=== PATIENT | male | born 1930 | race Caucasian/White ===

== ENCOUNTER 2016-04-15 13:35 | Outpatient (CLI) | payer MEDICARE, MEDICAID | END 2016-04-15 13:36 | disposition home or self-care (01) | DX: I25.10 Atherosclerotic heart disease of native coronary artery without angina pectoris (principal); I51.9 Heart disease, unspecified ==

== ENCOUNTER 2016-10-23 14:56 | Outpatient (CLI) | payer MEDICARE, MEDICAID ==
--- NOTE | 2016-10-23 15:48 | XRAY Report ---
TWO VIEW CHEST: 10/23/2016 CLINICAL INDICATION: Chronic cough. AP and lateral views of the chest demonstrate changes of previous cardiac surgery. The lungs are [place] ar. No effusion or pneumothorax is present. Interstitial opacities previously seen on chest CT and plain film of 02/28/2014 have resolved. IMPRESSION: CHANGES OF PREVIOUS CARDIAC SURGERY. NO EVIDENCE OF ACUTE CARDIOPULMONARY DISEASE. JOB #: [id number] EXT JOB #:[id number]
== END 2016-10-23 14:57 | disposition home or self-care (01) ==
LOC: DI.N 14:56
PROVIDERS: ATTEND Physician Assistant
DX: R05 Cough (principal)
CPT/HCPCS: 71020

== ENCOUNTER 2017-09-24 14:40 | Observation (INO) | payer MEDICARE, MEDICAID ==
--- NOTE | 2017-09-24 17:07 | CT Report ---
Procedure Date: 09/24/2017 Accession Number: [id number] / [id number] Procedure: CT - Head W/O CPT Code: FULL RESULT: EXAM: CT HEAD EXAM DATE: 09/24/2017 04:51 PM. CLINICAL HISTORY: Right leg weakness. COMPARISON: None. TECHNIQUE: Multiaxial CT images were obtained from the foramen magnum to the vertex. Reformats: Sagittal and coronal. IV contrast: None. In accordance with CT protocol optimization, one or more of the following dose reduction techniques were utilized for this exam: automated exposure control, adjustment of mA and/or KV based on patient size, or use of iterative reconstructive technique. FINDINGS: Parenchyma: No intraparenchymal hemorrhage. No evidence of mass, midline shift, or CT findings of acute infarction. Maria-white differentiation is distinct. Diffuse chronic microangiopathic white matter changes are evident. Extraaxial Spaces: Normal for age. No subdural or epidural collections identified. Ventricles: The ventricles and cortical sulci are enlarged, consistent with age-related tissue loss. Sinuses and orbits: No acute findings. Chronic appearing depression of the left anterior maxillary wall. Bones: No evidence of fracture or calvarial defect. IMPRESSION: Generalized age-related cortical atrophic changes without evidence of acute intracranial abnormality. See above. RADIA
--- NOTE | 2017-09-24 17:59 | ED Physician Documentation ---
History of Present Illness - Stated complaint Stated Complaint: R LEG NUMBNESS - Chief complaint Chief Complaint: Ext Problem - History obtained from History obtained from: Patient, Family - History of Present Illness Timing: Today, How many hours ago (6) Pain level max: 0 Pain level now: 0 Improved by: nothing Worsened by: nothing - Additonal information Additional information: States R leg feels heavy and trouble walking. No other symptoms. No dysarthria, no aphasia. No facial numbness or tingling. No difficulty with the arms. States he is concerned that he may have a DVT. No headache. No recent travel. No chest pain or shortness of breath. Review of Systems Ten Systems: 10 systems reviewed and negative Constitutional: denies: Fever, Chills Ears: denies: Ear pain Nose: denies: Rhinorrhea / runny nose, Congestion Throat: denies: Sore throat Cardiac: denies: Chest pain / pressure Respiratory: denies: Cough GI: denies: Abdominal Pain, Nausea, Vomiting : denies: Dysuria Skin: denies: Rash Musculoskeletal: denies: Neck pain, Back pain Neurologic: denies: Confused, Altered mental status, Headache, Head injury, LOC PD PAST MEDICAL HISTORY - Past Medical History Past Medical History: Yes Cardiovascular: [place] Endocrine/Autoimmune: Type 2 diabetes - Past Surgical History Past Surgical History: Yes Cardiovascular: Coronary stent - Present Medications Home Medications: Ambulatory Orders Medication Instructions Recorded Confirmed Aspirin 81 mg PO DAILY 09/24/17 09/24/17 Atorvastatin [Lipitor] 20 mg PO DAILY PM 09/24/17 09/24/17 Chlorthalidone 25 mg PO DAILY 09/24/17 09/24/17 Furosemide [Lasix] 40 mg PO DAILY 09/24/17 09/24/17 Insulin NPH Human [NovoLIN N] 50 unit SUBQ BID 09/24/17 09/24/17 Losartan Potassium 25 mg PO DAILY 09/24/17 09/24/17 Metoprolol Tartrate [Lopressor] 50 mg PO BID 09/24/17 09/24/17 Potassium Chloride [Micro-K] 10 meq PO DAILY 09/24/17 09/24/17 - Allergies Allergies/Adverse Reactions: Allergies Allergy/AdvReac Type Severity Reaction Status Date / Time No Known Drug Allergies Allergy Verified 09/24/17 14:47 - Social History Does the pt smoke?: No Smoking Status: Never smoker Does the pt drink ETOH?: Yes Does the pt have substance abuse?: No - Immunizations Immunizations are current?: Yes - POLST Patient has POLST: No PD ED PE NORMAL - Vitals Vital signs reviewed: Yes - General General: Alert and oriented X 3, No acute distress - HEENT HEENT: Moist mucous membranes - Neck Neck: Supple, no meningeal sign - Cardiac Cardiac: RRR, Strong equal pulses - Respiratory Respiratory: No respiratory distress, Clear bilaterally - Abdomen Abdomen: Soft, Non tender, Non distended - Back Back: No spinal TTP - Derm Derm: Warm and dry - Extremities Extremities: No edema, No calf tenderness / cord - Neuro Neuro: Alert and oriented X 3, animal rehabilitator 2-12 intact Eye Opening: Spontaneous Motor: Obeys Commands Verbal: Oriented GCS Score: 15 - Psych Psych: Normal mood, Normal affect Results - Vitals Vitals: Vital Signs - 24 hr 09/24/17 14:43 Temperature 36.3 C L Heart Rate 70 Respiratory 16 Rate Blood Pressure 130/57 L O2 Saturation 96 Oxygen O2 Source Room air - EKG (time done) 1658 Rate: Rate (enter#) (69) Rhythm: NSR [place]: Normal Intervals: Normal MO QRS: Normal Ischemia: Normal ST segments, Q waves (II, III, aVF) Computer interpretation: Agree with computer - Labs Labs: Laboratory Tests 09/24/17 09/24/17 09/24/17 15:51 18:02 18:02 WBC 11.2 H RBC 4.34 L Hgb 13.5 L Hct 40.9 L MCV 94.3 H MCH 31.1 H MCHC 33.0 RDW 12.9 Plt Count 183 MPV 10.3 Neut # (Auto) 7.6 H Lymph # (Auto) 2.3 [place] # (Auto) 1.1 H Eos # (Auto) 0.1 Baso # (Auto) 0.0 Absolute Nucleated RBC 0.00 Nucleated RBC % 0.0 Sodium 136 Potassium 3.7 Chloride 99 L Carbon Dioxide 27 Anion Gap 10.0 BUN 49 H Creatinine 1.8 H Estimated GFR (MDRD) 36 L Glucose 219 H Calcium 8.9 Total Bilirubin 0.8 AST 24 ALT 22 Alkaline Phosphatase 117 Total Protein 7.8 Albumin 4.0 Globulin 3.8 Albumin/Globulin Ratio 1.1 Lipase 39 Urine Color YELLOW Urine Clarity CLEAR Urine pH 6.0 Ur Specific [place] 1.010 Urine Protein NEGATIVE Urine Glucose (UA) 250 H Urine Ketones NEGATIVE Urine Occult Blood TRACE-INTA Urine Nitrite NEGATIVE Urine Bilirubin NEGATIVE Urine Urobilinogen 0.2 (NORMAL) Ur Leukocyte Esterase NEGATIVE Ur Microscopic Review NOT INDICATED Urine Culture Comments NOT INDICATED - Rads (name of study) head CT Radiology: Prelim report reviewed, EMP read contemporaneously, See rad report ( Generalized age-related cortical atrophic changes without evidence of acute intracranial abnormality.) R leg duplex US Radiology: Prelim report reviewed, EMP read contemporaneously, See rad report ( No DVT) PD MEDICAL DECISION MAKING - ED course Complexity details: reviewed results, re-evaluated patient, considered differential, d/w patient, d/w family, d/w lactation consultant ED course: Patient is an 87-year-old male with unilateral leg weakness. He does have weakness on extension and flexion at the knee as well as raising the leg from a seated position indicating quadriceps weakness. Has good plantar flexion of the right foot. Mildly decreased dorsiflexion. No acute findings on head CT. No evidence of DVT. Unclear etiology, possible stroke? Possible spinal cord lesion? Will place the patient in the hospital for MRI in the morning of at least the head if not the spine as well. Discussed the case with Dr. Esquivel, hospitalist who accepts. This document was made in part using voice recognition software. While efforts are made to proofread this document, sound alike and grammatical errors may occur. - Sepsis Event Vital Signs: Vital Signs - 24 hr 09/24/17 14:43 Temperature 36.3 C L Heart Rate 70 Respiratory 16 Rate Blood Pressure 130/57 L O2 Saturation 96 Oxygen O2 Source Room air Departure - Departure Disposition: ED Place in Observation Clinical Impression: Right leg weakness Condition: Stable Discharge Date/Time: 09/24/17 21:25 NIHSS - Time Time: 16:20 - Level of Consciousness Level of consciousness: (0) Alert, Keenly responsive LOC Questions: (0) Answers both Q's correct LOC Commands: (0) Performs both correctly - Gaze Best Gaze: (0) Normal - Visual Visual: (0) No loss - Facial Palsy Facial Palsy: (0) Normal, symmetrical movement - Motor Arms (both separate) Motor Arm (right): (0) No drift Motor Arm (left): (0) No drift - Motor Legs (both separate) Motor Leg (right): (1) Drift Motor Leg (left): (0) No drift - Limb Ataxia Limb Ataxia: (0) Absent - Sensory Sensory: (0) Normal - Best Language Best Language: (0) No aphasia - Dysarthria Dysarthria: (0) Normal - Extinction and Inattention (formally neg Extinction and inattention: (0) No abnormality - Total Score/Results Total Score/Result: 1
[2017-09-24 18:16] LABS: BASOPHILS % (AUTO) 0.4 %; EOSINOPHILS # (AUTO) 0.1 10^3/uL (0.0-0.7); EOSINOPHILS % (AUTO) 1.1 %; HGB - HEMOGLOBIN 13.5 g/dL (14.0-18.0); LYMPHOCYTES # (AUTO) 2.3 10^3/uL (1.5-3.5); LYMPHOCYTES % (AUTO) 20.9 %; MEAN CORPUSCULAR HEMOGLOBIN 31.1 pg (27.0-31.0); MEAN CORPUSCULAR VOLUME 94.3 fL (80.0-94.0); MEAN PLATELET VOLUME 10.3 fL (7.4-11.4); MONOCYTES # (AUTO) 1.1 10^3/uL (0.0-1.0); MONOCYTES % (AUTO) 9.7 %; NEUTROPHILS # (AUTO) 7.6 10^3/uL (1.5-6.6); NEUTROPHILS % (AUTO) 67.9 %; PLT - PLATELET COUNT 183 10^3/uL (130-450); RED BLOOD COUNT 4.34 10^6/uL (4.70-6.10); RED CELL DISTRIBUTION WIDTH 12.9 % (12.0-15.0); WHITE BLOOD COUNT 11.2 x10^3/uL (4.8-10.8)
--- NOTE | 2017-09-24 18:20 | Ultrasound Report ---
Procedure Date: 09/24/2017 Accession Number: [id number] / [id number] Procedure: US - Duplex Ext Veins Right CPT Code: FULL RESULT: EXAM: RIGHT LOWER EXTREMITY VENOUS ULTRASOUND EXAM DATE: 09/24/2017 05:16 PM. CLINICAL HISTORY: R LE weakness. COMPARISON: None. TECHNIQUE: Real-time sonographic vascular imaging was performed by the water pollution scientist through the lower extremity utilizing both color-flow and Doppler spectral analysis. Multiple apprenticeship training representative static images were saved for review. FINDINGS: Common Femoral Vein (CFV): Normal. CFV-GSV Junction: Normal. Profunda Femoral Vein (PFV): Normal. Femoral Vein (FV) Prox: Normal. Femoral Vein (FV) Mid: Normal. Femoral Vein (FV) Dist: Normal. Popliteal Vein: Normal. Posterior Tibial Veins: Normal. Peroneal Veins: Normal. Other: None. IMPRESSION: No evidence for deep venous thrombosis. RADIA
[2017-09-24 18:31] LABS: ALBUMIN/GLOBULIN RATIO 1.1 (1.0-2.2); BILIRUBIN,TOTAL 0.8 mg/dL (0.2-1.0); CALCIUM 8.9 mg/dL (8.5-10.3); CREATININE 1.8 mg/dL (0.6-1.2); TOTAL PROTEIN 7.8 g/dL (6.7-8.2)
[2017-09-24 18:36] LABS: BILIRUBIN,URINE NEGATIVE (NEGATIVE); GLUCOSE, URINE (UA) 250 mg/dL (NEGATIVE); KETONES,URINE (UA) NEGATIVE (NEGATIVE); LEUKOCYTE ESTERASE, URINE NEGATIVE (NEGATIVE); NITRITE,URINE NEGATIVE (NEGATIVE); OCCULT BLOOD,URINE TRACE-INTA (NEGATIVE); PROTEIN,URINE NEGATIVE (NEGATIVE); UROBILINOGEN,URINE 0.2 (NORMAL) E.U./dL (NORMAL)
[2017-09-24 18:37] LABS: CLARITY,URINE CLEAR (CLEAR)
[2017-09-24] MEDS ORDERED: ASPIRIN CHEW 81 MG TABLET PO STA (19:33)
[2017-09-24] MEDS ORDERED: SODIUM CHLORIDE FLUSH 0.9% 10 ML SYRINGE IVP PRN (19:50)
[2017-09-24] MEDS ORDERED: ACETAMINOPHEN 325 MG TABLET PO PRN (19:50)
[2017-09-24] MEDS ORDERED: oxyCODONE 5 MG TABLET PO PRN (19:50)
[2017-09-24] MEDS ORDERED: PROCHLORPERAZINE 10 MG/2 ML VIAL IVP PRN (19:50)
[2017-09-24] MEDS ORDERED: ZOLPIDEM 5 MG TABLET PO PRN (19:50)
[2017-09-24] MEDS ORDERED: ONDANSETRON 4 MG/2 ML VIAL IVP PRN (19:50)
--- NOTE | 2017-09-24 20:00 | HISTORY & PHYSICAL EXAMINATION ---
Chief Complaint - Chief Complaint Chief Complaint: Right leg weakness History of Present Illness - Admitted From Admitted From:: Emergency Department - History Obtained From Records Reviewed: Yes History obtained from: Patient and patients daughter Exam Limitations: Patient was mostly Azerbaijani speaking therefore daughter provided history - History of Present Illness HPI Comment/Other: Patient is an 87-year-old Citizen Of [place] gentleman who is Azerbaijani-speaking with a past medical history significant for type 2 diabetes, coronary artery disease status post open heart surgery at [facility] in [place], hypertension, hyperlipidemia and CKD stage III who presents to the emergency department with a chief complaint of right leg weakness. The history is provided by the patient and his daughter. The patient states that around 9 or 10 this morning he tried to get up from his recliner but was having difficulty. He states that at that time he felt as though his right leg was extremely heavy and difficult to lift. The patient's daughter came over to the house a few hours later and the patient continued to have this weakness in his right leg. The daughter states that she noticed that when he tried to walk he was dragging his right leg. She states that she had the patient lift up his arms smile and he did not appear to have any focal deficits at that time. Given that he continues to have this feeling of heaviness in the right leg and appeared to be weak she brought him into the emergency department. The patient also states that he is having some numbness and tingling in that leg but denies any other symptoms. Patient denies any headaches, stiff neck, fevers, chills, back pain or pain in the right leg. Patient denies any runny nose, sore throat, nasal congestion, difficulty swallowing, chest pain, shortness of air, cough, orthopnea, PND, increased lower extremity swelling, abdominal pain, nausea, vomiting, diarrhea, constipation, urinary urgency, urinary frequency, dysuria, joint swelling, joint pain, muscle aches, recent unintentional weight loss, changes in his appetite, hair loss, skin changes, polyuria, polydipsia or any night sweats. On presentation to the emergency department the patient was afebrile and vital signs were within normal limits. The patient underwent routine lab work which revealed a mild leukocytosis of 11.2 and an elevated creatinine of 1.8 which appears to be near his baseline of between 1.5 and 1.6. The patient was also hyperglycemic with a glucose of 219. The remainder of the patient's electrolytes are within normal limits. The patient's UA was negative. The patient underwent a Doppler ultrasound of the right lower extremity which showed no evidence for DVT. The patient also underwent a CT of his head which showed generalized age-related cortical atrophic changes without evidence of acute intracranial abnormality. Given that on examination in the emergency department the patient continued to have this focal right leg weakness it was felt that the patient likely had a stroke or TIA therefore he was placed in observation for further workup. History - Past Medical History Cardiovascular: reports: [place] Endocrine/Autoimmune: reports: Type 2 diabetes : reports: Renal insuffiency (CKD stage 3) MRSA Hx?: No - Past Surgical History Cardiovascular: reports: Coronary stent - Family & Social History Family History: Mother: Alzheimer's Disease, Sister: Diabetes, Type 2, Brother: Alzheimer's Disease, Diabetes, Type 2 Living arrangement: At home Living Situation: Alone Social History Notes: The patient lives in [place]. He lives all alone and is completely independent with all his activities of daily living. The patient still enjoys singing and plays the [employer]. He is a very jovial person. His daughter lives nearby and visits all the time. The patient was born and raised in [place] and moved to [facility] when he was in his 30s. He then moved with his to [facility] 12 years ago to be closer to his daughter. He is now . The patient quit smoking about 30 years ago prior to that he smoked half a pack to a pack a day for about 20 years. The patient states that he occasionally drinks 3 beers. He denies any illicit drug use. - POLST Patient has POLST: No POLST Status: Full Code Meds/Allgy - Home Medications Home Medications: Ambulatory Orders Medication Instructions Recorded Confirmed Aspirin 81 mg PO DAILY 09/24/17 09/24/17 Atorvastatin [Lipitor] 20 mg PO DAILY PM 09/24/17 09/24/17 Chlorthalidone 25 mg PO DAILY 09/24/17 09/24/17 Furosemide [Lasix] 40 mg PO DAILY 09/24/17 09/24/17 Insulin NPH Human [NovoLIN N] 50 unit SUBQ BID 09/24/17 09/24/17 Losartan Potassium 25 mg PO DAILY 09/24/17 09/24/17 Metoprolol Tartrate [Lopressor] 50 mg PO BID 09/24/17 09/24/17 Potassium Chloride [Micro-K] 10 meq PO DAILY 09/24/17 09/24/17 - Allergies Allergies/Adverse Reactions: Allergies Allergy/AdvReac Type Severity Reaction Status Date / Time No Known Drug Allergies Allergy Verified 09/24/17 14:47 Review of Systems - Other Findings Other Findings: A comprehensive review of systems was performed the pertinent positives and negatives are stated above in the HPI and the remainder of the review of systems is negative. Exam - Vital Signs Reviewed Vital Signs: Yes Vital Signs: Vital Signs x48h Temp Pulse Resp BP Pulse Ox 09/24/17 14:43 36.3 C L 70 16 130/57 L 96 - Physical Exam General Appearance: positive: No acute distress, Alert Eyes Bilateral: positive: Normal inspection, PERRL, No lid inflammation, Conjunctivae nml, No scleral icterus ENT: positive: ENT inspection nml, Pharynx nml, No signs of dehydration. negative: Purulent nasal drainage, Pharyngeal erythema, Oral lesions Neck: positive: Nml inspection, Thyroid nml, No JVD, Trachea midline. negative : Thyromegaly, Lymphadenopathy (R), Lymphadenopathy (L), Stiff neck, Carotid bruit, Tracheal deviation Respiratory: positive: Chest non-tender, No respiratory distress, Breath sounds nml. negative: Wheezes, Rales, Rhonchi Cardiovascular: positive: Regular rate & rhythm, No murmur, No gallop Peripheral Pulses: positive: 2+ Abdomen: positive: Non-tender, No organomegaly, Nml bowel sounds, No distention. negative: Guarding, Rebound, Hepatomegaly Back: positive: Nml inspection. negative: CVA tenderness (R), CVA tenderness (L ) Skin: positive: Color nml, No rash, Warm, Dry. negative: Cyanosis, Diaphoresis , Pallor, Skin rash Extremities: positive: Non-tender, Full ROM, Nml appearance, Pedal edema (ankle edema) Neurologic/Psychiatric: positive: Oriented x3, CN's nml (2-12), Sensation nml, Mood/affect nml, Weakness (Mild right lower extremity weakness) Conclusion/Plan - Problem List (1) Right leg weakness Conclusion/Plan: Patient presented to the emergency department with right lower extremity weakness that started early on the morning. Patient was out of the window for TPA. Patient had no other focal neurologic deficits. Patient had a negative CT head. Patient has risk factors of age, hypertension, diabetes and coronary artery disease for stroke. Patient appears likely to have had a TIA or stroke. Plan: Aspirin Lipitor MRA head and neck MRI brain Echo Lipid profile [facility] PT eval (2) Hypertension Conclusion/Plan: Patient has history of hypertension and blood pressure slightly elevated on presentation. Given the possibility of ongoing stroke we will not restart any of the patient's home antihypertensive medications. Patient will be allowed to have permissive hypertension for the next 48 hours. We will continue to monitor the patient's blood pressure and if blood pressure does get to be greater than 190 systolic we will consider giving him antihypertensive medication. Qualifiers: Hypertension type: essential hypertension Qualified Code(s): I10 - Essential (primary) hypertension (3) Diabetes Conclusion/Plan: Patient has history of diabetes and presents with hyperglycemia. Patient is on NPH insulin at home. Plan: Patient will be placed on Lantus 30 units daily along with sliding scale insulin and diabetic diet. We will check the patient's hemoglobin A1c. We will check blood glucose before meals at bedtime. Qualifiers: Diabetes mellitus type: type 2 Diabetes mellitus complication status: with hyperglycemia (4) CKD (chronic kidney disease) stage 3, GFR 30-59 ml/min Conclusion/Plan: The patient has a history of chronic kidney disease stage III likely secondary to diabetes. The patient's creatinine ranges anywhere between 1.5 and 2.0. Today on presentation the patient's creatinine is 1.8. This is likely his baseline creatinine. We will give the patient IV fluids and monitor his creatinine. Will avoid any nephrotoxic agents. Patient will not undergo CT angiogram and we will do a MR angiogram of his brain to avoid contrast-induced nephropathy. (5) Hyperlipidemia Conclusion/Plan: Patient is a history of hyperlipidemia and is on Lipitor at home. While the patient is hospitalized we will increase his Lipitor dose to 80mg as he is likely having a stroke or TIA. Qualifiers: Hyperlipidemia type: unspecified Qualified Code(s): E78.5 - Hyperlipidemia , unspecified - Lab Results Lab results reviewed: Yes Fish Bones: 09/24/17 18:02 09/24/17 18:02 Other Lab Results: Laboratory Results WBC 11.2 x10^3/uL (4.8-10.8) H 09/24/17 18:02 RBC 4.34 10^6/uL (4.70-6.10) L 09/24/17 18:02 Hgb 13.5 g/dL (14.0-18.0) L 09/24/17 18:02 Hct 40.9 % (42.0-52.0) L 09/24/17 18:02 MCV 94.3 fL (80.0-94.0) H 09/24/17 18:02 MCH 31.1 pg (27.0-31.0) H 09/24/17 18: MCHC 33.0 g/dL (32.0-36.0) 09/24/17 18: RDW 12.9 % (12.0-15.0) 09/24/17 18: Plt Count 183 10^3/uL (130-450) 09/24/17 18: MPV 10.3 fL (7.4-11.4) 09/24/17 18:02 Neut # (Auto) 7.6 10^3/uL (1.5-6.6) H 09/24/17 18:02 Lymph # (Auto) 2.3 10^3/uL (1.5-3.5) 09/24/17 18:02 [place] # (Auto) 1.1 10^3/uL (0.0-1.0) H 09/24/17 18:02 Eos # (Auto) 0.1 10^3/uL (0.0-0.7) 09/24/17 18:02 Baso # (Auto) 0.0 10^3/uL (0.0-0.1) 09/24/17 18:02 Absolute Nucleated RBC 0.00 x10^3/uL 09/24/17 18:02 Nucleated RBC % 0.0 /100WBC 09/24/17 18:02 Sodium 136 mmol/L (135-145) 09/24/17 18:02 Potassium 3.7 mmol/L (3.5-5.0) 09/24/17 18:02 Chloride 99 mmol/L (101-111) L 09/24/17 18:02 Carbon Dioxide 27 mmol/L (21-32) 09/24/17 18:02 Anion Gap 10.0 (6-13) 09/24/17 18:02 BUN 49 mg/dL (6-20) H 09/24/17 18:02 Creatinine 1.8 mg/dL (0.6-1.2) H 09/24/17 18:02 Estimated GFR (MDRD) 36 (>89) L 09/24/17 18:02 Glucose 219 mg/dL (70-100) H 09/24/17 18:02 Calcium 8.9 mg/dL (8.5-10.3) 09/24/17 18:02 Total Bilirubin 0.8 mg/dL (0.2-1.0) 09/24/17 18:02 AST 24 IU/L (10-42) 09/24/17 18:02 ALT 22 IU/L (10-60) 09/24/17 18:02 Alkaline Phosphatase 117 IU/L (42-121) 09/24/17 18:02 Total Protein 7.8 g/dL (6.7-8.2) 09/24/17 18:02 Albumin 4.0 g/dL (3.2-5.5) 09/24/17 18:02 Globulin 3.8 g/dL (2.1-4.2) 09/24/17 18:02 Albumin/Globulin Ratio 1.1 (1.0-2.2) 09/24/17 18:02 Lipase 39 U/L (22-51) 09/24/17 18:02 Urine Color YELLOW 09/24/17 15:51 Urine Clarity CLEAR (CLEAR) 09/24/17 15:51 Urine pH 6.0 PH (5.0-7.5) 09/24/17 15:51 Ur Specific [place] 1.010 (1.002-1.030) 09/24/17 15:51 Urine Protein NEGATIVE mg/dL (NEGATIVE) 09/24/17 15:51 Urine Glucose (UA) 250 mg/dL (NEGATIVE) H 09/24/17 15:51 Urine Ketones NEGATIVE mg/dL (NEGATIVE) 09/24/17 15:51 Urine Occult Blood TRACE-INTA (NEGATIVE) 09/24/17 15:51 Urine Nitrite NEGATIVE (NEGATIVE) 09/24/17 15:51 Urine Bilirubin NEGATIVE (NEGATIVE) 09/24/17 15:51 Urine Urobilinogen 0.2 (NORMAL) E.U./dL (NORMAL) 09/24/17 15:51 Ur Leukocyte Esterase NEGATIVE (NEGATIVE) 09/24/17 15:51 Ur Microscopic Review NOT INDICATED 09/24/17 15:51 Urine Culture Comments NOT INDICATED 09/24/17 15:51 - Diagnostic Imaging Results Diagnostic Imaging Results: positive: Final report reviewed Diagnostic Imaging Results Comments: CT head Impression: Generalized age-related cortical atrophic changes without evidence of acute intracranial abnormality. Doppler ultrasound of the right lower extremity extremity Impression: No evidence for deep venous thrombosis. Core Measures - Anticipated LOS I expect patient to be DC'd or transferred within 96 hours.: Yes - DVT/VTE - Prophylaxis VTE/DVT Device ordered at admit?: Yes
[2017-09-24] MEDS ORDERED: ATORVASTATIN 40 MG TABLET PO SCH (21:00)
[2017-09-24] MEDS: INSULIN ASPART 300 UNIT/3 ML PEN SUBQ SCH (22:34)
[2017-09-24] MEDS: SODIUM CHLORIDE 0.9% 1,000 ML IV SCH (22:34)
[2017-09-24] MEDS ORDERED: INSULIN GLARGINE 300 UNIT/3 ML PEN SUBQ SCH (23:00)
[2017-09-25] MEDS: SODIUM CHLORIDE FLUSH 0.9% 10 ML SYRINGE IVP SCH ×3 (01:48→17:10)
[2017-09-25 06:12] LABS: BASOPHILS % (AUTO) 0.4 %; EOSINOPHILS # (AUTO) 0.2 10^3/uL (0.0-0.7); EOSINOPHILS % (AUTO) 2.4 %; LYMPHOCYTES # (AUTO) 2.4 10^3/uL (1.5-3.5); LYMPHOCYTES % (AUTO) 25.1 %; MEAN CORPUSCULAR HEMOGLOBIN 31.4 pg (27.0-31.0); MEAN CORPUSCULAR HGB CONC 33.2 g/dL (32.0-36.0); MEAN CORPUSCULAR VOLUME 94.8 fL (80.0-94.0); MEAN PLATELET VOLUME 10.1 fL (7.4-11.4); MONOCYTES # (AUTO) 1.1 10^3/uL (0.0-1.0); MONOCYTES % (AUTO) 11.7 %; NEUTROPHILS # (AUTO) 5.8 10^3/uL (1.5-6.6); NEUTROPHILS % (AUTO) 60.4 %; PLT - PLATELET COUNT 154 10^3/uL (130-450); RED BLOOD COUNT 3.82 10^6/uL (4.70-6.10); WHITE BLOOD COUNT 9.6 x10^3/uL (4.8-10.8)
[2017-09-25 06:27] LABS: ALBUMIN 3.3 g/dL (3.2-5.5); ALBUMIN/GLOBULIN RATIO 1.1 (1.0-2.2); BILIRUBIN,TOTAL 0.7 mg/dL (0.2-1.0); CALCIUM 8.3 mg/dL (8.5-10.3); CREATININE 1.7 mg/dL (0.6-1.2); TOTAL PROTEIN 6.3 g/dL (6.7-8.2)
[2017-09-25 06:39] LABS: INR 1.1 (0.8-1.2); PT - PROTHROMBIN TIME 12.2 secs (9.9-12.6)
[2017-09-25 07:29] LABS: HB2 TOTAL 12.3 g/dL; HEMOGLOBIN A1C 1.45 g/dL; HEMOGLOBIN A1C % 12.9 % (4.6-6.2)
[2017-09-25] MEDS: INSULIN ASPART 300 UNIT/3 ML PEN SUBQ SCH ×3 (07:59→17:14)
[2017-09-25] MEDS: SODIUM CHLORIDE 0.9% 1,000 ML IV SCH (07:59)
[2017-09-25] MEDS ORDERED: ASPIRIN 325 MG TABLET PO SCH (08:00)
[2017-09-25] MEDS ORDERED: POLYETHYLENE GLYCOL 3350 17 GM PACKET PO SCH (09:00)
[2017-09-25] MEDS ORDERED: FAMOTIDINE 20 MG TABLET PO SCH (09:00)
[2017-09-25] MEDS ORDERED: LORazepam 2 MG/ML VIAL IVP SCH (11:30)
[2017-09-25] MEDS ORDERED: GADOBUTROL 15 MMOL/15 ML VIAL ONE (11:40)
[2017-09-25] MEDS ORDERED: GADOBUTROL 15 MMOL/15 ML VIAL IVP ONE (15:06)
--- NOTE | 2017-09-25 15:41 | MRI Report ---
Procedure Date: 09/25/2017 Accession Number: [id number] / [id number] Procedure: MRI - Brain W/O CPT Code: FULL RESULT: EXAM: MRI BRAIN WITHOUT CONTRAST EXAM DATE: 09/25/2017 01:40 PM. CLINICAL HISTORY: Right leg weakness. COMPARISON: CT scan of the head without contrast 09/24/2017. TECHNIQUE: Multiplanar, multisequence T1-weighted and fluid-sensitive MR sequences of the brain were performed. Sequences optimized for routine evaluation. Other: None. IV Contrast: None. FINDINGS: There is diffusion restriction demonstrated in the lateral left thalamus (11-12, 505). This would be consistent with an area of acute to subacute cerebral infarction. Recommend correlation with the patient's clinical symptoms. There is no evidence of overt hemorrhagic transformation within this area of cerebral infarction. There is a second punctate focus of diffusion restriction consistent with a second small focus of acute or subacute cerebral infarction present in the left frontal centrum semiovale (17, 505). The images are degraded by extensive motion. There is a small degenerative pannus posterior to the odontoid process. The corpus callosum is of normal size and configuration. The pituitary and sella are normal. The FLAIR images demonstrate multiple punctate and confluent areas of T2 hyperintensity within the subcortical, deep, and periventricular white matter. This is consistent with a mild to moderate degree of chronic small vessel ischemia. There is enlargement of the lateral ventricles and the third ventricle but not out of proportion to the enlargement of the cerebral sulci. This is consistent with a mild to moderate degree of generalized volume loss. There is a small area of susceptibility demonstrated within the right extreme capsule likely reflecting an area of old blood products from a remote intraparenchymal hemorrhage. Recommend correlation with history. Impression: 1. The images are degraded by extensive motion. 2. Given the above limitation, there is diffusion restriction consistent with an area of acute to subacute cerebral infarction demonstrated within the left thalamus. There is a second punctate focus in the left centrum semiovale. There is no evidence of overt hemorrhagic transformation within these areas of cerebral infarction. 3. There is mild to moderate degree of chronic small vessel ischemia and mild to moderate degree of generalized volume loss. 4. There are old blood products demonstrated within the right extreme capsule likely from a remote intraparenchymal hemorrhage. Recommend correlation with history. The critical result notification system was initiated by Dr. Theo Pandya at 15:34 hrs on 09/25/17. The above findings were discussed with Dr. Chester by Dr. Theo Pandya at 15:39 hrs on 09/25/17.
--- NOTE | 2017-09-25 15:48 | MRI Report ---
Procedure Date: 09/25/2017 Accession Number: [id number] / [id number] Procedure: MRI - Angio Brain W/O (MRA) CPT Code: FULL RESULT: EXAM MRA BRAIN EXAM DATE: 09/25/2017 01:40 PM. CLINICAL HISTORY: Right leg weakness. COMPARISON: None. TECHNIQUE: Multiplanar, multisequence MRA sequences of the brain were performed. Other: None. Post-processing: Multiplanar 3D MIP reconstructions. IV Contrast: None. FINDINGS: The images are degraded by severe motion. There is gross flow-related enhancement demonstrated within the right vertebral artery intradural segment. There are questionable multiple mild stenoses within the right vertebral artery intradural segment but these are likely overestimated due to the superimposed motion. The proximal portion of the right posterior inferior cerebellar artery is grossly without flow-limiting stenosis. The left posterior inferior cerebellar artery is not adequately visualized due to the extensiveness of the motion. Repeat imaging can be performed as deemed clinically appropriate. The left vertebral artery intradural segment is also poorly demonstrated due to motion. It appears to be hypoplastic. There is dropout of signal distally which may be secondary to hypoplasia at the distal portion of the vessel as well as superimposed motion. The basilar artery is grossly without flow-limiting stenosis. The right and left anterior-inferior cerebral arteries are poorly demonstrated due to the superimposed motion. The right superior cerebellar artery is grossly without flow-limiting stenosis. The proximal portion of the left superior cerebellar artery appears to be without flow-limiting stenosis. The left P1 and proximal P2 segments of the left posterior cerebral artery are without flow-limiting stenosis. However there appears to be a suggestion of an acute cut-off sign of the distal left P2/proximal P3 segment of the left posterior cerebral artery which may reflect a thrombosis. However, other etiologies such as superimposed motion could produce a similar appearance. There is a small left posterior communicating artery. There is a moderate sized right posterior communicating artery demonstrated. There is narrowing suggested in the left cavernous intracranial internal carotid artery measuring between 50-80%. This is likely overestimated due to superimposed motion. The right M1 and the proximal right M2 branches of the right middle cerebral artery are without flow-limiting stenosis. The left M1 and the proximal left M2 segments of the left middle cerebral artery are without flow-limiting stenosis. The bilateralA1 segments of the anterior cerebral arteries are without flow-limiting stenosis. There is a small anterior communicating artery. The right and left A2 segments of the anterior cerebral arteries within the provided field of view grossly are without flow-limiting stenosis. Impression: 1. There is severe motion present on the angiographic images. This limits the overall sensitivity of the exam. Areas of pathology could be obscured or distorted. The degree of stenosis could be somewhat over or underestimated. 2. The left posterior inferior cerebellar arteries are not adequately visualized due to superimposed motion. 3. There is a suggestion of an acute cut-off sign of the distal left P2 segment of the left posterior cerebral artery likely reflecting an area of thrombosis and would correlate with the patient's known area of cerebral infarction identified on the accompanying brain MRI. However, again this could be somewhat over or underestimated due to superimposed motion. Repeat imaging can be performed as deemed clinically appropriate once the patient is able to remain motionless for the exam. 4. 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 This area of narrowing could again be somewhat overestimated due to superimposed motion. The above limitations of this exam were discussed with by Dr. Pandya on 09/25/2017 at 3:38 PM.
--- NOTE | 2017-09-25 15:51 | MRI Report ---
Procedure Date: 09/25/2017 Accession Number: [id number] / [id number] Procedure: MRI - Angio Neck W/WO (MRA) CPT Code: FULL RESULT: EXAM: MR ANGIOGRAM NECK WITHOUT AND WITH CONTRAST EXAM DATE: 09/25/2017 01:40 PM. CLINICAL HISTORY: Right leg weakness. COMPARISON: None. TECHNIQUE: Multiplanar, multisequence MRA sequences of the neck were performed. Other: None. Post-processing: Multiplanar 3D MIP reconstructions. IV Contrast: 9 mL Gadavist. Evaluation of arterial stenosis is based on a NASCET method of measurement. FINDINGS: The images are degraded by motion. There is a normal configuration of the aortic arch. The right common carotid artery is smooth and nonstenotic. The right carotid bulb exhibits a mild stenosis measuring less than 25%. The extracranial right internal carotid artery is without flow-limiting stenosis using NASCET criteria. The right vertebral artery V1, V2, V3 segments are without flow limiting stenosis. The left common carotid artery, carotid bulb, and extracranial left internal carotid artery are smooth and nonstenotic. 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 There is an approximately 50% stenosis suggested within the proximal portion of the vessel. This may be somewhat overestimated due to superimposed motion. The left V2 and V3 segments of the left vertebral artery are without flow-limiting stenosis. IMPRESSION: 1. The images are degraded by motion. 2. There is a less than 25% stenosis suggested within the right carotid bulb. 3. 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 There is an approximately 50% stenosis suggested within the proximal portion of the vessel. This may be somewhat overestimated due to motion.
--- NOTE | 2017-09-25 17:00 | DISCHARGE SUMMARY ---
Discharge Summary Admit Date: 09/24/17 Discharge Date: 09/25/17 Discharging Provider: Yamel Chester DO Primary Care Provider: Jameson Garcias Code Status: Attempt Resuscitation Condition at Discharge: Stable - DIAGNOSES Admission Diagnoses: 1. Right leg weakness 2. Hypertension 3. Diabetes 4. Chronic kidney disease stage III 5. Hyperlipidemia Discharge Diagnoses with Status of Each Condition: 1. Right leg weakness- Resolving/resolved. 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 I spoke with Dr. Naylor, neurologist on-call at [facility] and she feels that the patient may be safely discharged on aspirin and a statin with instructions to follow-up with his primary care physician and a neurologist next week. 2. Hypertension- The patient was allowed to be permissively hypertensive however was hypotensive most of the day. We will discharge him home on his home medications. 3. Diabetes- The patient has a history of diabetes and presents with hyperglycemia. He states that he checks his blood sugar several times a day and is usually around 150. Despite this the hemoglobin A1c was found to be 12.9 which indicates an average glucose of 324. I have advised the patient to get a new blood glucose monitor and have given a prescription for 1. Had a long discussion with the patient's daughter as well and she is aware of the situation. 4. Chronic kidney disease stage III- Patient has a history of chronic kidney disease, stage III and typically has a mildly elevated creatinine. His creatinine has come down from 1.8 yesterday to 1.7 today. His lowest creatinine the last several years is 1.5. Continue present care. 5. Hyperlipidemia- Patient has a history of hyperlipidemia and takes Lipitor at home. We will increase his dose to 80 mg for his CVA. - HPI History of Present Illness: From Dr Esquivel's H&P: Patient is an 87-year-old [place] gentleman who is Yoruba-speaking with a past medical history significant for type 2 diabetes, coronary artery disease status post open heart surgery at [facility] in [place], hypertension, hyperlipidemia and CKD stage III who presents to the emergency department with a chief complaint of right leg weakness. The history is provided by the patient and his daughter. The patient states that around 9 or 10 this morning he tried to get up from his recliner but was having difficulty. He states that at that time he felt as though his right leg was extremely heavy and difficult to lift. The patient's daughter came over to the house a few hours later and the patient continued to have this weakness in his right leg. The daughter states that she noticed that when he tried to walk he was dragging his right leg. She states that she had the patient lift up his arms smile and he did not appear to have any focal deficits at that time. Given that he continues to have this feeling of heaviness in the right leg and appeared to be weak she brought him into the emergency department. The patient also states that he is having some numbness and tingling in that leg but denies any other symptoms. Patient denies any headaches, stiff neck, fevers, chills, back pain or pain in the right leg. Patient denies any runny nose, sore throat, nasal congestion, difficulty swallowing, chest pain, shortness of air, cough, orthopnea, PND, increased lower extremity swelling, abdominal pain, nausea, vomiting, diarrhea, constipation, urinary urgency, urinary frequency, dysuria, joint swelling, joint pain, muscle aches, recent unintentional weight loss, changes in his appetite, hair loss, skin changes, polyuria, polydipsia or any night sweats. On presentation to the emergency department the patient was afebrile and vital signs were within normal limits. The patient underwent routine lab work which revealed a mild leukocytosis of 11.2 and an elevated creatinine of 1.8 which appears to be near his baseline of between 1.5 and 1.6. The patient was also hyperglycemic with a glucose of 219. The remainder of the patient's electrolytes are within normal limits. The patient's UA was negative. The patient underwent a Doppler ultrasound of the right lower extremity which showed no evidence for DVT. The patient also underwent a CT of his head which showed generalized age-related cortical atrophic changes without evidence of acute intracranial abnormality. Given that on examination in the emergency department the patient continued to have this focal right leg weakness it was felt that the patient likely had a stroke or TIA therefore he was placed in observation for further workup. - HOSPITAL COURSE Hospital Course: Patient was admitted to an observation bed and his right leg weakness slowly resolved over the course of the next several hours. He is now able ambulate independently although the physical therapist notes that his foot placement is a little bit "off". His weakness is almost completely resolved. An echocardiogram was performed which failed to show any significant abnormalities. MRA of the neck failed to show any significant stenosis, however an MRI of the brain found the patient to have had an acute/subacute infarction in the thalamus with a 10 mm long axis as well as a punctate lesion in the left frontal lobe a proximally 3 mm in diameter. The neurologist on-call at [facility] (Dr Naylor) was contacted who feels that the patient may be safely discharged with a med regimen of aspirin and statin. - ALLERGIES Allergies/Adverse Reactions: Allergies Allergy/AdvReac Type Severity Reaction Status Date / Time No Known Drug Allergies Allergy Verified 09/24/17 14:47 - MEDICATIONS Home Medications: Ambulatory Orders Medication Instructions Recorded Confirmed Aspirin 81 mg PO DAILY 09/24/17 09/24/17 Atorvastatin [Lipitor] 20 mg PO DAILY PM 09/24/17 09/24/17 Chlorthalidone 25 mg PO DAILY 09/24/17 09/24/17 Furosemide [Lasix] 40 mg PO DAILY 09/24/17 09/24/17 Insulin NPH Human [NovoLIN N] 50 unit SUBQ BID 09/24/17 09/24/17 Losartan Potassium 25 mg PO DAILY 09/24/17 09/24/17 Metoprolol Tartrate [Lopressor] 50 mg PO BID 09/24/17 09/24/17 Potassium Chloride [Micro-K] 10 meq PO DAILY 09/24/17 09/24/17 - PHYSICAL EXAM AT DISCHARGE General Appearance: positive: No acute distress, Alert Eyes Bilateral: positive: Normal inspection, PERRL, EOMI, No lid inflammation, Conjunctivae nml, No scleral icterus ENT: positive: ENT inspection nml, Pharynx nml, No signs of dehydration Neck: positive: Nml inspection, Thyroid nml, No JVD, Trachea midline. negative : Thyromegaly Respiratory: positive: Chest non-tender, No respiratory distress, Breath sounds nml. negative: Wheezes, Rales, Rhonchi Cardiovascular: positive: Regular rate & rhythm, No murmur, No gallop Peripheral Pulses: positive: 1+ Abdomen: positive: Non-tender, No organomegaly, Nml bowel sounds, No distention. negative: Guarding, Rebound Back: positive: Nml inspection. negative: CVA tenderness (R), CVA tenderness (L ) Skin: positive: Color nml, No rash, Warm, Dry. negative: Cyanosis Extremities: positive: Non-tender, Full ROM, Nml appearance, No pedal edema Neurologic/Psychiatric: positive: Oriented x3, CN's nml (2-12), Sensation nml, Mood/affect nml, Weakness (R Lower extremity, resolving). negative: Motor nml - LABS Result Diagrams: 09/25/17 06:00 09/25/17 06:00 - DIAGNOSTIC IMAGING Diagnostic Imaging Results: Final report reviewed Diagnostic Imaging Results Comments: EXAM: MRI BRAIN WITHOUT CONTRAST EXAM DATE: 09/25/2017 01:40 PM. CLINICAL HISTORY: Right leg weakness. COMPARISON: CT scan of the head without contrast 09/24/2017. TECHNIQUE: Multiplanar, multisequence T1-weighted and fluid-sensitive MR sequences of the brain were performed. Sequences optimized for routine evaluation. Other: None. IV Contrast: None. FINDINGS: There is diffusion restriction demonstrated in the lateral left thalamus (11-12, 505). This would be consistent with an area of acute to subacute cerebral infarction. Recommend correlation with the patient's clinical symptoms. There is no evidence of overt hemorrhagic transformation within this area of cerebral infarction. There is a second punctate focus of diffusion restriction consistent with a second small focus of acute or subacute cerebral infarction present in the left frontal centrum semiovale (17, 505). The images are degraded by extensive motion. There is a small degenerative pannus posterior to the odontoid process. The corpus callosum is of normal size and configuration. The pituitary and sella are normal. The FLAIR images demonstrate multiple punctate and confluent areas of T2 hyperintensity within the subcortical, deep, and periventricular white matter. This is consistent with a mild to moderate degree of chronic small vessel ischemia. There is enlargement of the lateral ventricles and the third ventricle but not out of proportion to the enlargement of the cerebral sulci. This is consistent with a mild to moderate degree of generalized volume loss. There is a small area of susceptibility demonstrated within the right extreme capsule likely reflecting an area of old blood products from a remote intraparenchymal hemorrhage. Recommend correlation with history. Impression: 1. The images are degraded by extensive motion. 2. Given the above limitation, there is diffusion restriction consistent with an area of acute to subacute cerebral infarction demonstrated within the left thalamus. There is a second punctate focus in the left centrum semiovale. There is no evidence of overt hemorrhagic transformation within these areas of cerebral infarction. 3. There is mild to moderate degree of chronic small vessel ischemia and mild to moderate degree of generalized volume loss. 4. There are old blood products demonstrated within the right extreme capsule likely from a remote intraparenchymal hemorrhage. Recommend correlation with history. EXAM: MR ANGIOGRAM NECK WITHOUT AND WITH CONTRAST EXAM DATE: 09/25/2017 01:40 PM. CLINICAL HISTORY: Right leg weakness. COMPARISON: None. TECHNIQUE: Multiplanar, multisequence MRA sequences of the neck were performed. Other: None. Post-processing: Multiplanar 3D MIP reconstructions. IV Contrast: 9 mL Gadavist. Evaluation of arterial stenosis is based on a NASCET method of measurement. FINDINGS: The images are degraded by motion. There is a normal configuration of the aortic arch. The right common carotid artery is smooth and nonstenotic. The right carotid bulb exhibits a mild stenosis measuring less than 25%. The extracranial right internal carotid artery is without flow-limiting stenosis using NASCET criteria. The right vertebral artery V1, V2, V3 segments are without flow limiting stenosis. The left common carotid artery, carotid bulb, and extracranial left internal carotid artery are smooth and nonstenotic. 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 There is an approximately 50% stenosis suggested within the proximal portion of the vessel. This may be somewhat overestimated due to superimposed motion. The left V2 and V3 segments of the left vertebral artery are without flow-limiting stenosis. IMPRESSION: 1. The images are degraded by motion. 2. There is a less than 25% stenosis suggested within the right carotid bulb. 3. 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 There is an approximately 50% stenosis suggested within the proximal portion of the vessel. This may be somewhat overestimated due to motion. EXAM: RIGHT LOWER EXTREMITY VENOUS ULTRASOUND EXAM DATE: 09/24/2017 05:16 PM. CLINICAL HISTORY: R LE weakness. COMPARISON: None. TECHNIQUE: Real-time sonographic vascular imaging was performed by the print production coordinator through the lower extremity utilizing both color-flow and Doppler spectral analysis. Multiple teleservices representative static images were saved for review. FINDINGS: Common Femoral Vein (CFV): Normal. CFV-GSV Junction: Normal. Profunda Femoral Vein (PFV): Normal. Femoral Vein (FV) Prox: Normal. Femoral Vein (FV) Mid: Normal. Femoral Vein (FV) Dist: Normal. Popliteal Vein: Normal. Posterior Tibial Veins: Normal. Peroneal Veins: Normal. Other: None. IMPRESSION: No evidence for deep venous thrombosis. EXAM: CT HEAD EXAM DATE: 09/24/2017 04:51 PM. CLINICAL HISTORY: Right leg weakness. COMPARISON: None. TECHNIQUE: Multiaxial CT images were obtained from the foramen magnum to the vertex. Reformats: Sagittal and coronal. IV contrast: None. In accordance with CT protocol optimization, one or more of the following dose reduction techniques were utilized for this exam: automated exposure control, adjustment of mA and/or KV based on patient size, or use of iterative reconstructive technique. FINDINGS: Parenchyma: No intraparenchymal hemorrhage. No evidence of mass, midline shift, or CT findings of acute infarction. Maria-white differentiation is distinct. Diffuse chronic microangiopathic white matter changes are evident. Extraaxial Spaces: Normal for age. No subdural or epidural collections identified. Ventricles: The ventricles and cortical sulci are enlarged, consistent with age-related tissue loss. Sinuses and orbits: No acute findings. Chronic appearing depression of the left anterior maxillary wall. Bones: No evidence of fracture or calvarial defect. IMPRESSION: Generalized age-related cortical atrophic changes without evidence of acute intracranial abnormality. See above. - FOLLOW UP Follow Up: Follow-up with Jameson Garcias this week and with a neurologist as soon as possible. - TIME SPENT Time Spent in Discharge (Minutes): 45
--- NOTE | 2017-09-25 17:23 | Discharge Plan ---
Discharge Plan Disposition: 01 Home, Self Care Condition: Stable Prescriptions: Atorvastatin [Lipitor] 80 mg PO QPM #30 tablet Diet: Diabetic Activity Restrictions: Activity as Tolerated Shower Restrictions: No Driving Restrictions: No Weight Bearing: Full Weight Instruction Topics: Stroke Sx Additional Instructions or Follow Up instructions: Follow-up with a neurologist as soon as possible. You have had 2 small strokes. Make sure you take the aspirin and Lipitor every day. No Smoking: If you smoke, Please STOP! Call for help. Follow-up with: Jameson Garcias PA-C [Primary Care Provider] -
[2017-09-25 17:51] VITALS: BP 160/60
== END 2017-09-25 18:31 | disposition home or self-care (01) ==
LOC: ED 14:40 → OBS 19:50
PROVIDERS: ADMIT Internal Medicine; ATTEND Hospitalist
DX: I63.9 Cerebral infarction, unspecified (principal); G83.11 Monoplegia of lower limb affecting right dominant side; R29.701 NIHSS score 1; I10 Essential (primary) hypertension; I95.9 Hypotension, unspecified; E11.65 Type 2 diabetes mellitus with hyperglycemia; E11.22 Type 2 diabetes mellitus with diabetic chronic kidney disease; N18.3 Chronic kidney disease, stage 3 (moderate); E78.5 Hyperlipidemia, unspecified; I25.10 Atherosclerotic heart disease of native coronary artery without angina pectoris; I25.2 Old myocardial infarction; Z79.4 Long term (current) use of insulin; Z79.82 Long term (current) use of aspirin; Z95.5 Presence of coronary angioplasty implant and graft; Z79.899 Other long term (current) drug therapy; Z87.891 Personal history of nicotine dependence
CPT/HCPCS: 36415; 70450; 70544; 70549; 70551; 80053; 81003; 83036; 83690; 85025; 85610; 93005; 93306; 93971; 96361; 96374; 97161; 99283; 99284; A9270; A9585; G0378; G8978; G8979; J1815; J2060; 81001; 87086

== ENCOUNTER 2017-11-06 12:57 | Inpatient (IN) | payer MEDICARE, MEDICAID ==
--- NOTE | 2017-11-06 13:57 | ED Physician Documentation ---
History of Present Illness - Stated complaint Stated Complaint: SOA/DIZZY - Chief complaint Chief Complaint: General - History obtained from History obtained from: Patient, Family (daughter) - History of Present Illness Timing: Other (This is an 87-year-old gentleman who had a stroke a few months ago with persistent symptoms. Also chronic dizziness that is worsening. About 5 years ago per the daughter it sounds like he had a thoracentesis with a therapeutic misadventure necessitating sternotomy and repair of the heart. Since discharge from the hospital he has been short of breath but it has been much worse over the last couple of days with exertional dyspnea and lightheadedness. He denies cough or chest pain or significant pedal edema.) Review of Systems Ten Systems: 10 systems reviewed and negative Constitutional: reports: Fatigue. denies: Fever, Chills Cardiac: denies: Chest pain / pressure, Palpitations, Calf pain Respiratory: reports: Dyspnea. denies: Cough PD PAST MEDICAL HISTORY - Past Medical History Cardiovascular: PR Endocrine/Autoimmune: Type 2 diabetes : Renal insuffiency (CKD stage 3) - Past Surgical History Past Surgical History: Yes Cardiovascular: Coronary stent - Present Medications Home Medications: Ambulatory Orders Medication Instructions Recorded Confirmed Aspirin 81 mg PO DAILY 09/24/17 09/24/17 Atorvastatin [Lipitor] 20 mg PO DAILY PM 09/24/17 09/24/17 Chlorthalidone 25 mg PO DAILY 09/24/17 09/24/17 Furosemide [Lasix] 40 mg PO DAILY 09/24/17 09/24/17 Insulin NPH Human [NovoLIN N] 50 unit SUBQ BID 09/24/17 09/24/17 Losartan Potassium 25 mg PO DAILY 09/24/17 09/24/17 Metoprolol Tartrate [Lopressor] 50 mg PO BID 09/24/17 09/24/17 Potassium Chloride [Micro-K] 10 meq PO DAILY 09/24/17 09/24/17 Aspirin [Tran] 325 mg PO DAILYWM tablet 09/25/17 Atorvastatin [Lipitor] 80 mg PO QPM #30 tablet 09/25/17 - Allergies Allergies/Adverse Reactions: Allergies Allergy/AdvReac Type Severity Reaction Status Date / Time No Known Drug Allergies Allergy Verified 11/06/17 13:10 - Social History Does the pt smoke?: No Smoking Status: Never smoker Does the pt drink ETOH?: Yes Does the pt have substance abuse?: No - Immunizations Immunizations are current?: Yes - POLST Patient has POLST: No POLST Status: Full Code PD ED PE NORMAL - Vitals Vital signs reviewed: Yes - General General: Alert and oriented X 3, No acute distress - HEENT HEENT: PERRL, EOMI - Neck Neck: Supple, no meningeal sign, No bony TTP - Cardiac Cardiac: RRR, No murmur - Respiratory Respiratory: Clear bilaterally - Abdomen Abdomen: Non tender - Male Male : Other (dark guaiac pos stool, hard) - Derm Derm: Normal color, Warm and dry - Extremities Extremities: Other (Trace pitting pedal edema) - Neuro Neuro: Alert and oriented X 3, Normal speech Results - Vitals Vitals: Vital Signs - 24 hr 11/06/17 11/06/17 11/06/17 12:59 14:05 14:55 Temperature 36 C L Heart Rate 84 81 80 Respiratory 24 18 18 Rate Blood Pressure 119/50 L 145/51 H 137/66 H O2 Saturation 99 98 100 11/06/17 11/06/17 11/06/17 15:30 16:00 16:29 Temperature Heart Rate 77 76 73 Respiratory 17 16 19 Rate Blood Pressure 153/60 H 142/72 H 142/72 H O2 Saturation 98 95 Oxygen O2 Source Room air - EKG (time done) 1305 Rate: Rate (enter#) (83) Rhythm: NSR (with pac) [place]: Normal Intervals: Normal MD Ischemia: Q waves (Inferior Q waves with very mild ST elevation submillimeter in the her leads. This is old compared with his last EKG on September 24 of this year. He does have new mild ST depression V2 through V4.) Computer interpretation: Agree with computer - Labs Labs: Laboratory Tests 11/06/17 11/06/17 11/06/17 14:00 14:00 14:00 WBC 14.5 H RBC 2.92 L Hgb 9.3 L Hct 27.4 L MCV 93.7 MCH 31.7 H MCHC 33.8 RDW 13.2 Plt Count 221 MPV 10.1 Neut # (Auto) 10.5 H Lymph # (Auto) 2.3 Mason # (Auto) 1.5 H Eos # (Auto) 0.1 Baso # (Auto) 0.1 Absolute Nucleated RBC 0.00 Nucleated RBC % 0.0 PT 12.2 INR 1.1 Sodium 134 L Potassium 4.4 Chloride 98 L Carbon Dioxide 23 Anion Gap 13.0 BUN 86 H* Creatinine 2.2 H Estimated GFR (MDRD) 28 L Glucose 171 H Calcium 8.4 L Total Bilirubin 0.5 AST 27 ALT 25 Alkaline Phosphatase 93 Troponin I B-Natriuretic Peptide Total Protein 6.7 Albumin 3.6 Globulin 3.1 Albumin/Globulin Ratio 1.2 Lipase 35 11/06/17 11/06/17 14:00 14:00 WBC RBC Hgb Hct MCV MCH MCHC RDW Plt Count MPV Neut # (Auto) Lymph # (Auto) Mason # (Auto) Eos # (Auto) Baso # (Auto) Absolute Nucleated RBC Nucleated RBC % PT INR Sodium Potassium Chloride Carbon Dioxide Anion Gap BUN Creatinine Estimated GFR (MDRD) Glucose Calcium Total Bilirubin AST ALT Alkaline Phosphatase Troponin I < 0.04 B-Natriuretic Peptide 396 H Total Protein Albumin Globulin Albumin/Globulin Ratio Lipase - Rads (name of study) 2v chest Radiology: EMP read contemporaneously (NAD) PD MEDICAL DECISION MAKING - ED course ED course: This is an 87-year-old gentleman who presents with acute on chronic dizziness/dyspnea which is probably multifactorial. He is found to be more anemic than normal and a rectal exam confirms dark stool that is guaiac positive but not gross melena. He also seems a little dry based on his labs. And potentially could have a heart issue as well. He probably is deconditioned as well after his stroke, his daughter describes that he does very little except for sit in a recliner all day. Blood was readied. Protonix was given and a call to the hospitalist was placed for admission at 4:[address] Rivera, the on-call surgeon who will see in consultation but expects a phone call from the hospitalist service after admission. - Sepsis Event Vital Signs: Vital Signs - 24 hr 11/06/17 11/06/17 11/06/17 12:59 14:05 14:55 Temperature 36 C L Heart Rate 84 81 80 Respiratory 24 18 18 Rate Blood Pressure 119/50 L 145/51 H 137/66 H O2 Saturation 99 98 100 11/06/17 11/06/17 11/06/17 15:30 16:00 16:29 Temperature Heart Rate 77 76 73 Respiratory 17 16 19 Rate Blood Pressure 153/60 H 142/72 H 142/72 H O2 Saturation 98 95 Oxygen O2 Source Room air Departure - Departure Disposition: [facility] DC/Xfer Clinical Impression: Dyspnea, Dehydration Diabetes Qualifiers: Diabetes mellitus type: type 2 Diabetes mellitus mcc insulin use: with termite control service representative use Diabetes mellitus complication status: with hyperglycemia Qualified Code(s): E11.65 - Type 2 diabetes mellitus with hyperglycemia GI bleed Qualifiers: GI bleed type/associated pathology: unspecified gastrointestinal hemorrhage type Qualified Code(s): K92.2 - Gastrointestinal hemorrhage, unspecified Condition: Serious
[2017-11-06 14:19] LABS: BASOPHILS # (AUTO) 0.1 10^3/uL (0.0-0.1); BASOPHILS % (AUTO) 0.5 %; EOSINOPHILS # (AUTO) 0.1 10^3/uL (0.0-0.7); EOSINOPHILS % (AUTO) 0.7 %; HGB - HEMOGLOBIN 9.3 g/dL (14.0-18.0); LYMPHOCYTES # (AUTO) 2.3 10^3/uL (1.5-3.5); LYMPHOCYTES % (AUTO) 16.1 %; MEAN CORPUSCULAR HEMOGLOBIN 31.7 pg (27.0-31.0); MEAN CORPUSCULAR HGB CONC 33.8 g/dL (32.0-36.0); MEAN CORPUSCULAR VOLUME 93.7 fL (80.0-94.0); MEAN PLATELET VOLUME 10.1 fL (7.4-11.4); MONOCYTES # (AUTO) 1.5 10^3/uL (0.0-1.0); MONOCYTES % (AUTO) 10.2 %; NEUTROPHILS # (AUTO) 10.5 10^3/uL (1.5-6.6); NEUTROPHILS % (AUTO) 72.5 %; PLT - PLATELET COUNT 221 10^3/uL (130-450); RED BLOOD COUNT 2.92 10^6/uL (4.70-6.10); RED CELL DISTRIBUTION WIDTH 13.2 % (12.0-15.0); WHITE BLOOD COUNT 14.5 x10^3/uL (4.8-10.8)
[2017-11-06 14:24] LABS: INR 1.1 (0.8-1.2); PT - PROTHROMBIN TIME 12.2 secs (9.9-12.6)
[2017-11-06 14:36] LABS: ALBUMIN 3.6 g/dL (3.2-5.5); ALBUMIN/GLOBULIN RATIO 1.2 (1.0-2.2); BILIRUBIN,TOTAL 0.5 mg/dL (0.2-1.0); CALCIUM 8.4 mg/dL (8.5-10.3); CREATININE 2.2 mg/dL (0.6-1.2); TOTAL PROTEIN 6.7 g/dL (6.7-8.2)
--- NOTE | 2017-11-06 15:06 | XRAY Report ---
Reason: dyspnea Procedure Date: 11/06/2017 Accession Number: [id number] / [id number] Procedure: XR - Chest 2 View X-Ray CPT Code: 68135 FULL RESULT: EXAM: CHEST RADIOGRAPHY EXAM DATE: 11/06/2017 02:47 PM. CLINICAL HISTORY: Dyspnea. COMPARISON: 10/23/2016. TECHNIQUE: 2 views. FINDINGS: Lungs/Pleura: Mildly hyperexpanded. No definite localized infiltrate, consolidation, effusion, or pneumothorax. Mediastinum: Heart and mediastinal contours are unremarkable. Upper lobe vessels not distended. Other: Status post median sternotomy. Degenerative changes. IMPRESSION: Chronic findings. No acute disease. RADIA
[2017-11-06] MEDS ORDERED: PANTOPRAZOLE 40 MG VIAL IVP STA (16:00)
[2017-11-06] MEDS ORDERED: SODIUM CHLORIDE 0.9% 1,000 ML IV ONE (16:32)
[2017-11-06] MEDS ORDERED: SODIUM CHLORIDE FLUSH 0.9% 10 ML SYRINGE IVP PRN (17:53)
--- NOTE | 2017-11-06 20:10 | HISTORY & PHYSICAL EXAMINATION ---
History of Present Illness - Admitted From Admitted From:: ED - History Obtained From Records Reviewed: yes History obtained from: chart review, Daughter-Adele Exam Limitations: none - History of Present Illness HPI Comment/Other: Armen Goldberg is an elderly 87-year old male with a past medical history of DM type 2-insulin dependent, CKD stage 3, coronary stent, MD, CVA with right sided residual, thoracentesis w/complications necessitating sternotomy and repair of a punctured pericardial tear, and hypertension. The patient reluctantly presented to the ED as his daughter, Adele, drove him here after ongoing dizziness, increased shortness of breath and severe lethargy. General surgery was contacted for a possible scope in the AM, but with the complexity of his medical problems, he may not be scoped for the next few days as he has an elevated WBC count of 14.5, ongoing, symptomatic anemia and profound weakness. The patient upon exam denied symptoms including a new cough, nausea, bleeding, chest pain, syncope, increased confusion, dysuria, or insomnia. Admitting labs showed anemia that has worsened from his previous baseline; with a hemoglobin of 9.3 and a hematocrit of 27.4, an elevated neutrophil count at 10.5, a normal INR of 1.1, a mildly low sodium of 134, an elevated chloride of 98, a remarkably elevated BUN of 86, an elevated creatinine of 2.2, a reduced GFR of 28, an elevated glucose of 171, a low calcium of 8.4, an elevated BNP of 396 and a normal troponin. The patient was afebrile, had otherwise normal vital signs except he was given supplemental oxygen as he had ongoing complaints of shortness of breath. The ED provider performed a rectal exam that confirms the presence of dark stool that is guiac positive without gross melena. Due to the complexity of this case, he will be admitted to inpatient for a full work up, and he may receive PRBCs as he appears to be symptomatic with his recent blood loss. History - Past Medical History Cardiovascular: reports: Congestive heart failure, Hypertension, High cholesterol, Coronary artery disease, MD, Atrial fibrillation, Murmur Respiratory: reports: COPD, Pneumonia, Shortness of breath Neuro: reports: Dementia, CVA, Peripheral neuropathy Endocrine/Autoimmune: reports: Type 2 diabetes GI: reports: GERD, GI bleed, Chronic constipation CUSTOMER SUCCESS REPRESENTATIVE: reports: None : reports: Benign prostate hypertrophy, Renal insuffiency, Nocturia HEENT: reports: Chronic vision loss, Chronic hearing loss Psych: reports: Anxiety Musculoskeletal: reports: Osteoarthritis, Hemiplegia (chronic right sided weakness) Derm: reports: None MRSA Hx?: No - Past Surgical History General: reports: Colonoscopy, EGD Cardiovascular: reports: Coronary stent, Cardiac catheterization, Angioplasty - Family & Social History Family History: Mother: , Alzheimer's Disease, Father: , Sister: Alive and Well, , Diabetes, Type 2, Brother: Alive and Well, , Alzheimer's Disease, Diabetes, Type 2 Family History Comment/Other: The patient's mother after complications from TB, his father of old age. And he had several siblings of which have alzheimer's disease. 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 The patient lives in [place] with his daughter, Adele and his son-in-law. They have 3 small dogs.. He has recently been staying with Adele, as he has been too weak since his stroke a few months ago to live independently. The patient enjoyed singing, playing the guitar and boxing prior to his stroke. The patient was born and raised in [place] and moved to [facility] when he was in his 30s. He then moved with his to [facility] 12 years ago to be closer to his daughter. He is now . The patient quit smoking about 30 years ago prior to that he smoked half a pack to a pack a day from age [age]'s. The patient states that he does not use alcohol or illicit drugs. He wishes to be a FULL code. - Substance History Use: Uses substance without health or social issues: NONE Abuse: Recurrent use of substance despite neg consequences: NONE Dependence: Experiences withdrawal or developed tolerances: NONE - POLST Patient has POLST: No POLST Status: Full Code Meds/Allgy - Home Medications Home Medications: Ambulatory Orders Medication Instructions Recorded Confirmed Aspirin 81 mg PO DAILY 09/24/17 11/06/17 Chlorthalidone 25 mg PO DAILY 09/24/17 11/06/17 Furosemide [Lasix] 40 mg PO BID 09/24/17 11/06/17 Insulin NPH Human [NovoLIN N] 55 unit SUBQ BID 09/24/17 11/07/17 Losartan Potassium 25 mg PO DAILY 09/24/17 11/06/17 Metoprolol Tartrate [Lopressor] 50 mg PO BID 09/24/17 11/06/17 Potassium Chloride [Micro-K] 20 meq PO DAILY 09/24/17 11/07/17 Atorvastatin [Lipitor] 80 mg PO QPM #30 tablet 09/25/17 11/06/17 - Allergies Allergies/Adverse Reactions: Allergies Allergy/AdvReac Type Severity Reaction Status Date / Time No Known Drug Allergies Allergy Verified 11/06/17 13:10 Review of Systems - Constitutional Constitutional: reports: Fatigue, Weakness, Poor appetite, Weight loss - Eyes Eyes: reports: Vision loss - Ears, Nose & Throat Ears, Nose & Throat: reports: Hearing loss, Postnasal drainage - Cardiovascular Cariovascular: reports: Lightheadedness, Decr. exercise tolerance - Respiratory Respiratory: reports: SOB with exertion - Gastrointestinal Gastrointestinal: reports: Abdominal distention, Constipation, Change in bowel habits, Black stools, Nausea, Reflux/heartburn, Bloating, Poor appetite - Genitourinary Genitourinary: reports: Dysuria, Nocturia - Musculoskeletal Musculoskeletal: reports: Limited range of motion, Muscle weakness - Neurological Neurological: reports: General weakness, Memory problems, Pre-existing deficit, Abnormal gait - Psychiatric Psychiatric: reports: Depression, Anxiety - Hematologic/Lymphatic Hematologic/Lymphatic: reports: Anemia - All Other Systems All Other Systems: reports: Reviewed and negative Exam - Vital Signs Reviewed Vital Signs: Yes Vital Signs: Vital Signs x48h Temp Pulse Pulse Resp BP BP Pulse Ox 11/06/17 18:55 36.5 C 112 H 18 125/82 H 99 11/06/17 18:19 36.3 C L 86 16 129/64 95 11/06/17 17:14 73 16 120/60 95 11/06/17 16:29 73 19 142/72 H 95 11/06/17 16:00 76 16 142/72 H 98 11/06/17 15:30 77 17 153/60 H 11/06/17 14:55 80 18 137/66 H 100 11/06/17 14:05 81 18 145/51 H 98 11/06/17 12:59 36 C L 84 24 119/50 L 99 - Physical Exam General Appearance: positive: Alert, Moderate distress, Anxious Eyes Bilateral: positive: Normal inspection, PERRL, Other (conjuctivae are pale, with agrowth on right sclera.) ENT: positive: ENT inspection nml, Pharynx nml Neck: positive: Nml inspection, Thyroid nml, No JVD, Trachea midline Respiratory: positive: Chest non-tender, No respiratory distress, Breath sounds nml, Other (diminished, bilaterally) Cardiovascular: positive: Regular rate & rhythm, No gallop, Systolic murmur Peripheral Pulses: positive: 2+ Abdomen: positive: Non-tender, Nml bowel sounds, Other (rounded, firm) Rectal: positive: Stool - heme POS, Black stool Back: positive: Nml inspection Skin: positive: No rash, Warm, Dry, Other (pale) Extremities: positive: Non-tender, Nml appearance, No pedal edema (trace), Pedal edema Neurologic/Psychiatric: positive: Oriented x3, CN's nml (2-12), Weakness, Sensory loss, Facial droop (mild right), Slurred/abnml speech, Depressed mood/affect Reflexes: Bicep (R): 2+, Bicep (L): 3+ Conclusion/Plan - Problem List (1) GI bleed Conclusion/Plan: The patient had a baseline anemia with a hemoglobin in the 12 range, that is now found to be low at 9.3. Also, his BUN is elevated at 86, indicating GI bleeding. A rectal exam in the ED showed +guiac stool. The daughter states mamta t the patient has had recent problems with constipation in which he states that he sometimes goes "a few weeks" without a BM. This has become much worse since is stroke that has caused right sided weakness. ER reports a hem + stool sample that was obtained during a rectal exam. Plan: Replace blood with 1 unit, as he is symptomatic, monitor labs, and await general surgery input in the AM. Qualifiers: GI bleed type/associated pathology: unspecified gastrointestinal hemorrhage type Qualified Code(s): K92.2 - Gastrointestinal hemorrhage, unspecified (2) CKD (chronic kidney disease) stage 3, GFR 30-59 ml/min Conclusion/Plan: The patient has an elevated creatinine of 2.2, and a reduced GFR of 28. He is also thought to be dehydrated upon admission, so these values may improve. Plan: continue to avoid nephrotoxins, and daily labs. (3) Hemiparesis affecting right side as late effect of cerebrovascular accident Conclusion/Plan: The patient has a known history of a remote CVA that has left him with a right sided residual affecting both his right arm & leg. Plan: PT once stable. (4) Congestive heart failure Conclusion/Plan: The patient has a history of this along with coronary stents. He is prescribed a beta kang, a diuretic and an ARB at home. These are now on hold in light of his acute blood loss. A BNP was checked upon admission, which was elevated at 386. I will order an echocardiogram to check current heart function. Plan: Continue to monitor daily BNP, and fluid status. (5) Hypertension Conclusion/Plan: The patient is prescribed Losartan, metoprolol, and lasix at home. Admitting blood pressures were elevated and once arriving on the nursing floor they are more stable at 114/51, although this is below his baseline as per his daughter. Plan: Hold meds, give fluids and replace blood with one unit over night. Qualifiers: Hypertension type: essential hypertension Qualified Code(s): I10 - Essential (primary) hypertension (6) Anemia Conclusion/Plan: The patient likely has mixed anemia, but had a positive occult stool obtained in the ED via rectal exam. The patient's daughter admits to the patient struggling with recent constipation. He has a base line hemoglobin of ~12, and now it is even lower at 9.3. I will order to replace one unit over night with a re-check in the AM. Plan: daily labs, monitor for acute bleeding. Await general surgery input. - Lab Results Lab results reviewed: Yes Jono Bones: 11/07/17 04:45 11/07/17 04:45 - Diagnostic Imaging Results Diagnostic Imaging Results: positive: Prelim report reviewed - EKG Results EKG Interpreted Independently: Yes EKG Comparison: Changed from prior EKG (SR, with a possible new ST depression (anteriorly) as per ED.) Core Measures - Anticipated LOS I expect patient to be DC'd or transferred within 96 hours.: Yes - DVT/VTE - Prophylaxis VTE/DVT Device ordered at admit?: Yes VTE/DVT Prophylaxis med ordered at admit?: No Not Ordered - Medical Reason: Contraindicated - Stroke - Rehab Assessment Rehab services assessment to be ordered?: Yes - AMI - Statin at Admit Aspirin Prescribed on Admit: No Not Ordered - Medical Reason: Contraindicated
[2017-11-06] MEDS ORDERED: SODIUM CHLORIDE 0.9% 500 ML IV ONE (20:19)
[2017-11-06] MEDS: METOPROLOL SUCCINATE 25 MG TABLET PO SCH (21:21)
[2017-11-06] MEDS: ACETAMINOPHEN 500 MG TABLET PO SCH (21:21)
[2017-11-06] MEDS: ATORVASTATIN 40 MG TABLET PO SCH (21:22)
[2017-11-06] MEDS: SODIUM CHLORIDE 0.9% 1,000 ML IV SCH (21:23)
[2017-11-06] MEDS: INSULIN GLARGINE 300 UNIT/3 ML PEN SUBQ SCH (21:55)
[2017-11-06] MEDS: INSULIN ASPART 300 UNIT/3 ML PEN SUBQ SCH (21:55)
[2017-11-07] MEDS: SODIUM CHLORIDE FLUSH 0.9% 10 ML SYRINGE IVP SCH ×3 (01:30→16:20)
[2017-11-07] MEDS: HYDROmorphone 1 MG/ML CARPUJECT IVP PRN (05:14)
[2017-11-07 05:20] LABS: ALBUMIN/GLOBULIN RATIO 1.2 (1.0-2.2); BILIRUBIN,TOTAL 0.8 mg/dL (0.2-1.0); CALCIUM 7.8 mg/dL (8.5-10.3); TOTAL PROTEIN 5.6 g/dL (6.7-8.2)
[2017-11-07 05:24] LABS: HB2 TOTAL 9.5 g/dL; HEMOGLOBIN A1C 0.73 g/dL; HEMOGLOBIN A1C % 9.2 % (4.6-6.2)
[2017-11-07 05:26] LABS: BASOPHILS % (AUTO) 0.4 %; EOSINOPHILS # (AUTO) 0.2 10^3/uL (0.0-0.7); EOSINOPHILS % (AUTO) 1.7 %; HGB - HEMOGLOBIN 9.2 g/dL (14.0-18.0); LYMPHOCYTES % (AUTO) 21.8 %; MEAN CORPUSCULAR HEMOGLOBIN 31.5 pg (27.0-31.0); MEAN CORPUSCULAR HGB CONC 33.7 g/dL (32.0-36.0); MEAN CORPUSCULAR VOLUME 93.4 fL (80.0-94.0); MEAN PLATELET VOLUME 9.6 fL (7.4-11.4); MONOCYTES # (AUTO) 1.1 10^3/uL (0.0-1.0); MONOCYTES % (AUTO) 11.8 %; NEUTROPHILS # (AUTO) 5.8 10^3/uL (1.5-6.6); NEUTROPHILS % (AUTO) 64.3 %; PLT - PLATELET COUNT 188 10^3/uL (130-450); RED BLOOD COUNT 2.92 10^6/uL (4.70-6.10); RED CELL DISTRIBUTION WIDTH 13.8 % (12.0-15.0)
[2017-11-07] MEDS: INSULIN ASPART 300 UNIT/3 ML PEN SUBQ SCH ×4 (08:24→20:32)
[2017-11-07] MEDS: ACETAMINOPHEN 500 MG TABLET PO SCH (08:26)
[2017-11-07] MEDS: SENNA 8.6 MG TABLET PO SCH (08:26)
[2017-11-07] MEDS: DOCUSATE SODIUM 250 MG CAPSULE PO SCH (08:26)
[2017-11-07] MEDS: METOPROLOL SUCCINATE 25 MG TABLET PO SCH ×2 (08:27→20:30)
[2017-11-07] MEDS: POLYETHYLENE GLYCOL 3350 17 GM PACKET PO SCH (08:30)
[2017-11-07] MEDS: SODIUM CHLORIDE 0.9% 1,000 ML IV SCH ×3 (10:14→21:05)
[2017-11-07] MEDS: PANTOPRAZOLE 80 MG in SODIUM CHLORIDE 0.9% 100ML 100 ML IV SCH ×2 (11:19→20:32)
--- NOTE | 2017-11-07 11:36 | CONSULTATION NOTE ---
DATE OF SERVICE: 11/07/2017 Physician: Elvin Rivera MD HISTORY OF PRESENT ILLNESS: The patient is 87 years old. He was admitted through the emergency room yesterday with generalized weakness, found to have a hemoglobin of 9.3 and guaiac-positive stools. He has no complaints of abdominal pain. No history of melena or hematochezia. He has had new onset of constipation. PHYSICAL EXAMINATION: On exam, the patient is , gives no history in Tunisian. The patient's daughter is here and we have conversed a good deal about his condition. The patient was transfused 1 unit of blood last night. His hemoglobin this morning is 9.2. Vital signs remained stable, heart r ate in the 70s, blood pressure 127/75. The patient has had no bowel movement since he has been here, so I came with the expectation that I would do an EGD this morning to first evaluate his upper tract for sources of bleeding; however, the patient is on a regular diet. He has has eaten breakfast, and so we will put him on a clear liquid diet, make him n.p.o. after midnight, and do an EGD tomorrow. IMPRESSION: My impression is if he has GI bleeding, it may be colonic, cecal. It may be upper gastr ointestinal bleeding, so we will start with an EGD. I did add Protonix continuous infusion to his re gimen. He received a single dose of Protonix in the ER yesterday. I changed his diet, put him on Pr otonix, and we will plan on doing an EGD tomorrow to look for sources of GI bleeding. He is 87, and we will proceed accordingly. TD: 11/07/2017 10:22
[2017-11-07] MEDS: ATORVASTATIN 40 MG TABLET PO SCH (20:30)
[2017-11-07] MEDS: INSULIN GLARGINE 300 UNIT/3 ML PEN SUBQ SCH (20:31)
--- NOTE | 2017-11-07 22:59 | PROVIDER PROGRESS NOTE ---
Subjective - Prog Note Date Prog Note Date: 11/07/17 Prog Note Time: 09:00 - Subjective Pt reports feeling: No change Subjective: Luis Eduardo states that he slept ok, and has no complaints except for being restricted on his diet in preparation for his upcoming EGD. He denies new symptoms such as shortness of breath, nausea, vomiting, bleeding, or a new cough. Current Medications - Current Medications Current Medications: Active Medications Acetaminophen (Tylenol) 1,000 mg PO DAILY [facility] Last Admin: 11/07/17 08:26 Dose: 1,000 mg Atorvastatin Calcium (Lipitor) 80 mg PO QPM LUIS Last Admin: 11/07/17 20:30 Dose: 80 mg Docusate Sodium (Colace 250mg Capsule) 250 - 500 mg PO DAILY [facility] Last Admin: 11/07/17 08:26 Dose: 500 mg Hydromorphone HCl (Dilaudid Inj Carp) 0.5 mg IVP Q4HR PRN PRN Reason: PAIN Last Admin: 11/07/17 05:14 Dose: 0.5 mg Sodium Chloride (Normal Saline 0.9%) 1,000 mls @ 83.333 mls/hr IV .Q12H LUIS Last Admin: 11/07/17 21:05 Dose: 83.3 mls/hr Pantoprazole Sodium 80 mg/ (Sodium Chloride) 100 mls @ 10 mls/hr IV .Q10H LUIS Last Admin: 11/07/17 20:32 Dose: 10 mls/hr Insulin Aspart (Novolog) 1 - 5 unit SUBQ 0800,1200,1700,2100 [facility]; Protocol Last Admin: 11/07/17 20:32 Dose: 2 unit Insulin Glargine (Lantus Solostar) 10 unit SUBQ QPM LUIS Last Admin: 11/07/17 20:31 Dose: 10 unit Metoprolol Succinate (Toprol Xl) 50 mg PO BID [facility] Polyethylene Glycol (Miralax) 17 gm PO DAILY [facility] Last Admin: 11/07/17 08:30 Dose: 17 gm Senna (Senokot) 8.6 - 17.2 mg PO DAILY [facility] Last Admin: 11/07/17 08:26 Dose: 17.2 mg Sodium Chloride (Normal Saline Flush 0.9%) 10 ml IVP PRN PRN PRN Reason: NEEDED PER PROVIDER ORDERS Sodium Chloride (Normal Saline Flush 0.9%) 10 ml IVP 0100,0900,1700 [facility]IS Last Admin: 11/07/17 16:20 Dose: Not Given Aspirin 81 mg PO DAILY 09/24/17 Chlorthalidone 25 mg PO DAILY 09/24/17 Furosemide [Lasix] 40 mg PO BID 09/24/17 Insulin NPH Human [NovoLIN N] 55 unit SUBQ BID 09/24/17 Losartan Potassium 25 mg PO DAILY 09/24/17 Metoprolol Tartrate [Lopressor] 50 mg PO BID 09/24/17 Potassium Chloride [Micro-K] 20 meq PO DAILY 09/24/17 Objective - Vital Signs/Intake & Output Reviewed Vital Signs: Yes Vital Signs: Vital Signs x48h Temp Pulse Resp BP BP Pulse Ox 11/07/17 21:06 36.3 C L 74 19 126/56 L 98 11/07/17 16:00 36.3 C L 63 19 121/51 L 98 Intake & Output: Intake & Output 11/04/17 11/05/17 11/06/17 11/07/17 23:59 23:59 23:59 23:59 Intake Total 854.321 0445.938 Output Total 275 3200 Balance 411.444 756.938 - Objective General Appearance: positive: No acute distress, Alert Eyes Bilateral: positive: Normal inspection Eyes: OU Conjunctivae pale ENT: positive: ENT inspection nml, Pharynx nml, Dry mucous membranes Neck: positive: Nml inspection, Thyroid nml, No JVD, Trachea midline Respiratory: positive: Chest non-tender, No respiratory distress, Other (mild bilateral low lobe crackles, diminished t/o) Cardiovascular: positive: Regular rate & rhythm, No gallop, Systolic murmur Peripheral Pulses: 1+ Radial (R), 1+ Radial (L) Abdomen: positive: Non-tender, Nml bowel sounds, Other (obese, firm) Back: positive: Nml inspection Skin: positive: No rash, Warm, Dry, Other (pale) Extremities: positive: Non-tender, Pedal edema (chronic, BLE edema, refuses SCDs), Joint swelling Neurologic/Psychiatric: positive: Oriented x3, CN's nml (2-12), Motor nml, Sensation nml, Weakness, Depressed mood/affect Reflexes: Bicep (R): 3+, Bicep (L): 4+ - Lab Results Fish Bones: 11/07/17 04:45 11/07/17 04:45 Other Labs: Lab Results x24hrs 11/07/17 11/07/17 11/07/17 Range/Units 20:23 16:45 11:43 WBC (4.8-10.8) x10^3/uL RBC (4.70-6.10) 10^6/uL Hgb (14.0-18.0) g/dL Hct (42.0-52.0) % MCV (80.0-94.0) fL MCH (27.0-31.0) pg MCHC (32.0-36.0) g/dL RDW (12.0-15.0) % Plt Count (130-450) 10^3/uL MPV (7.4-11.4) fL Neut # (Auto) (1.5-6.6) 10^3/uL Lymph # (Auto) (1.5-3.5) 10^3/uL [place] # (Auto) (0.0-1.0) 10^3/uL Eos # (Auto) (0.0-0.7) 10^3/uL Baso # (Auto) (0.0-0.1) 10^3/uL Absolute Nucleated RBC x10^3/uL Nucleated RBC % /100WBC Sodium (135-145) mmol/L Potassium (3.5-5.0) mmol/L Chloride (101-111) mmol/L Carbon Dioxide (21-32) mmol/L Anion Gap (6-13) BUN (6-20) mg/dL Creatinine (0.6-1.2) mg/dL Estimated GFR (MDRD) (>89) Glucose (70-100) mg/dL POC Whole Bld Glucose 220 H 167 H 178 H (70 - 100) mg/dL Glycated Hemoglobin (4.6-6.2) % Estim Average Glucose (70-100) Calcium (8.5-10.3) mg/dL Total Bilirubin (0.2-1.0) mg/dL AST (10-42) IU/L ALT (10-60) IU/L Alkaline Phosphatase (42-121) IU/L Total Protein (6.7-8.2) g/dL Albumin (3.2-5.5) g/dL Globulin (2.1-4.2) g/dL Albumin/Globulin Ratio (1.0-2.2) 11/07/17 11/07/17 11/07/17 Range/Units 07:34 04:45 04:45 WBC 9.0 (4.8-10.8) x10^3/uL RBC 2.92 L (4.70-6.10) 10^6/uL Hgb 9.2 L (14.0-18.0) g/dL Hct 27.3 L (42.0-52.0) % MCV 93.4 (80.0-94.0) fL MCH 31.5 H (27.0-31.0) pg MCHC 33.7 (32.0-36.0) g/dL RDW 13.8 (12.0-15.0) % Plt Count 188 (130-450) 10^3/uL MPV 9.6 (7.4-11.4) fL Neut # (Auto) 5.8 (1.5-6.6) 10^3/uL Lymph # (Auto) 2.0 (1.5-3.5) 10^3/uL [place] # (Auto) 1.1 H (0.0-1.0) 10^3/uL Eos # (Auto) 0.2 (0.0-0.7) 10^3/uL Baso # (Auto) 0.0 (0.0-0.1) 10^3/uL Absolute Nucleated RBC 0.00 x10^3/uL Nucleated RBC % 0.0 /100WBC Sodium 137 (135-145) mmol/L Potassium 3.9 (3.5-5.0) mmol/L Chloride 105 (101-111) mmol/L Carbon Dioxide 22 (21-32) mmol/L Anion Gap 10.0 (6-13) BUN 70 H (6-20) mg/dL Creatinine 2.0 H (0.6-1.2) mg/dL Estimated GFR (MDRD) 32 L (>89) Glucose 177 H (70-100) mg/dL POC Whole Bld Glucose 158 H (70 - 100) mg/dL Glycated Hemoglobin (4.6-6.2) % Estim Average Glucose (70-100) Calcium 7.8 L (8.5-10.3) mg/dL Total Bilirubin 0.8 (0.2-1.0) mg/dL AST 23 (10-42) IU/L ALT 19 (10-60) IU/L Alkaline Phosphatase 81 (42-121) IU/L Total Protein 5.6 L (6.7-8.2) g/dL Albumin 3.0 L (3.2-5.5) g/dL Globulin 2.6 (2.1-4.2) g/dL Albumin/Globulin Ratio 1.2 (1.0-2.2) 11/07/17 Range/Units 04:45 WBC (4.8-10.8) x10^3/uL RBC (4.70-6.10) 10^6/uL Hgb (14.0-18.0) g/dL Hct (42.0-52.0) % MCV (80.0-94.0) fL MCH (27.0-31.0) pg MCHC (32.0-36.0) g/dL RDW (12.0-15.0) % Plt Count (130-450) 10^3/uL MPV (7.4-11.4) fL Neut # (Auto) (1.5-6.6) 10^3/uL Lymph # (Auto) (1.5-3.5) 10^3/uL [place] # (Auto) (0.0-1.0) 10^3/uL Eos # (Auto) (0.0-0.7) 10^3/uL Baso # (Auto) (0.0-0.1) 10^3/uL Absolute Nucleated RBC x10^3/uL Nucleated RBC % /100WBC Sodium (135-145) mmol/L Potassium (3.5-5.0) mmol/L Chloride (101-111) mmol/L Carbon Dioxide (21-32) mmol/L Anion Gap (6-13) BUN (6-20) mg/dL Creatinine (0.6-1.2) mg/dL Estimated GFR (MDRD) (>89) Glucose (70-100) mg/dL POC Whole Bld Glucose (70 - 100) mg/dL Glycated Hemoglobin 9.2 H (4.6-6.2) % Estim Average Glucose 217 H (70-100) Calcium (8.5-10.3) mg/dL Total Bilirubin (0.2-1.0) mg/dL AST (10-42) IU/L ALT (10-60) IU/L Alkaline Phosphatase (42-121) IU/L Total Protein (6.7-8.2) g/dL Albumin (3.2-5.5) g/dL Globulin (2.1-4.2) g/dL Albumin/Globulin Ratio (1.0-2.2) ABX Reporting Has patient been on IV antibiotics over the past 48 hours?: No Assessment/Plan - Problem List (1) GI bleed Impression: The patient had a baseline anemia with a hemoglobin in the 12 range, and remains low at 9.3, post one unit of PRBCs. Also, his BUN was elevated at 86 on admit, now 70. A rectal exam in the ED showed +guiac stool. The daughter states that the patient has had recent problems with constipation in which he states that he sometimes goes "a few weeks" without a BM. This has become much worse since is stroke that has caused right sided weakness. ER reports a hem + stool sample that was obtained during a rectal exam. I have added a H/H recheck for later this evening, in the event that he would require further blood transfusions. * The patient remains on a protonix gtt, and is NPO after MN for his upcoming procedure. Plan: Monitor labs, and await EGD results. Qualifiers: GI bleed type/associated pathology: unspecified gastrointestinal hemorrhage type Qualified Code(s): K92.2 - Gastrointestinal hemorrhage, unspecified (2) Anemia Impression: The pre-transfusion H/H was 9.3/27.4 and after receiving one unit of PRBCs there was little change. Today his H/H was 9.2/27.3. The patient has probable anemia of chronic disease, and now anemia due to acute blood loss. He appears pale on exam and is still wearing oxygen. He has been supplemented with oxygen as he is symptomatic. Plan: Re-check H/H later today and NPO after MN for an EGD. (3) Constipation Impression: The patient has been struggling with this and it has become worse since his stroke a few months ago. He has been prescribed Senna, and Miralax while here with no known results. As per his daughter, the patient reported up to 2 full weeks without a BM while at home. There are a few contributing factors as his lack of recent mobility and his chronic diuretic use. Plan: continue bowel protocol and await GI recommendations/EGD results. 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 Plan: PT once stable. (5) CKD (chronic kidney disease) stage 3, GFR 30-59 ml/min Impression: The patient has an improved creatinine of 2.0, and a reduced GFR of 32. He is also thought to be dehydrated upon admission, so has been given gentle IVFs (holding diuretics). Plan: continue to avoid nephrotoxins, and daily labs. (6) Congestive heart failure Impression: The patient has a history of this along with coronary stents. He is prescribed a beta kang, a diuretic and an ARB at home. The metoprolol has been changed to a long acting form, and we continue to hold his diuretic and ARB, in light of his acute blood loss. A BNP was checked upon admission, which was elevated at 386. An echocardiogram shows moderate mitral regurg, pulmonary HTN and a only mildly reduced EF of 55-60%. Plan: Continue to monitor daily BNP, and fluid status. (7) Hypertension Impression: The patient is prescribed Losartan, metoprolol, and lasix at home. Today blood pressures have been 126/56, with mildly elevated heart rates in the 80-100s. He continues on metoprolol succinate of just 25, but this will be increased to 50 to start in the AM. Plan: Hold diuretics, give fluids and replace blood with one unit over night. Qualifiers: Hypertension type: essential hypertension Qualified Code(s): I10 - Essential (primary) hypertension (8) Pulmonary hypertension Impression: As per echo results, the RVSP at rest is increased from a prior study at 55 mm Hg. He is prescribed chlorthalidone, which will be changed to spironolactone upon discharge. Plan: Continue no diuretics, as this patient may decompensate with his acute blood loss. (9) Diabetes mellitus type 2, insulin dependent Impression: The patient just recently saw an engraver jewelry and as per his daughter, was supposed to prescribed a 70/30 insulin, that was never followed through. For now, I have started him on Lantus as this is more predictable in this acute illness phase. Plan: continue to monitor ACHS and give nightly Lantus at 10 units.
[2017-11-08 00:08] LABS: HGB - HEMOGLOBIN 10.2 g/dL (14.0-18.0)
[2017-11-08 00:18] LABS: CALCIUM 7.9 mg/dL (8.5-10.3); CREATININE 1.9 mg/dL (0.6-1.2)
[2017-11-08] MEDS: SODIUM CHLORIDE FLUSH 0.9% 10 ML SYRINGE IVP SCH ×3 (01:51→16:52)
[2017-11-08] MEDS: HYDROmorphone 1 MG/ML CARPUJECT IVP PRN ×2 (01:51→09:10)
[2017-11-08] MEDS: PANTOPRAZOLE 80 MG in SODIUM CHLORIDE 0.9% 100ML 100 ML IV SCH ×2 (07:03→18:59)
[2017-11-08 07:15] LABS: BASOPHILS % (AUTO) 0.3 %; EOSINOPHILS # (AUTO) 0.2 10^3/uL (0.0-0.7); EOSINOPHILS % (AUTO) 1.8 %; HGB - HEMOGLOBIN 10.5 g/dL (14.0-18.0); LYMPHOCYTES # (AUTO) 1.7 10^3/uL (1.5-3.5); LYMPHOCYTES % (AUTO) 17.4 %; MEAN CORPUSCULAR HGB CONC 34.2 g/dL (32.0-36.0); MEAN CORPUSCULAR VOLUME 93.7 fL (80.0-94.0); MEAN PLATELET VOLUME 9.6 fL (7.4-11.4); MONOCYTES # (AUTO) 1.2 10^3/uL (0.0-1.0); MONOCYTES % (AUTO) 11.8 %; NEUTROPHILS # (AUTO) 6.8 10^3/uL (1.5-6.6); NEUTROPHILS % (AUTO) 68.7 %; PLT - PLATELET COUNT 206 10^3/uL (130-450); RED BLOOD COUNT 3.27 10^6/uL (4.70-6.10); RED CELL DISTRIBUTION WIDTH 13.9 % (12.0-15.0); WHITE BLOOD COUNT 9.9 x10^3/uL (4.8-10.8)
[2017-11-08 07:26] LABS: ALBUMIN 3.3 g/dL (3.2-5.5); ALBUMIN/GLOBULIN RATIO 1.1 (1.0-2.2); BILIRUBIN,TOTAL 0.7 mg/dL (0.2-1.0); CREATININE 1.8 mg/dL (0.6-1.2); MAGNESIUM 2.4 mg/dL (1.7-2.8); TOTAL PROTEIN 6.2 g/dL (6.7-8.2)
[2017-11-08] MEDS: METOPROLOL SUCCINATE 50 MG TABLET PO SCH ×2 (08:26→21:26)
[2017-11-08] MEDS: SENNA 8.6 MG TABLET PO SCH (08:26)
[2017-11-08] MEDS: DOCUSATE SODIUM 250 MG CAPSULE PO SCH (08:26)
[2017-11-08] MEDS: ACETAMINOPHEN 500 MG TABLET PO SCH (08:27)
[2017-11-08] MEDS: POLYETHYLENE GLYCOL 3350 17 GM PACKET PO SCH (08:27)
[2017-11-08] MEDS: INSULIN ASPART 300 UNIT/3 ML PEN SUBQ SCH ×4 (08:33→21:04)
[2017-11-08] MEDS: SODIUM CHLORIDE 0.9% 1,000 ML IV SCH ×2 (09:09→18:59)
--- NOTE | 2017-11-08 12:14 | ANESTHESIA ---
Pre-Anesthesia VS, & Labs - Diagnosis anemia - Procedure upper GI Vital Signs: Temp Pulse Resp BP Pulse Ox 36.5 C 95 18 129/48 L 98 11/08/17 08:00 11/08/17 08:00 11/08/17 08:00 11/08/17 08:00 11/08/17 08:00 Height 5 ft 9 in Weight (kg) 101 kg Body Mass Index 32.8 - NPO >8 hours - Lab Results Lab results reviewed: Yes Fish Bones: 11/08/17 06:25 11/08/17 06:25 Home Medications and Allergies Home Medications: Ambulatory Orders Medication Instructions Recorded Confirmed Aspirin 81 mg PO DAILY 09/24/17 11/06/17 Chlorthalidone 25 mg PO DAILY 09/24/17 11/06/17 Furosemide [Lasix] 40 mg PO BID 09/24/17 11/06/17 Insulin NPH Human [NovoLIN N] 55 unit SUBQ BID 09/24/17 11/07/17 Losartan Potassium 25 mg PO DAILY 09/24/17 11/06/17 Metoprolol Tartrate [Lopressor] 50 mg PO BID 09/24/17 11/06/17 Potassium Chloride [Micro-K] 20 meq PO DAILY 09/24/17 11/07/17 Atorvastatin [Lipitor] 80 mg PO QPM #30 tablet 09/25/17 11/06/17 Allergies/Adverse Reactions: Allergies Allergy/AdvReac Type Severity Reaction Status Date / Time No Known Drug Allergies Allergy Verified 11/06/17 13:10 Anes History & Medical History - Anesthetic History Anesthesia Complications: reports: No previous complications - Medical History Cardiovascular: reports: Congestive heart failure, Hypertension, High cholesterol, Coronary artery disease, AL, Atrial fibrillation, Murmur Pulmonary: reports: COPD, Pneumonia, Shortness of breath Gastrointestinal: reports: GERD, GI bleed, Chronic constipation Urinary: reports: Benign prostate hypertrophy, Renal insuffiency, Nocturia Neuro: reports: Dementia, CVA, Peripheral neuropathy Musculoskeletal: reports: Osteoarthritis, Hemiplegia (chronic right sided weakness) Endocrine/Autoimmune: reports: Type 2 diabetes Blood Disorders: reports: Anemia Skin: reports: None Smoking Status: Never smoker - Surgical History General: Colonoscopy, EGD Cardiothoracic: Coronary stent, Cardiac catheterization, Angioplasty Results - Echo Results Echo Results: Report reviewed Exam Mouth Openin Fingerbreadth Neck Mobility: Reduced Mallampati classification: II Respiratory: Lungs clear Cardiovascular: Regular rate Neurological: Other (weak right side from CVA) Plan Anesthesia Type: MAC Consent for Procedure(s) Verified and Reviewed: Yes Code Status: Attempt Resuscitation ASA classification: 3-Severe systemic disease Is this case an emergency?: No
[2017-11-08] MEDS ORDERED: LIDO GARGLE 30 ML BOTTLE ONE (12:51)
[2017-11-08] MEDS ORDERED: LACTATED RINGERS 500 ML IV ONE (14:31)
[2017-11-08] MEDS ORDERED: ETOMIDATE 40 MG/20 ML VIAL IVP ONE (14:50)
[2017-11-08] MEDS ORDERED: PROPOFOL 200 MG/20 ML VIAL IVP ONE (14:50)
--- NOTE | 2017-11-08 15:02 | OPERATIVE REPORT ---
DATE OF SERVICE: 11/08/2017 Physician: Elvin Rivera MD PREOPERATIVE DIAGNOSIS: Gastrointestinal (GI) bleeding. POSTOPERATIVE DIAGNOSES 1. Mild to moderate gastritis and duodenitis. No sign of active upper gastrointestinal bleeding. 2. The patient also has esophagitis, possibly yeast involvement in the midbody of the esophagus. NAME OF PROCEDURES 1. Esophagogastroduodenoscopy. 2. Gastric antrum biopsy for ALDO test. SURGEON: Elvin Rivera MD. ANESTHESIA: Conscious sedation. PROCEDURE: The patient was properly identified during surgical pause, given conscious sedation by alek perla CRNA. Flexible fiberoptic gastroscope was inserted transorally from the hypopharynx into the secon d portion of the duodenum. In the midbody of the esophagus, there is some yeast-appearing layering w hitish coating in the midbody of the esophagus. No sign of bleeding. There is no stricture and no s ign of tumor. The EG junction shows some reflux esophagitis. Retroflexing the scope at the EG junct ion on the gastric side, there is no sign of a Karin-Randle tear or any sign of source of bleeding. No varices. The gastric antrum contains moderate gastritis, again not bleeding. There is no sign o f recent bleeding there. Biopsy was done in the antrum for CLOtest, looking for H. pylori. The pylo tracy channel and first and second portions of the duodenum show some mild duodenitis, but no sign of d uodenal ulcer and certainly no sign of any bleeding source or signs of any previous recent bleed. Pr ocedure was very well tolerated. TD: 11/08/2017 14:49
[2017-11-08] MEDS ORDERED: diphenhydrAMINE INJ 50 MG/ML VIAL IVP SCH (19:12)
--- NOTE | 2017-11-08 19:14 | PROVIDER PROGRESS NOTE ---
Subjective - Prog Note Date Prog Note Date: 11/08/17 Prog Note Time: 12:00 - Subjective Pt reports feeling: No change Subjective: Armen complains of no bowel movements. He denies chest pain, headaches, dizziness, nausea, vomiting or a new cough. Objective - Vital Signs/Intake & Output Reviewed Vital Signs: Yes Vital Signs: Vital Signs x48h Temp Pulse Resp BP Pulse Ox 11/08/17 16:00 36.4 C L 87 19 115/62 100 11/08/17 14:50 36.3 C L 91 18 101/53 L 93 Intake & Output: Intake & Output 11/05/17 11/06/17 11/07/17 11/08/17 23:59 23:59 23:59 23:59 Intake Total 924.479 0717.938 2469.117 Output Total 275 3200 1100 Balance 411.444 354.241 4656.117 - Objective General Appearance: positive: No acute distress, Alert, Anxious, Lethargic Eyes Bilateral: positive: Normal inspection, PERRL Eyes: OU Conjunctivae pale ENT: positive: ENT inspection nml, Pharynx nml, No signs of dehydration Neck: positive: Nml inspection, Thyroid nml, No JVD, Trachea midline Respiratory: positive: Chest non-tender, No respiratory distress, Breath sounds nml Cardiovascular: positive: Regular rate & rhythm, No gallop Peripheral Pulses: 1+ Radial (R), 1+ Radial (L) Abdomen: positive: Non-tender, Nml bowel sounds, Other (obese, firm) Back: positive: Nml inspection Skin: positive: No rash, Warm, Dry, Other (pale) Extremities: positive: Non-tender, No pedal edema (chronic BLE), Joint swelling Neurologic/Psychiatric: positive: Oriented x3, CN's nml (2-12), Motor nml, Sensation nml, Depressed mood/affect Reflexes: Bicep (R): 3+, Bicep (L): 3+ - Lab Results Fish Bones: 11/09/17 04:30 11/09/17 04:30 Other Labs: Lab Results x24hrs 11/08/17 11/08/17 11/08/17 Range/Units 16:33 12:39 07:18 WBC (4.8-10.8) x10^3/uL RBC (4.70-6.10) 10^6/uL Hgb (14.0-18.0) g/dL Hct (42.0-52.0) % MCV (80.0-94.0) fL MCH (27.0-31.0) pg MCHC (32.0-36.0) g/dL RDW (12.0-15.0) % Plt Count (130-450) 10^3/uL MPV (7.4-11.4) fL Neut # (Auto) (1.5-6.6) 10^3/uL Lymph # (Auto) (1.5-3.5) 10^3/uL [place] # (Auto) (0.0-1.0) 10^3/uL Eos # (Auto) (0.0-0.7) 10^3/uL Baso # (Auto) (0.0-0.1) 10^3/uL Absolute Nucleated RBC x10^3/uL Nucleated RBC % /100WBC Sodium (135-145) mmol/L Potassium (3.5-5.0) mmol/L Chloride (101-111) mmol/L Carbon Dioxide (21-32) mmol/L Anion Gap (6-13) BUN (6-20) mg/dL Creatinine (0.6-1.2) mg/dL Estimated GFR (MDRD) (>89) Glucose (70-100) mg/dL POC Whole Bld Glucose 207 H 151 H 179 H (70 - 100) mg/dL Calcium (8.5-10.3) mg/dL Magnesium (1.7-2.8) mg/dL Total Bilirubin (0.2-1.0) mg/dL AST (10-42) IU/L ALT (10-60) IU/L Alkaline Phosphatase (42-121) IU/L B-Natriuretic Peptide (5-100) pg/mL Total Protein (6.7-8.2) g/dL Albumin (3.2-5.5) g/dL Globulin (2.1-4.2) g/dL Albumin/Globulin Ratio (1.0-2.2) 11/08/17 11/08/17 11/07/17 Range/Units 06:25 06:25 23:55 WBC 9.9 (4.8-10.8) x10^3/uL RBC 3.27 L (4.70-6.10) 10^6/uL Hgb 10.5 L (14.0-18.0) g/dL Hct 30.6 L (42.0-52.0) % MCV 93.7 (80.0-94.0) fL MCH 32.0 H (27.0-31.0) pg MCHC 34.2 (32.0-36.0) g/dL RDW 13.9 (12.0-15.0) % Plt Count 206 (130-450) 10^3/uL MPV 9.6 (7.4-11.4) fL Neut # (Auto) 6.8 H (1.5-6.6) 10^3/uL Lymph # (Auto) 1.7 (1.5-3.5) 10^3/uL Cameron # (Auto) 1.2 H (0.0-1.0) 10^3/uL Eos # (Auto) 0.2 (0.0-0.7) 10^3/uL Baso # (Auto) 0.0 (0.0-0.1) 10^3/uL Absolute Nucleated RBC 0.00 x10^3/uL Nucleated RBC % 0.0 /100WBC Sodium 137 (135-145) mmol/L Potassium 4.2 (3.5-5.0) mmol/L Chloride 105 (101-111) mmol/L Carbon Dioxide 22 (21-32) mmol/L Anion Gap 10.0 (6-13) BUN 45 H (6-20) mg/dL Creatinine 1.8 H (0.6-1.2) mg/dL Estimated GFR (MDRD) 36 L (>89) Glucose 194 H (70-100) mg/dL POC Whole Bld Glucose (70 - 100) mg/dL Calcium 8.0 L (8.5-10.3) mg/dL Magnesium 2.4 (1.7-2.8) mg/dL Total Bilirubin 0.7 (0.2-1.0) mg/dL AST 26 (10-42) IU/L ALT 19 (10-60) IU/L Alkaline Phosphatase 96 (42-121) IU/L B-Natriuretic Peptide 330 H (5-100) pg/mL Total Protein 6.2 L (6.7-8.2) g/dL Albumin 3.3 (3.2-5.5) g/dL Globulin 2.9 (2.1-4.2) g/dL Albumin/Globulin Ratio 1.1 (1.0-2.2) 11/07/17 11/07/17 11/07/17 Range/Units 23:55 23:55 20:23 WBC (4.8-10.8) x10^3/uL RBC (4.70-6.10) 10^6/uL Hgb 10.2 L (14.0-18.0) g/dL Hct 29.6 L (42.0-52.0) % MCV (80.0-94.0) fL MCH (27.0-31.0) pg MCHC (32.0-36.0) g/dL RDW (12.0-15.0) % Plt Count (130-450) 10^3/uL MPV (7.4-11.4) fL Neut # (Auto) (1.5-6.6) 10^3/uL Lymph # (Auto) (1.5-3.5) 10^3/uL Cameron # (Auto) (0.0-1.0) 10^3/uL Eos # (Auto) (0.0-0.7) 10^3/uL Baso # (Auto) (0.0-0.1) 10^3/uL Absolute Nucleated RBC x10^3/uL Nucleated RBC % /100WBC Sodium 135 (135-145) mmol/L Potassium 4.1 (3.5-5.0) mmol/L Chloride 106 (101-111) mmol/L Carbon Dioxide 20 L (21-32) mmol/L Anion Gap 9.0 (6-13) BUN 50 H (6-20) mg/dL Creatinine 1.9 H (0.6-1.2) mg/dL Estimated GFR (MDRD) 34 L (>89) Glucose 232 H (70-100) mg/dL POC Whole Bld Glucose 220 H (70 - 100) mg/dL Calcium 7.9 L (8.5-10.3) mg/dL Magnesium (1.7-2.8) mg/dL Total Bilirubin (0.2-1.0) mg/dL AST (10-42) IU/L ALT (10-60) IU/L Alkaline Phosphatase (42-121) IU/L B-Natriuretic Peptide (5-100) pg/mL Total Protein (6.7-8.2) g/dL Albumin (3.2-5.5) g/dL Globulin (2.1-4.2) g/dL Albumin/Globulin Ratio (1.0-2.2) ABX Reporting Has patient been on IV antibiotics over the past 48 hours?: No Assessment/Plan - Problem List (1) GI bleed Impression: The patient had a baseline anemia with a hemoglobin in the 12 range, and remains low at 9.3, post one unit of PRBCs. Also, his BUN was elevated at 86 on admit, now 70. A rectal exam in the ED showed +guiac stool. The daughter states that the patient has had recent problems with constipation in which he states that he sometimes goes "a few weeks" without a BM. This has become much worse since is stroke that has caused right sided weakness. ER reports a hem + stool sample that was obtained during a rectal exam. The patient remains on a protonix gtt. The patient's daughter remains unhappy as the current general surgeon "should have done a colonoscopy" while he was doing the EGD. This was not the preference of the surgeon and she wishes for a second opinion when the switch services. Plan: Monitor labs, and await EGD results. Qualifiers: GI bleed type/associated pathology: unspecified gastrointestinal hemorrhage type Qualified Code(s): K92.2 - Gastrointestinal hemorrhage, unspecified (2) Anemia Impression: Today his H/H was 10.2/29.6. The patient has probable anemia of chronic disease, and now anemia due to acute blood loss. He appears pale on exam and is still wearing oxygen. He has been supplemented with oxygen as he is symptomatic . I will transfuse one more unit this evening as he continues to feel profoundly weak, appears pale and becomes easily short of breath. Plan: Check iron studies, and daily labs. (3) Constipation Impression: The patient has been struggling with this and it has become worse since his stroke a few months ago. He has been prescribed Senna, and Miralax while here with no known results. As per his daughter, the patient reported up to 2 full weeks without a BM while at home. There are a few contributing factors as his lack of recent mobility and his chronic diuretic use. Plan: continue bowel protocol and await GI recommendations/EGD results. (4) Hemiparesis affecting right side as late effect of cerebrovascular accident Impression: The patient has a known history of a remote CVA with a residual of both his r ight arm & leg. Plan: PT once stable. (5) CKD (chronic kidney disease) stage 3, GFR 30-59 ml/min Impression: The patient has an improved creatinine of 2.0, and a reduced GFR of 32. He is also thought to be dehydrated upon admission, so has been given gentle IVFs (holding diuretics). The IVFs have been discontinued. Plan: continue to avoid nephrotoxins, and daily labs. (6) Congestive heart failure Impression: The patient has a history of this along with coronary stents. He is prescribed a beta kang, a diuretic and an ARB at home. The metoprolol has been changed to a long acting form, and we continue to hold his diuretic and ARB, in light of his acute blood loss. A BNP was checked upon admission, which was elevated at 386 that is now 306. An echocardiogram shows moderate mitral regurg, pulmonary HTN and a only mildly reduced EF of 55-60%. Plan: Continue to monitor daily BNP, and fluid status. (7) Hypertension Impression: The patient is prescribed Losartan, metoprolol, and lasix at home. Today blood pressures have been stable, with mildly elevated heart rates in the 80-100s. He continues on metoprolol succinate of just 25, but this will be increased to 50 to start in the AM. Plan: Hold diuretics, give fluids and replace blood with one unit over night. Qualifiers: Hypertension type: essential hypertension Qualified Code(s): I10 - Essential (primary) hypertension (8) Pulmonary hypertension Impression: As per echo results, the RVSP at rest is increased from a prior study at 55 mm Hg. He is prescribed chlorthalidone, which will be changed to spironolactone prior to discharge. Plan: Continue no diuretics, as this patient may decompensate with his acute blood loss. (9) Diabetes mellitus type 2, insulin dependent Impression: The patient just recently saw an industrial automation specialist and as per his daughter, was supposed to prescribed a 70/30 insulin, that was never followed through. The Lantus continues and this has been adjusted up from 10 to 15 units based on early AM sugars. Plan: continue to monitor ACHS and give nightly Lantus at 15 units.
[2017-11-08] MEDS: LACTULOSE 10 GM /15 ML UDC PO SCH ×2 (19:54→20:11)
[2017-11-08] MEDS ORDERED: INSULIN GLARGINE 300 UNIT/3 ML PEN SUBQ SCH (21:00)
[2017-11-08] MEDS: ATORVASTATIN 40 MG TABLET PO SCH (21:26)
[2017-11-09] MEDS: SODIUM CHLORIDE FLUSH 0.9% 10 ML SYRINGE IVP SCH ×3 (00:23→17:51)
[2017-11-09 04:44] LABS: BASOPHILS # (AUTO) 0.3 10^3/uL (0.0-0.1); BASOPHILS % (AUTO) 2.3 %; EOSINOPHILS # (AUTO) 0.5 10^3/uL (0.0-0.7); EOSINOPHILS % (AUTO) 4.1 %; HGB - HEMOGLOBIN 10.4 g/dL (14.0-18.0); LYMPHOCYTES # (AUTO) 1.1 10^3/uL (1.5-3.5); LYMPHOCYTES % (AUTO) 10.3 %; MEAN CORPUSCULAR HEMOGLOBIN 32.7 pg (27.0-31.0); MEAN CORPUSCULAR HGB CONC 34.9 g/dL (32.0-36.0); MEAN CORPUSCULAR VOLUME 93.8 fL (80.0-94.0); MEAN PLATELET VOLUME 9.4 fL (7.4-11.4); MONOCYTES # (AUTO) 1.3 10^3/uL (0.0-1.0); MONOCYTES % (AUTO) 11.4 %; NEUTROPHILS % (AUTO) 71.9 %; PLT - PLATELET COUNT 191 10^3/uL (130-450); RED BLOOD COUNT 3.18 10^6/uL (4.70-6.10); RED CELL DISTRIBUTION WIDTH 14.2 % (12.0-15.0); WHITE BLOOD COUNT 11.1 x10^3/uL (4.8-10.8)
[2017-11-09 04:45] LABS: RED BLOOD COUNT 3.32 10^6/uL (4.70-6.10)
[2017-11-09] MEDS: LACTULOSE 10 GM /15 ML UDC PO SCH ×3 (04:55→20:12)
[2017-11-09] MEDS ORDERED: BISACODYL 10 MG SUPP PR ONE (05:10)
[2017-11-09 05:21] LABS: FERRITIN 58.3 ng/mL (23.9-336.2)
[2017-11-09 05:24] LABS: FOLATE 12.81 ng/mL (5.90 - >24.8)
[2017-11-09 05:30] LABS: ALBUMIN 2.9 g/dL (3.2-5.5); BILIRUBIN,TOTAL 0.5 mg/dL (0.2-1.0); CALCIUM 7.9 mg/dL (8.5-10.3); CREATININE 1.8 mg/dL (0.6-1.2); TOTAL PROTEIN 5.8 g/dL (6.7-8.2)
[2017-11-09 05:54] LABS: PSA TOTAL 1.01 ng/mL (0.000-2.000)
[2017-11-09 05:58] LABS: CEA - CARCINOEMBRYONIC ANTIGEN 1.6 ng/mL
[2017-11-09] MEDS: PANTOPRAZOLE 40 MG TABLET PO SCH ×2 (06:03→15:49)
[2017-11-09] MEDS ORDERED: LORazepam 2 MG/ML VIAL IVP PRN (06:16)
[2017-11-09] MEDS ORDERED: MIN OIL/DIMETHICON/COCONUT OIL 92 GM TUBE TOP PRN (08:18)
[2017-11-09] MEDS: INSULIN ASPART 300 UNIT/3 ML PEN SUBQ SCH ×5 (09:03→20:11)
[2017-11-09] MEDS: ACETAMINOPHEN 500 MG TABLET PO SCH (09:05)
[2017-11-09] MEDS: METOPROLOL SUCCINATE 50 MG TABLET PO SCH ×2 (09:05→20:10)
[2017-11-09] MEDS ORDERED: SALINE ENEMA 133 ML BOTTLE RC ONE (10:00)
--- NOTE | 2017-11-09 11:27 | Discharge Plan ---
Discharge Plan Disposition: Home, Self Care Condition: Good Prescriptions: Ferrous Gluconate 324 mg PO BID #60 tablet Furosemide 20 mg PO BID #60 tablet Insulin Glargine [Lantus Solostar] 20 unit SUBQ QPM #5 pen Lactulose [Constulose] 10 gm PO DAILY #30 solution LORazepam [Lorazepam] 0.5 mg PO Q6H #25 tablet Metoprolol Succinate [Toprol Xl] 50 mg PO BID #60 tablet Senna [Senokot] 8.6 mg PO BID #60 tablet Spironolactone 25 mg PO DAILY #30 tablet Wheat Dextrin [Benefiber] 152 gm PO DAILY #30 powder Diet: Diabetic Activity Restrictions: Activity as Tolerated Shower Restrictions: No Driving Restrictions: Yes Assistance Devices: Walker Weight Bearing: Full Weight Instruction Topics: Bleeding Gastrointestinal Additional Instructions or Follow Up instructions: You were admitted for GI Bleeding and an ERCP did not find the obvious source, but after today's colonoscopy there were hemorrhoids and colon polyps found that may have been the source. Pathology is pending. It is very important to keep his stool soft as hard stools will cause the hemorrhoids to tear and bleed. I have sent benefiber and lactulose to the pharmacy to be taken daily. You were given 2 units of blood and you are more near your baseline. You were found to have iron deficiency anemia, so you were started on twice daily iron, which can cause constipation so the lactulose will help. You should see Dr. Quiroga in the next few weeks at his clinic to speak about pathology results. Your blood was checked for cancer markers, prostate abnormalities-both were not indicative of problems. I Your blood sugars were monitored and to simplify, you should only be on one type of insulin every 24 hours to maintain a steady state of blood sugars. Please discard your previous insulin, and start Lantus at 20 units nightly. It is not necessary to check your blood sugars daily, so a few times per week is ok, or if you are feeling low. A walking oxygen test was completed and showed good oxygenation while you walked, so no home oxygen is needed. Please see your PCP within one week. I will forward [facility] a copy of my discharge summary including all testing, labs and medical diagnoses. No Smoking: If you smoke, Please STOP! Call for help. Follow-up with: Jameson Garcias PA-C [Primary Care Provider] -
[2017-11-09] MEDS ORDERED: LORazepam 0.5 MG TABLET PO PRN (11:35)
[2017-11-09] MEDS: FERROUS GLUCONATE 324 MG TABLET PO SCH ×2 (13:08→20:10)
[2017-11-09] MEDS: DOCUSATE SODIUM 250 MG CAPSULE PO SCH (13:08)
[2017-11-09] MEDS: SENNA 8.6 MG TABLET PO SCH (13:09)
[2017-11-09] MEDS: POLYETHYLENE GLYCOL 3350 17 GM PACKET PO SCH (13:09)
--- NOTE | 2017-11-09 13:59 | PROVIDER PROGRESS NOTE ---
Subjective - Prog Note Date Prog Note Date: 11/09/17 Prog Note Time: 12:00 - Subjective Pt reports feeling: Improved Subjective: Armen and his daughter Adele have no complaints, but Adele notes that her father is still feeling out of breath at times and appears pale. He notes that his appetite is good. He denies any new symptoms such as nausea, vomiting, chest pain, blurred vision or a new cough. Objective - Vital Signs/Intake & Output Reviewed Vital Signs: Yes Vital Signs: Vital Signs x48h Temp Pulse Resp BP Pulse Ox 11/09/17 09:51 36.4 C L 77 18 130/77 97 Intake & Output: Intake & Output 11/06/17 11/07/17 11/08/17 11/09/17 23:59 23:59 23:59 23:59 Intake Total 099.483 5140.938 2831.077 680 Output Total 275 3200 1350 1200 Balance 411.444 302.180 1398.077 -520 - Objective General Appearance: positive: No acute distress, Alert Eyes Bilateral: positive: Normal inspection Eyes: OU Conjunctivae pale ENT: positive: ENT inspection nml, Pharynx nml, Dry mucous membranes Neck: positive: Nml inspection, Thyroid nml, No JVD, Trachea midline Respiratory: positive: Chest non-tender, No respiratory distress Cardiovascular: positive: No gallop, Irregularly irregular, Systolic murmur Peripheral Pulses: 2+ Radial (R), 2+ Radial (L) Abdomen: positive: Non-tender, Nml bowel sounds, Other (obese, soft) Back: positive: Nml inspection Skin: positive: No rash, Warm, Dry, Pallor Extremities: positive: Non-tender, Full ROM Neurologic/Psychiatric: positive: Oriented x3, CN's nml (2-12), Motor nml, Sensation nml, Depressed mood/affect Reflexes: Bicep (R): 3+, Bicep (L): 3+ - Lab Results Fish Bones: 11/11/17 05:08 11/11/17 05:08 Other Labs: Lab Results x24hrs 11/09/17 11/09/17 11/09/17 Range/Units 12:21 08:13 04:30 WBC (4.8-10.8) x10^3/uL RBC (4.70-6.10) 10^6/uL Hgb (14.0-18.0) g/dL Hct (42.0-52.0) % MCV (80.0-94.0) fL MCH (27.0-31.0) pg MCHC (32.0-36.0) g/dL RDW (12.0-15.0) % Plt Count (130-450) 10^3/uL MPV (7.4-11.4) fL Reticulocyte % (Auto) (0.5-2.3) % Neut # (Auto) (1.5-6.6) 10^3/uL Lymph # (Auto) (1.5-3.5) 10^3/uL [place] # (Auto) (0.0-1.0) 10^3/uL Eos # (Auto) (0.0-0.7) 10^3/uL Baso # (Auto) (0.0-0.1) 10^3/uL Absolute Nucleated RBC x10^3/uL Nucleated RBC % /100WBC Absolute Retic (0.020-0.110) 10^6/uL Sodium (135-145) mmol/L Potassium (3.5-5.0) mmol/L Chloride (101-111) mmol/L Carbon Dioxide (21-32) mmol/L Anion Gap (6-13) BUN (6-20) mg/dL Creatinine (0.6-1.2) mg/dL Estimated GFR (MDRD) (>89) Glucose (70-100) mg/dL POC Whole Bld Glucose 263 H 215 H (70 - 100) mg/dL Calcium (8.5-10.3) mg/dL Iron (45-182) ug/dL TIBC (250-450) ug/dL % Saturation (20-50) % Transferrin (180-329) mg/dL Ferritin (23.9-336.2) ng/mL Total Bilirubin (0.2-1.0) mg/dL AST (10-42) IU/L ALT (10-60) IU/L Alkaline Phosphatase (42-121) IU/L Lactate Dehydrogenase (91-225) IU/L Total Protein (6.7-8.2) g/dL Albumin (3.2-5.5) g/dL Globulin (2.1-4.2) g/dL Albumin/Globulin Ratio (1.0-2.2) Carcinoembryonic Ag 1.6 ng/mL Prostate Specific Ag 1.010 (0.000-2.000) ng/mL Vitamin B12 (180-914) pg/mL Folate (5.90 - >24.8) ng/mL Blood Type Antibody Screen Crossmatch IS Only 11/09/17 11/09/17 11/09/17 Range/Units 04:30 04:30 04:30 WBC (4.8-10.8) x10^3/uL RBC 3.32 L (4.70-6.10) 10^6/uL Hgb (14.0-18.0) g/dL Hct (42.0-52.0) % MCV (80.0-94.0) fL MCH (27.0-31.0) pg MCHC (32.0-36.0) g/dL RDW (12.0-15.0) % Plt Count (130-450) 10^3/uL MPV (7.4-11.4) fL Reticulocyte % (Auto) 4.37 H (0.5-2.3) % Neut # (Auto) (1.5-6.6) 10^3/uL Lymph # (Auto) (1.5-3.5) 10^3/uL [place] # (Auto) (0.0-1.0) 10^3/uL Eos # (Auto) (0.0-0.7) 10^3/uL Baso # (Auto) (0.0-0.1) 10^3/uL Absolute Nucleated RBC x10^3/uL Nucleated RBC % /100WBC Absolute Retic 0.145 H (0.020-0.110) 10^6/uL Sodium (135-145) mmol/L Potassium (3.5-5.0) mmol/L Chloride (101-111) mmol/L Carbon Dioxide (21-32) mmol/L Anion Gap (6-13) BUN (6-20) mg/dL Creatinine (0.6-1.2) mg/dL Estimated GFR (MDRD) (>89) Glucose (70-100) mg/dL POC Whole Bld Glucose (70 - 100) mg/dL Calcium (8.5-10.3) mg/dL Iron (45-182) ug/dL TIBC (250-450) ug/dL % Saturation (20-50) % Transferrin (180-329) mg/dL Ferritin 58.3 (23.9-336.2) ng/mL Total Bilirubin (0.2-1.0) mg/dL AST (10-42) IU/L ALT (10-60) IU/L Alkaline Phosphatase (42-121) IU/L Lactate Dehydrogenase 154 (91-225) IU/L Total Protein (6.7-8.2) g/dL Albumin (3.2-5.5) g/dL Globulin (2.1-4.2) g/dL Albumin/Globulin Ratio (1.0-2.2) Carcinoembryonic Ag ng/mL Prostate Specific Ag (0.000-2.000) ng/mL Vitamin B12 189 (180-914) pg/mL Folate 12.81 (5.90 - >24.8) ng/mL Blood Type Antibody Screen Crossmatch IS Only 11/09/17 11/09/17 11/08/17 Range/Units 04:30 04:30 20:45 WBC 11.1 H (4.8-10.8) x10^3/uL RBC 3.18 L (4.70-6.10) 10^6/uL Hgb 10.4 L (14.0-18.0) g/dL Hct 29.8 L (42.0-52.0) % MCV 93.8 (80.0-94.0) fL MCH 32.7 H (27.0-31.0) pg MCHC 34.9 (32.0-36.0) g/dL RDW 14.2 (12.0-15.0) % Plt Count 191 (130-450) 10^3/uL MPV 9.4 (7.4-11.4) fL Reticulocyte % (Auto) (0.5-2.3) % Neut # (Auto) 8.0 H (1.5-6.6) 10^3/uL Lymph # (Auto) 1.1 L (1.5-3.5) 10^3/uL [place] # (Auto) 1.3 H (0.0-1.0) 10^3/uL Eos # (Auto) 0.5 (0.0-0.7) 10^3/uL Baso # (Auto) 0.3 H (0.0-0.1) 10^3/uL Absolute Nucleated RBC 0.00 x10^3/uL Nucleated RBC % 0.0 /100WBC Absolute Retic (0.020-0.110) 10^6/uL Sodium 135 (135-145) mmol/L Potassium 4.6 (3.5-5.0) mmol/L Chloride 109 (101-111) mmol/L Carbon Dioxide 22 (21-32) mmol/L Anion Gap 4.0 L (6-13) BUN 36 H (6-20) mg/dL Creatinine 1.8 H (0.6-1.2) mg/dL Estimated GFR (MDRD) 36 L (>89) Glucose 186 H (70-100) mg/dL POC Whole Bld Glucose 242 H (70 - 100) mg/dL Calcium 7.9 L (8.5-10.3) mg/dL Iron 34 L (45-182) ug/dL TIBC 248 L (250-450) ug/dL % Saturation 14 L (20-50) % Transferrin 177 L (180-329) mg/dL Ferritin (23.9-336.2) ng/mL Total Bilirubin 0.5 (0.2-1.0) mg/dL AST 23 (10-42) IU/L ALT 16 (10-60) IU/L Alkaline Phosphatase 87 (42-121) IU/L Lactate Dehydrogenase (91-225) IU/L Total Protein 5.8 L (6.7-8.2) g/dL Albumin 2.9 L (3.2-5.5) g/dL Globulin 2.9 (2.1-4.2) g/dL Albumin/Globulin Ratio 1.0 (1.0-2.2) Carcinoembryonic Ag ng/mL Prostate Specific Ag (0.000-2.000) ng/mL Vitamin B12 (180-914) pg/mL Folate (5.90 - >24.8) ng/mL Blood Type Antibody Screen Crossmatch IS Only 11/08/17 11/06/17 Range/Units 16:33 16:20 WBC (4.8-10.8) x10^3/uL RBC (4.70-6.10) 10^6/uL Hgb (14.0-18.0) g/dL Hct (42.0-52.0) % MCV (80.0-94.0) fL MCH (27.0-31.0) pg MCHC (32.0-36.0) g/dL RDW (12.0-15.0) % Plt Count (130-450) 10^3/uL MPV (7.4-11.4) fL Reticulocyte % (Auto) (0.5-2.3) % Neut # (Auto) (1.5-6.6) 10^3/uL Lymph # (Auto) (1.5-3.5) 10^3/uL [place] # (Auto) (0.0-1.0) 10^3/uL Eos # (Auto) (0.0-0.7) 10^3/uL Baso # (Auto) (0.0-0.1) 10^3/uL Absolute Nucleated RBC x10^3/uL Nucleated RBC % /100WBC Absolute Retic (0.020-0.110) 10^6/uL Sodium (135-145) mmol/L Potassium (3.5-5.0) mmol/L Chloride (101-111) mmol/L Carbon Dioxide (21-32) mmol/L Anion Gap (6-13) BUN (6-20) mg/dL Creatinine (0.6-1.2) mg/dL Estimated GFR (MDRD) (>89) Glucose (70-100) mg/dL POC Whole Bld Glucose 207 H (70 - 100) mg/dL Calcium (8.5-10.3) mg/dL Iron (45-182) ug/dL TIBC (250-450) ug/dL % Saturation (20-50) % Transferrin (180-329) mg/dL Ferritin (23.9-336.2) ng/mL Total Bilirubin (0.2-1.0) mg/dL AST (10-42) IU/L ALT (10-60) IU/L Alkaline Phosphatase (42-121) IU/L Lactate Dehydrogenase (91-225) IU/L Total Protein (6.7-8.2) g/dL Albumin (3.2-5.5) g/dL Globulin (2.1-4.2) g/dL Albumin/Globulin Ratio (1.0-2.2) Carcinoembryonic Ag ng/mL Prostate Specific Ag (0.000-2.000) ng/mL Vitamin B12 (180-914) pg/mL Folate (5.90 - >24.8) ng/mL Blood Type O POSITIVE Antibody Screen NEGATIVE Crossmatch IS Only See Detail ABX Reporting Has patient been on IV antibiotics over the past 48 hours?: No Assessment/Plan - Problem List (1) GI bleed Impression: The patient had a baseline anemia with a hemoglobin in the 12 range, and unit of PRBCs. Also, his BUN was elevated at 86 on admit, now 70. A rectal exam in the ED showed +guiac stool. The daughter states that the patient has had recent problems with constipation in which he states that he sometimes goes "a few weeks" without a BM. This has become much worse since is stroke that has caused right sided weakness. ER reports a hem + stool sample that was obtained during a rectal exam. The patient's daughter remains unhappy as the current general surgeon "should have done a colonoscopy" while he was doing the EGD. This was not the preference of the surgeon and she wishes for a second opinion when the switch services. Dr. Quiroga gladly met with the patient, reviewed his case and is agreeable to a colonoscopy as the patient continues to show s/s of anemia/possible evidence of bleeding. Plan: Monitor labs, and plan for upcoming colonoscopy. Qualifiers: GI bleed type/associated pathology: unspecified gastrointestinal hemorrhage type Qualified Code(s): K92.2 - Gastrointestinal hemorrhage, unspecified (2) Anemia Impression: Today his H/H was 10.0/29.3. The patient has probable anemia of chronic disease, and now anemia due to acute blood loss. He appears pale on exam, but no longer needs oxygen. He has been supplemented with oxygen when he is symptomatic. He will have a colonoscopy in the AM. Iron studies reveal iron deficiency and he has since been started on BID dosing of oral iron. Plan: Daily labs and monitor of signs of bleeding. (3) Constipation Impression: The patient has been struggling with this and it has become worse since his stroke a few months ago. He has been prescribed Senna, TID lactulose and Miralax. As per his daughter, the patient reports up to 2 full weeks without a BM while at home. There are a few contributing factors as his lack of recent mobility, now with oral iron, and his chronic diuretic use. Plan: continue bowel protocol and await GI recommendations/colonoscopy results. 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 He was seeing out patient PT for this prior to the admission, and this will be resumed. Plan: PT once stable. (5) CKD (chronic kidney disease) stage 3, GFR 30-59 ml/min Impression: The patient has a stable creatinine of 1.9, and a reduced GFR of 34. He is also thought to be dehydrated upon admission, so has been given gentle IVFs, and a total of 2 units of PRBCs. He has been started back on gentle diuretics and his IVFs have been discontinued. Plan: continue to avoid nephrotoxins, and daily labs. (6) Congestive heart failure Impression: The patient has a history of this along with coronary stents. He is prescribed a beta kang, a diuretic and an ARB at home. The metoprolol has been changed to a long acting form, and we continue to hold his diuretic and ARB, in light of his acute blood loss. A BNP was checked upon admission, which was elevated at 386 that is now 306. An echocardiogram shows moderate mitral regurg, pulmonary HTN and a only mildly reduced EF of 55-60%. Plan: Continue to monitor daily BNP, and fluid status. (7) Hypertension Impression: The patient is prescribed Losartan, metoprolol, and lasix at home. Today blood pressures have been stable. He continues on metoprolol succinate of just 25, but this was increased to 50 mg PO daily, which will continue at home. Plan: Continue meds and monitor VS. Qualifiers: Hypertension type: essential hypertension Qualified Code(s): I10 - Essential (primary) hypertension (8) Pulmonary hypertension Impression: As per echo results, the RVSP at rest is increased from a prior study at 55 mm Hg. He is now prescribed spironolactone which will be continue for home use upon discharge. Plan: Continue spironolactone and encourage the use of MARICHUY hose. 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 The Lantus continues and this has been adjusted up to 25 units based on early AM sugars. Today early AM sugar was improved at 156. Plan: continue to monitor ACHS and give nightly Lantus at 25 units.
[2017-11-09] MEDS ORDERED: FUROSEMIDE 20 MG/2 ML VIAL IVP SCH (17:18)
[2017-11-09] MEDS: ATORVASTATIN 40 MG TABLET PO SCH (20:10)
[2017-11-09] MEDS: INSULIN GLARGINE 300 UNIT/3 ML PEN SUBQ SCH (20:11)
[2017-11-10 05:51] LABS: BASOPHILS % (AUTO) 0.4 %; EOSINOPHILS # (AUTO) 0.4 10^3/uL (0.0-0.7); EOSINOPHILS % (AUTO) 3.6 %; LYMPHOCYTES # (AUTO) 1.7 10^3/uL (1.5-3.5); LYMPHOCYTES % (AUTO) 16.7 %; MEAN CORPUSCULAR HEMOGLOBIN 31.9 pg (27.0-31.0); MEAN CORPUSCULAR HGB CONC 34.2 g/dL (32.0-36.0); MEAN CORPUSCULAR VOLUME 93.3 fL (80.0-94.0); MEAN PLATELET VOLUME 9.3 fL (7.4-11.4); MONOCYTES # (AUTO) 1.4 10^3/uL (0.0-1.0); NEUTROPHILS # (AUTO) 6.9 10^3/uL (1.5-6.6); NEUTROPHILS % (AUTO) 66.3 %; PLT - PLATELET COUNT 178 10^3/uL (130-450); RED BLOOD COUNT 3.14 10^6/uL (4.70-6.10); RED CELL DISTRIBUTION WIDTH 14.3 % (12.0-15.0); WHITE BLOOD COUNT 10.5 x10^3/uL (4.8-10.8)
[2017-11-10 06:05] LABS: ALBUMIN 2.9 g/dL (3.2-5.5); BILIRUBIN,TOTAL 0.5 mg/dL (0.2-1.0); CALCIUM 7.7 mg/dL (8.5-10.3); CREATININE 1.9 mg/dL (0.6-1.2); MAGNESIUM 2.1 mg/dL (1.7-2.8); TOTAL PROTEIN 5.7 g/dL (6.7-8.2)
[2017-11-10] MEDS: FUROSEMIDE 20 MG TABLET PO SCH ×2 (06:14→14:00)
[2017-11-10] MEDS: LACTULOSE 10 GM /15 ML UDC PO SCH ×3 (06:14→21:04)
[2017-11-10] MEDS: PANTOPRAZOLE 40 MG TABLET PO SCH ×2 (06:14→17:00)
[2017-11-10] MEDS: SODIUM CHLORIDE FLUSH 0.9% 10 ML SYRINGE IVP SCH ×3 (06:14→17:26)
[2017-11-10] MEDS: INSULIN ASPART 300 UNIT/3 ML PEN SUBQ SCH ×7 (08:02→21:04)
[2017-11-10] MEDS: ACETAMINOPHEN 500 MG TABLET PO SCH (09:10)
[2017-11-10] MEDS: METOPROLOL SUCCINATE 50 MG TABLET PO SCH ×2 (09:11→21:03)
[2017-11-10] MEDS: FERROUS GLUCONATE 324 MG TABLET PO SCH ×2 (09:11→21:03)
[2017-11-10] MEDS: POLYETHYLENE GLYCOL 3350 17 GM PACKET PO SCH (09:11)
[2017-11-10] MEDS: DOCUSATE SODIUM 250 MG CAPSULE PO SCH (09:11)
[2017-11-10] MEDS: SPIRONOLACTONE 25 MG TABLET PO SCH (09:12)
[2017-11-10] MEDS: SENNA 8.6 MG TABLET PO SCH (09:12)
--- NOTE | 2017-11-10 12:37 | PROVIDER PROGRESS NOTE ---
Subjective - General Admit Date: 11/06/17 Procedure Date: 11/08/17 Post Op Days: 2 Procedure Performed: EGD with biopsies - Review of Systems General: positive: No symptoms (Continued blood per rectum. Primarily Vietnamese speaking - Croatian. The patient has had a previous colonoscopy over 5 years ago here at this hospital. She is unaware of the results. Recently the patient has noted increased constipation. He is a relatively private Guyon does not tell his daughter an awful lot. They did try prune juice with minimal results twice. It is unclear to the daughter how long this constipation is been present. Subjectively he is also been losing weight and strength.) HEENT: positive: No symptoms Pulmonary: positive: No symptoms Cardiovascular: positive: No symptoms Gastrointestinal: positive: Hematochezia Skin: positive: No symptoms Psychiatric: positive: No symptoms All Other Systems: positive: Reviewed and negative Objective - Patient Data Reviewed Vital Signs: Yes Vital Signs: Vital Signs x48h Temp Pulse Resp BP BP Pulse Ox 11/10/17 09:50 61 113/46 L 11/10/17 08:17 37.3 C 83 18 116/48 L 91 L Weight: Weight 11/08/17 11/09/17 11/10/17 23:59 23:59 23:59 Weight (kg) 100.5 kg 101.5 kg Intake & Output: Intake and Output Totals x24h 11/08/17 11/09/17 11/10/17 23:59 23:59 23:59 Intake Total 2831.077 1320 740 Output Total 1350 2725 900 Balance 1481.077 -1405 -160 - Lab Results Lab Results: 11/10/17 05:06 11/10/17 05:06 Other Lab Results: Lab Results x24hrs 11/10/17 11/10/17 11/10/17 Range/Units 11:37 07:37 05:06 WBC (4.8-10.8) x10^3/uL RBC (4.70-6.10) 10^6/uL Hgb (14.0-18.0) g/dL Hct (42.0-52.0) % MCV (80.0-94.0) fL MCH (27.0-31.0) pg MCHC (32.0-36.0) g/dL RDW (12.0-15.0) % Plt Count (130-450) 10^3/uL MPV (7.4-11.4) fL Neut # (Auto) (1.5-6.6) 10^3/uL Lymph # (Auto) (1.5-3.5) 10^3/uL [place] # (Auto) (0.0-1.0) 10^3/uL Eos # (Auto) (0.0-0.7) 10^3/uL Baso # (Auto) (0.0-0.1) 10^3/uL Absolute Nucleated RBC x10^3/uL Nucleated RBC % /100WBC Sodium (135-145) mmol/L Potassium (3.5-5.0) mmol/L Chloride (101-111) mmol/L Carbon Dioxide (21-32) mmol/L Anion Gap (6-13) BUN (6-20) mg/dL Creatinine (0.6-1.2) mg/dL Estimated GFR (MDRD) (>89) Glucose (70-100) mg/dL POC Whole Bld Glucose 237 H 147 H (70 - 100) mg/dL Calcium (8.5-10.3) mg/dL Magnesium (1.7-2.8) mg/dL Total Bilirubin (0.2-1.0) mg/dL AST (10-42) IU/L ALT (10-60) IU/L Alkaline Phosphatase (42-121) IU/L B-Natriuretic Peptide 468 H (5-100) pg/mL Total Protein (6.7-8.2) g/dL Albumin (3.2-5.5) g/dL Globulin (2.1-4.2) g/dL Albumin/Globulin Ratio (1.0-2.2) 11/10/17 11/10/17 11/09/17 Range/Units 05:06 05:06 19:55 WBC 10.5 (4.8-10.8) x10^3/uL RBC 3.14 L (4.70-6.10) 10^6/uL Hgb 10.0 L (14.0-18.0) g/dL Hct 29.3 L (42.0-52.0) % MCV 93.3 (80.0-94.0) fL MCH 31.9 H (27.0-31.0) pg MCHC 34.2 (32.0-36.0) g/dL RDW 14.3 (12.0-15.0) % Plt Count 178 (130-450) 10^3/uL MPV 9.3 (7.4-11.4) fL Neut # (Auto) 6.9 H (1.5-6.6) 10^3/uL Lymph # (Auto) 1.7 (1.5-3.5) 10^3/uL [place] # (Auto) 1.4 H (0.0-1.0) 10^3/uL Eos # (Auto) 0.4 (0.0-0.7) 10^3/uL Baso # (Auto) 0.0 (0.0-0.1) 10^3/uL Absolute Nucleated RBC 0.01 x10^3/uL Nucleated RBC % 0.1 /100WBC Sodium 135 (135-145) mmol/L Potassium 3.9 (3.5-5.0) mmol/L Chloride 106 (101-111) mmol/L Carbon Dioxide 22 (21-32) mmol/L Anion Gap 7.0 (6-13) BUN 32 H (6-20) mg/dL Creatinine 1.9 H (0.6-1.2) mg/dL Estimated GFR (MDRD) 34 L (>89) Glucose 156 H (70-100) mg/dL POC Whole Bld Glucose 205 H (70 - 100) mg/dL Calcium 7.7 L (8.5-10.3) mg/dL Magnesium 2.1 (1.7-2.8) mg/dL Total Bilirubin 0.5 (0.2-1.0) mg/dL AST 21 (10-42) IU/L ALT 15 (10-60) IU/L Alkaline Phosphatase 78 (42-121) IU/L B-Natriuretic Peptide (5-100) pg/mL Total Protein 5.7 L (6.7-8.2) g/dL Albumin 2.9 L (3.2-5.5) g/dL Globulin 2.8 (2.1-4.2) g/dL Albumin/Globulin Ratio 1.0 (1.0-2.2) 09/14/18 Range/Units 17:12 WBC (4.8-10.8) x10^3/uL RBC (4.70-6.10) 10^6/uL Hgb (14.0-18.0) g/dL Hct (42.0-52.0) % MCV (80.0-94.0) fL MCH (27.0-31.0) pg MCHC (32.0-36.0) g/dL RDW (12.0-15.0) % Plt Count (130-450) 10^3/uL MPV (7.4-11.4) fL Neut # (Auto) (1.5-6.6) 10^3/uL Lymph # (Auto) (1.5-3.5) 10^3/uL [place] # (Auto) (0.0-1.0) 10^3/uL Eos # (Auto) (0.0-0.7) 10^3/uL Baso # (Auto) (0.0-0.1) 10^3/uL Absolute Nucleated RBC x10^3/uL Nucleated RBC % /100WBC Sodium (135-145) mmol/L Potassium (3.5-5.0) mmol/L Chloride (101-111) mmol/L Carbon Dioxide (21-32) mmol/L Anion Gap (6-13) BUN (6-20) mg/dL Creatinine (0.6-1.2) mg/dL Estimated GFR (MDRD) (>89) Glucose (70-100) mg/dL POC Whole Bld Glucose 176 H (70 - 100) mg/dL Calcium (8.5-10.3) mg/dL Magnesium (1.7-2.8) mg/dL Total Bilirubin (0.2-1.0) mg/dL AST (10-42) IU/L ALT (10-60) IU/L Alkaline Phosphatase (42-121) IU/L B-Natriuretic Peptide (5-100) pg/mL Total Protein (6.7-8.2) g/dL Albumin (3.2-5.5) g/dL Globulin (2.1-4.2) g/dL Albumin/Globulin Ratio (1.0-2.2) - Current Medications Current Medications: Current Medications Generic Name Dose Route Start Last Admin Trade Name Freq PRN Reason Stop Dose Admin Acetaminophen 1,000 mg 11/06/17 21:00 11/10/17 09:10 Tylenol PO 1,000 mg DAILY LUIS Administration Atorvastatin Calcium 80 mg 11/06/17 21:00 11/09/17 20:10 Lipitor PO 80 mg QPM LUIS Administration Docusate Sodium 250 - 500 mg 11/07/17 09:00 11/10/17 09:11 Colace 250mg Capsule PO 250 mg DAILY LUIS Administration Ferrous Gluconate 324 mg 11/09/17 12:00 11/10/17 09:11 Fergon PO 324 mg BID LUIS Administration Furosemide 20 mg 11/10/17 06:00 11/10/17 06:14 Lasix PO 20 mg BIDDIURETIC LUIS Administration Hydromorphone HCl 0.5 mg 11/06/17 20:40 11/08/17 09:10 Dilaudid Inj Carp IVP 0.5 mg Q4HR PRN Administration PAIN Insulin Aspart 1 - 9 unit 11/09/17 12:55 11/10/17 08:02 Novolog SUBQ 1 unit 0800,1200,1700,2100 LUIS Administration Protocol Insulin Aspart 5 unit 11/09/17 17:00 11/10/17 08:03 Novolog SUBQ 5 unit TIDWM LUIS Administration Insulin Glargine 25 unit 11/09/17 21:00 11/09/17 20:11 Lantus Solostar SUBQ 25 unit QPM LUIS Administration Lactulose 10 gm 11/08/17 18:59 11/10/17 06:14 Enulose PO 10 gm TID LUIS Administration Lorazepam 0.5 mg 11/09/17 06:16 11/09/17 06:23 Ativan Inj (Vial) IVP 0.5 mg Q6H PRN Administration Anxiety Metoprolol Succinate 50 mg 11/08/17 09:00 11/10/17 09:11 Toprol Xl PO Not Given BID LUIS Pantoprazole Sodium 40 mg 11/09/17 07:00 11/10/17 06:14 Protonix PO 40 mg BIDAC LUIS Administration Polyethylene Glycol 17 gm 11/07/17 09:00 11/10/17 09:11 Miralax PO 17 gm DAILY LUIS Administration Senna 8.6 - 17.2 mg 11/07/17 09:00 11/10/17 09:12 Senokot PO 8.6 mg DAILY LUIS Administration Sodium Chloride 10 ml 11/07/17 01:00 11/10/17 09:12 Normal Saline Flush 0.9% IVP 10 ml 0100,0900,1700 LUIS Administration Spironolactone 25 mg 11/10/17 09:00 11/10/17 09:12 Aldactone PO 25 mg DAILY LUIS Administration - Physical Exam General Appearance: positive: No acute distress Eyes Bilateral: positive: No lid inflammation, Conjunctivae nml, No scleral icterus ENT: positive: No signs of dehydration Neck: positive: Trachea midline Respiratory: positive: Chest non-tender Cardiovascular: positive: Regular rate & rhythm Abdomen: positive: Non-tender Skin: positive: Color nml, Pallor Extremities: positive: Non-tender Neurologic/Psychiatric: positive: Oriented x3 Impression/Plan - Problem List Problem List: Colonoscopy with possible biopsies and/or polypectomies. Indications, procedure, alternatives including no procedure at all, and risks including but not limited to perforation requiring operative repair, bleeding with its risks, and were fully explained to him and his daughter. The patient has already received conscious sedation during this hospitalization and I explained that the colonoscopy would be no different. Review of his history does not reveal any significant systemic disease that would contraindicate use of conscious sedation or MAC anesthesia. All questions were fully answered. Verbal and written consent was obtained. The patient in preparation for his colonoscopy will be n.p.o. and his colon will be mechanically prepped. Additionally, I have ordered a CT scan of his abdomen and pelvis. 45 minutes of [id number] time spent with the patient the majority of which was spent in discussion
[2017-11-10] MEDS ORDERED: IOPAMIDOL-300 50 ML VIAL ONE (12:59)
--- NOTE | 2017-11-10 15:27 | CT Report ---
Reason: CONSTIPATION, WEIGHT LOSS Procedure Date: 11/10/2017 Accession Number: [id number] / [id number] Procedure: CT - Abdomen/Pelvis W/O CPT Code: FULL RESULT: EXAM: CT ABDOMEN AND PELVIS EXAM DATE: 11/10/2017 02:39 PM. CLINICAL HISTORY: CONSTIPATION, WEIGHT LOSS. COMPARISONS: None. TECHNIQUE: Routine helical CT imaging was performed through the abdomen and pelvis. IV contrast: None. Enteric contrast: No. Reconstructions: Coronal and sagittal. In accordance with CT protocol optimization, one or more of the following dose reduction techniques were utilized for this exam: automated exposure control, adjustment of mA and/or KV based on patient size, or use of iterative reconstructive technique. FINDINGS: Lung Bases: Small bilateral pleural effusions Liver: Normal. No masses. Gallbladder/Bile Ducts: Cholelithiasis Spleen: Linear calcification laterally Pancreas: Normal. Adrenal Glands: Right adrenal unremarkable left adrenal 1.2 cm nodule Kidneys: Scarring bilateral kidneys. Left renal cyst Peritoneal Cavity/Bowel: Diverticulosis No free fluid, free air or adenopathy. No masses or acute inflammatory process. The appendix is well visualized and normal. Pelvic Organs: Air in the bladder. 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 IMPRESSION: 1. Cholelithiasis. 2. Left adrenal 1.2 cm nodule. 3. Air in the bladder may be from recent catheterization. 4. Diverticulosis 5. Small bilateral pleural effusions [facility] ADDENDUM: 11/10/17 15:34 Hiatal hernia
[2017-11-10] MEDS: SODIUM/POTASSIUM/MAG SULFATES 354 ML PREP KIT PO SCH (17:26)
--- NOTE | 2017-11-10 19:02 | PROVIDER PROGRESS NOTE ---
Subjective - Prog Note Date Prog Note Date: 11/10/17 Prog Note Time: 12:00 - Subjective Pt reports feeling: Improved Subjective: Armen is encouraged to get his colonoscopy in the AM and offers no complaints. He denies any new symptoms such as a new cough, nausea, vomiting, bleeding, or chest pain. Current Medications - Current Medications Current Medications: Active Medications Acetaminophen (Tylenol) 1,000 mg PO DAILY [facility] Last Admin: 11/10/17 09:10 Dose: 1,000 mg Atorvastatin Calcium (Lipitor) 80 mg PO QPM [facility] Last Admin: 11/09/17 20:10 Dose: 80 mg Docusate Sodium (Colace 250mg Capsule) 250 - 500 mg PO DAILY [facility] Last Admin: 11/10/17 09:11 Dose: 250 mg Ferrous Gluconate (Fergon) 324 mg PO BID [facility] Last Admin: 11/10/17 09:11 Dose: 324 mg Furosemide (Lasix) 20 mg PO BIDDIURETIC [facility] Last Admin: 11/10/17 14:00 Dose: 20 mg Hydromorphone HCl (Dilaudid Inj Carp) 0.5 mg IVP Q4HR PRN PRN Reason: PAIN Last Admin: 11/08/17 09:10 Dose: 0.5 mg Insulin Aspart (Novolog) 1 - 9 unit SUBQ 0800,1200,1700,2100 [facility]; Protocol Last Admin: 11/10/17 17:25 Dose: 3 unit Insulin Aspart (Novolog) 5 unit SUBQ TIDWM [facility] Last Admin: 11/10/17 17:25 Dose: 5 unit Insulin Glargine (Lantus Solostar) 25 unit SUBQ QPM [facility] Last Admin: 11/09/17 20:11 Dose: 25 unit Lactulose (Enulose) 10 gm PO TID [facility] Last Admin: 11/10/17 14:00 Dose: 10 gm Lorazepam (Ativan Inj (Vial)) 0.5 mg IVP Q6H PRN PRN Reason: Anxiety Last Admin: 11/09/17 06:23 Dose: 0.5 mg Lorazepam (Ativan) 0.5 mg PO Q6H PRN PRN Reason: Anxiety Metoprolol Succinate (Toprol Xl) 50 mg PO BID [facility] Last Admin: 11/10/17 09:11 Dose: Not Given Mineral Oil (Cavilon) 1 applic TOP PRN PRN PRN Reason: Skin Care Pantoprazole Sodium (Protonix) 40 mg PO BIDAC [facility] Last Admin: 11/10/17 17:00 Dose: 40 mg Polyethylene Glycol (Miralax) 17 gm PO DAILY [facility] Last Admin: 11/10/17 09:11 Dose: 17 gm Senna (Senokot) 8.6 - 17.2 mg PO DAILY [facility] Last Admin: 11/10/17 09:12 Dose: 8.6 mg Sodium Chloride (Normal Saline Flush 0.9%) 10 ml IVP PRN PRN PRN Reason: NEEDED PER PROVIDER ORDERS Sodium Chloride (Normal Saline Flush 0.9%) 10 ml IVP 0100,0900,1700 [facility] Last Admin: 11/10/17 17:26 Dose: 10 ml Sodium Sulfate/Potass Sulf/Mag Sulf (Suprep Bowel Prep Kit) 177 ml PO 1800,0500 [facility] Stop: 11/11/17 05:01 Last Admin: 11/10/17 17:26 Dose: 177 ml Spironolactone (Aldactone) 25 mg PO DAILY [facility] Last Admin: 11/10/17 09:12 Dose: 25 mg Aspirin 81 mg PO DAILY 09/24/17 Losartan Potassium 25 mg PO DAILY 09/24/17 Objective - Vital Signs/Intake & Output Reviewed Vital Signs: Yes Vital Signs: Vital Signs x48h Temp Pulse Resp BP Pulse Ox 11/10/17 16:15 36.7 C 78 24 125/51 L 98 Intake & Output: Intake & Output 11/07/17 11/08/17 11/09/17 11/10/17 23:59 23:59 23:59 23:59 Intake Total 3956.938 2831.077 1320 1380 Output Total 3200 1350 2725 900 Balance 127.898 4176.077 -1405 480 - Objective General Appearance: positive: No acute distress, Alert Eyes Bilateral: positive: Normal inspection, PERRL Eyes: OU Conjunctivae pale ENT: positive: ENT inspection nml, Pharynx nml, No signs of dehydration Neck: positive: Nml inspection, Thyroid nml, No JVD Respiratory: positive: Chest non-tender, No respiratory distress, Other (diminished) Cardiovascular: positive: Regular rate & rhythm, No gallop, Systolic murmur Peripheral Pulses: 1+ Radial (R), 1+ Radial (L) Abdomen: positive: Tenderness, Guarding, Other (rounded, obese, soft) Back: positive: Nml inspection Skin: positive: No rash, Warm, Dry Extremities: positive: Non-tender, Full ROM, Pedal edema (chronic BLE) Neurologic/Psychiatric: positive: Oriented x3, CN's nml (2-12), Motor nml, Sensation nml, Weakness, Depressed mood/affect Reflexes: Bicep (R): 3+, Bicep (L): 3+ - Lab Results Fish Bones: 11/11/17 05:08 11/11/17 05:08 Other Labs: Lab Results x24hrs 11/10/17 11/10/17 11/10/17 Range/Units 16:59 11:37 07:37 WBC (4.8-10.8) x10^3/uL RBC (4.70-6.10) 10^6/uL Hgb (14.0-18.0) g/dL Hct (42.0-52.0) % MCV (80.0-94.0) fL MCH (27.0-31.0) pg MCHC (32.0-36.0) g/dL RDW (12.0-15.0) % Plt Count (130-450) 10^3/uL MPV (7.4-11.4) fL Neut # (Auto) (1.5-6.6) 10^3/uL Lymph # (Auto) (1.5-3.5) 10^3/uL [place] # (Auto) (0.0-1.0) 10^3/uL Eos # (Auto) (0.0-0.7) 10^3/uL Baso # (Auto) (0.0-0.1) 10^3/uL Absolute Nucleated RBC x10^3/uL Nucleated RBC % /100WBC Sodium (135-145) mmol/L Potassium (3.5-5.0) mmol/L Chloride (101-111) mmol/L Carbon Dioxide (21-32) mmol/L Anion Gap (6-13) BUN (6-20) mg/dL Creatinine (0.6-1.2) mg/dL Estimated GFR (MDRD) (>89) Glucose (70-100) mg/dL POC Whole Bld Glucose 196 H 237 H 147 H (70 - 100) mg/dL Calcium (8.5-10.3) mg/dL Magnesium (1.7-2.8) mg/dL Total Bilirubin (0.2-1.0) mg/dL AST (10-42) IU/L ALT (10-60) IU/L Alkaline Phosphatase (42-121) IU/L B-Natriuretic Peptide (5-100) pg/mL Total Protein (6.7-8.2) g/dL Albumin (3.2-5.5) g/dL Globulin (2.1-4.2) g/dL Albumin/Globulin Ratio (1.0-2.2) 11/10/17 11/10/17 11/10/17 Range/Units 05:06 05:06 05:06 WBC 10.5 (4.8-10.8) x10^3/uL RBC 3.14 L (4.70-6.10) 10^6/uL Hgb 10.0 L (14.0-18.0) g/dL Hct 29.3 L (42.0-52.0) % MCV 93.3 (80.0-94.0) fL MCH 31.9 H (27.0-31.0) pg MCHC 34.2 (32.0-36.0) g/dL RDW 14.3 (12.0-15.0) % Plt Count 178 (130-450) 10^3/uL MPV 9.3 (7.4-11.4) fL Neut # (Auto) 6.9 H (1.5-6.6) 10^3/uL Lymph # (Auto) 1.7 (1.5-3.5) 10^3/uL [place] # (Auto) 1.4 H (0.0-1.0) 10^3/uL Eos # (Auto) 0.4 (0.0-0.7) 10^3/uL Baso # (Auto) 0.0 (0.0-0.1) 10^3/uL Absolute Nucleated RBC 0.01 x10^3/uL Nucleated RBC % 0.1 /100WBC Sodium 135 (135-145) mmol/L Potassium 3.9 (3.5-5.0) mmol/L Chloride 106 (101-111) mmol/L Carbon Dioxide 22 (21-32) mmol/L Anion Gap 7.0 (6-13) BUN 32 H (6-20) mg/dL Creatinine 1.9 H (0.6-1.2) mg/dL Estimated GFR (MDRD) 34 L (>89) Glucose 156 H (70-100) mg/dL POC Whole Bld Glucose (70 - 100) mg/dL Calcium 7.7 L (8.5-10.3) mg/dL Magnesium 2.1 (1.7-2.8) mg/dL Total Bilirubin 0.5 (0.2-1.0) mg/dL AST 21 (10-42) IU/L ALT 15 (10-60) IU/L Alkaline Phosphatase 78 (42-121) IU/L B-Natriuretic Peptide 468 H (5-100) pg/mL Total Protein 5.7 L (6.7-8.2) g/dL Albumin 2.9 L (3.2-5.5) g/dL Globulin 2.8 (2.1-4.2) g/dL Albumin/Globulin Ratio 1.0 (1.0-2.2) 11/09/17 Range/Units 19:55 WBC (4.8-10.8) x10^3/uL RBC (4.70-6.10) 10^6/uL Hgb (14.0-18.0) g/dL Hct (42.0-52.0) % MCV (80.0-94.0) fL MCH (27.0-31.0) pg MCHC (32.0-36.0) g/dL RDW (12.0-15.0) % Plt Count (130-450) 10^3/uL MPV (7.4-11.4) fL Neut # (Auto) (1.5-6.6) 10^3/uL Lymph # (Auto) (1.5-3.5) 10^3/uL [place] # (Auto) (0.0-1.0) 10^3/uL Eos # (Auto) (0.0-0.7) 10^3/uL Baso # (Auto) (0.0-0.1) 10^3/uL Absolute Nucleated RBC x10^3/uL Nucleated RBC % /100WBC Sodium (135-145) mmol/L Potassium (3.5-5.0) mmol/L Chloride (101-111) mmol/L Carbon Dioxide (21-32) mmol/L Anion Gap (6-13) BUN (6-20) mg/dL Creatinine (0.6-1.2) mg/dL Estimated GFR (MDRD) (>89) Glucose (70-100) mg/dL POC Whole Bld Glucose 205 H (70 - 100) mg/dL Calcium (8.5-10.3) mg/dL Magnesium (1.7-2.8) mg/dL Total Bilirubin (0.2-1.0) mg/dL AST (10-42) IU/L ALT (10-60) IU/L Alkaline Phosphatase (42-121) IU/L B-Natriuretic Peptide (5-100) pg/mL Total Protein (6.7-8.2) g/dL Albumin (3.2-5.5) g/dL Globulin (2.1-4.2) g/dL Albumin/Globulin Ratio (1.0-2.2) ABX Reporting Has patient been on IV antibiotics over the past 48 hours?: No Assessment/Plan - Problem List (1) GI bleed Impression: The patient had unresolved symptoms even after getting his EGD for this hospital stay. The patient and his family insisted on a second surgical opinion, and Dr. Quiroga gladly met with the patient, reviewed his case and is agreeable to a colonoscopy as the patient continues to show s/s of anemia/possible evidence of bleeding. Plan: Monitor labs, and the patient will undergo a bowel prep later tonight, with a colonoscopy in the AM. Qualifiers: GI bleed type/associated pathology: unspecified gastrointestinal hemorrhage type Qualified Code(s): K92.2 - Gastrointestinal hemorrhage, unspecified (2) Anemia Impression: It was determined that the patient has iron deficiency anemia based on iron study labs. He has since been started on BID iron supplement, which will continue at home. He appears pale on exam, but no longer needs oxygen. He has been supplemented with oxygen when he is symptomatic. He will have a colonoscopy in the AM. He received a total of 2 units of PRBCs while in the hospital. His baseline hemoglobin was known to be 12, and it remains stable ~10. Plan: Daily labs, continue iron supplement, and monitor of signs of bleeding. (3) Constipation Impression: The patient has been struggling with this and it has become worse since his stroke a few months ago. He has been prescribed Senna, TID lactulose and Miralax. As per his daughter, the patient reports up to 2 full weeks without a BM while at home. There are a few contributing factors as his lack of recent mobility, now with oral iron, and his chronic diuretic use. Plan: continue bowel protocol and await GI recommendations/colonoscopy results. 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 He was seeing out patient PT for this prior to the admission, and this will be resumed. Plan: Resume PT at home after discharge. (5) CKD (chronic kidney disease) stage 3, GFR 30-59 ml/min Impression: The patient has a stable creatinine of 1.9, and a reduced GFR of 34. He is also thought to be dehydrated upon admission, so has been given gentle IVFs, and a total of 2 units of PRBCs. He has been started back on gentle diuretics and his IVFs have been discontinued. Plan: continue to avoid nephrotoxins, and daily labs. (6) Congestive heart failure Impression: Diastolic dysfunction in the past. The patient has a history of this along with coronary stents. He is prescribed a beta kang, a diuretic and an ARB at home. The metoprolol has been changed to a long acting form, and we continue to hold his diuretic and ARB, in light of his acute blood loss. A BNP was checked upon admission, which was elevated at 386 that is now 306. An echocardiogram shows moderate mitral regurg, pulmonary HTN and a only mildly reduced EF of 55- 60%. Plan: Continue to monitor daily BNP, and fluid status. (7) Hypertension Impression: The patient is prescribed Losartan, metoprolol, and lasix at home. Today blood pressures have been stable. He continues on metoprolol succinate 50 mg PO daily, which will continue at home. Plan: Continue meds and monitor VS. Qualifiers: Hypertension type: essential hypertension Qualified Code(s): I10 - Essential (primary) hypertension (8) Pulmonary hypertension Impression: As per echo results, the RVSP at rest is increased from a prior study at 55 mm Hg. He is now prescribed spironolactone which will be continue for home use upon discharge. Plan: Continue spironolactone and encourage the use of MARICHUY hose. (9) Diabetes mellitus type 2, insulin dependent Impression: The patient just recently saw an umbrella tipper hand and as per his daughter, was supposed to prescribed a 70/30 insulin, that was never followed through. The Lantus continues and this has been adjusted up to 20 units based on early AM sugars. Today early AM sugar was improved at 146. Plan: continue to monitor ACHS and give nightly Lantus at 20 units.
[2017-11-10] MEDS: ATORVASTATIN 40 MG TABLET PO SCH (21:02)
[2017-11-10] MEDS: INSULIN GLARGINE 300 UNIT/3 ML PEN SUBQ SCH (21:04)
[2017-11-11 05:28] LABS: BASOPHILS % (AUTO) 0.3 %; EOSINOPHILS # (AUTO) 0.3 10^3/uL (0.0-0.7); EOSINOPHILS % (AUTO) 2.6 %; HGB - HEMOGLOBIN 10.1 g/dL (14.0-18.0); LYMPHOCYTES # (AUTO) 1.8 10^3/uL (1.5-3.5); LYMPHOCYTES % (AUTO) 15.3 %; MEAN CORPUSCULAR HEMOGLOBIN 31.6 pg (27.0-31.0); MEAN CORPUSCULAR HGB CONC 34.1 g/dL (32.0-36.0); MEAN CORPUSCULAR VOLUME 92.8 fL (80.0-94.0); MEAN PLATELET VOLUME 9.2 fL (7.4-11.4); MONOCYTES # (AUTO) 1.4 10^3/uL (0.0-1.0); MONOCYTES % (AUTO) 12.1 %; NEUTROPHILS # (AUTO) 8.2 10^3/uL (1.5-6.6); NEUTROPHILS % (AUTO) 69.7 %; PLT - PLATELET COUNT 189 10^3/uL (130-450); RED BLOOD COUNT 3.18 10^6/uL (4.70-6.10); RED CELL DISTRIBUTION WIDTH 14.4 % (12.0-15.0); WHITE BLOOD COUNT 11.8 x10^3/uL (4.8-10.8)
[2017-11-11 05:33] LABS: ALBUMIN 2.9 g/dL (3.2-5.5); BILIRUBIN,TOTAL 0.7 mg/dL (0.2-1.0); CALCIUM 7.9 mg/dL (8.5-10.3); CREATININE 1.7 mg/dL (0.6-1.2); TOTAL PROTEIN 5.8 g/dL (6.7-8.2)
[2017-11-11] MEDS: SODIUM/POTASSIUM/MAG SULFATES 354 ML PREP KIT PO SCH (05:56)
[2017-11-11] MEDS: PANTOPRAZOLE 40 MG TABLET PO SCH (06:15)
[2017-11-11] MEDS: FUROSEMIDE 20 MG TABLET PO SCH ×2 (06:15→13:22)
[2017-11-11] MEDS: SODIUM CHLORIDE FLUSH 0.9% 10 ML SYRINGE IVP SCH ×2 (06:15→09:53)
[2017-11-11] MEDS: LACTULOSE 10 GM /15 ML UDC PO SCH ×2 (06:18→13:22)
[2017-11-11] MEDS: INSULIN ASPART 300 UNIT/3 ML PEN SUBQ SCH ×2 (07:34→12:26)
--- NOTE | 2017-11-11 08:39 | ANESTHESIA ---
Pre-Anesthesia VS, & Labs - Diagnosis gastointestinal bleeding - Procedure colonoscopy Vital Signs: Temp Pulse Resp BP Pulse Ox 36.3 C L 81 16 119/53 L 97 11/11/17 07:59 11/11/17 07:59 11/11/17 07:59 11/11/17 07:59 11/11/17 07:59 Height 5 ft 9 in Weight (kg) 100 kg Body Mass Index 32.8 - NPO >8 hours - Lab Results Fish Bones: 11/11/17 05:08 11/11/17 05:08 Home Medications and Allergies Home Medications: Ambulatory Orders Medication Instructions Recorded Confirmed Aspirin 81 mg PO DAILY 09/24/17 11/06/17 Losartan Potassium 25 mg PO DAILY 09/24/17 11/06/17 Atorvastatin [Lipitor] 80 mg PO QPM #30 tablet 09/25/17 11/06/17 Ferrous Gluconate 324 mg PO BID #60 tablet 11/09/17 Furosemide 20 mg PO BID #60 tablet 11/09/17 Insulin Glargine [Lantus Solostar] 20 unit SUBQ QPM #5 pen 11/09/17 LORazepam [Lorazepam] 0.5 mg PO Q6H #25 tablet 11/09/17 Lactulose [Constulose] 10 gm PO DAILY #30 solution 11/09/17 Metoprolol Succinate [Toprol Xl] 50 mg PO BID #60 tablet 11/09/17 Senna [Senokot] 8.6 mg PO BID #60 tablet 11/09/17 Spironolactone 25 mg PO DAILY #30 tablet 11/09/17 Allergies/Adverse Reactions: Allergies Allergy/AdvReac Type Severity Reaction Status Date / Time No Known Drug Allergies Allergy Verified 11/06/17 13:10 Anes History & Medical History - Anesthetic History Anesthesia Complications: reports: No previous complications Family history of Anesthesia Complications: Denies Family history of Malignant Hyperthermia: Denies - Medical History Cardiovascular: reports: Congestive heart failure, Hypertension, High cholesterol, Coronary artery disease, [place], Atrial fibrillation, Murmur Pulmonary: reports: COPD, Pneumonia, Shortness of breath Gastrointestinal: reports: GERD, GI bleed, Chronic constipation Urinary: reports: Benign prostate hypertrophy, Renal insuffiency, Nocturia Neuro: reports: Dementia, CVA, Peripheral neuropathy Musculoskeletal: reports: Osteoarthritis, Hemiplegia (chronic right sided weakness) Endocrine/Autoimmune: reports: Type 2 diabetes Blood Disorders: reports: Anemia Skin: reports: None Smoking Status: Never smoker - Surgical History General: Colonoscopy, EGD Cardiothoracic: Coronary stent, Cardiac catheterization, Angioplasty Exam General: Alert, Cooperative Dental: Other (missing teeth) Mouth Openin Fingerbreadth Neck Mobility: Normal Mallampati classification: II Thyromental Distance: greater than 6 cm Respiratory: Lungs clear, Normal breath sounds, No respiratory distress, No accessory muscle use Cardiovascular: Normal S1, Normal S2, No murmurs Plan Anesthesia Type: MAC Consent for Procedure(s) Verified and Reviewed: Yes Code Status: Attempt Resuscitation ASA classification: 3-Severe systemic disease Is this case an emergency?: No
[2017-11-11] MEDS: ACETAMINOPHEN 500 MG TABLET PO SCH (09:52)
[2017-11-11] MEDS: DOCUSATE SODIUM 250 MG CAPSULE PO SCH (09:52)
[2017-11-11] MEDS: SENNA 8.6 MG TABLET PO SCH (09:53)
[2017-11-11] MEDS: FERROUS GLUCONATE 324 MG TABLET PO SCH (09:53)
[2017-11-11] MEDS: SPIRONOLACTONE 25 MG TABLET PO SCH (09:53)
[2017-11-11] MEDS: METOPROLOL SUCCINATE 50 MG TABLET PO SCH (09:53)
[2017-11-11] MEDS: POLYETHYLENE GLYCOL 3350 17 GM PACKET PO SCH (09:53)
[2017-11-11] MEDS ORDERED: LIDOCAINE-MPF 2% 5 ML VIAL IM ONE (09:55)
[2017-11-11] MEDS ORDERED: PROPOFOL 200 MG/20 ML VIAL IVP ONE (09:55)
[2017-11-11 13:25] VITALS: BP 107/52
--- NOTE | 2017-11-11 14:03 | DISCHARGE SUMMARY ---
"Discharge Summary Admit Date: 11/06/17 Discharge Date: 11/11/17 Discharging Provider: YUE Roger Primary Care Provider: PUNEET Sosa Code Status: Attempt Resuscitation Condition at Discharge: Good Discharge Disposition: 06 [facility] Service - DIAGNOSES Admission Diagnoses: Gastrointestinal hemorrhage, unspecified (K92.2) Chronic kidney disease, stage 3 (moderate) (N18.3) Hemiparesis affecting right side as late effect of cerebrovascular accident (I69.351) Diastolic CHF, chronic (I50.32) Hypertension (I10) Anemia (D64.9) Discharge Diagnoses with Status of Each Condition: GI bleed (K92.2) resolved. Needs GI surgery follow up to discuss pathology results-pending. CKD (chronic kidney disease) stage 3, GFR 30-59 ml/min (N18.3) returned to baseline, stable. Iron deficiency anemia (D50.9) chronic, stable. Sent ferrous gluconate to the pharmacy for BID use. Constipation (K59.00) chronic, stable. Sent Lactulose and Benefiber to the pharmacy for daily use. Pulmonary hypertension (I27.20) chronic, stable. Changed Chlorthalidone to Spironolactone based on echo results. 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 Changed 70/30 to daily Lantus. Chronic diastolic (congestive) heart failure (I50.32) chronic, stable. HTN (hypertension) (I10) chronic, stable. Hemiparesis affecting right side as late effect of cerebrovascular accident (I69.351) chronic, stable. - HPI History of Present Illness: Armen Goldberg is an elderly 87-year old male with a past medical history of DM type 2-insulin dependent, CKD stage 3, coronary stent, [place], CVA with right sided residual, thoracentesis w/complications necessitating sternotomy and repair of a punctured pericardial tear, and hypertension. The patient reluctantly presented to the ED as his daughter, Adele, drove him here after ongoing dizziness, increased shortness of breath and severe lethargy. General surgery was contacted for a possible scope in the AM, but with the complexity of his medical problems, he may not be scoped for the next few days as he has an elevated WBC count of 14.5, ongoing, symptomatic anemia and profound weakness. The patient upon exam denied symptoms including a new cough, nausea, bleeding, chest pain, syncope, increased confusion, dysuria, or insomnia. Admitting labs showed anemia that has worsened from his previous baseline; with a hemoglobin of 9.3 and a hematocrit of 27.4, an elevated neutrophil count at 10.5, a normal INR of 1.1, a mildly low sodium of 134, an elevated chloride of 98, a remarkably elevated BUN of 86, an elevated creatinine of 2.2, a reduced GFR of 28, an elevated glucose of 171, a low calcium of 8.4, an elevated BNP of 396 and a normal troponin. The patient was afebrile, had otherwise normal vital signs except he was given supplemental oxygen as he had ongoing complaints of shortness of breath. The ED provider performed a rectal exam that confirms the presence of dark stool that is guiac positive without gross melena. Due to the complexity of this case, he will be admitted to inpatient for a full work up, and he may receive PRBCs as he appears to be symptomatic with his recent blood loss. - CONSULTS | PROCEDURES Consultations: General surgery Procedures: EGD on 11/08/[address] Rivera. Final postoperative diagnoses: 1. Mild to moderate gatritis and duodenitis. No sign of active upper gastrointestinal bleeding. 2. The patient also has esophagititis, possibly yeast involvement in the mid-body of the esophagus. A gastric antrum biopsy was obtained for ALDO testing. Colonoscopy on 11/11/[address] Quiroga. Preliminary postoperative diagnoses: Pending, verbally spoke of colon polyps, and extensive hemorrhoids that may have been the source of bleeding. Pathology is pending. - HOSPITAL COURSE Hospital Course: (1) GI bleed The patient had unresolved symptoms even after getting his EGD for this hospital stay. The patient and his family insisted on a second surgical opinion, and Dr. Quiroga gladly met with the patient, reviewed his case and is agreeable to a colonoscopy as the patient continues to show s/s of anemia/possible evidence of bleeding. The patient underwent a colonoscopy in which colon polyps and hemorrhoids were removed and sent to pathology. (2) Iron deficiency Anemia It was determined that the patient has iron deficiency anemia based on iron study labs. He has since been started on BID iron supplement, which will jacques nue at home. He appears pale on exam, but no longer needs oxygen. He has been supplemented with oxygen when he is symptomatic. He will have a colonoscopy in the AM. He received a total of 2 units of PRBCs while in the hospital. His baseline hemoglobin was known to be 12, and it remains stable ~10. At the time of discharge, it was believed that this condition was stable and there were no active signs of bleeding. (3) Constipation The patient has been struggling with this and it has become worse since his stroke a few months ago. He has been prescribed Senna, TID lactulose and Miralax. As per his daughter, the patient reports up to 2 full weeks without a BM while at home. There are a few contributing factors as his lack of recent mobility, now with oral iron, and his chronic diuretic use. As per GI recommendations, benefiber and lactulose were sent to the pharmacy to be taken daily. (4) Hemiparesis affecting right side as late effect of cerebrovascular accident The patient has a known history of a remote CVA with a residual of both his right arm & leg. He was seeing out patient PT for this prior to the admission, and this will be resumed. (5) CKD (chronic kidney disease) stage 3, GFR 30-59 ml/min The patient has a stable creatinine of 1.9, and a reduced GFR of 34. Upon discharge his creatinine was much improved at 1.7, even after starting him back on his diuretics. He is also thought to be dehydrated upon admission, so has been given gentle IVFs, and a total of 2 units of PRBCs. (6) Diastolic Congestive heart failure Diastolic dysfunction in the past. The patient has a history of this along with coronary stents. He is prescribed a beta kang, a diuretic and an ARB at home. The metoprolol has been changed to a long acting form, and we continue to hold his diuretic and ARB, in light of his acute blood loss. A BNP was checked upon admission, which was elevated at 386 that was 279 upon discharge. An echocardiogram shows moderate mitral regurg, pulmonary HTN, evidence of prior diastolic dysfunction with an enlarged LA, and a only mildly reduced EF of 55- 60%. (7) Hypertension The patient is prescribed Losartan, metoprolol, and lasix at home. He was continued on metoprolol succinate 50 mg PO daily, which will continue at home. (8) Pulmonary hypertension As per echo results, the RVSP at rest is increased from a prior study at 55 mm Hg. He is now prescribed spironolactone which will be continue for home use upon discharge. He was encouraged to use MARICHUY hose, but his daughter stated that he is very against this idea. (9) Diabetes mellitus type 2, insulin dependent The patient just recently saw an wire stitcher machine and as per his daughter, was supposed to prescribed a 70/30 insulin, that was never followed through. The Lantus continues and this has been adjusted up to 25 units based on early AM sugars. On the morning of discharge, his early AM sugar was somewhat below the goal (140 while in the hospital) at 136, so he was sent home on Lantus 20 units daily, with no other new medications. He was instructed to lessen the frequency of his blood sugar monitoring, unless he is feeling low. These changes were made, as to simplify and reduce confusion or frustration despite the daughter stating that they had been to see an wire stitcher machine. Disposition: The patient was anxious to return home with his daughter and was medically stable. He was taken via private car. - ALLERGIES Allergies/Adverse Reactions: Allergies Allergy/AdvReac Type Severity Reaction Status Date / Time No Known Drug Allergies Allergy Verified 11/06/17 13:10 - MEDICATIONS Home Medications: Ambulatory Orders Medication Instructions Recorded Confirmed Aspirin 81 mg PO DAILY 09/24/17 11/06/17 Losartan Potassium 25 mg PO DAILY 09/24/17 11/06/17 Atorvastatin [Lipitor] 80 mg PO QPM #30 tablet 09/25/17 11/06/17 Ferrous Gluconate 324 mg PO BID #60 tablet 11/09/17 Furosemide 20 mg PO BID #60 tablet 11/09/17 Insulin Glargine [Lantus Solostar] 20 unit SUBQ QPM #5 pen 11/09/17 LORazepam [Lorazepam] 0.5 mg PO Q6H #25 tablet 11/09/17 Lactulose [Constulose] 10 gm PO DAILY #30 solution 11/09/17 Metoprolol Succinate [Toprol Xl] 50 mg PO BID #60 tablet 11/09/17 Senna [Senokot] 8.6 mg PO BID #60 tablet 11/09/17 Spironolactone 25 mg PO DAILY #30 tablet 11/09/17 Wheat Dextrin [Benefiber] 152 gm PO DAILY #30 powder 11/11/17 - PHYSICAL EXAM AT DISCHARGE General Appearance: positive: No acute distress, Alert Eyes Bilateral: positive: Normal inspection, PERRL ENT: positive: ENT inspection nml, Pharynx nml, No signs of dehydration Neck: positive: Nml inspection, Thyroid nml, No JVD, Trachea midline Respiratory: positive: Chest non-tender, No respiratory distress, Breath sounds nml Cardiovascular: positive: No gallop, Irregularly irregular, Systolic murmur, Decreased pulse(s) Peripheral Pulses: positive: 1+ Abdomen: positive: Non-tender, Nml bowel sounds, Other (rounded, soft) Rectal: positive: Stool - heme NEG, Hemorrhoid Back: positive: Nml inspection Skin: positive: No rash, Warm, Dry Extremities: positive: Non-tender, Pedal edema (chronic BLE), Joint swelling Neurologic/Psychiatric: positive: Oriented x3, CN's nml (2-12), Motor nml, Sensation nml, Depressed mood/affect Reflexes: Bicep (R): 3+, Bicep (L): 3+ - LABS Result Diagrams: 11/11/17 05:08 11/11/17 05:08 - DIAGNOSTIC IMAGING Diagnostic Imaging Results: Prelim report reviewed, Final report reviewed Diagnostic Imaging Results Comments: EXAM: CHEST RADIOGRAPHY EXAM DATE: 11/06/2017 02:47 PM. IMPRESSION: Chronic findings. No acute disease. EXAM: CT ABDOMEN AND PELVIS EXAM DATE: 11/10/2017 02:39 PM. IMPRESSION: 1. Cholelithiasis. 2. Left adrenal 1.2 cm nodule. 3. Air in the bladder may be from recent catheterization. 4. Diverticulosis 5. Small bilateral pleural effusions. ECHOCARDIOGRAM: Final read by Bony Braden MD on 11/06/17: 1. The LV size is normal. LV wall thickness is normal. Overall LV systolic function is normal with an EF of 55-60%. Diastolic function is indeterminate. 2. The RV is normal in size and function. 3. There is mild to moderate mitral regurg. 4. Mild tricuspid regurg. Moderately abnormal right heart pressures. The RVSP at rest is 55 mmHg. As compared to the prior echo, pulmonary arterial systolic pressures have increased from the 41 mmHg reported 09/25/17. The patient was wearing an external monitoring device from his primary [employer]. Our continuous telemetry, EKGs showed no evidence of atrial fibrillation while hospitalized and the patient remained in a sinus rhythm. He was found to be prescribed Metoprolol tartrate at home that was changed to succinate in order to prevent any arrhythmias. This device remained in place for his entire stay and he should follow up as scheduled. - FOLLOW UP Follow Up: Disposition: 01 Home, Self Care Condition: Good Prescriptions: Ferrous Gluconate 324 mg PO BID #60 tablet Furosemide 20 mg PO BID #60 tablet Insulin Glargine [Lantus Solostar] 20 unit SUBQ QPM #5 pen Lactulose [Constulose] 10 gm PO DAILY #30 solution LORazepam [Lorazepam] 0.5 mg PO Q6H #25 tablet Metoprolol Succinate [Toprol Xl] 50 mg PO BID #60 tablet Senna [Senokot] 8.6 mg PO BID #60 tablet Spironolactone 25 mg PO DAILY #30 tablet Wheat Dextrin [Benefiber] 152 gm PO DAILY #30 powder Diet: Diabetic Activity Restrictions: Activity as Tolerated Shower Restrictions: No Driving Restrictions: Yes Assistance Devices: Walker Weight Bearing: Full Weight Instruction Topics: Bleeding Gastrointestinal Additional Instructions or Follow Up instructions: You were admitted for GI Bleeding and an ERCP did not find the obvious source, but after today's colonoscopy there were hemorrhoids and colon polyps found that may have been the source. Pathology is pending. It is very important to keep his stool soft as hard stools will cause the hemorrhoids to tear and bleed. I have sent benefiber and lactulose to the pharmacy to be taken daily. You were given 2 units of blood and you are more near your baseline. You were found to have iron deficiency anemia, so you were started on twice daily iron, which can cause constipation so the lactulose will help. You should see Dr. Quiroga in the next few weeks at his clinic to speak about pathology results. Your blood was checked for cancer markers, prostate abnormalities-both were not indicative of problems. I Your blood sugars were monitored and to simplify, you should only be on one type of insulin every 24 hours to maintain a steady state of blood sugars. Please discard your previous insulin, and start Lantus at 20 units nightly. It is not necessary to check your blood sugars daily, so a few times per week is ok, or if you are feeling low. A walking oxygen test was completed and showed good oxygenation while you walked, so no home oxygen is needed. Please see your PCP within one week. I will forward [facility] a copy of my discharge summary including all testing, labs and medical diagnoses. - TIME SPENT Time Spent in Discharge (Minutes): 65"
== END 2017-11-11 15:32 | disposition home health service (06) | DRG 378 ==
LOC: ED 12:57 → MS3 17:53
PROVIDERS: ADMIT Nurse Practitioner; ATTEND Nurse Practitioner
PROC: 30233N1 Transfusion of Nonautologous Red Blood Cells into Peripheral Vein, Percutaneous Approach (ICD-10-PCS; 2017-11-06)
PROC: 0DD68ZX Extraction of Stomach, Via Natural or Artificial Opening Endoscopic, Diagnostic (ICD-10-PCS; 2017-11-08)
PROC: 0DBP8ZZ Excision of Rectum, Via Natural or Artificial Opening Endoscopic (ICD-10-PCS; principal; 2017-11-11)
DX: R06.00 Dyspnea, unspecified (principal); E86.0 Dehydration; K92.2 Gastrointestinal hemorrhage, unspecified; Z86.73 Personal history of transient ischemic attack (TIA), and cerebral infarction without residual deficits; I13.0 Hypertensive heart and chronic kidney disease with heart failure and stage 1 through stage 4 chronic kidney disease, or unspecified chronic kidney disease; I50.32 Chronic diastolic (congestive) heart failure; I69.851 Hemiplegia and hemiparesis following other cerebrovascular disease affecting right dominant side; D62 Acute posthemorrhagic anemia; B37.81 Candidal esophagitis; K64.8 Other hemorrhoids; E11.65 Type 2 diabetes mellitus with hyperglycemia; Z79.4 Long term (current) use of insulin; E11.22 Type 2 diabetes mellitus with diabetic chronic kidney disease; N18.3 Chronic kidney disease, stage 3 (moderate); Z95.5 Presence of coronary angioplasty implant and graft; I25.2 Old myocardial infarction; D63.8 Anemia in other chronic diseases classified elsewhere; K59.00 Constipation, unspecified; I27.20 Pulmonary hypertension, unspecified; K62.1 Rectal polyp; K29.70 Gastritis, unspecified, without bleeding; K29.80 Duodenitis without bleeding
CPT/HCPCS: 36415; 71046; 74176; 80048; 80053; 82378; 82607; 82728; 82746; 83036; 83540; 83615; 83690; 83735; 83880; 84153; 84466; 84484; 85014; 85018; 85025; 85044; 85610; 86850; 86900; 86901; 86920; 87081; 93005; 93306; 94761; 96374; 99284

== ENCOUNTER 2018-04-09 08:00 | Outpatient (CLI) | payer MEDICARE, MEDICAID ==
[2018-04-09 19:38] LABS: BASOPHILS % (AUTO) 0.2 %; EOSINOPHILS # (AUTO) 0.2 10^3/uL (0.0-0.7); EOSINOPHILS % (AUTO) 2.1 %; HGB - HEMOGLOBIN 11.7 g/dL (14.0-18.0); LYMPHOCYTES # (AUTO) 2.2 10^3/uL (1.5-3.5); LYMPHOCYTES % (AUTO) 19.2 %; MEAN CORPUSCULAR HEMOGLOBIN 30.5 pg (27.0-31.0); MEAN CORPUSCULAR HGB CONC 32.6 g/dL (32.0-36.0); MEAN CORPUSCULAR VOLUME 93.5 fL (80.0-94.0); MEAN PLATELET VOLUME 10.9 fL (7.4-11.4); MONOCYTES # (AUTO) 1.2 10^3/uL (0.0-1.0); MONOCYTES % (AUTO) 10.6 %; NEUTROPHILS # (AUTO) 7.9 10^3/uL (1.5-6.6); NEUTROPHILS % (AUTO) 67.9 %; PLT - PLATELET COUNT 178 10^3/uL (130-450); RED BLOOD COUNT 3.83 10^6/uL (4.70-6.10); RED CELL DISTRIBUTION WIDTH 13.2 % (12.0-15.0); WHITE BLOOD COUNT 11.6 x10^3/uL (4.8-10.8)
[2018-04-09 20:01] LABS: % IRON SATURATION 23 % (20-50); IRON 55 ug/dL (45-182); TOTAL IRON BINDING CAPACITY 244 ug/dL (250-450); TRANSFERRIN 174 mg/dL (180-329)
== END 2018-04-09 23:59 | disposition home or self-care (01) ==
LOC: LAB.N 08:00
PROVIDERS: ATTEND Physician Assistant Medical
DX: D62 Acute posthemorrhagic anemia (principal)
CPT/HCPCS: 36415; 82728; 83540; 84466; 85025

== ENCOUNTER 2018-08-09 08:00 | Outpatient (CLI) | payer MEDICARE, MEDICAID ==
[2018-08-09 19:55] LABS: HEMOGLOBIN A1C 0.88 g/dL; HEMOGLOBIN A1C % 8.3 % (4.6-6.2)
== END 2018-08-09 23:59 | disposition home or self-care (01) ==
LOC: LAB.N 08:00
PROVIDERS: ATTEND Student in an Organized Health Care Education/Training Program
DX: E11.22 Type 2 diabetes mellitus with diabetic chronic kidney disease (principal); N18.3 Chronic kidney disease, stage 3 (moderate); Z79.4 Long term (current) use of insulin
CPT/HCPCS: 36415; 81599; 83036

== ENCOUNTER 2018-11-07 10:56 | Outpatient (CLI) | payer MEDICARE, MEDICAID ==
[2018-11-07 16:24] LABS: HB2 TOTAL 12.4 g/dL; HEMOGLOBIN A1C 0.88 g/dL; HEMOGLOBIN A1C % 8.6 % (4.6-6.2)
== END 2018-11-07 23:59 ==
LOC: LAB.N 10:56
PROVIDERS: ATTEND Internal Medicine
DX: E11.22 Type 2 diabetes mellitus with diabetic chronic kidney disease (principal); N18.3 Chronic kidney disease, stage 3 (moderate); Z79.4 Long term (current) use of insulin
CPT/HCPCS: 36415; 83036

== ENCOUNTER 2019-05-11 11:58 | Emergency (ER) | payer MEDICARE, MEDICAID ==
--- NOTE | 2019-05-11 12:25 | ED Physician Documentation ---
PD HPI FOCAL NEURO - Stated complaint Stated Complaint: SOA/SLR [facility] - Chief complaint Chief Complaint: Neuro - History obtained from History obtained from: Patient, Family - History of Present Illness Timing - onset: How many hours ago (1) Timing - duration: Hours (1) Timing - details: Abrupt onset Severity of deficit: Mild Weakness: No: Face, Arm, Hand, Leg, Foot, Right, Left Numbness: No: Face, Arm, Hand, Leg, Foot, Right, Left Associated symptoms: No: Headache, Nausea / vomiting, Seizure, Syncope, Fall, Head injury, Chest pain, Neck pain, Back pain, Fever Contributing factors: negative: Anticoagulated, Vascular dz, Atrial fibrillation, Prosthetic heart valve Baseline status: positive: A&OX3, ambulatory, indep (perhaps has mild dementia) Recently seen: Not recently seen - Additional information Additional information: slurred speech and difficulty with word finding an hour ago. now resolved. He felt like he was short of breath at the time as well. That has since resolved as well. Review of Systems Ten Systems: 10 systems reviewed and negative Constitutional: denies: Fever, Chills Respiratory: denies: Cough GI: denies: Nausea, Vomiting Skin: denies: Rash Musculoskeletal: denies: Neck pain, Back pain Neurologic: denies: Headache PD PAST MEDICAL HISTORY - Past Medical History Past Medical History: Yes Cardiovascular: Atrial fibrillation Endocrine/Autoimmune: Type 2 diabetes : Renal insuffiency Psych: Anxiety - Past Surgical History Past Surgical History: Yes Cardiovascular: Coronary stent - Present Medications Home Medications: Ambulatory Orders Medication Instructions Recorded Confirmed Aspirin 81 mg PO DAILY 09/24/17 05/11/19 Losartan Potassium 25 mg PO DAILY 09/24/17 05/11/19 Atorvastatin [Lipitor] 80 mg PO QPM #30 tablet 09/25/17 05/11/19 Ferrous Gluconate 324 mg PO BID #60 tablet 11/09/17 05/11/19 Furosemide 20 mg PO BID #60 tablet 11/09/17 05/11/19 Senna [Senokot] 8.6 mg PO BID #60 tablet 11/09/17 05/11/19 Spironolactone 25 mg PO DAILY #30 tablet 11/09/17 05/11/19 Docusate Sodium [Colace Clear] 50 mg DAILY 05/11/19 05/11/19 Insulin Glargine [Lantus Solostar] 60 unit SUBQ QPM 05/11/19 05/11/19 Metoprolol Succinate [Toprol Xl] 100 mg PO BID 05/11/19 05/11/19 Pantoprazole [Protonix] 40 mg DAILY 05/11/19 05/11/19 - Allergies Allergies/Adverse Reactions: Allergies Allergy/AdvReac Type Severity Reaction Status Date / Time No Known Drug Allergies Allergy Verified 05/11/19 12:08 - Social History Does the pt smoke?: No Smoking Status: Never smoker Does the pt drink ETOH?: Yes Does the pt have substance abuse?: No - Immunizations Immunizations are current?: Yes - POLST Patient has POLST: No POLST Status: Full Code PD ED PE NORMAL - Vitals Vital signs reviewed: Yes - General General: Alert and oriented X 3, No acute distress - HEENT HEENT: PERRL, Ears normal, Moist mucous membranes, Pharynx benign - Neck Neck: Supple, no meningeal sign - Cardiac Cardiac: RRR, Strong equal pulses - Respiratory Respiratory: No respiratory distress, Clear bilaterally - Abdomen Abdomen: Soft, Non tender, Non distended - Derm Derm: Warm and dry, No rash - Neuro Neuro: Alert and oriented X 3, parachute accessories attacher 2-12 intact, No motor deficit, No sensory deficit, Normal speech Eye Opening: Spontaneous Motor: Obeys Commands Verbal: Oriented GCS Score: 15 - Psych Psych: Normal mood, Normal affect NIHSS - Time Time: 12:10 - Level of Consciousness Level of consciousness: (0) Alert, Keenly responsive LOC Questions: (0) Answers both Q's correct LOC Commands: (0) Performs both correctly - Gaze Best Gaze: (0) Normal - Visual Visual: (0) No loss - Facial Palsy Facial Palsy: (0) Normal, symmetrical movement - Motor Arms (both separate) Motor Arm (right): (0) No drift Motor Arm (left): (0) No drift - Motor Legs (both separate) Motor Leg (right): (0) No drift Motor Leg (left): (0) No drift - Limb Ataxia Limb Ataxia: (0) Absent - Sensory Sensory: (0) Normal - Best Language Best Language: (0) No aphasia - Dysarthria Dysarthria: (0) Normal - Extinction and Inattention (formally neg Extinction and inattention: (0) No abnormality - Total Score/Results Total Score/Result: 0 Results - Vitals Vitals: Vital Signs - 24 hr 05/11/19 05/11/19 05/11/19 12:08 12:29 12:51 Temperature 36.5 C Heart Rate 81 82 80 Respiratory 14 20 20 Rate Blood Pressure 162/58 H 140/69 H O2 Saturation 99 98 05/11/19 05/11/19 05/11/19 13:13 13:57 14:10 Temperature Heart Rate 69 69 76 Respiratory 17 16 20 Rate Blood Pressure 170/80 H 157/71 H 143/56 H O2 Saturation 97 100 98 05/11/19 05/11/19 05/11/19 15:00 16:13 18:19 Temperature Heart Rate 60 60 64 Respiratory 16 18 18 Rate Blood Pressure 122/59 L 140/90 H 129/59 L O2 Saturation 97 98 98 05/11/19 19:00 Temperature 36.8 C Heart Rate 64 Respiratory 18 Rate Blood Pressure 116/76 O2 Saturation 100 Oxygen O2 Source Room air - EKG (time done) 1212 Rate: Rate (enter#) (78) Rhythm: NSR [place]: Normal Intervals: Normal [place] QRS: Normal Ischemia: Normal ST segments, Q waves (II, III, aVF, V4-6) - Labs Labs: Laboratory Tests 05/11/19 05/11/19 05/11/19 12:05 12:05 12:05 WBC 11.2 H RBC 3.80 L Hgb 11.9 L Hct 35.8 L MCV 94.2 H MCH 31.3 H MCHC 33.2 RDW 12.4 Plt Count 176 MPV 11.7 H Neut # (Auto) 6.6 Lymph # (Auto) 3.0 [place] # (Auto) 1.1 H Eos # (Auto) 0.3 Baso # (Auto) 0.0 Absolute Nucleated RBC 0.00 Nucleated RBC % 0.0 PT 13.2 H INR 1.2 APTT 25.9 Sodium 136 Potassium 3.6 Chloride 102 Carbon Dioxide 24 Anion Gap 10.0 BUN 41 H Creatinine 2.1 H Estimated GFR (MDRD) 30 L Glucose 322 H POC Whole Bld Glucose Calcium 8.3 L Total Bilirubin 0.6 AST 18 ALT 20 Alkaline Phosphatase 109 Troponin I High Sens B-Natriuretic Peptide Total Protein 6.9 Albumin 3.5 Globulin 3.4 Albumin/Globulin Ratio 1.0 Lipase 31 Urine Color Urine Clarity Urine pH Ur Specific [place] Urine Protein Urine Glucose (UA) Urine Ketones Urine Occult Blood Urine Nitrite Urine Bilirubin Urine Urobilinogen Ur Leukocyte Esterase Ur Microscopic Review Urine Culture Comments 05/11/19 05/11/19 05/11/19 12:05 12:05 12:10 WBC RBC Hgb Hct MCV MCH MCHC RDW Plt Count MPV Neut # (Auto) Lymph # (Auto) [place] # (Auto) Eos # (Auto) Baso # (Auto) Absolute Nucleated RBC Nucleated RBC % PT INR APTT Sodium Potassium Chloride Carbon Dioxide Anion Gap BUN Creatinine Estimated GFR (MDRD) Glucose POC Whole Bld Glucose 207 H Calcium Total Bilirubin AST ALT Alkaline Phosphatase Troponin I High Sens 17.0 B-Natriuretic Peptide 140 H Total Protein Albumin Globulin Albumin/Globulin Ratio Lipase Urine Color Urine Clarity Urine pH Ur Specific [place] Urine Protein Urine Glucose (UA) Urine Ketones Urine Occult Blood Urine Nitrite Urine Bilirubin Urine Urobilinogen Ur Leukocyte Esterase Ur Microscopic Review Urine Culture Comments 05/11/19 13:50 WBC RBC Hgb Hct MCV MCH MCHC RDW Plt Count MPV Neut # (Auto) Lymph # (Auto) [place] # (Auto) Eos # (Auto) Baso # (Auto) Absolute Nucleated RBC Nucleated RBC % PT INR APTT Sodium Potassium Chloride Carbon Dioxide Anion Gap BUN Creatinine Estimated GFR (MDRD) Glucose POC Whole Bld Glucose Calcium Total Bilirubin AST ALT Alkaline Phosphatase Troponin I High Sens B-Natriuretic Peptide Total Protein Albumin Globulin Albumin/Globulin Ratio Lipase Urine Color YELLOW Urine Clarity CLEAR Urine pH 6.0 Ur Specific [place] 1.015 Urine Protein NEGATIVE Urine Glucose (UA) >=1000 H Urine Ketones NEGATIVE Urine Occult Blood TRACE-LYSE Urine Nitrite NEGATIVE Urine Bilirubin NEGATIVE Urine Urobilinogen 0.2 (NORMAL) Ur Leukocyte Esterase NEGATIVE Ur Microscopic Review NOT INDICATED Urine Culture Comments NOT INDICATED - Rads (name of study) head Ct Radiology: Prelim report reviewed, EMP read contemporaneously, See rad report (1. Wedge-shaped parenchymal hypodensity in the posterolateral right occipital lobe, new compared to prior studies. This is consistent with infarct in ICHTHYOLOGIST territory. Correlation with MRI would be of value to assess for acuteness of this infarct. 2. Linear cystic focus in the posterolateral left thalamus consistent with sequela of old infarct. 3. Moderate white matter hypodensity. This is nonspecific. This can be seen secondary to small vessel ischemic change. ) carotid US Radiology: Prelim report reviewed, EMP read contemporaneously, See rad report (1. Bilateral carotid artery plaquing. 2. In the right carotid artery there are no elevated carotid artery velocities to suggest hemodynamically significant stenosis. 3. In the left carotid artery there are no elevated carotid artery velocities to suggest hemodynamically significant stenosis. 4. Normal antegrade flow is present in bilateral vertebral arteries. ) cxr Radiology: Prelim report reviewed, EMP read contemporaneously, See rad report (No acute disease in the chest. ) PD MEDICAL DECISION MAKING - ED course Complexity details: reviewed results, re-evaluated patient, considered differential, d/w patient, d/w family ED course: Symptoms resolved upon arrival to the emergency department. Appears to have had a TIA. No acute findings on head CT. No acute laboratory findings. Discussed the case with Dr. Monae and no MRI available until , so will not accept here. Patient and family do not want to be transferred for an MRI and further workup. His chronic renal failure does not allow for CT angiogram. Carotid ultrasound was performed. We will start him on a full dose aspirin. He has an appointment with his doctor on Sunday. They will follow-up then and have his doctor order the MRI and MRA. He will also likely need a cardiac echo. He is not currently in atrial fibrillation. Patient and family counseled regarding signs and symptoms for which I believe and urgent re-evaluation would be necessary. Patient with good understanding of and agreement to plan and is comfortable going home at this time This document was made in part using voice recognition software. While efforts are made to proofread this document, sound alike and grammatical errors may occur. This document was made in part using voice recognition software. While efforts are made to proofread this document, sound alike and grammatical errors may occur. Departure - Departure Disposition: 01 Home, Self Care Clinical Impression: TIA (transient ischemic attack), CKD (chronic kidney disease) stage 3, GFR 30- 59 ml/min Condition: Good Instructions: ED Transient Ischemic Attack Follow-Up: Jameson Garcias PA-C [Primary Care Provider] - Within 3 Days Comments: Return if you worsen. You should have an MRI and MRA of your brain and neck arteries performed. Start on a full dose aspirin daily. Return if symptoms recur. Discharge Date/Time: 05/11/19 19:00
[2019-05-11 12:27] LABS: BASOPHILS % (AUTO) 0.4 %; EOSINOPHILS # (AUTO) 0.3 10^3/uL (0.0-0.7); EOSINOPHILS % (AUTO) 2.9 %; HGB - HEMOGLOBIN 11.9 g/dL (14.0-18.0); LYMPHOCYTES % (AUTO) 27.1 %; MEAN CORPUSCULAR HEMOGLOBIN 31.3 pg (27.0-31.0); MEAN CORPUSCULAR HGB CONC 33.2 g/dL (32.0-36.0); MEAN CORPUSCULAR VOLUME 94.2 fL (80.0-94.0); MEAN PLATELET VOLUME 11.7 fL (7.4-11.4); MONOCYTES # (AUTO) 1.1 10^3/uL (0.0-1.0); MONOCYTES % (AUTO) 9.5 %; NEUTROPHILS # (AUTO) 6.6 10^3/uL (1.5-6.6); NEUTROPHILS % (AUTO) 59.1 %; PLT - PLATELET COUNT 176 10^3/uL (130-450); RED CELL DISTRIBUTION WIDTH 12.4 % (12.0-15.0); WHITE BLOOD COUNT 11.2 x10^3/uL (4.8-10.8)
[2019-05-11 12:31] LABS: INR 1.2 (0.8-1.2); PT - PROTHROMBIN TIME 13.2 secs (9.9-12.6)
[2019-05-11 12:38] LABS: PARTIAL THROMBOPLASTIN TIME 25.9 secs (24.9-33.3)
[2019-05-11 12:39] LABS: ALBUMIN 3.5 g/dL (3.2-5.5); BILIRUBIN,TOTAL 0.6 mg/dL (0.2-1.0); CALCIUM 8.3 mg/dL (8.5-10.3); CREATININE 2.1 mg/dL (0.6-1.2); TOTAL PROTEIN 6.9 g/dL (6.7-8.2)
--- NOTE | 2019-05-11 12:50 | XRAY Report ---
Reason: dyspnea Procedure Date: 05/11/2019 Accession Number: [id number] / [id number] Procedure: XR - Chest 1 View X-Ray CPT Code: 45580 Final Report FULL RESULT: EXAM: CHEST RADIOGRAPHY EXAM DATE: 05/11/2019 12:39 PM. CLINICAL HISTORY: Dyspnea. Slurred speech. Shortness of breath. COMPARISON: CHEST 2 VIEW 11/06/2017 2:32 PM. TECHNIQUE: 1 view. FINDINGS: Lungs/Pleura: Diffuse interstitial prominence. No consolidation. No pneumothorax. No vascular congestion. Mediastinum: Heart size upper normal. Aorta is mildly tortuous. Other: Changes again seen for median sternotomy. IMPRESSION: 1. No acute disease in the chest. RADIA
--- NOTE | 2019-05-11 13:05 | CT Report ---
Reason: slurred speech Procedure Date: 05/11/2019 Accession Number: [id number] / [id number] Procedure: CT - Head W/O Stroke Protocol CPT Code: Final Report FULL RESULT: EXAM: CT HEAD EXAM DATE: 05/11/2019 12:35 PM. CLINICAL HISTORY: Slurred speech at 1100 hrs., getting better. History of previous CVA. COMPARISON: HEAD W/O 09/24/2017 4:50 PM. MRI BRAIN WO 09/25/2017 12:43 PM. TECHNIQUE: Multiaxial CT images were obtained from the foramen magnum to the vertex. Reformats: Sagittal and coronal. IV contrast: None. In accordance with CT protocol optimization, one or more of the following dose reduction techniques were utilized for this exam: automated exposure control, adjustment of mA and/or KV based on patient size, or use of iterative reconstructive technique. FINDINGS: Parenchyma: Wedge-shaped parenchymal hypodensity is seen posterolaterally in the right occipital lobe. This is new. No associated hemorrhage. Linear cystic focus is seen in the posterolateral left thalamus. This is at site of previously noted infarct. Moderate periventricular white matter hypodensity is seen about the lateral ventricles. No intracranial mass or hemorrhage. Extraaxial Spaces: Normal for age. No subdural or epidural collections identified. Ventricles: No hydrocephalus. No intraventricular hemorrhage. Sinuses and Orbits: Imaged paranasal sinuses, orbits, and mastoids show no significant abnormality. Hypoplasia of left maxillary antrum is noted. Bones: No evidence of fracture or calvarial defect. Other: Moderate vascular calcifications are seen involving intracranial ICA. IMPRESSION: 1. Wedge-shaped parenchymal hypodensity in the posterolateral right occipital lobe, new compared to prior studies. This is consistent with infarct in SHERIFF SERGEANT territory. Correlation with MRI would be of value to assess for acuteness of this infarct. 2. Linear cystic focus in the posterolateral left thalamus consistent with sequela of old infarct. 3. Moderate white matter hypodensity. This is nonspecific. This can be seen secondary to small vessel ischemic change. RADIA The critical test notification system was initiated by Dr. J Luis Ta at 12:57 PM on 05/11/2019. The above critical test findings were discussed with ED Physician by Dr. J Luis Ta at 01:03 PM on 05/11/2019.
[2019-05-11] MEDS ORDERED: ASPIRIN CHEW 81 MG TABLET PO STA (13:38)
[2019-05-11 14:09] LABS: BILIRUBIN,URINE NEGATIVE (NEGATIVE); GLUCOSE, URINE (UA) >=1000 mg/dL (NEGATIVE); KETONES,URINE (UA) NEGATIVE (NEGATIVE); LEUKOCYTE ESTERASE, URINE NEGATIVE (NEGATIVE); NITRITE,URINE NEGATIVE (NEGATIVE); OCCULT BLOOD,URINE TRACE-LYSE (NEGATIVE); PROTEIN,URINE NEGATIVE (NEGATIVE); UROBILINOGEN,URINE 0.2 (NORMAL) E.U./dL (NORMAL)
[2019-05-11 14:11] LABS: CLARITY,URINE CLEAR (CLEAR)
--- NOTE | 2019-05-11 18:44 | Ultrasound Report ---
Reason: TIA Procedure Date: 05/11/2019 Accession Number: [id number] / [id number] Procedure: US - Carotid Doppler Complete CPT Code: Final Report FULL RESULT: EXAM: BILATERAL CAROTID AND VERTEBRAL ARTERY DUPLEX DOPPLER ULTRASOUND: EXAM DATE: 05/11/2019 05:51 PM CLINICAL HISTORY: TIA. COMPARISON: HEAD W/O STROKE PROTOCOL 05/11/2019 12:21 PM. TECHNIQUE: Grayscale imaging, color Doppler, and duplex spectral Doppler were used to evaluate the carotid and vertebral arteries bilaterally. Static images were obtained. FINDINGS: There is bilateral atherosclerotic plaque in the right and left internal carotid arteries. Normal antegrade flow is present in bilateral vertebral arteries. VELOCITIES (cm/s): Right CCA mid: PSV 78.6 cm/sec CCA dist: PSV 98.9 cm/sec ICA prox: PSV 78.0 cm/sec, EDV 0.9 cm/sec ICA mid: PSV 67.2 cm/sec, EDV 0.8 cm/sec ICA dist: PSV 102.4 cm/sec, EDV 0.9 cm/sec ECA: PSV 103.5 cm/sec Vert: PSV 38.7 cm/sec ICA/CCA: 0.8 Left CCA mid: PSV 80.5 cm/sec CCA dist: PSV 71.1 cm/sec ICA prox: PSV 88.8 cm/sec, EDV 0.8 cm/sec ICA mid: PSV 92.1 cm/sec, EDV 0.8 cm/sec ICA dist: PSV 98.3 cm/sec, EDV 0.8 cm/sec ECA: PSV 145.8 cm/sec Vert: PSV 35.9 cm/sec ICA/CCA: 1.2 ICA diameter stenosis: Right: <50% by velocity and <70% by NASCET criteria. Left: <50% by velocity and <70% by NASCET criteria. IMPRESSION: 1. Bilateral carotid artery plaquing. 2. In the right carotid artery there are no elevated carotid artery velocities to suggest hemodynamically significant stenosis. 3. In the left carotid artery there are no elevated carotid artery velocities to suggest hemodynamically significant stenosis. 4. Normal antegrade flow is present in bilateral vertebral arteries. General Recommendations: Stenosis =50% ICA - Follow-up ultrasound 6-12 months Stenosis <50% ICA - High Risk Patient with plaque - Follow-up ultrasound 1-2 years Normal Study but High Risk Patient - Follow-up ultrasound 3-5 years Management recommendations and diagnostic criteria are based on current IAC endorsed standards in Carotid Artery Stenosis: Grayscale and Doppler Ultrasound Diagnosis. Validated velocity measurements with angiographic measurements and velocity criteria are extrapolated from diameter data as defined by the Society of Radiologists in Ultrasound Consensus Conference Radiology 2003; 229;340-346. RADIA
[2019-05-11 19:02] VITALS: BP 116/76
== END 2019-05-11 19:00 | disposition home or self-care (01) ==
LOC: ED 11:58
DX: G45.9 Transient cerebral ischemic attack, unspecified (principal); E11.29 Type 2 diabetes mellitus with other diabetic kidney complication; Z79.4 Long term (current) use of insulin
CPT/HCPCS: 36415; 70450; 71045; 80053; 81003; 83690; 83880; 84484; 85025; 85610; 85730; 93005; 93880; 99284; 99285; A9270; 81001; 87086

== ENCOUNTER 2019-05-12 11:32 | Outpatient (CLI) | payer MEDICARE, MEDICAID | END 2019-05-12 11:33 | disposition critical access hospital (66) | LOC: EMS 11:32 | PROVIDERS: ATTEND Surgery | DX: R47.9 Unspecified speech disturbances (principal); R06.02 Shortness of breath; R05 Cough | CPT/HCPCS: A0425; A0429 ==

== ENCOUNTER 2019-05-12 11:50 | Emergency (ER) | payer MEDICARE, MEDICAID ==
--- NOTE | 2019-05-12 12:07 | ED Physician Documentation ---
PD HPI FOCAL NEURO - Stated complaint Stated Complaint: WEAKNESS - History obtained from History obtained from: Patient, Family, EMS - History of Present Illness Timing - onset: Today (89-year-old gentleman with mild dementia and history of atrial fibrillation presents with TIA symptoms. He was seen here yesterday and had a similar work-up. He did have an abnormal CAT scan at that time. They did not want to be transferred for MRI and he cannot have angiography due to his poor renal function. Carotid Dopplers were negative for occlusive or significant disease. Again today he had a 10-minute episode of a aphasia which has resolved on presentation to the emergency department. He is not anticoagulated, the family is not sure why.) Review of Systems Ten Systems: 10 systems reviewed and negative Constitutional: denies: Fever, Chills Throat: denies: Sore throat Cardiac: denies: Chest pain / pressure, Palpitations Respiratory: denies: Dyspnea, Cough PD PAST MEDICAL HISTORY - Past Medical History Cardiovascular: Atrial fibrillation Endocrine/Autoimmune: Type 2 diabetes : Renal insuffiency Psych: Anxiety - Past Surgical History Past Surgical History: Yes Cardiovascular: Coronary stent - Present Medications Home Medications: Ambulatory Orders Medication Instructions Recorded Confirmed Aspirin 81 mg PO DAILY 09/24/17 05/11/19 Losartan Potassium 25 mg PO DAILY 09/24/17 05/11/19 Atorvastatin [Lipitor] 80 mg PO QPM #30 tablet 09/25/17 05/11/19 Ferrous Gluconate 324 mg PO BID #60 tablet 11/09/17 05/11/19 Furosemide 20 mg PO BID #60 tablet 11/09/17 05/11/19 Spironolactone 25 mg PO DAILY #30 tablet 11/09/17 05/11/19 Docusate Sodium [Colace Clear] 50 mg DAILY 05/11/19 05/11/19 Insulin Glargine [Lantus Solostar] 60 unit SUBQ QPM 05/11/19 05/11/19 Metoprolol Succinate [Toprol Xl] 100 mg PO BID 05/11/19 05/11/19 Pantoprazole [Protonix] 40 mg DAILY 05/11/19 05/11/19 Donepezil HCl 5 mg PO DAILY PM 05/12/19 05/12/19 Glimepiride 1 mg PO DAILY 05/12/19 05/12/19 - Allergies Allergies/Adverse Reactions: Allergies Allergy/AdvReac Type Severity Reaction Status Date / Time No Known Drug Allergies Allergy Verified 05/12/19 12:07 - Social History Does the pt smoke?: No Smoking Status: Never smoker Does the pt drink ETOH?: Yes Does the pt have substance abuse?: No - Immunizations Immunizations are current?: Yes - POLST Patient has POLST: No POLST Status: Full Code PD ED PE NORMAL - Vitals Vital signs reviewed: Yes - General General: Alert and oriented X 3, Other (Pleasant gentleman laying in bed no distress) - HEENT HEENT: PERRL, EOMI - Neck Neck: Supple, no meningeal sign, No bony TTP - Cardiac Cardiac: RRR, No murmur - Respiratory Respiratory: No respiratory distress, Clear bilaterally - Abdomen Abdomen: Normal bowel sounds, Soft, Non tender - Back Back: No CVA TTP, No spinal TTP - Derm Derm: Normal color, Warm and dry - Extremities Extremities: No edema, No calf tenderness / cord - Neuro Neuro: Alert and oriented X 3, No motor deficit, No sensory deficit, Normal speech NIHSS - Time Time: 12:00 - Level of Consciousness Level of consciousness: (0) Alert, Keenly responsive LOC Questions: (0) Answers both Q's correct LOC Commands: (0) Performs both correctly - Gaze Best Gaze: (0) Normal - Visual Visual: (0) No loss - Facial Palsy Facial Palsy: (0) Normal, symmetrical movement - Motor Arms (both separate) Motor Arm (right): (0) No drift Motor Arm (left): (0) No drift - Motor Legs (both separate) Motor Leg (right): (0) No drift Motor Leg (left): (0) No drift - Limb Ataxia Limb Ataxia: (0) Absent - Sensory Sensory: (0) Normal - Best Language Best Language: (0) No aphasia - Dysarthria Dysarthria: (0) Normal - Extinction and Inattention (formally neg Extinction and inattention: (0) No abnormality - Total Score/Results Total Score/Result: 0 Results - Vitals Vitals: Vital Signs - 24 hr 05/12/19 11:59 Temperature 36.2 C L Heart Rate 88 Respiratory 25 H Rate Blood Pressure 161/68 H O2 Saturation 96 Oxygen O2 Source Room air - Rads (name of study) CT head without contrast Radiology: Discussed with radramsey (Compared with yesterday there is no change, this would suggest that the right 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 Sounds like it was the same distribution. Exam is normal now. No evidence of acute infarct on CT, he is got a subacute infarct, but the lack of evolution over the last 24 hours would suggest that it is not causative. Given lack of MRI here for the next 3 or 4 days he was accepted to [facility] by Dr. Sandhu at 12:40 PM and cobras were completed. He was loaded with Plavix 300mg. Departure - Departure Disposition: 02 Transfer Acute Care Hosp Clinical Impression: Diabetes mellitus type 2, insulin dependent, TIA (transient ischemic attack), CKD (chronic kidney disease) stage 3, GFR 30-59 ml/min Condition: Fair
--- NOTE | 2019-05-12 12:28 | CT Report ---
Reason: CVA sx Procedure Date: 05/12/2019 Accession Number: [id number] / [id number] Procedure: CT - Head W/O Stroke Protocol CPT Code: Final Report FULL RESULT: EXAM: CT HEAD EXAM DATE: 05/12/2019 12:10 PM. CLINICAL HISTORY: Suspected stroke, difficulty with speech. COMPARISON: Prior CT head 05/11/2019. TECHNIQUE: Multiaxial CT images were obtained from the foramen magnum to the vertex. Reformats: Sagittal and coronal. IV contrast: None. In accordance with CT protocol optimization, one or more of the following dose reduction techniques were utilized for this exam: automated exposure control, adjustment of mA and/or KV based on patient size, or use of iterative reconstructive technique. Findings: Relevant images are indicated (image number, series number). 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 Old stroke left thalamus, superimposed dense diffuse white matter disease with marked brain atrophy. Basal cisterns patent. Orbital contents negative, patient post bilateral lens surgery. Underpneumatized left maxillary sinus, remaining paranasal sinuses, mastoid air cells are clear. Calvarium intact/unremarkable. Impressions: Compared with CT head 05/11/2019: 1. 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 No hemorrhage or mass-effect. 2. Marked brain atrophy. 3. Marked superimposed scattered dense white matter disease including old left thalamic stroke. RADIA The critical test notification system was initiated by Dr. Caesar Dominguez at 12:22 PM on 05/12/2019. The above critical test findings were discussed with Winston Amaya by Dr. Caesar Dominguez at 12:25 PM on 05/12/2019.
[2019-05-12 12:38] LABS: BASOPHILS % (AUTO) 0.3 %; EOSINOPHILS # (AUTO) 0.3 10^3/uL (0.0-0.7); EOSINOPHILS % (AUTO) 2.5 %; HGB - HEMOGLOBIN 11.4 g/dL (14.0-18.0); LYMPHOCYTES # (AUTO) 2.1 10^3/uL (1.5-3.5); LYMPHOCYTES % (AUTO) 20.2 %; MEAN CORPUSCULAR HEMOGLOBIN 31.6 pg (27.0-31.0); MEAN CORPUSCULAR HGB CONC 32.9 g/dL (32.0-36.0); MEAN CORPUSCULAR VOLUME 95.8 fL (80.0-94.0); MEAN PLATELET VOLUME 11.2 fL (7.4-11.4); MONOCYTES % (AUTO) 9.9 %; NEUTROPHILS % (AUTO) 66.2 %; PLT - PLATELET COUNT 157 10^3/uL (130-450); RED BLOOD COUNT 3.61 10^6/uL (4.70-6.10); RED CELL DISTRIBUTION WIDTH 12.6 % (12.0-15.0); WHITE BLOOD COUNT 10.5 x10^3/uL (4.8-10.8)
[2019-05-12] MEDS ORDERED: CLOPIDOGREL 300 MG TABLET PO STA (12:41)
[2019-05-12 12:51] LABS: ALBUMIN 3.2 g/dL (3.2-5.5); BILIRUBIN,TOTAL 0.8 mg/dL (0.2-1.0); CALCIUM 8.1 mg/dL (8.5-10.3); TOTAL PROTEIN 6.3 g/dL (6.7-8.2)
[2019-05-12 14:22] VITALS: BP 146/64
== END 2019-05-12 14:26 | disposition short-term general hospital (02) ==
LOC: EDUNIT# → ED 11:50
DX: G45.9 Transient cerebral ischemic attack, unspecified (principal); E11.22 Type 2 diabetes mellitus with diabetic chronic kidney disease; N18.3 Chronic kidney disease, stage 3 (moderate); F03.90 Unspecified dementia, unspecified severity, without behavioral disturbance, psychotic disturbance, mood disturbance, and anxiety; Z79.4 Long term (current) use of insulin
CPT/HCPCS: 36415; 70450; 80053; 83690; 85025; 99283; 99285; A9270

== ENCOUNTER 2019-05-12 14:31 | Outpatient (CLI) | payer MEDICARE, MEDICAID | END 2019-05-12 14:32 | disposition short-term general hospital (02) | LOC: EMS 14:31 | PROVIDERS: ATTEND Surgery | DX: G45.9 Transient cerebral ischemic attack, unspecified (principal) | CPT/HCPCS: A0425; A0426 ==

== ENCOUNTER 2019-05-23 07:00 | Outpatient (CLI) | payer MEDICARE, MEDICAID ==
[2019-05-23 17:59] LABS: BILIRUBIN,URINE NEGATIVE (NEGATIVE); GLUCOSE, URINE (UA) 500 mg/dL (NEGATIVE); KETONES,URINE (UA) NEGATIVE (NEGATIVE); LEUKOCYTE ESTERASE, URINE NEGATIVE (NEGATIVE); NITRITE,URINE NEGATIVE (NEGATIVE); OCCULT BLOOD,URINE NEGATIVE (NEGATIVE); PROTEIN,URINE TRACE mg/dL (NEGATIVE); UROBILINOGEN,URINE 0.2 (NORMAL) E.U./dL (NORMAL)
[2019-05-23 18:15] LABS: BACTERIA,URINE None Seen /HPF (None Seen); CLARITY,URINE CLEAR (CLEAR); RBC,URINE None Seen /HPF (0-5); SQUAMOUS EPITHELIAL CELL,UR NONE SEEN (<= Few)
== END 2019-05-23 23:59 | disposition home or self-care (01) ==
LOC: LAB.R 07:00
PROVIDERS: ATTEND Physician Assistant Medical
DX: R35.0 Frequency of micturition (principal)
CPT/HCPCS: 81001; 87086

== ENCOUNTER 2019-05-30 07:23 | Outpatient (CLI) | payer MEDICARE, MEDICAID | END 2019-05-30 07:24 | disposition critical access hospital (66) | LOC: EMS 07:23 | PROVIDERS: ATTEND Surgery | DX: R06.02 Shortness of breath (principal) | CPT/HCPCS: A0425; A0427 ==

== ENCOUNTER 2019-05-30 07:38 | Emergency (ER) | payer MEDICARE, MEDICAID ==
--- NOTE | 2019-05-30 08:24 | XRAY Report ---
Reason: chest pain Procedure Date: 05/30/2019 Accession Number: [id number] / [id number] Procedure: XR - Chest 1 View X-Ray CPT Code: 90371 Final Report FULL RESULT: EXAM: CHEST RADIOGRAPHY EXAM DATE: 05/30/2019 08:18 AM. CLINICAL HISTORY: Chest pain. COMPARISON: CHEST 1 VIEW 05/11/2019 12:20 PM. TECHNIQUE: 1 view. FINDINGS: Lungs/Pleura: Hypoinflation No focal opacities evident. No pleural effusion. No pneumothorax although a portion of lung apices are partially obscured by the patient's chin. Mediastinum: Within exam limitations, the cardiomediastinal contour is normal. Status post median sternotomy. Other: None. IMPRESSION: Single view of the chest demonstrates no acute abnormality. RADIA
--- NOTE | 2019-05-30 08:28 | ED Physician Documentation ---
History of Present Illness - Stated complaint Stated Complaint: SOA - Chief complaint Chief Complaint: General - Additonal information Additional information: Patient is brought to the emergency department by EMS for chief complaint of short of breath. Medics state that the daughter told him that the patient had an episode of shortness of breath this morning and has a history of CHF. The patient states he does not know why he is here and he is feeling fine. He denies specific complaints including chest pain, shortness of breath, nausea, abdominal pain, fever, cough, sore throat, or chills. The daughter is not able to accompany the patient, given the current coronavirus restrictions, but by phone, states that the patient has a longstanding history of CHF Has had orthopnea chronically. The patient generally has a couple of episodes at night of feeling very short of breath and has to call for the daughter to adjust his position in bed or help him to the bathroom. However, she states that last night, the patient actually had quite a good night and did not call for her at all. However, this morning, he began to feel very short of breath when trying to get up to get to the restroom. Patient's daughter states that the patient was gasping and clutching the side of the bed. She states she was able to help him to get into more comfortable position, and then called EMS. She states she is able to check his oxygen at home, but his fingers are so cold that she often does not get a good reading. Medics state that when they arrived, the patient actually appeared fairly comfortable and has been singing "Jingle Larose" to them all the way here in the ambulance. They state that initially, they got an oxygen saturation of low 80s, but that they could not get it to berry picker well and are not sure that it was actually accurate. The patient's daughter states that the patient was admitted to [facility] a couple of months ago for a TIA, and after this, had a couple of seizures. He was placed on Keppra, which seemed to cause his shortness of breath to get worse, so he was removed from this. They then tried oxcarbazepine, but this did not go well either, so now, he is on no anticonvulsants. Patient's daughter does note that the Patient's hospital sales representative did feel that he likely was mildly fluid overloaded, and recommended doubling the Lasix from his normal 40 mg dose to 80 mg. He has been on this dose for the last 3 days and is due for his fourth dose today. Daughter is not sure whether he has had any change in the amount of swelling in his lower extremities are not. Review of Systems Ten Systems: 10 systems reviewed and negative Constitutional: reports: Reviewed and negative Eyes: reports: Reviewed and negative Ears: reports: Reviewed and negative Nose: reports: Reviewed and negative Throat: reports: Reviewed and negative Cardiac: reports: Reviewed and negative Respiratory: reports: Reviewed and negative GI: reports: Reviewed and negative : reports: Reviewed and negative Skin: reports: Reviewed and negative Musculoskeletal: reports: Reviewed and negative Neurologic: reports: Reviewed and negative Psychiatric: reports: Reviewed and negative Endocrine: reports: Reviewed and negative Immunocompromised: reports: Reviewed and negative PD PAST MEDICAL HISTORY - Past Medical History Cardiovascular: Atrial fibrillation Neuro: Dementia Endocrine/Autoimmune: Type 2 diabetes : Renal insuffiency Psych: Anxiety - Past Surgical History Past Surgical History: Yes Cardiovascular: Coronary stent - Present Medications Home Medications: Ambulatory Orders Medication Instructions Recorded Confirmed Aspirin 81 mg PO DAILY 09/24/17 05/11/19 Losartan Potassium 25 mg PO DAILY 09/24/17 05/11/19 Atorvastatin [Lipitor] 80 mg PO QPM #30 tablet 09/25/17 05/11/19 Ferrous Gluconate 324 mg PO BID #60 tablet 11/09/17 05/11/19 Furosemide 20 mg PO BID #60 tablet 11/09/17 05/11/19 Spironolactone 25 mg PO DAILY #30 tablet 11/09/17 05/11/19 Docusate Sodium [Colace Clear] 50 mg DAILY 05/11/19 05/11/19 Insulin Glargine [Lantus Solostar] 60 unit SUBQ QPM 05/11/19 05/11/19 Metoprolol Succinate [Toprol Xl] 100 mg PO DAILY 05/11/19 05/11/19 Pantoprazole [Protonix] 40 mg DAILY 05/11/19 05/11/19 Donepezil HCl 5 mg PO DAILY PM 05/12/19 05/12/19 Glimepiride 1 mg PO DAILY 05/12/19 05/12/19 - Allergies Allergies/Adverse Reactions: Allergies Allergy/AdvReac Type Severity Reaction Status Date / Time No Known Drug Allergies Allergy Verified 05/30/19 07:48 - Social History Does the pt smoke?: No Smoking Status: Never smoker Does the pt drink ETOH?: Yes Does the pt have substance abuse?: No - Immunizations Immunizations are current?: Yes - POLST Patient has POLST: No POLST Status: Full Code PD ED PE NORMAL - Vitals Vital signs reviewed: Yes - General General: No acute distress, Well developed/nourished, Other (Patient is alert, coherent, and in no distress. He is singing and joking.) - HEENT HEENT: Atraumatic, PERRL, EOMI, Moist mucous membranes - Neck Neck: Supple, no meningeal sign - Cardiac Cardiac: RRR, No murmur - Respiratory Respiratory: No respiratory distress, Clear bilaterally - Abdomen Abdomen: Soft, Non tender, Non distended - Derm Derm: Normal color, Warm and dry, No rash - Extremities Extremities: No deformity, No edema, No calf tenderness / cord - Neuro Neuro: patient registration specialist 2-12 intact, No motor deficit, No sensory deficit, Normal speech, Other (Patient is alert) - Psych Psych: Normal mood, Normal affect Results - Vitals Vitals: Vital Signs - 24 hr 05/30/19 05/30/19 05/30/19 07:48 08:29 10:00 Temperature 36.2 C L 37 C 36.8 C Heart Rate 74 79 74 Respiratory 18 20 18 Rate Blood Pressure 149/74 H 166/61 H 150/69 H O2 Saturation 97 100 95 05/30/19 10:17 Temperature Heart Rate 73 Respiratory 17 Rate Blood Pressure 139/60 H O2 Saturation 98 Oxygen O2 Source Room air - EKG (time done) 0811 Rate: Rate (enter#) (77) Rhythm: Other Blunt: Normal Intervals: Normal [place] QRS: Normal Ischemia: Normal ST segments, T wave inversion (Lead III and aVF), Non specific changes Compare to prior EKG: Old EKG unavailable Computer interpretation: Agree with computer - Labs Labs: Laboratory Tests 05/30/19 05/30/19 05/30/19 08:28 08:28 08:28 WBC 13.5 H RBC 3.80 L Hgb 12.0 L Hct 36.2 L MCV 95.3 H MCH 31.6 H MCHC 33.1 RDW 12.5 Plt Count 190 MPV 11.4 Neut # (Auto) 9.2 H Lymph # (Auto) 2.5 [place] # (Auto) 1.4 H Eos # (Auto) 0.2 Baso # (Auto) 0.0 Absolute Nucleated RBC 0.00 Nucleated RBC % 0.0 PT 12.7 H INR 1.1 Sodium 137 Potassium 3.7 Chloride 100 L Carbon Dioxide 24 Anion Gap 13.0 BUN 52 H Creatinine 2.2 H Estimated GFR (MDRD) 28 L Glucose 125 H Calcium 8.4 L Total Bilirubin 0.8 AST 18 ALT 21 Alkaline Phosphatase 101 B-Natriuretic Peptide Total Protein 7.3 Albumin 3.5 Globulin 3.8 Albumin/Globulin Ratio 0.9 L Lipase 106 H 05/30/19 08:28 WBC RBC Hgb Hct MCV MCH MCHC RDW Plt Count MPV Neut # (Auto) Lymph # (Auto) [place] # (Auto) Eos # (Auto) Baso # (Auto) Absolute Nucleated RBC Nucleated RBC % PT INR Sodium Potassium Chloride Carbon Dioxide Anion Gap BUN Creatinine Estimated GFR (MDRD) Glucose Calcium Total Bilirubin AST ALT Alkaline Phosphatase B-Natriuretic Peptide 133 H Total Protein Albumin Globulin Albumin/Globulin Ratio Lipase - Rads (name of study) Chest x-ray Radiology: Final report received, EMP read indepedently, See rad report (Final radiologist interpretation: Single view of the chest demonstrates no acute abnormality.) PD MEDICAL DECISION MAKING - ED course Complexity details: reviewed old records, reviewed results, re-evaluated patient, considered differential, d/w patient, d/w family ED course: The patient was worked up in the emergency department with labs, EKG, and chest x-ray, All of which were unremarkable except for a mild leukocytosis at 13.5. The patient was also found to have a very mildly elevated BNP.Patient continued to remain stable with good vital signs in the emergency department, and was very well-appearing, laughing, talking, and singing throughout his stay. At this point in time, there is no evidence of an acute or emergent condition. The ricky ent has been given his morning dose of Lasix, which she had not been able to take yet at home. I have advised the patient and his family that the patient needs to finish the course of increased Lasix dosing recommended by his hospital sales representative, and see how he is feeling once his the patient may have some chronic heart failure which creates the chronic sense of dyspnea, but this may not necessarily be associated with a major fluid overload. His hospital sales representative will need to sort that out, and I have advised patient and family that he will need follow-up with cardiology if he is not feeling any better after this course of increased Lasix. I do not find any evidence of an infectious issue, and patient is oxygenating well in no respiratory distress, and is stable for discharge home. We have discussed the usual indications for return. Departure - Departure Disposition: 01 Home, Self Care Clinical Impression: Dyspnea, Congestive heart failure Condition: Fair Instructions: ED CHF General, ED Dyspnea Shortness of Breath Comments: Your labs overall look good. The chest x-ray is clear, your oxygen levels are good, lungs are clear, and there is no swelling currently in your legs. You have no fever. At this point in time, the best plan is to continue the Lasix (furosemide). There is no evidence of worsening fluid buildup in your lungs, or of infection of any kind. Please follow-up with your hospital sales representative if you continue to have shortness of breath episodes after you have finished the 7 days of increased Lasix dosing. Discharge Date/Time: 05/30/19 10:18
[2019-05-30 08:33] LABS: BASOPHILS % (AUTO) 0.3 %; EOSINOPHILS # (AUTO) 0.2 10^3/uL (0.0-0.7); EOSINOPHILS % (AUTO) 1.6 %; LYMPHOCYTES # (AUTO) 2.5 10^3/uL (1.5-3.5); LYMPHOCYTES % (AUTO) 18.6 %; MEAN CORPUSCULAR HEMOGLOBIN 31.6 pg (27.0-31.0); MEAN CORPUSCULAR HGB CONC 33.1 g/dL (32.0-36.0); MEAN CORPUSCULAR VOLUME 95.3 fL (80.0-94.0); MEAN PLATELET VOLUME 11.4 fL (7.4-11.4); MONOCYTES # (AUTO) 1.4 10^3/uL (0.0-1.0); MONOCYTES % (AUTO) 10.3 %; NEUTROPHILS # (AUTO) 9.2 10^3/uL (1.5-6.6); NEUTROPHILS % (AUTO) 68.3 %; PLT - PLATELET COUNT 190 10^3/uL (130-450); RED CELL DISTRIBUTION WIDTH 12.5 % (12.0-15.0); WHITE BLOOD COUNT 13.5 x10^3/uL (4.8-10.8)
[2019-05-30 08:40] LABS: INR 1.1 (0.8-1.2); PT - PROTHROMBIN TIME 12.7 secs (9.9-12.6)
[2019-05-30 08:49] LABS: ALBUMIN 3.5 g/dL (3.2-5.5); ALBUMIN/GLOBULIN RATIO 0.9 (1.0-2.2); BILIRUBIN,TOTAL 0.8 mg/dL (0.2-1.0); CALCIUM 8.4 mg/dL (8.5-10.3); CREATININE 2.2 mg/dL (0.6-1.2); TOTAL PROTEIN 7.3 g/dL (6.7-8.2)
[2019-05-30] MEDS ORDERED: FUROSEMIDE 20 MG TABLET PO STA (09:18)
[2019-05-30 10:18] VITALS: BP 139/60
== END 2019-05-30 10:18 | disposition home or self-care (01) ==
LOC: EDUNIT# → ED 07:38
DX: R06.00 Dyspnea, unspecified (principal); I50.9 Heart failure, unspecified; F03.90 Unspecified dementia, unspecified severity, without behavioral disturbance, psychotic disturbance, mood disturbance, and anxiety; E11.29 Type 2 diabetes mellitus with other diabetic kidney complication; Z79.4 Long term (current) use of insulin
CPT/HCPCS: 36415; 71045; 80053; 83690; 83880; 85025; 85610; 93005; 99284; A9270

== ENCOUNTER 2019-09-03 16:18 | Outpatient (CLI) | payer MEDICARE, MEDICAID | END 2019-09-03 23:59 | disposition critical access hospital (66) | LOC: EMS 16:18 | PROVIDERS: ATTEND Surgery | DX: R10.10 Upper abdominal pain, unspecified (principal); R11.2 Nausea with vomiting, unspecified; R19.7 Diarrhea, unspecified | CPT/HCPCS: A0425; A0427 ==

== ENCOUNTER 2019-09-03 16:35 | Inpatient (IN) | payer MEDICARE, MEDICAID ==
[2019-09-03] MEDS ORDERED: ASPIRIN CHEW 81 MG TABLET PO STA (17:08)
--- NOTE | 2019-09-03 17:11 | ED Physician Documentation ---
History of Present Illness - Stated complaint Stated Complaint: N/V/D - Chief complaint Chief Complaint: Abd Pain - History obtained from History obtained from: Family - History of Present Illness Timing: How many days ago (5) - Additonal information Additional information: 89-year-old Male brought into the emergency department at home with his daughter for concerns of abdominal pain. Patient is unable to participate in history has a history of dementia. Per daughter he developed suddenly acute pain about 1 hour ago. She is unsure if he is reporting chest or belly pain. She does report that he has a history of an of hiatal hernia that has been getting progressively worse. Patient has a history of diabetes but for the last 5 days he has been refusing all of his medications.She also reports that he has been newly diagnosed with atrial fibrillation. He has seen a shearer screen measurer and trimmer in the [place] area but he has not been started on anticoagulation or rate control. Review of Systems Unable to obtain: Dementia Constitutional: denies: Fever, Chills Cardiac: reports: Palpitations (new onset atrial fibrillation). denies: Pedal edema, Calf pain Respiratory: denies: Dyspnea, Cough GI: reports: Abdominal Pain, Abdominal Swelling, Nausea. denies: Vomiting, Hematemesis, Bloody / black stool : denies: Dysuria, Frequency Skin: denies: Rash, Lesions Neurologic: reports: Confused (demented). denies: Generalized weakness, Focal weakness, Syncope PD PAST MEDICAL HISTORY - Past Medical History Past Medical History: Yes Cardiovascular: Atrial fibrillation Respiratory: COPD Neuro: Dementia Endocrine/Autoimmune: Type 2 diabetes GI: None : Renal insuffiency HEENT: None Psych: Anxiety Musculoskeletal: None Derm: None - Past Surgical History Past Surgical History: Yes Cardiovascular: Coronary stent - Present Medications Home Medications: Ambulatory Orders Medication Instructions Recorded Confirmed Aspirin 81 mg PO DAILY 09/24/17 05/11/19 Losartan Potassium 25 mg PO DAILY 09/24/17 05/11/19 Atorvastatin [Lipitor] 80 mg PO QPM #30 tablet 09/25/17 05/11/19 Ferrous Gluconate 324 mg PO BID #60 tablet 11/09/17 05/11/19 Furosemide 20 mg PO BID #60 tablet 11/09/17 05/11/19 Spironolactone 25 mg PO DAILY #30 tablet 11/09/17 05/11/19 Docusate Sodium [Colace Clear] 50 mg DAILY 05/11/19 05/11/19 Insulin Glargine [Lantus Solostar] 60 unit SUBQ QPM 05/11/19 05/11/19 Metoprolol Succinate [Toprol Xl] 100 mg PO DAILY 05/11/19 05/11/19 Pantoprazole [Protonix] 40 mg DAILY 05/11/19 05/11/19 Donepezil HCl 5 mg PO DAILY PM 05/12/19 05/12/19 Glimepiride 1 mg PO DAILY 05/12/19 05/12/19 - Allergies Allergies/Adverse Reactions: Allergies Allergy/AdvReac Type Severity Reaction Status Date / Time No Known Drug Allergies Allergy Verified 05/30/19 07:48 - Social History Does the pt smoke?: No Smoking Status: Never smoker Does the pt drink ETOH?: Yes Does the pt have substance abuse?: No - Immunizations Immunizations are current?: Yes - POLST Patient has POLST: No POLST Status: Full Code PD ED PE EXPANDED - General General: Alert, No acute distress, Well developed/nourished - HEENT HEENT: Atraumatic, EOMI - Cardiac Cardiac: Abnormal Rate, Irregularly irregular, Radial strong equal, Femoral strong equal - Respiratory Respiratory: Clear to ausultation humza - Abdomen Abdomen: Normal Bowel sounds, Tender to palpation, Other (Midline abdominal hernias reducible) - Back Back: Normal exam, Normal ROM. No: Vertebral tenderness - Extremities Extremities: Normal (No extremity swelling) - GCS Eye Opening: Spontaneous Motor: Obeys Commands Verbal: Confused Total: 14 Results - Vitals Vitals: Vital Signs - 24 hr 09/03/19 09/03/19 09/03/19 16:48 17:33 20:15 Temperature 36.6 C Heart Rate 110 H 130 H 103 H Respiratory 22 20 27 H Rate Blood Pressure 130/85 H 106/78 136/89 H O2 Saturation 97 99 97 Oxygen O2 Source Room air - EKG (time done) 1650 Rate: Rate (enter#) (106) Rhythm: Atrial fibrillation [place]: Other Intervals: Normal [place] QRS: Poor R wave progression Ischemia: ST elevation c/w ischemia (inferior leads) Compare to prior EKG: Changed from prior EKG Computer interpretation: Agree with computer - Labs Labs: Laboratory Tests 09/03/19 09/03/19 09/03/19 17:25 17:25 17:25 WBC 12.0 H RBC 4.05 L Hgb 12.3 L Hct 38.7 L MCV 95.6 H MCH 30.4 MCHC 31.8 L RDW 12.8 Plt Count 182 MPV 10.8 Neut # (Auto) 8.6 H Lymph # (Auto) 2.1 [place] # (Auto) 1.1 H Eos # (Auto) 0.1 Baso # (Auto) 0.0 Absolute Nucleated RBC 0.00 Nucleated RBC % 0.0 PT INR Sodium 133 L Potassium 4.6 Chloride 104 Carbon Dioxide 20 L Anion Gap 9.0 BUN 48 H Creatinine 1.9 H Estimated GFR (MDRD) 34 L Glucose 163 H Lactic Acid Calcium 8.3 L Total Bilirubin 0.8 AST 28 ALT 34 Alkaline Phosphatase 105 Troponin I High Sens 24.9 H* Total Protein 6.7 Albumin 3.5 Globulin 3.2 Albumin/Globulin Ratio 1.1 Lipase 26 TSH 09/03/19 09/03/19 09/03/19 17:25 17:25 17:25 WBC RBC Hgb Hct MCV MCH MCHC RDW Plt Count MPV Neut # (Auto) Lymph # (Auto) [place] # (Auto) Eos # (Auto) Baso # (Auto) Absolute Nucleated RBC Nucleated RBC % PT 12.2 INR 1.1 Sodium Potassium Chloride Carbon Dioxide Anion Gap BUN Creatinine Estimated GFR (MDRD) Glucose Lactic Acid 2.1 Calcium Total Bilirubin AST ALT Alkaline Phosphatase Troponin I High Sens Total Protein Albumin Globulin Albumin/Globulin Ratio Lipase TSH 0.66 09/03/19 19:59 WBC RBC Hgb Hct MCV MCH MCHC RDW Plt Count MPV Neut # (Auto) Lymph # (Auto) [place] # (Auto) Eos # (Auto) Baso # (Auto) Absolute Nucleated RBC Nucleated RBC % PT INR Sodium Potassium Chloride Carbon Dioxide Anion Gap BUN Creatinine Estimated GFR (MDRD) Glucose Lactic Acid Calcium Total Bilirubin AST ALT Alkaline Phosphatase Troponin I High Sens 16.5 Total Protein Albumin Globulin Albumin/Globulin Ratio Lipase TSH - Rads (name of study) CT abdomen Radiology: Final report received (There is free intraperitoneal air in the upper abdomen consistent with a perforated viscus. A source of free air is not identified but most likely related to perforated gastric or duodenal ulcer. Noted sub-xiphoid ventral hernia. Cholelithiasis. Nonobstructing stone in left kidney.) PD MEDICAL DECISION MAKING - ED course Complexity details: reviewed results, re-evaluated patient, considered differential, d/w patient, d/w family, d/w PMD ED course: 89-year-old male brought into the emergency department with acute onset of chest and abdominal pain. History is difficult to get as patient is demented at baseline. - 1730: Initial EKG shows patient is in atrial fibrillation there is concern about acute ST elevation in the inferior leads. Preemptively he has been given 324 mg of aspirin as well as nitroglycerin. Inital troponin is 24, however I feel this is likely demand ischemia - CT abdomen shows free air. source is likely perFORAInitial high-sensitivity troponin is 24. However I believe that this is related to demand ischemia.rohan gastric or duodenal ulcer. I have oprdered Zosyn and 80 mg protonix. 193: I have asked Dr. Murphy to consult. He has reported that he will call in the surgical team for further evaluation 2030: Dr. Murphy at bedside, will be taking pt to surgery immenently Departure - Departure Disposition: ED Transfer to [facility] Clinical Impression: Perforated gastric ulcer Qualifiers: Gastric ulcer chronicity: acute Qualified Code(s): K25.1 - Acute gastric ulcer with perforation Atrial fibrillation Qualifiers: Atrial fibrillation type: unspecified Qualified Code(s): I48.91 - Unspecified atrial fibrillation
[2019-09-03] MEDS ORDERED: NITROGLYCERIN SL 0.4 MG TABLET SL STA (17:16)
[2019-09-03 17:36] LABS: BASOPHILS % (AUTO) 0.3 %; EOSINOPHILS # (AUTO) 0.1 10^3/uL (0.0-0.7); EOSINOPHILS % (AUTO) 0.6 %; HGB - HEMOGLOBIN 12.3 g/dL (14.0-18.0); LYMPHOCYTES # (AUTO) 2.1 10^3/uL (1.5-3.5); LYMPHOCYTES % (AUTO) 17.3 %; MEAN CORPUSCULAR HEMOGLOBIN 30.4 pg (27.0-31.0); MEAN CORPUSCULAR HGB CONC 31.8 g/dL (32.0-36.0); MEAN CORPUSCULAR VOLUME 95.6 fL (80.0-94.0); MEAN PLATELET VOLUME 10.8 fL (7.4-11.4); MONOCYTES # (AUTO) 1.1 10^3/uL (0.0-1.0); MONOCYTES % (AUTO) 9.1 %; NEUTROPHILS # (AUTO) 8.6 10^3/uL (1.5-6.6); NEUTROPHILS % (AUTO) 71.7 %; PLT - PLATELET COUNT 182 10^3/uL (130-450); RED BLOOD COUNT 4.05 10^6/uL (4.70-6.10); RED CELL DISTRIBUTION WIDTH 12.8 % (12.0-15.0)
[2019-09-03 17:46] LABS: ALBUMIN 3.5 g/dL (3.2-5.5); ALBUMIN/GLOBULIN RATIO 1.1 (1.0-2.2); BILIRUBIN,TOTAL 0.8 mg/dL (0.2-1.0); CALCIUM 8.3 mg/dL (8.5-10.3); CREATININE 1.9 mg/dL (0.6-1.2); TOTAL PROTEIN 6.7 g/dL (6.7-8.2)
[2019-09-03 17:47] LABS: INR 1.1 (0.8-1.2); PT - PROTHROMBIN TIME 12.2 secs (9.9-12.6)
[2019-09-03] MEDS: DILTIAZEM 50 MG/10 ML VIAL IVP ONE ×2 (18:52→19:09)
[2019-09-03] MEDS ORDERED: PIPERACILLIN/TAZOBACTAM 3.375 GM in SODIUM CHLORIDE 0.9% MINIBAG 100 ML IV STA (19:00)
[2019-09-03] MEDS ORDERED: HYDROmorphone 1 MG/ML CARPUJECT ONE (19:22)
[2019-09-03] MEDS ORDERED: HYDROmorphone 1 MG/ML CARPUJECT IM STA (19:22)
[2019-09-03] MEDS ORDERED: PANTOPRAZOLE 40 MG VIAL IV STA (19:26)
--- NOTE | 2019-09-03 19:30 | CT Report ---
PROCEDURE: Abdomen/Pelvis WO INDICATIONS: abdominal pain; ? incarcerated hernia TECHNIQUE: Noncontrast 5 mm thick sections acquired from the diaphragms to the symphysis. 5 mm coronal and sagi ttal reformats were then performed. For radiation dose reduction, the following was used: automated exposure control, adjustment of mA and/or kV according to patient size. COMPARISON: CT abdomen pelvis without contrast, 11/10/2017. FINDINGS: Image quality: Excellent. ABDOMEN: Lung bases: Lung bases are clear. Heart size is normal. There is a small hiatal hernia. Solid organs: Liver and spleen are normal in size. Gallbladder contains gallstones. Pancreas is no rmal in contours. No adrenal nodules. Kidneys are normal in size, without hydronephrosis. There is a 3 mm nonobstructive stone in the left kidney. Mild bilateral perinephric stranding. Peritoneum and bowel: There is a small amount of free air in the peritoneal cavity. A small amount o f free fluid is present in the right upper quadrant around the liver. Unenhanced bowel loops demonstr ate normal wall thickness and caliber. Normal appendix. Nodes and vessels: No retroperitoneal or mesenteric adenopathy by size criteria. Aorta and inferior vena cava are normal in caliber. Calcification of aorta and iliac arteries consistent with atherosc lerosis. Miscellaneous: There is a subxiphoid ventral hernia. PELVIS: Genitourinary: Bladder wall thickness is normal. Miscellaneous: No inguinal hernias or adenopathy. Bones: No suspicious bony lesions. No vertebral body compression fractures. IMPRESSION: 1. There is free intraperitoneal air in the upper consistent with perforation of viscus. A source for the free air is not identified on CT, but most likely related to perforated gastric or duodenal ulce r. 2. A subxiphoid ventral hernia. 3. Cholelithiasis. 4. A 3 mm nonobstructive stone in left kidney. There are bilateral perinephric stranding. The result was discussed with Dr. Sullivan. Reviewed by: Sachin Gleason MD on 09/03/2019 7:28 PM PDT Approved by: Sachin Gleason MD on 09/03/2019 7:28 PM PDT Station ID: [id number]
[2019-09-03] MEDS ORDERED: SODIUM CHLORIDE 0.9% 1,000 ML IV STA (19:37)
[2019-09-03] MEDS ORDERED: HYDROmorphone 1 MG/ML CARPUJECT IVP STA (19:50)
--- NOTE | 2019-09-03 20:35 | ANESTHESIA ---
Pre-Anesthesia VS, & Labs - Diagnosis perforated gastric ulcer - Procedure laparotomy, treatment of perforated gastric ulcer Vital Signs: Temp Pulse Resp BP Pulse Ox 36.6 C 103 H 27 H 136/89 H 97 09/03/19 16:48 09/03/19 20:15 09/03/19 20:15 09/03/19 20:15 09/03/19 20:15 Height 5 ft 9 in Weight (kg) 81.647 kg Body Mass Index 26.6 - NPO >8 hours - Lab Results Current Lab Results: Laboratory Tests 09/03/19 19:59: Troponin I High Sens 16.5 09/03/19 17:25: Lactic Acid 2.1 09/03/19 17:25: PT 12.2, INR 1.1 09/03/19 17:25: TSH 0.66 09/03/19 17:25: Troponin I High Sens 24.9 H* 09/03/19 17:25: Sodium 133 L, Potassium 4.6, Chloride 104, Carbon Dioxide 20 L, Anion Gap 9.0, BUN 48 H, Creatinine 1.9 H, Estimated GFR (MDRD) 34 L, Glucose 163 H, Calcium 8.3 L, Total Bilirubin 0.8, AST 28, ALT 34, Alkaline Phosphatase 105, Total Protein 6.7, Albumin 3.5, Globulin 3.2, Albumin/Globulin Ratio 1.1, Lipase 26 09/03/19 17:25: WBC 12.0 H, RBC 4.05 L, Hgb 12.3 L, Hct 38.7 L, MCV 95.6 H, MCH 30.4, MCHC 31.8 L, RDW 12.8, Plt Count 182, MPV 10.8, Neut # (Auto) 8.6 H, Lymph # (Auto) 2.1, [place] # (Auto) 1.1 H, Eos # (Auto) 0.1, Baso # (Auto) 0.0, Absolute Nucleated RBC 0.00, Nucleated RBC % 0.0 Fish Bones: 09/03/19 17:25 09/03/19 17:25 Home Medications and Allergies Aspirin 81 mg PO DAILY 09/24/17 Losartan Potassium 25 mg PO DAILY 09/24/17 Docusate Sodium [Colace Clear] 50 mg DAILY 05/11/19 Insulin Glargine [Lantus Solostar] 60 unit SUBQ QPM 05/11/19 Metoprolol Succinate [Toprol Xl] 100 mg PO DAILY 05/11/19 Pantoprazole [Protonix] 40 mg DAILY 05/11/19 Donepezil HCl 5 mg PO DAILY PM 05/12/19 Glimepiride 1 mg PO DAILY 05/12/19 Allergies/Adverse Reactions: Allergies Allergy/AdvReac Type Severity Reaction Status Date / Time No Known Drug Allergies Allergy Verified 05/30/19 07:48 Anes History & Medical History - Medical History Cardiovascular: reports: Atrial fibrillation Pulmonary: reports: COPD Gastrointestinal: reports: None Urinary: reports: Renal insuffiency Neuro: reports: Dementia Musculoskeletal: reports: None Endocrine/Autoimmune: reports: Type 2 diabetes Blood Disorders: reports: Anemia Skin: reports: None Smoking Status: Never smoker - Surgical History Cardiothoracic: Coronary stent Exam General: Moderate distress Dental: Poor dentition Mouth Opening: Greater than 4 Fingerbreadths Neck Mobility: Reduced Mallampati classification: III Thyromental Distance: greater than 6 cm Respiratory: Decreased breath sounds Cardiovascular: Other (A fib with RVR) Mental/Cognitive Status: Confused Cognitive Status: Dementia Plan Anesthesia Type: General Consent for Procedure(s) Verified and Reviewed: Yes Code Status: Attempt Resuscitation ASA classification: 3-Severe systemic disease Is this case an emergency?: Yes
--- NOTE | 2019-09-03 20:39 | HISTORY & PHYSICAL EXAMINATION ---
Chief Complaint - Chief Complaint Chief Complaint: progressive abdominal pain over 2 to 3 days Abdominal Pain HPI - History Obtained From History obtained from: Patient Exam limitations: Language barrier, Other (dementia) - History of Present Illness Severity at the worst: Severe Pain Quality: Sharp Timing: Gradual onset, Other (significantly worse today) HPI Comment/Other: He has had progressive loss of appetite over the last 2 months and progressive nausea with small emesis. Over the last 5 days he ate very little. He developed progressive abdominal pain over the last 2 to 3 days and pain became severe several hours ago PMH/PSH - Past Medical History Cardiovascular: positive: Atrial fibrillation, Other (daughter states he has had more shortness of breath and the collections technician increased his lasix) Respiratory: positive: COPD Neuro: positive: Dementia Endocrine/Autoimmune: positive: Type 2 diabetes GI: positive: None : positive: Renal insuffiency HEENT: positive: None Psych: positive: Anxiety Musculoskeletal: positive: None Derm: positive: None MRSA Hx?: No - Past Surgical History Cardiovascular: positive: Coronary stent Social & Family Hx - Living Situation Living Arrangement: Other (attentive daughter present) - Social History Does the pt smoke?: No Smoking Status: Never smoker Does the pt drink ETOH?: Yes Does the pt have substance abuse?: No - POLST Patient has POLST: No POLST Status: Full Code Meds/Allgy - Home Medications Home Medications: Ambulatory Orders Medication Instructions Recorded Confirmed Aspirin 81 mg PO DAILY 09/24/17 05/11/19 Losartan Potassium 25 mg PO DAILY 09/24/17 05/11/19 Atorvastatin [Lipitor] 80 mg PO QPM #30 tablet 09/25/17 05/11/19 Ferrous Gluconate 324 mg PO BID #60 tablet 11/09/17 05/11/19 Furosemide 20 mg PO BID #60 tablet 11/09/17 05/11/19 Spironolactone 25 mg PO DAILY #30 tablet 11/09/17 05/11/19 Docusate Sodium [Colace Clear] 50 mg DAILY 05/11/19 05/11/19 Insulin Glargine [Lantus Solostar] 60 unit SUBQ QPM 05/11/19 05/11/19 Metoprolol Succinate [Toprol Xl] 100 mg PO DAILY 05/11/19 05/11/19 Pantoprazole [Protonix] 40 mg DAILY 05/11/19 05/11/19 Donepezil HCl 5 mg PO DAILY PM 05/12/19 05/12/19 Glimepiride 1 mg PO DAILY 05/12/19 05/12/19 - Allergies Allergies/Adverse Reactions: Allergies Allergy/AdvReac Type Severity Reaction Status Date / Time No Known Drug Allergies Allergy Verified 05/30/19 07:48 Review of Systems - Constitutional Constitutional: reports: Fatigue (10 pt ros as above and below otherwise unremarkable. heart problem 10 years ago ? percadial fluid) Exam - Vital Signs Vital Signs: Vital Signs x48h Temp Pulse Resp BP Pulse Ox 09/03/19 20:15 103 H 27 H 136/89 H 97 09/03/19 17:33 130 H 20 106/78 99 09/03/19 16:48 36.6 C 110 H 22 130/85 H 97 - Physical Exam General Appearance: positive: Moderate distress Eyes Bilateral: positive: Normal inspection, PERRL Neck: positive: No JVD Respiratory: positive: No respiratory distress Cardiovascular: positive: Irregularly irregular Abdomen: positive: Tenderness, Guarding, Rebound Extremities: positive: No pedal edema Neurologic/Psychiatric: positive: Other (able to respond and answer questions.) Results - Lab Results Fish Bones: 09/03/19 17:25 09/03/19 17:25 Other Lab Results: Lab Results x24hrs 09/03/19 09/03/19 09/03/19 Range/Units 19:59 17:25 17:25 WBC (4.8-10.8) x10^3/uL RBC (4.70-6.10) 10^6/uL Hgb (14.0-18.0) g/dL Hct (42.0-52.0) % MCV (80.0-94.0) fL MCH (27.0-31.0) pg MCHC (32.0-36.0) g/dL RDW (12.0-15.0) % Plt Count (130-450) 10^3/uL MPV (7.4-11.4) fL Neut # (Auto) (1.5-6.6) 10^3/uL Lymph # (Auto) (1.5-3.5) 10^3/uL [place] # (Auto) (0.0-1.0) 10^3/uL Eos # (Auto) (0.0-0.7) 10^3/uL Baso # (Auto) (0.0-0.1) 10^3/uL Absolute Nucleated RBC x10^3/uL Nucleated RBC % /100WBC PT 12.2 (9.9-12.6) secs INR 1.1 (0.8-1.2) Sodium (135-145) mmol/L Potassium (3.5-5.0) mmol/L Chloride (101-111) mmol/L Carbon Dioxide (21-32) mmol/L Anion Gap (6-13) BUN (6-20) mg/dL Creatinine (0.6-1.2) mg/dL Estimated GFR (MDRD) (>89) Glucose (70-100) mg/dL Lactic Acid 2.1 (0.5-2.2) mmol/L Calcium (8.5-10.3) mg/dL Total Bilirubin (0.2-1.0) mg/dL AST (10-42) IU/L ALT (10-60) IU/L Alkaline Phosphatase (42-121) IU/L Troponin I High Sens 16.5 (2.3-19.7) ng/L Total Protein (6.7-8.2) g/dL Albumin (3.2-5.5) g/dL Globulin (2.1-4.2) g/dL Albumin/Globulin Ratio (1.0-2.2) Lipase (22-51) U/L TSH (0.34-5.60) uIU/mL 09/03/19 09/03/19 09/03/19 Range/Units 17:25 17:25 17:25 WBC (4.8-10.8) x10^3/uL RBC (4.70-6.10) 10^6/uL Hgb (14.0-18.0) g/dL Hct (42.0-52.0) % MCV (80.0-94.0) fL MCH (27.0-31.0) pg MCHC (32.0-36.0) g/dL RDW (12.0-15.0) % Plt Count (130-450) 10^3/uL MPV (7.4-11.4) fL Neut # (Auto) (1.5-6.6) 10^3/uL Lymph # (Auto) (1.5-3.5) 10^3/uL [place] # (Auto) (0.0-1.0) 10^3/uL Eos # (Auto) (0.0-0.7) 10^3/uL Baso # (Auto) (0.0-0.1) 10^3/uL Absolute Nucleated RBC x10^3/uL Nucleated RBC % /100WBC PT (9.9-12.6) secs INR (0.8-1.2) Sodium 133 L (135-145) mmol/L Potassium 4.6 (3.5-5.0) mmol/L Chloride 104 (101-111) mmol/L Carbon Dioxide 20 L (21-32) mmol/L Anion Gap 9.0 (6-13) BUN 48 H (6-20) mg/dL Creatinine 1.9 H (0.6-1.2) mg/dL Estimated GFR (MDRD) 34 L (>89) Glucose 163 H (70-100) mg/dL Lactic Acid (0.5-2.2) mmol/L Calcium 8.3 L (8.5-10.3) mg/dL Total Bilirubin 0.8 (0.2-1.0) mg/dL AST 28 (10-42) IU/L ALT 34 (10-60) IU/L Alkaline Phosphatase 105 (42-121) IU/L Troponin I High Sens 24.9 H* (2.3-19.7) ng/L Total Protein 6.7 (6.7-8.2) g/dL Albumin 3.5 (3.2-5.5) g/dL Globulin 3.2 (2.1-4.2) g/dL Albumin/Globulin Ratio 1.1 (1.0-2.2) Lipase 26 (22-51) U/L TSH 0.66 (0.34-5.60) uIU/mL 09/03/19 Range/Units 17:25 WBC 12.0 H (4.8-10.8) x10^3/uL RBC 4.05 L (4.70-6.10) 10^6/uL Hgb 12.3 L (14.0-18.0) g/dL Hct 38.7 L (42.0-52.0) % MCV 95.6 H (80.0-94.0) fL MCH 30.4 (27.0-31.0) pg MCHC 31.8 L (32.0-36.0) g/dL RDW 12.8 (12.0-15.0) % Plt Count 182 (130-450) 10^3/uL MPV 10.8 (7.4-11.4) fL Neut # (Auto) 8.6 H (1.5-6.6) 10^3/uL Lymph # (Auto) 2.1 (1.5-3.5) 10^3/uL [place] # (Auto) 1.1 H (0.0-1.0) 10^3/uL Eos # (Auto) 0.1 (0.0-0.7) 10^3/uL Baso # (Auto) 0.0 (0.0-0.1) 10^3/uL Absolute Nucleated RBC 0.00 x10^3/uL Nucleated RBC % 0.0 /100WBC PT (9.9-12.6) secs INR (0.8-1.2) Sodium (135-145) mmol/L Potassium (3.5-5.0) mmol/L Chloride (101-111) mmol/L Carbon Dioxide (21-32) mmol/L Anion Gap (6-13) BUN (6-20) mg/dL Creatinine (0.6-1.2) mg/dL Estimated GFR (MDRD) (>89) Glucose (70-100) mg/dL Lactic Acid (0.5-2.2) mmol/L Calcium (8.5-10.3) mg/dL Total Bilirubin (0.2-1.0) mg/dL AST (10-42) IU/L ALT (10-60) IU/L Alkaline Phosphatase (42-121) IU/L Troponin I High Sens (2.3-19.7) ng/L Total Protein (6.7-8.2) g/dL Albumin (3.2-5.5) g/dL Globulin (2.1-4.2) g/dL Albumin/Globulin Ratio (1.0-2.2) Lipase (22-51) U/L TSH (0.34-5.60) uIU/mL - Diagnostic Imaging Results Diagnostic Imaging Results: positive: Final report reviewed, Read independently Diagnostic Imaging Results Comments: likely perforated pud with significant free air Impression/Plan - Problem List Problem List: perforated viscous abdomen, likely peptic ulcer disease. We discussed without surgery he will ; however, we can make him more comfortable. With surgery he will probably and we can make him more comfortable if he is not improving. He may have an problem that cannot be repaired such as significant ulcer disease or cancer. He is too frail to possibly survive resection type surgery Full parq held and consent obtained from patient and daughter
[2019-09-03] MEDS ORDERED: BUPIVACAINE 0.25% PF 30 ML VIAL SUBQ ONE (22:34)
[2019-09-03] MEDS ORDERED: LACTATED RINGERS 1,000 ML IV ONE ×2 (22:37→23:05)
[2019-09-03] MEDS ORDERED: BUPIVACAINE 0.25% PF 30 ML VIAL ONE (22:39)
[2019-09-03] MEDS ORDERED: PHENYLEPHRINE 10 MG/ML VIAL ONE (22:52)
[2019-09-03] MEDS ORDERED: PHENYLEPHRINE 20 MG in SODIUM CHLORIDE 0.9% 248 ML IV ONE (23:53)
[2019-09-04] MEDS: CHLORHEXIDINE GLUCONATE 15 ML UDC PO SCH ×3 (00:59→21:04)
[2019-09-04] MEDS: PROPOFOL 500 MG/50 ML 500 MG/50 ML VIAL IV SCH ×9 (00:59→23:49)
[2019-09-04] MEDS: SODIUM CHLORIDE 0.9% 1,000 ML IV SCH ×2 (01:23→10:40)
[2019-09-04 01:38] LABS: ABG HCO3 17.1 mmol/L (22.0-26.0); ABG OXYGEN SATURATION 98 % (94-98); ABG PCO2 38 mmHg (34-45); ABG PH 7.27 (7.35-7.45); ABG PO2 133 mmHg (80-100); ABG TCO2 18.3 MMOL/L (21.0-29.0); ALLEN TEST POSITIVE
[2019-09-04] MEDS: PIPERACILLIN/TAZOBACTAM 3.375 GM in SODIUM CHLORIDE 0.9% MINIBAG 100 ML IV SCH ×3 (02:00→17:05)
[2019-09-04] MEDS ORDERED: PHENYLEPHRINE 10 MG/ML VIAL ONE (02:14)
--- NOTE | 2019-09-04 02:20 | CONSULTATION NOTE ---
Referring Provider Name of Referring Provider:: Dr. Murphy Consult Date: 09/03/19 Chief Complaint - Chief Complaint Chief Complaint: postop management of septic patient History of Present Illness - Admitted From Admitted From:: Home/ER - History Obtained From Records Reviewed: [facility] History obtained from: Dr. Murhpy Exam Limitations: Patient is intubated - History of Present Illness HPI Comment/Other: Patient is an elderly male who was brought into the emergency room by his daughter because of abdominal pain. He has a history of dementia, seizure disorder and lives with her. He has a history of a hiatal hernia with reflux disease and he takes sucralfate since early July. He takes an aspirin a day. He is not on a proton pump inhibitor. The abdominal pain started about an hour before coming to the emergency room. For the last few days he has not been eating well and is stopped taking his medications. In the emergency room temperature was 36.6, heart rate 110, respiratory rate 22. Blood pressure 130/85 and he was 97% saturated. He had an irregularly irregular heart rate. He has been diagnosed with atrial fibrillation in the last month but is only rate control. He had normal bowel sounds, was tender to midline abdominal pain. White cell count was elevated at 12,000. Troponin was slightly high at 24.9. EKG was without ischemic changes. Lactic acid 2.1. Electrolytes essentially normal. However BUN was 48 and creatinine was 1.9. CT of the abdomen showed free intraperitoneal air in the upper abdomen consistent with a perforated viscus. Dr. Murphy was consulted. The patient was taken to the operating room and found to have a perforated duodenal ulcer. He has dropped his pressure in the opera ting room. Central line has been placed, and Jaron-Synephrine was started. By the time he was transferred to ICU, his systolic is [address] Jaron-[address] Verma is asked the medical service to consult on this patient. He would like us to do ventilatory orders and ICU management. History - Past Medical History Cardiovascular: reports: Congestive heart failure (combined sytolic and diastolic w EF 45-50%. Ischemic. Repeat ECHO w EF 60% 2016. Repeat 2018 w EF 60% again.Mod abnml right heart RVSP 55 mmHg. Lasix increased recently for inc SOB), High cholesterol, Coronary artery disease, Angina (With shortness of breath. Nuclear medicine stress test done February 2014 showed normal sinus rhythm with a prior inferior wall infarct. He had a moderate sized severe intensity defect involving the inferior and inferolateral wall from basal to distal portion. It is a fixed defect. EF 45-50%), NV (s/p NSTEMI with GUSTAVO to RCA and LCX,, acute stent thrombosis LCX 10/2009. Pericardial tamponade / attempted pericardiocentesis), Atrial fibrillation (Seen only in post op for stents and bypass. ZIo patch for afib neg 04/2018), Other (Median sternotomy w repar of RV tear) Respiratory: reports: COPD Neuro: reports: Dementia (worse since stroke 05/2019 and behavior more difficult to control. 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 EEG partial seizures and started on Keppra.Mood changes and changed to oxcarbazepine. ), TIA (08/2018 admit and then transfer to [facility] for TIA 04/2019), Other (Benign positional vertigo with admit to [facility] 02/2016. Ct of head neg x for microvascular changes.,) Endocrine/Autoimmune: reports: Type 2 diabetes (poorly controlled. Refusing meds at times to on NPH instead of lantus large amounts. ), Other (obesity) GI: reports: GERD (c/o reflux 07/31/19. Started on carafate and referred to [facility] for EGD. ), GI bleed (10/2017 w EGD showing gastritis and duodenitis. H pylori neg.Colonoscopy with hemorrhoids and diverticular disease. Transfused 2 units. ) : reports: Renal insuffiency (CKD III and refuses to be seen by Nephrology or consider dialysis if necessary) HEENT: reports: Chronic vision loss (with macular degeneration), Other (cataracts) Psych: reports: Anxiety Musculoskeletal: reports: None Derm: reports: None MRSA Hx?: No Other Past Medical History: Unintentional weight loss with CT abd neg 10/2017 - Past Surgical History Cardiovascular: reports: Coronary stent - Family & Social History Family History: Mother: Alzheimer's Disease, Sister: Diabetes, Type 2, Brother: Alzheimer's Disease, Diabetes, Type 2 Family History Comment/Other: Sister with DM Living arrangement: At home, Other (attentive daughter present) Living Situation: Alone Social History Notes: The patient lives in [place]. He lives all alone and is completely independent with all his activities of daily living. The patient still enjoys singing and plays the guitar. He is a very jovial person. His daughter lives nearby and visits all the time. The patient was born and raised in [place] and moved to [facility] when he was in his 30s. He then moved with his to [facility] 12 years ago to be closer to his daughter. He is now . The patient quit smoking about 30 years ago prior to that he smoked half a pack to a pack a day for about 20 years. The patient states that he occasionally drinks 3 beers. He denies any illicit drug use. - Substance History Use: Uses substance without health or social issues: NONE Abuse: Recurrent use of substance despite neg consequences: NONE Dependence: Experiences withdrawal or developed tolerances: NONE - POLST Patient has POLST: No POLST Status: Full Code Meds/Allgy - Home Medications Home Medications: Ambulatory Orders Medication Instructions Recorded Confirmed Aspirin 81 mg PO DAILY 09/24/17 05/11/19 Losartan Potassium 25 mg PO DAILY 09/24/17 05/11/19 Atorvastatin [Lipitor] 80 mg PO QPM #30 tablet 09/25/17 05/11/19 Ferrous Gluconate 324 mg PO BID #60 tablet 11/09/17 05/11/19 Furosemide 20 mg PO BID #60 tablet 11/09/17 05/11/19 Spironolactone 25 mg PO DAILY #30 tablet 11/09/17 05/11/19 Docusate Sodium [Colace Clear] 50 mg DAILY 05/11/19 05/11/19 Insulin Glargine [Lantus Solostar] 60 unit SUBQ QPM 05/11/19 05/11/19 Metoprolol Succinate [Toprol Xl] 100 mg PO DAILY 05/11/19 05/11/19 Pantoprazole [Protonix] 40 mg DAILY 05/11/19 05/11/19 Donepezil HCl 5 mg PO DAILY PM 05/12/19 05/12/19 Glimepiride 1 mg PO DAILY 05/12/19 05/12/19 - Allergies Allergies/Adverse Reactions: Allergies Allergy/AdvReac Type Severity Reaction Status Date / Time No Known Drug Allergies Allergy Verified 05/30/19 07:48 Review of Systems - Constitutional Constitutional: reports: Poor appetite, Weight loss - Eyes Eyes: reports: Blurred vision, Field loss, Vision loss. denies: Pain, Irritation, Amaurosis - Ears, Nose & Throat Ears, Nose & Throat: reports: Hearing loss, Vertigo, Nasal congestion, Postnasal drainage. denies: Ear pain, Hearing aids, Tinnitus, Nasal pain, Nasal discharge - Cardiovascular Cariovascular: reports: Exertional dyspnea. denies: Irregular heart rate, Palpitations, Chest pain, Lightheadedness, Syncope - Respiratory Respiratory: reports: SOB with exertion. denies: Cough, Sputum production, Wheezing, Orthopnea - Gastrointestinal Gastrointestinal: reports: Abdominal pain, Abdominal distention, Nausea, Reflux/heartburn, Bloating, Poor appetite. denies: Constipation, Diarrhea, Change in bowel habits, Rectal bleeding, Vomiting, Bile emesis - Genitourinary Genitourinary: reports: Urgency, Nocturia. denies: Dysuria, Frequency, Hematuria, Incontinence, Flank pain - Musculoskeletal Musculoskeletal: reports: Back pain, Joint pain. denies: Muscle pain, Muscle aches, Stiffness, Gout - Integumentary Integumentary: denies: Rash, Pruritis, Lesions - Neurological Neurological: reports: General weakness, Dizziness, Memory problems, Pre- existing deficit. denies: Focal weakness, Headache - Psychiatric Psychiatric: reports: Depression. denies: Anxiety, Suicidal - Endocrine Endocrine: denies: Polyuria, Polydypsia, Polyphagia - All Other Systems All Other Systems: reports: Other (ROS obtained from review of Centricity. Daughter is not here and patient intubated) Exam - Vital Signs Reviewed Vital Signs: Yes Vital Signs: Vital Signs x48h Temp Pulse Resp BP Pulse Ox 09/04/19 01:30 91 09/04/19 00:06 113 H 09/03/19 20:52 97.7 C H 120 H 16 123/75 97 09/03/19 20:15 103 H 27 H 136/89 H 97 Conclusion/Plan - Diagnosis Diagnosis: 1. Septic shock from an acute abdomen due to perforated viscus. He has already gone to the operating room and is still intubated, but no longer requiring Jaron-Synephrine. POD #0. Plan: Admit orders to ICU to include Freedman, restraints, medicine for pain, medicine for sedation. Continue Zosyn as single agent. 2. Combined systolic and diastolic heart failure history. Due to ischemic cardiomyopathy . Rough overview shows him to receive 2200 cc between the ER and the OR. Plan: Because of his hypotensive status, will give 100 cc an hour. Check BNP daily. Try not to fluid overload and. 3. Dementia with behavioral disturbance. Plan: Haldol prn. He can't take his usual po med. 4. Acute nutritional deficiency since he hasn't eaten in 5 days. Start TPN tomorrow. Nutrition consult. 5. 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 Start SS insulin qid and adjsut once TPN starts. 6. CKD III. Stable for him considering his hypotension in [place] OR. Monitor. Avoid nephrotoxic agents. - Lab Results Lab results reviewed: Yes Fish Bones: 09/03/19 17:25 09/03/19 17:25
[2019-09-04 05:21] LABS: BASOPHILS % (AUTO) 0.4 %; EOSINOPHILS % (AUTO) 0.6 %; HGB - HEMOGLOBIN 11.4 g/dL (14.0-18.0); LYMPHOCYTES % (AUTO) 3.7 %; MEAN CORPUSCULAR HEMOGLOBIN 31.8 pg (27.0-31.0); MEAN CORPUSCULAR HGB CONC 32.8 g/dL (32.0-36.0); MEAN CORPUSCULAR VOLUME 97.2 fL (80.0-94.0); MEAN PLATELET VOLUME 11.1 fL (7.4-11.4); MONOCYTES % (AUTO) 5.8 %; NEUTROPHILS % (AUTO) 88.8 %; PLT - PLATELET COUNT 181 10^3/uL (130-450); RED BLOOD COUNT 3.58 10^6/uL (4.70-6.10); RED CELL DISTRIBUTION WIDTH 12.8 % (12.0-15.0); WHITE BLOOD COUNT 21.9 x10^3/uL (4.8-10.8)
[2019-09-04 05:22] LABS: ABNORMAL LYMPHS % (MANUAL) 0 %
[2019-09-04 05:27] LABS: CALCIUM 7.4 mg/dL (8.5-10.3)
[2019-09-04 05:36] LABS: BAND NEUTROPHILS % (MANUAL) 11 %; LYMPHOCYTES # (MANUAL) 1.3 10^3/uL (1.5-3.5); LYMPHOCYTES % (MANUAL) 6 %; MONOCYTES # (MANUAL) 1.3 10^3/uL (0.0-1.0)
[2019-09-04 05:37] LABS: DIFFERENTIAL COMMENT MANUAL DIFFERENTIAL; PLATELET ESTIMATE, MANUAL NORMAL (130-450,000) (NORMAL); PLATELET MORPHOLOGY NORMAL APPEARANCE (NORMAL); RBC MORPHOLOGY (MULTIPLE) 1+ BURR CELLS (NORMAL)
[2019-09-04 05:41] LABS: VBG PH 7.277 (7.31-7.41)
[2019-09-04 05:55] LABS: ABG BASE EXCESS -8.4 mmol/L (-2.0-3.0); ABG OXYGEN SATURATION 98 % (94-98); ABG PCO2 30 mmHg (34-45); ABG PH 7.34 (7.35-7.45); ABG PO2 113 mmHg (80-100); ABG TCO2 16.9 MMOL/L (21.0-29.0); ALLEN TEST POSITIVE
[2019-09-04] MEDS ORDERED: PANTOPRAZOLE 40 MG VIAL IVP SCH ×2 (07:00)
--- NOTE | 2019-09-04 08:31 | XRAY Report ---
PROCEDURE: Chest 1 View X-Ray INDICATIONS: check et tube TECHNIQUE: One view of the chest was acquired. COMPARISON: 05/30/2019 FINDINGS: Surgical changes and devices: ET tube tip is approximately 4.7 cm above the nathan. Enteric tube tip is below the left hemidiaphragm and is below the lower edge of the study. Median sternotomy wires are seen. Left subclavian central venous catheter tip is in SVC.. Lungs and pleura: No pleural effusions or pneumothorax. Subtle patchy airspace opacities are seen sc attered in right upper lobe and bilateral lower lung hamilton. Mediastinum: Mediastinal contours appear normal. Heart size is normal. Bones and chest wall: No suspicious bony lesions. Overlying soft tissues appear unremarkable. IMPRESSION: Finding is concerning for bilateral small patchy infiltrates. No pleural effusion or pneumothorax. Tu be and line positions as above. Reviewed by: Johnathan Catalan MD on 09/04/2019 8:30 AM PDT Approved by: Johnathan Catalan MD on 09/04/2019 8:30 AM PDT Station ID: [id number]
--- NOTE | 2019-09-04 10:22 | PHARMACY PROGRESS NOTE ---
- Best Possible Medication History Admit Date and Time: 09/03/19 9905 Processed by: Pharmacy Medication History completed: Yes Patient Interview: Completed Secondary Source(s): Caregiver, Pharmacy records, Insurance records As the person ultimately responsible for medication therapy, providers are able to order a medication from an existing home medication list in [facility] via the "Reconcile Routine" prior to Confirmation of that medication by accounting support specialist. Such practice is discouraged except when the physician, in their clinical judgment, deems that a medical need exists for a medication without regard to previous use.
--- NOTE | 2019-09-04 12:18 | OPERATIVE REPORT ---
DATE OF SERVICE: 09/03/2019 Physician: Kingston Murphy MD PREOPERATIVE DIAGNOSES 1. Perforated viscus with free air. 2. Incisional hernia epigastrium. 3. Hypotension and poor peripheral intravenous access. POSTOPERATIVE DIAGNOSES 1. Perforated viscus with free air. 2. Incisional hernia epigastrium. 3. Hypotension and poor peripheral intravenous access. 4. Perforated duodenal ulcer. PROCEDURES PERFORMED 1. Left subclavian vein central line placement. 2. Exploratory laparotomy and repair of a perforated duodenal ulcer. 3. Incisional hernia repair without mesh. SURGEON: Kingston Murphy MD FRESH MEAT GRADER: None. ANESTHESIA 1. General endotracheal anesthesia. 2. Local anesthesia with Marcaine. COMPLICATIONS: None. SPECIMENS: None. ESTIMATED BLOOD LOSS: None. DRAINS: None. FINDINGS 1. Approximately 5 x 4 cm epigastric incisional hernia from prior sternotomy and surgery. 2. Anterior perforated duodenal ulcer. 3. Left subclavian vein was accessed first pass of needle and catheter flushed and aspirated very easily. INDICATIONS FOR PROCEDURE: Patient is an 89-year-old gentleman with a past medical history of mild dementia, mild cardiac disease, mild diabetes. He has not had much of an appetite for the last 2 months. He has had nausea following eating for many weeks. Approximately 5 days ago, he developed increasing abdominal pain and has had minimal to eat. His pain progressed over the last 3 days and then became acutely worse a few hours prior to surgery. He was seen and evaluated in the Emergency Department and was found to have free air on a CT scan. Daughter is present. Consent was obtained from both the patient as well as the daughter. We discussed without surgery, he will . With surgery, he very likely will . They strongly desired surgery and possible repair of the perforated viscus. DESCRIPTION OF PROCEDURE: Patient was properly identified, brought to the operating room and placed in a supine position. He had poor IV access evident prior to intubation. On intubation, the patient became hypotensive. A left subclavian vein central line was placed with a sterile technique. Patient was given pressors and blood pressure improved. He was then prepped and draped in a sterile fashion. Patient previously received antibiotics. Sequential compression devices were used and a nasogastric tube placed. An upper midline incision was made. The abdomen was opened. The incision extended to the epigastrium through the hernia sac. He had perhaps 100 mL of cloudy fluid in the upper abdomen. This was aspirated. Abdomen was later irrigated. A 5 mm anterior duodenal ulcer was identified. His tissue was relatively normal, fortunately. There was no mass or significant induration present. The hole was closed with a running 3-0 Vicryl suture horizontally. The hole was further reinforced with 2-0 silk Lembert sutures. The abdomen was then thoroughly irrigated. Omentum was then secured over the duodenal repair with an interrupted 2-0 silk suture. Omental tissue was then brought under the midline incision covering most of the midline incision. Abdominal wall fascia was closed with 2 running #1 PDS sutures. Subcutaneous tissue was irrigated and skin closed with freddy. Patient tolerated the procedure well. However, he was still on pressors and intubated. He was brought to the Intensive Care Unit in stable condition. TD: 09/04/2019 11:32 MONICA
[2019-09-04 12:26] LABS: CALCIUM 7.4 mg/dL (8.5-10.3); CREATININE 2.2 mg/dL (0.6-1.2); PHOSPHORUS 4.6 mg/dL (2.5-4.6)
[2019-09-04] MEDS: INSULIN REGULAR HUMAN 300 UNIT/3 ML VIAL SUBQ SCH ×2 (12:28→16:53)
--- NOTE | 2019-09-04 13:45 | PROVIDER PROGRESS NOTE ---
Hospitalist Cross-cover Note - Cross-Cover Note Cross-Cover Note: Patient became hypotensive's morning at approximately 8 AM with systolic as low as the 60s and diastolic in the 40s. He was started on norepinephrine at 6 mcg with improvement in his blood pressure to the 90s systolic with a mean arterial pressure of around 65. He remains on the ventilator at this time. He is on CMV with FiO2 of 30%, tidal volume of 500, PEEP of 5 and respirate of 20. Morphine ABG showed pH 7.34, PCO2 of 30, PO2 113 and a bicarb of 16. He remained sedated on propofol with morphine IV as needed for pain control. Labs this morning show potassium of 5.4, bicarbonate of 19, creatinine of 2 which is the patient's baseline. The patient's abdomen is soft and dressing is in place over the anterior aspect of the abdomen. No surrounding erythema. He does not have any lower extremity edema. Breath sounds are clear bilaterally. He is tachycardic with heart rates in the 90s but is in a sinus rhythm. At this time, we will keep the patient on Zosyn IV and continue the propofol and morphine IV as needed. Given the hypotension, we will continue him on norepinephrine and will hold off on weaning trials given his hemodynamic instability. I updated the patient's daughter at bedside and for the time being he is a full code but they are considering making him a DO NOT RESUSCITATE but she is waiting to speak with the rest of her family. We will repeat labs at noon and if his bicarbonate continues to decrease we will start him on sodium bicarbonate IV given the metabolic acidosis. His last ABG showed he is well compensated but he is overbreathing the vent likely due to the metabolic acidosis. We will continue with supportive care. His overall prognosis remains quite guarded and family is understanding of this.
[2019-09-04] MEDS: SODIUM BICARBONATE 150 MEQ in DEXTROSE 5% 1,000 ML IV SCH (14:25)
[2019-09-04] MEDS: MORPHINE 2 MG/ML CARPUJECT IVP PRN ×3 (16:10→22:20)
[2019-09-04] MEDS ORDERED: ONDANSETRON 4 MG/2 ML VIAL IVP ONE (17:17)
[2019-09-04] MEDS ORDERED: ROCURONIUM 50 MG/5 ML VIAL IVP ONE (17:17)
[2019-09-04] MEDS ORDERED: fentaNYL 250 MCG/5 ML VIAL IVP ONE (17:17)
[2019-09-04] MEDS ORDERED: PROPOFOL 200 MG/20 ML VIAL IVP ONE (17:17)
[2019-09-04] MEDS ORDERED: LIDOCAINE-MPF 2% 5 ML VIAL IM ONE (17:23)
[2019-09-04 18:14] LABS: GLUCOSE, URINE (UA) NEGATIVE (NEGATIVE); KETONES,URINE (UA) NEGATIVE (NEGATIVE); LEUKOCYTE ESTERASE, URINE NEGATIVE (NEGATIVE); NITRITE,URINE NEGATIVE (NEGATIVE); OCCULT BLOOD,URINE TRACE-LYSE (NEGATIVE); PH,URINE 5.5 PH (5.0-7.5); PROTEIN,URINE 30 mg/dL (NEGATIVE); UROBILINOGEN,URINE 1 (NORMAL) E.U./dL (NORMAL)
[2019-09-04 18:34] LABS: CLARITY,URINE CLEAR (CLEAR)
[2019-09-04 18:35] LABS: BILIRUBIN,URINE NEGATIVE (NEGATIVE); ICTOTEST,URINE NEGATIVE
[2019-09-04 18:36] LABS: BACTERIA,URINE Few /HPF (None Seen); SQUAMOUS EPITHELIAL CELL,UR NONE SEEN (<= Few)
[2019-09-04 20:04] LABS: CALCIUM 7.4 mg/dL (8.5-10.3); CREATININE 2.3 mg/dL (0.6-1.2)
[2019-09-04] MEDS ORDERED: INSULIN GLARGINE 300 UNIT/3 ML PEN SUBQ SCH (21:00)
[2019-09-04] MEDS: PANTOPRAZOLE 40 MG VIAL IVP SCH (21:01)
[2019-09-05] MEDS ORDERED: PIPERACILLIN/TAZOBACTAM 3.375 GM in SODIUM CHLORIDE 0.9% MINIBAG 100 ML IV SCH ×2
[2019-09-05] MEDS: MORPHINE 2 MG/ML CARPUJECT IVP PRN ×4 (01:20→14:40)
[2019-09-05] MEDS ORDERED: DEXTROSE 5% 1,000 ML IV ONE (01:25)
[2019-09-05] MEDS ORDERED: SODIUM BICARBONATE 8.4% 50 MEQ/50 ML VIAL ONE ×2 (01:27→01:28)
[2019-09-05] MEDS: PIPERACILLIN/TAZOBACTAM 3.375 GM in SODIUM CHLORIDE 0.9% MINIBAG 100 ML IV SCH ×3 (01:28→17:29)
[2019-09-05] MEDS: SODIUM BICARBONATE 150 MEQ in DEXTROSE 5% 1,000 ML IV SCH (01:29)
[2019-09-05] MEDS: PROPOFOL 500 MG/50 ML 500 MG/50 ML VIAL IV SCH ×8 (01:55→22:51)
[2019-09-05] MEDS: INSULIN REGULAR HUMAN 300 UNIT/3 ML VIAL SUBQ SCH ×4 (05:08→18:09)
[2019-09-05 05:26] LABS: ABG BASE EXCESS -1.8 mmol/L (-2.0-3.0); ABG HCO3 22.2 mmol/L (22.0-26.0); ABG PCO2 35 mmHg (34-45); ABG PH 7.42 (7.35-7.45); ABG PO2 76 mmHg (80-100); ABG TCO2 23.3 MMOL/L (21.0-29.0)
[2019-09-05 05:27] LABS: ABG OXYGEN SATURATION 95 % (94-98)
[2019-09-05 05:28] LABS: ALLEN TEST POSITIVE
[2019-09-05 05:38] LABS: BASOPHILS % (AUTO) 0.2 %; EOSINOPHILS % (AUTO) 0.1 %; LYMPHOCYTES # (AUTO) 1.4 10^3/uL (1.5-3.5); LYMPHOCYTES % (AUTO) 8.8 %; MEAN CORPUSCULAR HEMOGLOBIN 31.7 pg (27.0-31.0); MEAN CORPUSCULAR HGB CONC 32.7 g/dL (32.0-36.0); MEAN CORPUSCULAR VOLUME 97.1 fL (80.0-94.0); MEAN PLATELET VOLUME 11.9 fL (7.4-11.4); MONOCYTES % (AUTO) 6.2 %; NEUTROPHILS # (AUTO) 13.6 10^3/uL (1.5-6.6); NEUTROPHILS % (AUTO) 83.6 %; PLT - PLATELET COUNT 143 10^3/uL (130-450); RED BLOOD COUNT 3.15 10^6/uL (4.70-6.10); RED CELL DISTRIBUTION WIDTH 13.2 % (12.0-15.0); WHITE BLOOD COUNT 16.3 x10^3/uL (4.8-10.8)
[2019-09-05 05:47] LABS: CALCIUM 7.2 mg/dL (8.5-10.3); CREATININE 2.3 mg/dL (0.6-1.2)
[2019-09-05] MEDS: LACTATED RINGERS 1,000 ML IV SCH ×2 (07:40→17:25)
[2019-09-05] MEDS: CHLORHEXIDINE GLUCONATE 15 ML UDC PO SCH ×2 (08:52→21:10)
[2019-09-05] MEDS: PANTOPRAZOLE 40 MG VIAL IVP SCH ×2 (08:54→21:08)
--- NOTE | 2019-09-05 11:50 | PROVIDER PROGRESS NOTE ---
Subjective - Prog Note Date Prog Note Date: 09/05/19 - Subjective Subjective: Patient remains intubated and sedated on propofol. He remains on norepinephrine at 6 mcg a minute. Family is at bedside. Current Medications - Current Medications Current Medications: Active Medications Chlorhexidine Gluconate (Peridex) 15 ml PO BID [facility] Last Admin: 09/05/19 08:52 Dose: 15 ml Documented by: Acetaminophen (Ofirmev) 100 mls @ 400 mls/hr IV Q6HR PRN PRN Reason: PAIN Propofol (Diprivan) 500 mg in 50 mls @ 4.899 mls/hr IV .[id number] [facility]; Protocol Last Admin: 09/05/19 11:00 Dose: 35 mcg/kg/min, 17.146 mls/hr Documented by: Piperacillin Sod/Tazobactam (Sod 3.375 gm/ Sodium Chloride) 100 mls @ 25 mls/hr IV Q8H [facility] Last Admin: 09/05/19 09:00 Dose: 25 mls/hr Documented by: Norepinephrine Bitartrate 8 mg (/ Dextrose) 250 mls @ 11.25 mls/hr IV .[id number] [facility]; Protocol Last Titration: 09/05/19 11:00 Dose: 6 mcg/min, 11.25 mls/hr Documented by: Lactated Ringer's (Lr) 1,000 mls @ 100 mls/hr IV .Q10H [facility] Last Infusion: 09/05/19 11:00 Dose: 100 mls/hr Documented by: Insulin Glargine (Lantus Solostar) 20 unit SUBQ QPM [facility] Insulin Human Regular (Humulin R) 1 - 9 unit SUBQ Q6HR [facility]; Protocol Last Admin: 09/05/19 06:20 Dose: 5 unit Documented by: Morphine Sulfate (Morphine (Carpuject)) 2 mg IVP Q2HR PRN PRN Reason: PAIN Last Admin: 09/05/19 11:05 Dose: 2 mg Documented by: Pantoprazole Sodium (Protonix) 40 mg IVP BID [facility] Last Admin: 09/05/19 08:54 Dose: 40 mg Documented by: RX: Aspirin 81 mg PO DAILY 09/24/17 RX: Losartan Potassium 25 mg PO DAILY 09/24/17 RX: Docusate Sodium [Colace Clear] 50 mg DAILY 05/11/19 RX: Insulin Glargine [Lantus Solostar] 45 unit SUBQ QPM 05/11/19 RX: Metoprolol Succinate [Toprol Xl] 100 mg PO DAILY 05/11/19 RX: Pantoprazole [Protonix] 40 mg DAILY 05/11/19 Donepezil HCl 10 mg PO DAILY PM 05/12/19 Glimepiride 1 mg PO DAILY 05/12/19 Memantine HCl 5 mg PO DAILY 09/04/19 RX: Meclizine HCl 25 mg PO TID PRN 09/04/19 RX: OXcarbazepine [Trileptal] 300 mg PO BID 09/04/19 Sucralfate 1 gm PO QID 09/04/19 Objective - Vital Signs/Intake & Output Reviewed Vital Signs: Yes Vital Signs: Vital Signs Temp Pulse Pulse Resp BP Pulse Ox 09/05/19 11:00 36.3 C L 100 16 100/53 L 95 09/05/19 10:40 110 H 09/05/19 10:00 111 H 16 102/55 L 95 09/05/19 09:00 113 H 26 H 84/54 L 95 09/05/19 08:00 36.3 C L 100 18 95/55 L 96 Intake & Output: Intake & Output 09/02/19 09/03/19 09/04/19 09/05/19 23:59 23:59 23:59 23:59 Intake Total 1600 2559.739 2179.067 Output Total 701 340 Balance 1600 7717.047 1241.067 - Objective General Appearance: positive: No acute distress, Other (He appears comfortable in bed. He is sedated.) Eyes Bilateral: positive: Normal inspection, Conjunctivae nml, Other (Pupils constricted bilaterally.) ENT: positive: ENT inspection nml, Other (ET tube in place.) Neck: positive: Nml inspection Respiratory: positive: Other (Breath sounds are clear to auscultation bilaterally.). negative: Wheezes, Rales Cardiovascular: positive: No murmur, Irregularly irregular, Tachycardia. negative: Regular rate & rhythm, Bradycardia Abdomen: positive: Other (Abdomen is soft and nondistended. Dressing in place over the incision site. No surrounding erythema. Hypoactive bowel sounds.) Skin: positive: Warm, Dry Extremities: positive: No pedal edema Neurologic/Psychiatric: positive: Other (Sedated on propofol. Unable to assess his neurologic status.) - Lab Results Fish Bones: 09/05/19 04:23 09/05/19 04:23 Other Labs: Lab Results x24hrs 09/05/19 09/05/19 09/05/19 Range/Units 11:45 05:13 04:23 WBC (4.8-10.8) x10^3/uL RBC (4.70-6.10) 10^6/uL Hgb (14.0-18.0) g/dL Hct (42.0-52.0) % MCV (80.0-94.0) fL MCH (27.0-31.0) pg MCHC (32.0-36.0) g/dL RDW (12.0-15.0) % Plt Count (130-450) 10^3/uL MPV (7.4-11.4) fL Neut # (Auto) (1.5-6.6) 10^3/uL Lymph # (Auto) (1.5-3.5) 10^3/uL [place] # (Auto) (0.0-1.0) 10^3/uL Eos # (Auto) (0.0-0.7) 10^3/uL Baso # (Auto) (0.0-0.1) 10^3/uL Absolute Nucleated RBC x10^3/uL Nucleated RBC % /100WBC Bld Gas Analysis Time 0525 Sample Site RIGHT RADIAL ABG pH 7.42 (7.35-7.45) ABG pCO2 35 (34-45) mmHg ABG pO2 76 L (80-100) mmHg ABG HCO3 22.2 (22.0-26.0) mmol/L ABG Total CO2 23.3 (21.0-29.0) MMOL/L ABG O2 Saturation 95 (94-98) % ABG Base Excess -1.8 (-2.0-3.0) mmol/L Byron Test POSITIVE Respiration Rate 16 b/min O2 Delivery Device VENTILATOR Vent Mode SIMV FiO2 25.00 Tidal Volume 500 mL PEEP 5 cmH2O Pressure Support Vent 10 cmH2O Sodium (135-145) mmol/L Potassium (3.5-5.0) mmol/L Chloride (101-111) mmol/L Carbon Dioxide (21-32) mmol/L Anion Gap (6-13) BUN (6-20) mg/dL Creatinine (0.6-1.2) mg/dL Estimated GFR (MDRD) (>89) Glucose (70-100) mg/dL POC Whole Bld Glucose 243 H (70 - 100) mg/dL Calcium (8.5-10.3) mg/dL Phosphorus (2.5-4.6) mg/dL Magnesium (1.7-2.8) mg/dL Albumin (3.2-5.5) g/dL Triglycerides 239 H ( - 149) mg/dL Urine Color Urine Clarity (CLEAR) Urine pH (5.0-7.5) PH Ur Specific [place] (1.002-1.030) Urine Protein (NEGATIVE) mg/dL Urine Glucose (UA) (NEGATIVE) mg/dL Urine Ketones (NEGATIVE) mg/dL Urine Occult Blood (NEGATIVE) Urine Nitrite (NEGATIVE) Urine Bilirubin (NEGATIVE) Urine Urobilinogen (NORMAL) E.U./dL Ur Leukocyte Esterase (NEGATIVE) Urine RBC (0-5) /HPF Urine WBC (0-3) /HPF Ur Squamous Epith Cells (<= Few) Urine Bacteria (None Seen) /HPF Ur Microscopic Review Urine Culture Comments 09/05/19 09/05/19 09/05/19 Range/Units 04:23 04:23 04:23 WBC 16.3 H (4.8-10.8) x10^3/uL RBC 3.15 L (4.70-6.10) 10^6/uL Hgb 10.0 L (14.0-18.0) g/dL Hct 30.6 L (42.0-52.0) % MCV 97.1 H (80.0-94.0) fL MCH 31.7 H (27.0-31.0) pg MCHC 32.7 (32.0-36.0) g/dL RDW 13.2 (12.0-15.0) % Plt Count 143 (130-450) 10^3/uL MPV 11.9 H (7.4-11.4) fL Neut # (Auto) 13.6 H (1.5-6.6) 10^3/uL Lymph # (Auto) 1.4 L (1.5-3.5) 10^3/uL [place] # (Auto) 1.0 (0.0-1.0) 10^3/uL Eos # (Auto) 0.0 (0.0-0.7) 10^3/uL Baso # (Auto) 0.0 (0.0-0.1) 10^3/uL Absolute Nucleated RBC 0.00 x10^3/uL Nucleated RBC % 0.0 /100WBC Bld Gas Analysis Time Sample Site ABG pH (7.35-7.45) ABG pCO2 (34-45) mmHg ABG pO2 (80-100) mmHg ABG HCO3 (22.0-26.0) mmol/L ABG Total CO2 (21.0-29.0) MMOL/L ABG O2 Saturation (94-98) % ABG Base Excess (-2.0-3.0) mmol/L Byron Test Respiration Rate b/min O2 Delivery Device Vent Mode FiO2 Tidal Volume mL PEEP cmH2O Pressure Support Vent cmH2O Sodium 135 (135-145) mmol/L Potassium 3.8 (3.5-5.0) mmol/L Chloride 103 (101-111) mmol/L Carbon Dioxide 23 (21-32) mmol/L Anion Gap 9.0 (6-13) BUN 48 H (6-20) mg/dL Creatinine 2.3 H (0.6-1.2) mg/dL Estimated GFR (MDRD) 27 L (>89) Glucose 258 H (70-100) mg/dL POC Whole Bld Glucose (70 - 100) mg/dL Calcium 7.2 L (8.5-10.3) mg/dL Phosphorus 3.0 (2.5-4.6) mg/dL Magnesium 2.0 (1.7-2.8) mg/dL Albumin 2.3 L (3.2-5.5) g/dL Triglycerides ( - 149) mg/dL Urine Color Urine Clarity (CLEAR) Urine pH (5.0-7.5) PH Ur Specific [place] (1.002-1.030) Urine Protein (NEGATIVE) mg/dL Urine Glucose (UA) (NEGATIVE) mg/dL Urine Ketones (NEGATIVE) mg/dL Urine Occult Blood (NEGATIVE) Urine Nitrite (NEGATIVE) Urine Bilirubin (NEGATIVE) Urine Urobilinogen (NORMAL) E.U./dL Ur Leukocyte Esterase (NEGATIVE) Urine RBC (0-5) /HPF Urine WBC (0-3) /HPF Ur Squamous Epith Cells (<= Few) Urine Bacteria (None Seen) /HPF Ur Microscopic Review Urine Culture Comments 09/05/19 09/04/19 09/04/19 Range/Units 00:05 19:50 18:00 WBC (4.8-10.8) x10^3/uL RBC (4.70-6.10) 10^6/uL Hgb (14.0-18.0) g/dL Hct (42.0-52.0) % MCV (80.0-94.0) fL MCH (27.0-31.0) pg MCHC (32.0-36.0) g/dL RDW (12.0-15.0) % Plt Count (130-450) 10^3/uL MPV (7.4-11.4) fL Neut # (Auto) (1.5-6.6) 10^3/uL Lymph # (Auto) (1.5-3.5) 10^3/uL [place] # (Auto) (0.0-1.0) 10^3/uL Eos # (Auto) (0.0-0.7) 10^3/uL Baso # (Auto) (0.0-0.1) 10^3/uL Absolute Nucleated RBC x10^3/uL Nucleated RBC % /100WBC Bld Gas Analysis Time Sample Site ABG pH (7.35-7.45) ABG pCO2 (34-45) mmHg ABG pO2 (80-100) mmHg ABG HCO3 (22.0-26.0) mmol/L ABG Total CO2 (21.0-29.0) MMOL/L ABG O2 Saturation (94-98) % ABG Base Excess (-2.0-3.0) mmol/L Byron Test Respiration Rate b/min O2 Delivery Device Vent Mode FiO2 Tidal Volume mL PEEP cmH2O Pressure Support Vent cmH2O Sodium 135 (135-145) mmol/L Potassium 4.4 (3.5-5.0) mmol/L Chloride 100 L (101-111) mmol/L Carbon Dioxide 22 (21-32) mmol/L Anion Gap 13.0 (6-13) BUN 48 H (6-20) mg/dL Creatinine 2.3 H (0.6-1.2) mg/dL Estimated GFR (MDRD) 27 L (>89) Glucose 254 H (70-100) mg/dL POC Whole Bld Glucose 234 H (70 - 100) mg/dL Calcium 7.4 L (8.5-10.3) mg/dL Phosphorus (2.5-4.6) mg/dL Magnesium (1.7-2.8) mg/dL Albumin (3.2-5.5) g/dL Triglycerides ( - 149) mg/dL Urine Color DARK YELLOW Urine Clarity CLEAR (CLEAR) Urine pH 5.5 (5.0-7.5) PH Ur Specific [place] 1.025 (1.002-1.030) Urine Protein 30 H (NEGATIVE) mg/dL Urine Glucose (UA) NEGATIVE (NEGATIVE) mg/dL Urine Ketones NEGATIVE (NEGATIVE) mg/dL Urine Occult Blood TRACE-LYSE (NEGATIVE) Urine Nitrite NEGATIVE (NEGATIVE) Urine Bilirubin NEGATIVE (NEGATIVE) Urine Urobilinogen 1 (NORMAL) (NORMAL) E.U./dL Ur Leukocyte Esterase NEGATIVE (NEGATIVE) Urine RBC 6-10 H (0-5) /HPF Urine WBC 4-5 (0-3) /HPF Ur Squamous Epith Cells NONE SEEN (<= Few) Urine Bacteria Few (None Seen) /HPF Ur Microscopic Review INDICATED Urine Culture Comments NOT INDICATED 09/04/19 09/04/19 09/04/19 Range/Units 16:46 12:22 12:08 WBC (4.8-10.8) x10^3/uL RBC (4.70-6.10) 10^6/uL Hgb (14.0-18.0) g/dL Hct (42.0-52.0) % MCV (80.0-94.0) fL MCH (27.0-31.0) pg MCHC (32.0-36.0) g/dL RDW (12.0-15.0) % Plt Count (130-450) 10^3/uL MPV (7.4-11.4) fL Neut # (Auto) (1.5-6.6) 10^3/uL Lymph # (Auto) (1.5-3.5) 10^3/uL [place] # (Auto) (0.0-1.0) 10^3/uL Eos # (Auto) (0.0-0.7) 10^3/uL Baso # (Auto) (0.0-0.1) 10^3/uL Absolute Nucleated RBC x10^3/uL Nucleated RBC % /100WBC Bld Gas Analysis Time Sample Site ABG pH (7.35-7.45) ABG pCO2 (34-45) mmHg ABG pO2 (80-100) mmHg ABG HCO3 (22.0-26.0) mmol/L ABG Total CO2 (21.0-29.0) MMOL/L ABG O2 Saturation (94-98) % ABG Base Excess (-2.0-3.0) mmol/L Byron Test Respiration Rate b/min O2 Delivery Device Vent Mode FiO2 Tidal Volume mL PEEP cmH2O Pressure Support Vent cmH2O Sodium 134 L (135-145) mmol/L Potassium 5.4 H (3.5-5.0) mmol/L Chloride 106 (101-111) mmol/L Carbon Dioxide 17 L (21-32) mmol/L Anion Gap 11.0 (6-13) BUN 50 H (6-20) mg/dL Creatinine 2.2 H (0.6-1.2) mg/dL Estimated GFR (MDRD) 28 L (>89) Glucose 238 H (70-100) mg/dL POC Whole Bld Glucose 237 H 215 H (70 - 100) mg/dL Calcium 7.4 L (8.5-10.3) mg/dL Phosphorus 4.6 (2.5-4.6) mg/dL Magnesium 2.0 (1.7-2.8) mg/dL Albumin (3.2-5.5) g/dL Triglycerides ( - 149) mg/dL Urine Color Urine Clarity (CLEAR) Urine pH (5.0-7.5) PH Ur Specific [place] (1.002-1.030) Urine Protein (NEGATIVE) mg/dL Urine Glucose (UA) (NEGATIVE) mg/dL Urine Ketones (NEGATIVE) mg/dL Urine Occult Blood (NEGATIVE) Urine Nitrite (NEGATIVE) Urine Bilirubin (NEGATIVE) Urine Urobilinogen (NORMAL) E.U./dL Ur Leukocyte Esterase (NEGATIVE) Urine RBC (0-5) /HPF Urine WBC (0-3) /HPF Ur Squamous Epith Cells (<= Few) Urine Bacteria (None Seen) /HPF Ur Microscopic Review Urine Culture Comments Sepsis Event Note (H) - Evaluation Current Stage of Sepsis: Septic shock Possible source of Sepsis: positive: GI tract/intra-abdominal - Sepsis Criteria Sepsis Criteria: Recorded Heart Rate greater than 90 bpm, WBC count greater than 12,000 or less than 4000, SBP drop more than 40mHg, MAP less than 65 mmHg, SBP less than 90 mmHg Assessment/Plan - Problem List (1) Septic shock Impression: This is secondary to the perforated duodenal ulcer. He is hypotensive and requiring pressor support with norepinephrine although these requirements are minimal. Fortunately his pressor requirements are stable and we will hope to wean him off of pressors over the next 24 hours. He did have a metabolic acidosis yesterday and started on bicarbonate drip but this morning his bicarbonate is greater than 20 so we will discontinue this.. We will continue with IV lactated ringers but we will need to watch carefully given his history of cardiomyopathy. His white count has improved today and he remains afebrile. We will keep him on Zosyn IV with today being day 3. Continue to trend his white count. (2) Perforated duodenal ulcer Impression: He is status post expiratory laparotomy and repair of a perforated duodenal ulcer on 09/03/19 with General Surgery. This is a source of his sepsis. He remains n.p.o. at this time. We will continue Protonix IV and IV hydration. Morphine IV as needed for pain control. Will discuss with general surgery regarding the initiation of trickle tube feeds versus TPN for nutrition. Ap preciate general surgery recommendations. (3) Respiratory failure requiring intubation Impression: He remains intubated in the intensive care unit although his vent requirements are minimal. Given he remains on norepinephrine, we will keep him intubated today. As we wean his pressors, we will hope to extubate him tomorrow possibly. Daily sedation vacation. Continue with propofol for sedation and morphine as needed for pain control. (4) CKD (chronic kidney disease) stage 3, GFR 30-59 ml/min Impression: He has CKD stage III with a baseline creatinine of approximately 2.0. This is likely related to his diabetes. His renal function remains at baseline despite the sepsis and hypotension. We will continue gentle IV hydration. Monitor his renal function closely. Avoid nephrotoxins. (5) Paroxysmal atrial fibrillation Impression: He has been in and out of atrial fibrillation at times but has been relatively rate controlled. We are holding his home metoprolol given his hypotension. Consider amiodarone or digoxin if his heart rate becomes difficult to control. Continue to monitor on telemetry. (6) Chronic combined systolic and diastolic heart failure Impression: This is not an exacerbation at this time. His last echocardiogram showed a preserved ejection fraction. We will continue with gentle IV hydration and mo nitor his respiratory status closely. (7) History of CVA (cerebrovascular accident) Impression: He has history of stroke and was scheduled to start Eliquis given his atrial fibrillation. This has not yet been initiated and we will hold off for the time being given his critical illness. We will resume his home medications when appropriate. (8) History of coronary artery disease Impression: He has history of coronary artery disease with drug-eluting stents to the right coronary artery and left circumflex. He is on aspirin and Lipitor at home. We will resume his home medications when appropriate. His EKG does not suggest acute ischemia and his troponin is within normal limits. (9) Type 2 diabetes mellitus, without long-term current use of insulin Impression: His blood glucose elevated at greater than 200. We will increase his Lantus to 20 units this evening and continue with sliding scale. He is currently n.p.o. but will start him on TPN or trickle feeds after discussion with general surgery. We will check an A1c.
[2019-09-05] MEDS ORDERED: TPN (CLINIMIX E 5/15) 2,000 ML with MULTIVITAMIN 10 ML, TRACE ELEMENTS V CONC 1 ML IV SCH ×3 (19:00)
--- NOTE | 2019-09-05 20:30 | PROVIDER PROGRESS NOTE ---
Subjective - Prog Note Date Prog Note Date: 09/05/19 - Subjective Subjective: he is comfortable on vent. responds appropriately Objective - Vital Signs/Intake & Output Vital Signs: Vital Signs x48h Temp Pulse Pulse Resp BP Pulse Ox 09/05/19 19:00 91 95 16 109/58 L 97 09/05/19 18:00 37.3 C 102 H 16 105/78 97 09/05/19 17:00 37.3 C 97 16 100/56 L 96 09/05/19 16:18 102 H 09/05/19 16:00 37.5 C 107 H 16 104/60 96 09/05/19 15:00 37.3 C 106 H 16 96/53 L 97 09/05/19 14:00 37 C 107 H 16 98/50 L 97 09/05/19 13:00 36.2 C L 102 H 16 102/53 L 96 Intake & Output: Intake & Output 09/02/19 09/03/19 09/04/19 09/05/19 23:59 23:59 23:59 23:59 Intake Total 1600 2559.739 3298.348 Output Total 701 587 Balance 1600 8796.008 1988.348 - Objective General Appearance: positive: No acute distress Abdomen: positive: Non-tender, No distention, Other (dressing c/d/i) - Lab Results Fish Bones: 09/05/19 04:23 09/05/19 04:23 Other Labs: Lab Results x24hrs 09/05/19 09/05/19 09/05/19 Range/Units 18:03 11:45 05:13 WBC (4.8-10.8) x10^3/uL RBC (4.70-6.10) 10^6/uL Hgb (14.0-18.0) g/dL Hct (42.0-52.0) % MCV (80.0-94.0) fL MCH (27.0-31.0) pg MCHC (32.0-36.0) g/dL RDW (12.0-15.0) % Plt Count (130-450) 10^3/uL MPV (7.4-11.4) fL Neut # (Auto) (1.5-6.6) 10^3/uL Lymph # (Auto) (1.5-3.5) 10^3/uL [place] # (Auto) (0.0-1.0) 10^3/uL Eos # (Auto) (0.0-0.7) 10^3/uL Baso # (Auto) (0.0-0.1) 10^3/uL Absolute Nucleated RBC x10^3/uL Nucleated RBC % /100WBC Bld Gas Analysis Time 0525 Sample Site RIGHT RADIAL ABG pH 7.42 (7.35-7.45) ABG pCO2 35 (34-45) mmHg ABG pO2 76 L (80-100) mmHg ABG HCO3 22.2 (22.0-26.0) mmol/L ABG Total CO2 23.3 (21.0-29.0) MMOL/L ABG O2 Saturation 95 (94-98) % ABG Base Excess -1.8 (-2.0-3.0) mmol/L Byron Test POSITIVE Respiration Rate 16 b/min O2 Delivery Device VENTILATOR Vent Mode SIMV FiO2 25.00 Tidal Volume 500 mL PEEP 5 cmH2O Pressure Support Vent 10 cmH2O Sodium (135-145) mmol/L Potassium (3.5-5.0) mmol/L Chloride (101-111) mmol/L Carbon Dioxide (21-32) mmol/L Anion Gap (6-13) BUN (6-20) mg/dL Creatinine (0.6-1.2) mg/dL Estimated GFR (MDRD) (>89) Glucose (70-100) mg/dL POC Whole Bld Glucose 212 H 243 H (70 - 100) mg/dL Calcium (8.5-10.3) mg/dL Phosphorus (2.5-4.6) mg/dL Magnesium (1.7-2.8) mg/dL Albumin (3.2-5.5) g/dL Triglycerides ( - 149) mg/dL 09/05/19 09/05/19 09/05/19 Range/Units 04:23 04:23 04:23 WBC (4.8-10.8) x10^3/uL RBC (4.70-6.10) 10^6/uL Hgb (14.0-18.0) g/dL Hct (42.0-52.0) % MCV (80.0-94.0) fL MCH (27.0-31.0) pg MCHC (32.0-36.0) g/dL RDW (12.0-15.0) % Plt Count (130-450) 10^3/uL MPV (7.4-11.4) fL Neut # (Auto) (1.5-6.6) 10^3/uL Lymph # (Auto) (1.5-3.5) 10^3/uL [place] # (Auto) (0.0-1.0) 10^3/uL Eos # (Auto) (0.0-0.7) 10^3/uL Baso # (Auto) (0.0-0.1) 10^3/uL Absolute Nucleated RBC x10^3/uL Nucleated RBC % /100WBC Bld Gas Analysis Time Sample Site ABG pH (7.35-7.45) ABG pCO2 (34-45) mmHg ABG pO2 (80-100) mmHg ABG HCO3 (22.0-26.0) mmol/L ABG Total CO2 (21.0-29.0) MMOL/L ABG O2 Saturation (94-98) % ABG Base Excess (-2.0-3.0) mmol/L Byron Test Respiration Rate b/min O2 Delivery Device Vent Mode FiO2 Tidal Volume mL PEEP cmH2O Pressure Support Vent cmH2O Sodium 135 (135-145) mmol/L Potassium 3.8 (3.5-5.0) mmol/L Chloride 103 (101-111) mmol/L Carbon Dioxide 23 (21-32) mmol/L Anion Gap 9.0 (6-13) BUN 48 H (6-20) mg/dL Creatinine 2.3 H (0.6-1.2) mg/dL Estimated GFR (MDRD) 27 L (>89) Glucose 258 H (70-100) mg/dL POC Whole Bld Glucose (70 - 100) mg/dL Calcium 7.2 L (8.5-10.3) mg/dL Phosphorus 3.0 (2.5-4.6) mg/dL Magnesium 2.0 (1.7-2.8) mg/dL Albumin 2.3 L (3.2-5.5) g/dL Triglycerides 239 H ( - 149) mg/dL 07/10/20 07/10/20 Range/Units 04:23 00:05 WBC 16.3 H (4.8-10.8) x10^3/uL RBC 3.15 L (4.70-6.10) 10^6/uL Hgb 10.0 L (14.0-18.0) g/dL Hct 30.6 L (42.0-52.0) % MCV 97.1 H (80.0-94.0) fL MCH 31.7 H (27.0-31.0) pg MCHC 32.7 (32.0-36.0) g/dL RDW 13.2 (12.0-15.0) % Plt Count 143 (130-450) 10^3/uL MPV 11.9 H (7.4-11.4) fL Neut # (Auto) 13.6 H (1.5-6.6) 10^3/uL Lymph # (Auto) 1.4 L (1.5-3.5) 10^3/uL [place] # (Auto) 1.0 (0.0-1.0) 10^3/uL Eos # (Auto) 0.0 (0.0-0.7) 10^3/uL Baso # (Auto) 0.0 (0.0-0.1) 10^3/uL Absolute Nucleated RBC 0.00 x10^3/uL Nucleated RBC % 0.0 /100WBC Bld Gas Analysis Time Sample Site ABG pH (7.35-7.45) ABG pCO2 (34-45) mmHg ABG pO2 (80-100) mmHg ABG HCO3 (22.0-26.0) mmol/L ABG Total CO2 (21.0-29.0) MMOL/L ABG O2 Saturation (94-98) % ABG Base Excess (-2.0-3.0) mmol/L Byron Test Respiration Rate b/min O2 Delivery Device Vent Mode FiO2 Tidal Volume mL PEEP cmH2O Pressure Support Vent cmH2O Sodium (135-145) mmol/L Potassium (3.5-5.0) mmol/L Chloride (101-111) mmol/L Carbon Dioxide (21-32) mmol/L Anion Gap (6-13) BUN (6-20) mg/dL Creatinine (0.6-1.2) mg/dL Estimated GFR (MDRD) (>89) Glucose (70-100) mg/dL POC Whole Bld Glucose 234 H (70 - 100) mg/dL Calcium (8.5-10.3) mg/dL Phosphorus (2.5-4.6) mg/dL Magnesium (1.7-2.8) mg/dL Albumin (3.2-5.5) g/dL Triglycerides ( - 149) mg/dL Sepsis Event Note (H) - Evaluation Current Stage of Sepsis: Septic shock Possible source of Sepsis: positive: GI tract/intra-abdominal - Sepsis Criteria Sepsis Criteria: Recorded Heart Rate greater than 90 bpm, WBC count greater than 12,000 or less than 4000, SBP drop more than 40mHg, MAP less than 65 mmHg, SBP less than 90 mmHg Assessment/Plan - Problem List (1) Perforated duodenal ulcer Impression: slowly improving. appreciate medicine/ icu care. May start tube feeds per ngt and / or tpn. If start tube feeds I recommend check residual q 4 hours and hold for more than 250 ml
[2019-09-05] MEDS ORDERED: INSULIN GLARGINE 300 UNIT/3 ML PEN SUBQ SCH (21:00)
[2019-09-06] MEDS: INSULIN REGULAR HUMAN 300 UNIT/3 ML VIAL SUBQ SCH ×6 (00:16→18:03)
[2019-09-06] MEDS: PIPERACILLIN/TAZOBACTAM 3.375 GM in SODIUM CHLORIDE 0.9% MINIBAG 100 ML IV SCH ×3 (01:55→17:35)
[2019-09-06] MEDS: PROPOFOL 500 MG/50 ML 500 MG/50 ML VIAL IV SCH ×2 (02:01→05:28)
[2019-09-06] MEDS: LACTATED RINGERS 1,000 ML IV SCH ×3 (03:14→22:43)
[2019-09-06 05:53] LABS: BASOPHILS % (AUTO) 0.2 %; EOSINOPHILS # (AUTO) 0.1 10^3/uL (0.0-0.7); EOSINOPHILS % (AUTO) 0.3 %; HGB - HEMOGLOBIN 9.2 g/dL (14.0-18.0); LYMPHOCYTES # (AUTO) 1.2 10^3/uL (1.5-3.5); LYMPHOCYTES % (AUTO) 7.6 %; MEAN CORPUSCULAR HEMOGLOBIN 30.7 pg (27.0-31.0); MEAN CORPUSCULAR HGB CONC 31.6 g/dL (32.0-36.0); MEAN PLATELET VOLUME 11.9 fL (7.4-11.4); MONOCYTES # (AUTO) 1.1 10^3/uL (0.0-1.0); MONOCYTES % (AUTO) 6.7 %; NEUTROPHILS # (AUTO) 13.6 10^3/uL (1.5-6.6); NEUTROPHILS % (AUTO) 83.9 %; PLT - PLATELET COUNT 126 10^3/uL (130-450); RED CELL DISTRIBUTION WIDTH 13.2 % (12.0-15.0); WHITE BLOOD COUNT 16.2 x10^3/uL (4.8-10.8)
[2019-09-06 06:08] LABS: ALBUMIN/GLOBULIN RATIO 0.7 (1.0-2.2); BILIRUBIN,TOTAL 0.8 mg/dL (0.2-1.0); CALCIUM 7.3 mg/dL (8.5-10.3); CREATININE 2.3 mg/dL (0.6-1.2); PHOSPHORUS 3.1 mg/dL (2.5-4.6); TOTAL PROTEIN 4.8 g/dL (6.7-8.2)
[2019-09-06 06:17] LABS: HB2 TOTAL 9.9 g/dL; HEMOGLOBIN A1C 0.67 g/dL; HEMOGLOBIN A1C % 8.3 % (4.6-6.2)
[2019-09-06] MEDS: MORPHINE 2 MG/ML CARPUJECT IVP PRN ×4 (07:19→22:05)
[2019-09-06] MEDS ORDERED: LACTATED RINGERS 1,000 ML IV ONE (07:33)
--- NOTE | 2019-09-06 07:52 | PROVIDER PROGRESS NOTE ---
Subjective - Prog Note Date Prog Note Date: 09/06/19 - Subjective Subjective: He is off of norepinephrine this morning. He is also off of propofol and following commands although still somewhat lethargic. Vent settings remain minimal. Current Medications - Current Medications Current Medications: Active Medications Chlorhexidine Gluconate (Peridex) 15 ml PO BID LUIS Last Admin: 09/06/19 09:27 Dose: 15 ml Documented by: Heparin Sodium (Porcine) () 5,000 unit SUBQ BID LUSI Last Admin: 09/06/19 09:22 Dose: 5,000 unit Documented by: Acetaminophen (Ofirmev) 100 mls @ 400 mls/hr IV Q6HR PRN PRN Reason: PAIN Last Admin: 09/06/19 09:21 Dose: 400 mls/hr Documented by: Propofol (Diprivan) 500 mg in 50 mls @ 4.899 mls/hr IV .[id number] LUIS; Protocol Last Titration: 09/06/19 07:58 Dose: 0 mcg/kg/min, 0 mls/hr Documented by: Piperacillin Sod/Tazobactam (Sod 3.375 gm/ Sodium Chloride) 100 mls @ 25 mls/hr IV Q8H [facility] Last Infusion: 09/06/19 05:55 Dose: Infused Documented by: Norepinephrine Bitartrate 8 mg (/ Dextrose) 250 mls @ 11.25 mls/hr IV .[id number] LUIS; Protocol Last Titration: 09/06/19 08:25 Dose: 1 mcg/min, 1.875 mls/hr Documented by: Lactated Ringer's (Lr) 1,000 mls @ 100 mls/hr IV .Q10H [facility] Last Infusion: 09/06/19 08:00 Dose: 100 mls/hr Documented by: Multivitamins 10 ml/ Chromium/Copper/Manganese/Seleni/Zn 1 ml/ Amino Ac/Electrol/Dextrose /Calcium 2,011 mls @ 83 mls/hr IV Q24H [facility]; Protocol Last Admin: 09/05/19 18:45 Dose: 83 mls/hr Documented by: Insulin Glargine (Lantus Solostar) 30 unit SUBQ QPM LUIS Insulin Human Regular (Humulin R) 1 - 9 unit SUBQ Q6HR LUIS; Protocol Last Admin: 09/06/19 06:39 Dose: 9 unit Documented by: Morphine Sulfate (Morphine (Carpuject)) 2 mg IVP Q2HR PRN PRN Reason: PAIN Last Admin: 09/06/19 07:19 Dose: 2 mg Documented by: Pantoprazole Sodium (Protonix) 40 mg IVP BID LUIS Last Admin: 09/05/19 21:08 Dose: 40 mg Documented by: Aspirin 81 mg PO DAILY 09/24/17 Losartan Potassium 25 mg PO DAILY 09/24/17 Docusate Sodium [Colace Clear] 50 mg DAILY 05/11/19 Insulin Glargine [Lantus Solostar] 45 unit SUBQ QPM 05/11/19 Metoprolol Succinate [Toprol Xl] 100 mg PO DAILY 05/11/19 Pantoprazole [Protonix] 40 mg DAILY 05/11/19 Donepezil HCl 10 mg PO DAILY PM 05/12/19 Glimepiride 1 mg PO DAILY 05/12/19 Meclizine HCl 25 mg PO TID PRN 09/04/19 Memantine HCl 5 mg PO DAILY 09/04/19 OXcarbazepine [Trileptal] 300 mg PO BID 09/04/19 Sucralfate 1 gm PO QID 09/04/19 Objective - Vital Signs/Intake & Output Reviewed Vital Signs: Yes Vital Signs: Vital Signs Temp Pulse Pulse Resp BP Pulse Ox 09/06/19 07:00 98 23 128/62 96 09/06/19 06:51 92 09/06/19 06:01 98 09/06/19 06:00 103 H 17 112/59 L 96 09/06/19 05:00 36.8 C 93 24 99/45 L 96 09/06/19 04:00 104 H 32 H 115/64 97 Intake & Output: Intake & Output 09/03/19 09/04/19 09/05/19 09/06/19 23:59 23:59 23:59 23:59 Intake Total 1600 5417.739 3448.348 1116.182 Output Total 686 733 3504 Balance 1600 6070.437 9532.348 31.182 - Objective General Appearance: positive: Lethargic, Other (He is lethargic but following commands. Propofol has just been turned off.) Eyes Bilateral: positive: Normal inspection, Conjunctivae nml ENT: positive: Other (ET tube in place.) Neck: positive: Nml inspection Respiratory: positive: Other (Breath sounds are clear bilaterally.). negative: Wheezes, Rales Cardiovascular: positive: No murmur, Irregularly irregular, Tachycardia. negative: Bradycardia, Systolic murmur Abdomen: positive: Other (He is tender on palpation diffusely. Dressing in place over the incision site. No surrounding erythema. Bowel sounds present.) Skin: positive: No rash, Warm, Dry Extremities: positive: Pedal edema (He does have trace pitting edema his bilateral lower extremities. He does have about +1 pitting edema in the left upper extremity.) Neurologic/Psychiatric: positive: Other (He is following commands off of sedation. He is moving all 4 extremities) - Lab Results Fish Bones: 09/06/19 05:00 09/06/19 05:00 Other Labs: Lab Results x24hrs 09/06/19 09/06/19 09/06/19 Range/Units 05:45 05:00 05:00 WBC (4.8-10.8) x10^3/uL RBC (4.70-6.10) 10^6/uL Hgb (14.0-18.0) g/dL Hct (42.0-52.0) % MCV (80.0-94.0) fL MCH (27.0-31.0) pg MCHC (32.0-36.0) g/dL RDW (12.0-15.0) % Plt Count (130-450) 10^3/uL MPV (7.4-11.4) fL Neut # (Auto) (1.5-6.6) 10^3/uL Lymph # (Auto) (1.5-3.5) 10^3/uL Tate # (Auto) (0.0-1.0) 10^3/uL Eos # (Auto) (0.0-0.7) 10^3/uL Baso # (Auto) (0.0-0.1) 10^3/uL Absolute Nucleated RBC x10^3/uL Nucleated RBC % /100WBC Sodium 134 L (135-145) mmol/L Potassium 3.8 (3.5-5.0) mmol/L Chloride 102 (101-111) mmol/L Carbon Dioxide 24 (21-32) mmol/L Anion Gap 8.0 (6-13) BUN 41 H (6-20) mg/dL Creatinine 2.3 H (0.6-1.2) mg/dL Estimated GFR (MDRD) 27 L (>89) Glucose 352 H (70-100) mg/dL POC Whole Bld Glucose 332 H (70 - 100) mg/dL Glycated Hemoglobin 8.3 H (4.6-6.2) % Estim Average Glucose 192 H (70-100) Calcium 7.3 L (8.5-10.3) mg/dL Phosphorus 3.1 (2.5-4.6) mg/dL Magnesium 2.0 (1.7-2.8) mg/dL Total Bilirubin 0.8 (0.2-1.0) mg/dL AST 20 (10-42) IU/L ALT 23 (10-60) IU/L Alkaline Phosphatase 71 (42-121) IU/L Total Protein 4.8 L (6.7-8.2) g/dL Albumin 2.0 L (3.2-5.5) g/dL Globulin 2.8 (2.1-4.2) g/dL Albumin/Globulin Ratio 0.7 L (1.0-2.2) Prealbumin 6 L (18-45) mg/dL Triglycerides 153 H ( - 149) mg/dL 09/06/19 09/06/19 09/05/19 Range/Units 05:00 00:11 18:03 WBC 16.2 H (4.8-10.8) x10^3/uL RBC 3.00 L (4.70-6.10) 10^6/uL Hgb 9.2 L (14.0-18.0) g/dL Hct 29.1 L (42.0-52.0) % MCV 97.0 H (80.0-94.0) fL MCH 30.7 (27.0-31.0) pg MCHC 31.6 L (32.0-36.0) g/dL RDW 13.2 (12.0-15.0) % Plt Count 126 L (130-450) 10^3/uL MPV 11.9 H (7.4-11.4) fL Neut # (Auto) 13.6 H (1.5-6.6) 10^3/uL Lymph # (Auto) 1.2 L (1.5-3.5) 10^3/uL Tate # (Auto) 1.1 H (0.0-1.0) 10^3/uL Eos # (Auto) 0.1 (0.0-0.7) 10^3/uL Baso # (Auto) 0.0 (0.0-0.1) 10^3/uL Absolute Nucleated RBC 0.00 x10^3/uL Nucleated RBC % 0.0 /100WBC Sodium (135-145) mmol/L Potassium (3.5-5.0) mmol/L Chloride (101-111) mmol/L Carbon Dioxide (21-32) mmol/L Anion Gap (6-13) BUN (6-20) mg/dL Creatinine (0.6-1.2) mg/dL Estimated GFR (MDRD) (>89) Glucose (70-100) mg/dL POC Whole Bld Glucose 332 H 212 H (70 - 100) mg/dL Glycated Hemoglobin (4.6-6.2) % Estim Average Glucose (70-100) Calcium (8.5-10.3) mg/dL Phosphorus (2.5-4.6) mg/dL Magnesium (1.7-2.8) mg/dL Total Bilirubin (0.2-1.0) mg/dL AST (10-42) IU/L ALT (10-60) IU/L Alkaline Phosphatase (42-121) IU/L Total Protein (6.7-8.2) g/dL Albumin (3.2-5.5) g/dL Globulin (2.1-4.2) g/dL Albumin/Globulin Ratio (1.0-2.2) Prealbumin (18-45) mg/dL Triglycerides ( - 149) mg/dL 09/05/19 Range/Units 11:45 WBC (4.8-10.8) x10^3/uL RBC (4.70-6.10) 10^6/uL Hgb (14.0-18.0) g/dL Hct (42.0-52.0) % MCV (80.0-94.0) fL MCH (27.0-31.0) pg MCHC (32.0-36.0) g/dL RDW (12.0-15.0) % Plt Count (130-450) 10^3/uL MPV (7.4-11.4) fL Neut # (Auto) (1.5-6.6) 10^3/uL Lymph # (Auto) (1.5-3.5) 10^3/uL Tate # (Auto) (0.0-1.0) 10^3/uL Eos # (Auto) (0.0-0.7) 10^3/uL Baso # (Auto) (0.0-0.1) 10^3/uL Absolute Nucleated RBC x10^3/uL Nucleated RBC % /100WBC Sodium (135-145) mmol/L Potassium (3.5-5.0) mmol/L Chloride (101-111) mmol/L Carbon Dioxide (21-32) mmol/L Anion Gap (6-13) BUN (6-20) mg/dL Creatinine (0.6-1.2) mg/dL Estimated GFR (MDRD) (>89) Glucose (70-100) mg/dL POC Whole Bld Glucose 243 H (70 - 100) mg/dL Glycated Hemoglobin (4.6-6.2) % Estim Average Glucose (70-100) Calcium (8.5-10.3) mg/dL Phosphorus (2.5-4.6) mg/dL Magnesium (1.7-2.8) mg/dL Total Bilirubin (0.2-1.0) mg/dL AST (10-42) IU/L ALT (10-60) IU/L Alkaline Phosphatase (42-121) IU/L Total Protein (6.7-8.2) g/dL Albumin (3.2-5.5) g/dL Globulin (2.1-4.2) g/dL Albumin/Globulin Ratio (1.0-2.2) Prealbumin (18-45) mg/dL Triglycerides ( - 149) mg/dL Sepsis Event Note (H) - Evaluation Current Stage of Sepsis: Resolved Possible source of Sepsis: positive: GI tract/intra-abdominal - Sepsis Criteria Sepsis Criteria: Recorded Heart Rate greater than 90 bpm, WBC count greater than 12,000 or less than 4000, SBP drop more than 40mHg, MAP less than 65 mmHg, SBP less than 90 mmHg Assessment/Plan - Problem List (1) Septic shock Impression: This is improving. He is now off of norepinephrine. His white count margie elevated but is trending down. This is secondary to the perforated duodenal ulcer. We will keep him on Zosyn IV for the time being. He will likely require 5 days of IV antibiotics. Continue to trend white count. (2) Perforated duodenal ulcer Impression: This is a cause of his septic shock. He is now postop day 3. He has been started on TPN yesterday. We will plan to start him on a diet once he is extubated if it is okay with general surgery. We will keep him on Protonix IV twice daily. Morphine IV as needed for pain control. (3) Respiratory failure requiring intubation Impression: He is doing well from a respiratory standpoint this morning and his vent settings are minimal. Given he is off of norepinephrine and he is following commands, we will plan to extubate him today. His heart rate is a little el evated but is likely due to him being off of his beta-kang for the past few days. I did discuss with family and they are agreeable to intubation again if he were to fail extubation. (4) CKD (chronic kidney disease) stage 3, GFR 30-59 ml/min Impression: His renal function remains at baseline. His creatinine is 2.3 today. Urine output remains adequate. We will continue to monitor his renal function and urine output. (5) Paroxysmal atrial fibrillation Impression: His heart rate is elevated today in the 110s to 120s. So is likely due to him being off of his beta-kang for the past few days. We will give him a one- time dose of digoxin IV given he has just been weaned off of his norepinephrine. We will resume his home metoprolol once he is extubated and his blood pressure remained stable. (6) Chronic combined systolic and diastolic heart failure Impression: He is slightly hypervolemic at this time likely due to the amount of IV fluids he received for the septic shock. We will hold off on further administration of IV fluids. We will continue TPN for nutrition. He will need to be diuresed at some point but we will start this likely over next 24 hours. (7) History of CVA (cerebrovascular accident) Impression: We will resume his home medications once he is taking p.o. (8) History of coronary artery disease Impression: His EKG does not suggest ischemia and his troponins have been within normal limits. We will resume his home medications once he is taking p.o. (9) Type 2 diabetes mellitus, without long-term current use of insulin Impression: His blood glucose has been elevated and this morning is greater than 300. We will increase his Lantus and continue with sliding scale. If his glucose remains elevated we will need to consider adding insulin to his TPN.
[2019-09-06] MEDS ORDERED: DIGOXIN 500 MCG/2 ML AMP IVP STA (08:59)
[2019-09-06] MEDS: ACETAMINOPHEN 1,000 MG/100 ML 100 ML IV PRN ×2 (09:21→17:08)
[2019-09-06] MEDS: HEPARIN 5,000 UNIT/ML VIAL SUBQ SCH ×2 (09:22→21:43)
[2019-09-06] MEDS: CHLORHEXIDINE GLUCONATE 15 ML UDC PO SCH ×2 (09:27→21:46)
[2019-09-06] MEDS: PANTOPRAZOLE 40 MG VIAL IVP SCH ×2 (10:42→21:40)
[2019-09-06] MEDS: METOPROLOL 5 MG/5 ML VIAL IVP SCH ×2 (14:16→18:16)
[2019-09-06] MEDS: ZINC OXIDE 20% OINT 30 GM TUBE TOP PRN (16:27)
--- NOTE | 2019-09-06 17:11 | PROVIDER PROGRESS NOTE ---
Subjective - Prog Note Date Prog Note Date: 09/06/19 Prog Note Time: 09:35 - Subjective Pt reports feeling: Improved Subjective: Extubated and talking with his family. Denies abdominal pain bu family reports he reported discomfort this morning. Remains on O2 with a productive cough. Current Medications - Current Medications Current Medications: Medications Summary Chlorhexidine Gluconate (Peridex) 15 ml PO BID [facility] Last Admin: 09/06/19 09:27 Dose: 15 ml Documented by: BLANQUITA Heparin Sodium (Porcine) () 5,000 unit SUBQ BID [facility] Last Admin: 09/06/19 09:22 Dose: 5,000 unit Documented by: BLANQUITA Cosigned by: JUAN F Heparin Cosign Document 09/06/19 09:22 NEVAEH (Rec: 09/06/19 09:25 NEVAEH [id number]) Cosign Dose Verification Cosign Required by 2 RN's Subcutaneous Injection Site Document 09/06/19 09:22 NEVAEH (Rec: 09/06/19 09:25 NEVAEH [id number]) Site Subcutaneous Injection Site Left Abdomen Acetaminophen (Ofirmev) 100 mls @ 400 mls/hr IV Q6HR PRN PRN Reason: PAIN Last Admin: 09/06/19 17:08 Dose: 400 mls/hr Documented by: BLANQUITA Medication Titration Document 09/06/19 17:08 NEVAEH (Rec: 09/06/19 17:09 NEVAEH [id number]) Titration Intake Container Volume 100 Elapsed Time 15m Titration Dosing IV Rate 400 Increase/Decrease Started/Running Cumulative Dose 1000 Total Intake (Rx) 100 Volume Adjustment/Waste 0 Propofol (Diprivan) 500 mg in 50 mls @ 4.899 mls/hr IV .[id number] [facility]; Protocol Last Titration: 09/06/19 07:58 Dose: 0 mcg/kg/min, 0 mls/hr Documented by: BLANQUITA Medication Titration Document 09/06/19 07:58 NEVAEH (Rec: 09/06/19 07:59 NEVAEH [id number]) Titration Intake Titration Intake 6.613 Cumulative Intake 29.556 Container Volume 20.444 Elapsed Time 52h 3m Titration Dosing Titration Dose 0 IV Rate 0 Increase/Decrease Paused Cumulative Dose 8769.86 Total Intake (Rx) 876.986 Volume Adjustment/Waste 0 Piperacillin Sod/Tazobactam (Sod 3.375 gm/ Sodium Chloride) 100 mls @ 25 mls/hr IV Q8H [facility] Last Infusion: 09/06/19 14:44 Dose: 0 mls/hr Documented by: BLANQUITA Medication Titration Document 09/06/19 14:44 GRETTATierra (Rec: 09/06/19 16:22 [facility] [id number]) Titration Intake Titration Intake 100 Cumulative Intake 100 Container Volume 0 Elapsed Time 32h 28m Titration Dosing IV Rate 0 Increase/Decrease Infused Cumulative Dose 27 Total Intake (Rx) 800 Volume Adjustment/Waste 0 Norepinephrine Bitartrate 8 mg (/ Dextrose) 250 mls @ 11.25 mls/hr IV .[id number] [facility]; Protocol Last Titration: 09/06/19 08:25 Dose: 1 mcg/min, 1.875 mls/hr Documented by: BLANQUITA Medication Titration Document 09/06/19 08:25 GRETTATierra (Rec: 09/06/19 08:32 [facility] [id number]) Titration Intake Titration Intake 0.375 Cumulative Intake 32 Container Volume 218 Elapsed Time 46h 7m Titration Dosing Titration Dose 1 IV Rate 1.875 Increase/Decrease Decreased Cumulative Dose 16.786 Total Intake (Rx) 524.564 Volume Adjustment/Waste 0 Lactated Ringer's (Lr) 1,000 mls @ 100 mls/hr IV .Q10H [facility] Last Infusion: 09/06/19 16:00 Dose: 100 mls/hr Documented by: BLANQUITA Medication Titration Document 09/06/19 16:00 JE (Rec: 09/06/19 16:23 [facility] [id number]) Titration Intake Titration Intake 100 Cumulative Intake 325 Container Volume 675 Elapsed Time 32h 20m Titration Dosing IV Rate 100 Increase/Decrease Running Cumulative Dose Not Applicable Total Intake (Rx) 3,233.333 Volume Adjustment/Waste 0 Multivitamins 10 ml/ Chromium/Copper/Manganese/Seleni/Zn 1 ml/ Amino Ac/Electrol/Dextrose /Calcium 2,011 mls @ 83 mls/hr IV Q24H [facility]; Protocol Stop: 09/06/19 18:59 Last Infusion: 09/06/19 10:00 Dose: 83 mls/hr Documented by: BLANQUITA Medication Titration Document 09/06/19 10:00 GRETTA (Rec: 09/06/19 10:33 [facility] [id number]) Titration Intake Titration Intake 83 Cumulative Intake 1,265.75 Container Volume 745.25 Elapsed Time 15h 15m Titration Dosing IV Rate 83 Increase/Decrease Running Cumulative Dose Not Applicable Total Intake (Rx) 1,265.75 Volume Adjustment/Waste 0 Insulin Human Regular (Humulin R) 1 - 9 unit SUBQ Q6HR [facility]; Protocol Last Admin: 09/06/19 12:18 Dose: 9 unit Documented by: BLANQUITA Blood Glucose Document 09/06/19 12:18 JEG (Rec: 09/06/19 12:18 [id number] Blood Glucose Result (mg/dL) 359 Medication Double Check Document 09/06/19 12:18 JEG (Rec: 09/06/19 12:18 [id number] Verify Double Check Yes Subcutaneous Injection Site Document 09/06/19 12:18 JEG (Rec: 09/06/19 12:18 [id number] Site Subcutaneous Injection Site Right Outer Upper Arm Insulin Human Regular (Humulin R) 5 unit SUBQ Q6HR [facility] Last Admin: 09/06/19 13:00 Dose: 5 unit Documented by: BLANQUITA Medication Double Check Document 09/06/19 13:00 JEG (Rec: 09/06/19 13:00 [id number] Verify Double Check Yes Subcutaneous Injection Site Document 09/06/19 13:00 JEG (Rec: 09/06/19 13:00 [id number] Site Subcutaneous Injection Site Left Outer Upper Arm Metoprolol Tartrate (Lopressor Inj) 5 mg IVP Q6HR [facility] Last Admin: 09/06/19 14:16 Dose: 5 mg Documented by: BLANQUITA Pulse and Blood Pressure Document 09/06/19 14:16 JEG (Rec: 09/06/19 14:17 [facility] [id number]) Vital Signs Rate 112 Blood Pressure (90/60-130/80) 113/53 Morphine Sulfate (Morphine (Carpuject)) 2 mg IVP Q2HR PRN PRN Reason: PAIN Last Admin: 09/06/19 16:38 Dose: 2 mg Documented by: BLANQUITA Pain Assessment Document 09/06/19 16:38 JEG (Rec: 09/06/19 16:40 [id number] Pain Level Pain Scale Used John Avery Multi-Ingredient Ointment (Zinc Oxide) 1 applic TOP PRN PRN PRN Reason: Skin Care Last Admin: 09/06/19 16:27 Dose: 1 applic Documented by: BLANQUITA Pantoprazole Sodium (Protonix) 40 mg IVP BID [facility] Last Admin: 09/06/19 10:42 Dose: 40 mg Documented by: BLANQUITA Discontinued Medications Aspirin ([facility] John Aspirin) 324 mg PO ONCE STA Stop: 09/03/19 17:09 Last Admin: 09/03/19 17:11 Dose: 324 mg Documented by: ELYSE Bupivacaine HCl (Sensorcaine 0.25% Pf) 60 ml SUBQ .STK-MED ONE Stop: 09/03/19 22:35 Last Admin: 09/03/19 22:34 Dose: 60 ml Documented by: LOPEZ Digoxin (Lanoxin Inj) 250 mcg IVP ONCE STA Stop: 09/06/19 09:00 Last Admin: 09/06/19 09:18 Dose: 250 mcg Documented by: BLANQUITA Apical Heart Rate Document 09/06/19 09:18 JEG (Rec: 09/06/19 09:18 JEG [id number]) Heart Rate Heart Rate (60-100 beats/min) 118 Diltiazem HCl (Cardizem) 20 mg IVP ONCE ONE Stop: 09/03/19 18:03 Last Admin: 09/03/19 19:09 Dose: 20 mg Documented by: ELYSE Hydromorphone HCl (Dilaudid Inj Carp) 1 mg IM ONCE STA Stop: 09/03/19 19:23 Last Admin: 09/03/19 19:25 Dose: 1 mg Documented by: CAITTL IM Injection Site Document 09/03/19 19:25 LS (Rec: 09/03/19 19:25 LS [id number]) Location IM Injection Site Left Deltoid Re-Assess: Pain Reassessment Document 09/03/19 19:55 CEG (Rec: 09/03/19 20:15 CEG [id number]) Reassessment Pain Scale Used 0-10 Pain Intensity (0-10) 8 Non-Numerical Pain Rating "still painful" Effective/Ineffective Ineffective Hydromorphone HCl (Dilaudid Inj Carp) 1 mg IVP ONCE STA Stop: 09/03/19 19:51 Last Admin: 09/03/19 20:21 Dose: 1 mg Documented by: JANES Comments: Unable to scan. Re-Assess: Pain Reassessment Document 09/03/19 20:51 CP (Rec: 09/03/19 20:59 CP [id number]) Reassessment Effective/Ineffective Effective Piperacillin Sod/Tazobactam (Sod 3.375 gm/ Sodium Chloride) 100 mls @ 200 mls/hr IV ONCE STA Stop: 09/03/19 19:29 Last Infusion: 09/03/19 20:54 Dose: 200 mls/hr Documented by: JANES Medication Titration Document 09/03/19 20:54 CP (Rec: 09/03/19 20:54 CP [id number]) Titration Intake Titration Intake 100 Cumulative Intake 100 Container Volume 0 Elapsed Time 1h 42m Titration Dosing IV Rate 200 Increase/Decrease Infused Cumulative Dose 3.375 Total Intake (Rx) 100 Volume Adjustment/Waste 0 Sodium Chloride (Normal Saline 0.9%) 1,000 mls @ 0 mls/hr IV .Q0M STA Stop: 09/03/19 19:38 Last Infusion: 09/03/19 21:25 Dose: 999 mls/hr Documented by: JANES Medication Titration Document 09/03/19 21:25 CP (Rec: 09/03/19 21:27 CP [id number]) Titration Intake Titration Intake 1,000 Cumulative Intake 1,000 Container Volume 0 Elapsed Time 1h 42m Titration Dosing IV Rate 999 Increase/Decrease Infused Cumulative Dose Not Applicable Total Intake (Rx) 1,000 Volume Adjustment/Waste 0 Lactated Ringer's (Lr) mls @ as directed IV .STK-MED ONE Stop: 09/03/19 22:38 Last Admin: 09/03/19 22:37 Dose: 1,000 mls Documented by: AMY Lactated Ringer's (Lr) mls @ as directed IV .STK-MED ONE Stop: 09/03/19 23:06 Last Admin: 09/03/19 23:05 Dose: 200 mls Documented by: LEANNE Phenylephrine HCl 20 mg/ (Sodium Chloride) 250 mls @ 75 mls/hr IV .Q3H20M ONE; Protocol Stop: 09/04/19 03:12 Last Titration: 09/04/19 02:34 Dose: 0 mcg/min, 0 mls/hr Documented by: CRISTEL Medication Titration Document 09/04/19 02:34 PVH (Rec: 09/04/19 02:35 PVH [id number]) Titration Intake Titration Intake 75 Cumulative Intake 75 Container Volume 0 Elapsed Time 1h 25m Titration Dosing Titration Dose 0 IV Rate 0 Increase/Decrease Infused Cumulative Dose 6 Total Intake (Rx) 75 Volume Adjustment/Waste 175 Sodium Chloride (Normal Saline 0.9%) 1,000 mls @ 100 mls/hr IV .Q10H [facility] Last Infusion: 09/04/19 14:25 Dose: 0 mls/hr Documented by: MEÑO Medication Titration Document 09/04/19 14:25 RDR (Rec: 09/04/19 14:28 RDR [id number]) Titration Intake Titration Intake 141.667 Cumulative Intake 375 Container Volume 0 Elapsed Time 13h 2m Titration Dosing IV Rate 0 Increase/Decrease Infused Cumulative Dose Not Applicable Total Intake (Rx) 1,304 Volume Adjustment/Waste 625 Sodium Bicarbonate 150 meq/ (Dextrose) 1,150 mls @ 100 mls/hr IV .[id number] [facility] Last Infusion: 09/05/19 07:40 Dose: 0 mls/hr Documented by: MEÑO Medication Titration Document 09/05/19 07:40 RDR (Rec: 09/05/19 07:43 RDR [id number]) Titration Intake Titration Intake 619 Cumulative Intake 619 Container Volume 0 Elapsed Time 17h 15m Titration Dosing IV Rate 0 Increase/Decrease Infused Cumulative Dose 225.087 Total Intake (Rx) 1,725.666 Volume Adjustment/Waste 531 Lactated Ringer's (Lr) 1,000 mls @ 500 mls/hr IV ONCE ONE Stop: 09/06/19 09:32 Last Admin: 09/06/19 08:54 Dose: Not Given Documented by: BLANQUITA Non-Admin Reason: gave verbal order to hold on this Insulin Glargine (Lantus Solostar) 20 unit SUBQ QPM [facility] Last Admin: 09/05/19 21:14 Dose: 20 unit Documented by: JLUIS Nitroglycerin (Nitrostat) 0.4 mg SL ONCE STA Stop: 09/03/19 17:17 Last Admin: 09/03/19 17:28 Dose: 0.4 mg Documented by: RANGEL Pantoprazole Sodium (Protonix) 80 mg IV ONCE STA Stop: 09/03/19 19:27 Last Admin: 09/03/19 19:37 Dose: 80 mg Documented by: JANES Pantoprazole Sodium (Protonix) 40 mg IVP QDAC [facility] Last Admin: 09/04/19 07:03 Dose: 40 mg Documented by: CRISTEL Objective - Vital Signs/Intake & Output Vital Signs: Vital Signs x48h Temp Pulse Pulse Resp BP BP Pulse Ox 09/06/19 17:00 100 22 106/49 L 97 09/06/19 16:00 101 H 28 H 111/50 L 98 09/06/19 15:15 37.1 C 95 21 107/53 L 100 09/06/19 15:00 91 28 H 110/92 H 98 09/06/19 14:45 88 21 108/52 L 98 09/06/19 14:30 91 24 106/57 L 98 09/06/19 14:25 102 H 22 111/60 98 09/06/19 14:20 104 H 23 108/48 L 94 09/06/19 14:16 113/53 L 09/06/19 14:15 110 H 22 113/52 L 93 09/06/19 14:00 110 H 29 H 103/52 L 99 09/06/19 13:00 113 H 26 H 118/52 L 94 09/06/19 12:00 37.1 C 110 H 28 H 102/51 L 91 L 09/06/19 11:00 102 H 23 102/42 L 93 09/06/19 10:00 109 H 25 H 143/87 H 96 09/06/19 09:18 118 H Intake & Output: Intake & Output 09/03/19 09/04/19 09/05/19 09/06/19 23:59 23:59 23:59 23:59 Intake Total 1600 2559.739 3448.348 3897.212 Output Total 901 863 4943 Balance 1600 7868.647 7554.348 1837.212 - Objective Abdomen: positive: No distention. negative: Other (Wound nsu clean and dry and wll aproximated. Hypoactive bowel tones) - Lab Results Fish Bones: 09/06/19 05:00 09/06/19 05:00 Other Labs: Lab Results x24hrs 09/06/19 09/06/19 09/06/19 Range/Units 11:59 05:45 05:00 WBC (4.8-10.8) x10^3/uL RBC (4.70-6.10) 10^6/uL Hgb (14.0-18.0) g/dL Hct (42.0-52.0) % MCV (80.0-94.0) fL MCH (27.0-31.0) pg MCHC (32.0-36.0) g/dL RDW (12.0-15.0) % Plt Count (130-450) 10^3/uL MPV (7.4-11.4) fL Neut # (Auto) (1.5-6.6) 10^3/uL Lymph # (Auto) (1.5-3.5) 10^3/uL Spencer # (Auto) (0.0-1.0) 10^3/uL Eos # (Auto) (0.0-0.7) 10^3/uL Baso # (Auto) (0.0-0.1) 10^3/uL Absolute Nucleated RBC x10^3/uL Nucleated RBC % /100WBC Sodium (135-145) mmol/L Potassium (3.5-5.0) mmol/L Chloride (101-111) mmol/L Carbon Dioxide (21-32) mmol/L Anion Gap (6-13) BUN (6-20) mg/dL Creatinine (0.6-1.2) mg/dL Estimated GFR (MDRD) (>89) Glucose (70-100) mg/dL POC Whole Bld Glucose 359 H 332 H (70 - 100) mg/dL Glycated Hemoglobin 8.3 H (4.6-6.2) % Estim Average Glucose 192 H (70-100) Calcium (8.5-10.3) mg/dL Phosphorus (2.5-4.6) mg/dL Magnesium (1.7-2.8) mg/dL Total Bilirubin (0.2-1.0) mg/dL AST (10-42) IU/L ALT (10-60) IU/L Alkaline Phosphatase (42-121) IU/L Total Protein (6.7-8.2) g/dL Albumin (3.2-5.5) g/dL Globulin (2.1-4.2) g/dL Albumin/Globulin Ratio (1.0-2.2) Prealbumin (18-45) mg/dL Triglycerides ( - 149) mg/dL 09/06/19 09/06/19 09/06/19 Range/Units 05:00 05:00 00:11 WBC 16.2 H (4.8-10.8) x10^3/uL RBC 3.00 L (4.70-6.10) 10^6/uL Hgb 9.2 L (14.0-18.0) g/dL Hct 29.1 L (42.0-52.0) % MCV 97.0 H (80.0-94.0) fL MCH 30.7 (27.0-31.0) pg MCHC 31.6 L (32.0-36.0) g/dL RDW 13.2 (12.0-15.0) % Plt Count 126 L (130-450) 10^3/uL MPV 11.9 H (7.4-11.4) fL Neut # (Auto) 13.6 H (1.5-6.6) 10^3/uL Lymph # (Auto) 1.2 L (1.5-3.5) 10^3/uL Spencer # (Auto) 1.1 H (0.0-1.0) 10^3/uL Eos # (Auto) 0.1 (0.0-0.7) 10^3/uL Baso # (Auto) 0.0 (0.0-0.1) 10^3/uL Absolute Nucleated RBC 0.00 x10^3/uL Nucleated RBC % 0.0 /100WBC Sodium 134 L (135-145) mmol/L Potassium 3.8 (3.5-5.0) mmol/L Chloride 102 (101-111) mmol/L Carbon Dioxide 24 (21-32) mmol/L Anion Gap 8.0 (6-13) BUN 41 H (6-20) mg/dL Creatinine 2.3 H (0.6-1.2) mg/dL Estimated GFR (MDRD) 27 L (>89) Glucose 352 H (70-100) mg/dL POC Whole Bld Glucose 332 H (70 - 100) mg/dL Glycated Hemoglobin (4.6-6.2) % Estim Average Glucose (70-100) Calcium 7.3 L (8.5-10.3) mg/dL Phosphorus 3.1 (2.5-4.6) mg/dL Magnesium 2.0 (1.7-2.8) mg/dL Total Bilirubin 0.8 (0.2-1.0) mg/dL AST 20 (10-42) IU/L ALT 23 (10-60) IU/L Alkaline Phosphatase 71 (42-121) IU/L Total Protein 4.8 L (6.7-8.2) g/dL Albumin 2.0 L (3.2-5.5) g/dL Globulin 2.8 (2.1-4.2) g/dL Albumin/Globulin Ratio 0.7 L (1.0-2.2) Prealbumin 6 L (18-45) mg/dL Triglycerides 153 H ( - 149) mg/dL 09/05/19 Range/Units 18:03 WBC (4.8-10.8) x10^3/uL RBC (4.70-6.10) 10^6/uL Hgb (14.0-18.0) g/dL Hct (42.0-52.0) % MCV (80.0-94.0) fL MCH (27.0-31.0) pg MCHC (32.0-36.0) g/dL RDW (12.0-15.0) % Plt Count (130-450) 10^3/uL MPV (7.4-11.4) fL Neut # (Auto) (1.5-6.6) 10^3/uL Lymph # (Auto) (1.5-3.5) 10^3/uL Spencer # (Auto) (0.0-1.0) 10^3/uL Eos # (Auto) (0.0-0.7) 10^3/uL Baso # (Auto) (0.0-0.1) 10^3/uL Absolute Nucleated RBC x10^3/uL Nucleated RBC % /100WBC Sodium (135-145) mmol/L Potassium (3.5-5.0) mmol/L Chloride (101-111) mmol/L Carbon Dioxide (21-32) mmol/L Anion Gap (6-13) BUN (6-20) mg/dL Creatinine (0.6-1.2) mg/dL Estimated GFR (MDRD) (>89) Glucose (70-100) mg/dL POC Whole Bld Glucose 212 H (70 - 100) mg/dL Glycated Hemoglobin (4.6-6.2) % Estim Average Glucose (70-100) Calcium (8.5-10.3) mg/dL Phosphorus (2.5-4.6) mg/dL Magnesium (1.7-2.8) mg/dL Total Bilirubin (0.2-1.0) mg/dL AST (10-42) IU/L ALT (10-60) IU/L Alkaline Phosphatase (42-121) IU/L Total Protein (6.7-8.2) g/dL Albumin (3.2-5.5) g/dL Globulin (2.1-4.2) g/dL Albumin/Globulin Ratio (1.0-2.2) Prealbumin (18-45) mg/dL Triglycerides ( - 149) mg/dL Sepsis Event Note (H) - Evaluation Current Stage of Sepsis: Resolved Possible source of Sepsis: positive: GI tract/intra-abdominal - Sepsis Criteria Sepsis Criteria: Recorded Heart Rate greater than 90 bpm, WBC count greater than 12,000 or less than 4000, SBP drop more than 40mHg, MAP less than 65 mmHg, SBP less than 90 mmHg Assessment/Plan - Problem List (1) Perforated duodenal ulcer Impression: I would recommend PO feeding or trophic feeds per NGT. Will continue to follow with you
[2019-09-06] MEDS: INSULIN GLARGINE 300 UNIT/3 ML PEN SUBQ SCH (21:47)
[2019-09-07] MEDS: INSULIN REGULAR HUMAN 300 UNIT/3 ML VIAL SUBQ SCH ×10 (00:34→23:58)
[2019-09-07] MEDS: METOPROLOL 5 MG/5 ML VIAL IVP SCH ×5 (00:35→23:59)
[2019-09-07] MEDS: MORPHINE 2 MG/ML CARPUJECT IVP PRN ×5 (00:49→20:57)
[2019-09-07] MEDS: PIPERACILLIN/TAZOBACTAM 3.375 GM in SODIUM CHLORIDE 0.9% MINIBAG 100 ML IV SCH ×3 (02:22→17:22)
[2019-09-07 05:31] LABS: BASOPHILS % (AUTO) 0.2 %; EOSINOPHILS # (AUTO) 0.2 10^3/uL (0.0-0.7); EOSINOPHILS % (AUTO) 1.7 %; LYMPHOCYTES # (AUTO) 1.1 10^3/uL (1.5-3.5); MEAN CORPUSCULAR HEMOGLOBIN 31.4 pg (27.0-31.0); MEAN CORPUSCULAR VOLUME 97.9 fL (80.0-94.0); MEAN PLATELET VOLUME 11.7 fL (7.4-11.4); MONOCYTES # (AUTO) 1.2 10^3/uL (0.0-1.0); MONOCYTES % (AUTO) 8.3 %; NEUTROPHILS # (AUTO) 11.4 10^3/uL (1.5-6.6); NEUTROPHILS % (AUTO) 80.3 %; PLT - PLATELET COUNT 136 10^3/uL (130-450); RED BLOOD COUNT 2.87 10^6/uL (4.70-6.10); WHITE BLOOD COUNT 14.2 x10^3/uL (4.8-10.8)
[2019-09-07] MEDS: LACTATED RINGERS 1,000 ML IV SCH (05:32)
[2019-09-07 05:40] LABS: CALCIUM 7.5 mg/dL (8.5-10.3); MAGNESIUM 2.2 mg/dL (1.7-2.8); PHOSPHORUS 2.8 mg/dL (2.5-4.6)
--- NOTE | 2019-09-07 07:44 | PROVIDER PROGRESS NOTE ---
Subjective - Prog Note Date Prog Note Date: 09/07/19 - Subjective Subjective: He continues her productive cough. He does not feel short of breath. He complains of pain in his abdomen and over his buttocks. He remains on 3 L of oxygen via nasal cannula. Current Medications - Current Medications Current Medications: Active Medications Chlorhexidine Gluconate (Peridex) 15 ml PO BID [facility] Last Admin: 09/07/19 09:24 Dose: 15 ml Documented by: Heparin Sodium (Porcine) () 5,000 unit SUBQ BID [facility] Last Admin: 09/07/19 08:52 Dose: 5,000 unit Documented by: Propofol (Diprivan) 500 mg in 50 mls @ 4.899 mls/hr IV .[id number] [facility]; Protocol Last Titration: 09/06/19 07:58 Dose: 0 mcg/kg/min, 0 mls/hr Documented by: Piperacillin Sod/Tazobactam (Sod 3.375 gm/ Sodium Chloride) 100 mls @ 25 mls/hr IV Q8H [facility] Last Admin: 09/07/19 09:28 Dose: 25 mls/hr Documented by: Insulin Glargine (Lantus Solostar) 30 unit SUBQ QPM [facility] Last Admin: 09/06/19 21:47 Dose: 30 unit Documented by: Insulin Human Regular (Humulin R) 1 - 9 unit SUBQ Q6HR [facility]; Protocol Last Admin: 09/07/19 06:29 Dose: 3 unit Documented by: Insulin Human Regular (Humulin R) 5 unit SUBQ Q6HR [facility] Last Admin: 09/07/19 06:24 Dose: 5 unit Documented by: Metoprolol Tartrate (Lopressor Inj) 5 mg IVP Q6HR [facility] Last Admin: 09/07/19 06:23 Dose: 5 mg Documented by: Morphine Sulfate (Morphine (Carpuject)) 2 mg IVP Q2HR PRN PRN Reason: PAIN Last Admin: 09/07/19 05:31 Dose: 2 mg Documented by: Multi-Ingredient Ointment (Zinc Oxide) 1 applic TOP PRN PRN PRN Reason: Skin Care Last Admin: 09/07/19 09:20 Dose: 1 applic Documented by: Pantoprazole Sodium (Protonix) 40 mg IVP BID [facility] Last Admin: 09/07/19 09:20 Dose: 40 mg Documented by: Aspirin 81 mg PO DAILY 09/24/17 Losartan Potassium 25 mg PO DAILY 09/24/17 Docusate Sodium [Colace Clear] 50 mg DAILY 05/11/19 Insulin Glargine [Lantus Solostar] 45 unit SUBQ QPM 05/11/19 Metoprolol Succinate [Toprol Xl] 100 mg PO DAILY 05/11/19 Pantoprazole [Protonix] 40 mg DAILY 05/11/19 Donepezil HCl 10 mg PO DAILY PM 05/12/19 Glimepiride 1 mg PO DAILY 05/12/19 Meclizine HCl 25 mg PO TID PRN 09/04/19 Memantine HCl 5 mg PO DAILY 09/04/19 OXcarbazepine [Trileptal] 300 mg PO BID 09/04/19 Sucralfate 1 gm PO QID 09/04/19 Objective - Vital Signs/Intake & Output Reviewed Vital Signs: Yes Vital Signs: Vital Signs Pulse Resp BP BP Pulse Ox 09/07/19 07:00 84 22 115/51 L 93 09/07/19 06:23 121/49 L 09/07/19 06:00 95 23 121/49 L 96 09/07/19 05:00 101 H 21 117/51 L 95 09/07/19 04:00 98 24 127/58 L 94 Intake & Output: Intake & Output 09/04/19 09/05/19 09/06/19 09/07/19 23:59 23:59 23:59 23:59 Intake Total 2559.739 3448.348 4768.879 886.667 Output Total 072 073 2448 525 Balance 0463.107 4111.348 1953.879 361.667 - Objective General Appearance: positive: No acute distress, Alert Eyes Bilateral: positive: Normal inspection, Conjunctivae nml ENT: positive: ENT inspection nml, Other (Nasal cannula in place.) Neck: positive: Nml inspection Respiratory: positive: No respiratory distress, Other (He is tachypneic. Diminished breath sounds bilaterally with faint crackles.) Cardiovascular: positive: No murmur, Irregularly irregular, Tachycardia. negative: Bradycardia, Systolic murmur Abdomen: positive: Tenderness (He has mild diffuse tenderness.), Abnml bowel sounds (Hypoactive.), Other ([place] in place over the mid abdomen. No surrounding erythema.) Skin: positive: Warm, Dry Extremities: positive: Pedal edema (He has about +1 pitting edema in his bilateral lower extremities) Neurologic/Psychiatric: positive: Other (He is able to move all 4 extremities.). negative: Disoriented to person, Disoriented to place - Lab Results Fish Bones: 09/07/19 05:05 09/07/19 05:05 Other Labs: Lab Results x24hrs 09/07/19 09/07/19 09/07/19 Range/Units 06:16 05:05 05:05 WBC 14.2 H (4.8-10.8) x10^3/uL RBC 2.87 L (4.70-6.10) 10^6/uL Hgb 9.0 L (14.0-18.0) g/dL Hct 28.1 L (42.0-52.0) % MCV 97.9 H (80.0-94.0) fL MCH 31.4 H (27.0-31.0) pg MCHC 32.0 (32.0-36.0) g/dL RDW 13.0 (12.0-15.0) % Plt Count 136 (130-450) 10^3/uL MPV 11.7 H (7.4-11.4) fL Neut # (Auto) 11.4 H (1.5-6.6) 10^3/uL Lymph # (Auto) 1.1 L (1.5-3.5) 10^3/uL [place] # (Auto) 1.2 H (0.0-1.0) 10^3/uL Eos # (Auto) 0.2 (0.0-0.7) 10^3/uL Baso # (Auto) 0.0 (0.0-0.1) 10^3/uL Absolute Nucleated RBC 0.00 x10^3/uL Nucleated RBC % 0.0 /100WBC Sodium 138 (135-145) mmol/L Potassium 3.8 (3.5-5.0) mmol/L Chloride 105 (101-111) mmol/L Carbon Dioxide 24 (21-32) mmol/L Anion Gap 9.0 (6-13) BUN 41 H (6-20) mg/dL Creatinine 2.0 H (0.6-1.2) mg/dL Estimated GFR (MDRD) 32 L (>89) Glucose 185 H (70-100) mg/dL POC Whole Bld Glucose (70 - 100) mg/dL Calcium 7.5 L (8.5-10.3) mg/dL Phosphorus 2.8 (2.5-4.6) mg/dL Magnesium 2.2 (1.7-2.8) mg/dL Albumin 1.9 L (3.2-5.5) g/dL 09/07/19 09/06/19 09/06/19 Range/Units 00:31 17:53 11:59 WBC (4.8-10.8) x10^3/uL RBC (4.70-6.10) 10^6/uL Hgb (14.0-18.0) g/dL Hct (42.0-52.0) % MCV (80.0-94.0) fL MCH (27.0-31.0) pg MCHC (32.0-36.0) g/dL RDW (12.0-15.0) % Plt Count (130-450) 10^3/uL MPV (7.4-11.4) fL Neut # (Auto) (1.5-6.6) 10^3/uL Lymph # (Auto) (1.5-3.5) 10^3/uL [place] # (Auto) (0.0-1.0) 10^3/uL Eos # (Auto) (0.0-0.7) 10^3/uL Baso # (Auto) (0.0-0.1) 10^3/uL Absolute Nucleated RBC x10^3/uL Nucleated RBC % /100WBC Sodium (135-145) mmol/L Potassium (3.5-5.0) mmol/L Chloride (101-111) mmol/L Carbon Dioxide (21-32) mmol/L Anion Gap (6-13) BUN (6-20) mg/dL Creatinine (0.6-1.2) mg/dL Estimated GFR (MDRD) (>89) Glucose (70-100) mg/dL POC Whole Bld Glucose 209 H 339 H 359 H (70 - 100) mg/dL Calcium (8.5-10.3) mg/dL Phosphorus (2.5-4.6) mg/dL Magnesium (1.7-2.8) mg/dL Albumin (3.2-5.5) g/dL Sepsis Event Note (H) - Evaluation Current Stage of Sepsis: Resolved Possible source of Sepsis: positive: GI tract/intra-abdominal - Sepsis Criteria Sepsis Criteria: Recorded Heart Rate greater than 90 bpm, WBC count greater than 12,000 or less than 4000, SBP drop more than 40mHg, MAP less than 65 mmHg, SBP less than 90 mmHg Assessment/Plan - Problem List (1) Acute respiratory failure with hypoxia Impression: Suspect this is likely secondary to pulmonary vascular congestion given his history of heart failure amount of IV fluids he received due to the hypotension from sepsis. He is currently requiring to liters of oxygen via nasal cannula. He does have lower extremity edema. We will check a chest x-ray today and if there is suggestion of edema, we will attempt to diurese him now he is off of vasopressors although we will need to be cautious given his borderline blood pressures. (2) Perforated duodenal ulcer Impression: He is now postop day 4. His pain is relatively well controlled with morphine and Tylenol IV. He is tolerating tube feeds. Will hope to transition to oral intake tomorrow after a swallow evaluation.. Continue Zosyn IV. We will likely continue the antibiotics for 5 to 7 days given he was septic. Appreciate general surgery input. (3) Paroxysmal atrial fibrillation Impression: His rates have been better controlled after resuming IV Lopressor standing. We will change him to oral metoprolol once he is taking p.o. We will continue to monitor on telemetry. Will need to start him on anticoagulation at some point. 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 He is edematous at this time and I am concerned he may been a bit of heart failure given amount of IV fluids he received for the sepsis. We will repeat a chest x-ray today. If there is concern for edema then he will need to be diuresed with Lasix. We will gently do this given his borderline blood pressures. (5) CKD (chronic kidney disease) stage 3, GFR 30-59 ml/min Impression: His renal function is at baseline the creatinine of 2.0. We will watch this carefully if we need to diurese him. (6) History of CVA (cerebrovascular accident) Impression: We will resume his home aspirin and Lipitor once he is taking p.o. (7) History of coronary artery disease Impression: We will resume his home medications once he is taking p.o. His troponins were unremarkable on admission. (8) Type 2 diabetes mellitus, without long-term current use of insulin Impression: His blood glucose is better controlled this morning at less than 200. We will continue his current regimen of Lantus 30 units every evening and 5 units of Humulin with meals. We will also continue sliding scale. Continue tube feeds as tolerated.
[2019-09-07] MEDS: ACETAMINOPHEN 1,000 MG/100 ML 100 ML IV PRN (07:57)
[2019-09-07] MEDS: HEPARIN 5,000 UNIT/ML VIAL SUBQ SCH ×2 (08:52→20:57)
--- NOTE | 2019-09-07 08:54 | XRAY Report ---
PROCEDURE: Chest 1 View X-Ray INDICATIONS: Hypoxia. Post extubation. TECHNIQUE: One view of the chest was acquired. COMPARISON: Chest x-ray 09/03/2019 FINDINGS: Surgical changes and devices: Endotracheal tube, nasogastric tube and left-sided central venous racheal ter are unchanged in appearance. Lungs and pleura: There is persistent appearance of increased vascularity. There has been interval in creased blunting of the costophrenic angles bilaterally as well as mild layering bibasilar opacities. Mediastinum: Mediastinal contours appear normal. Heart size is normal. Bones and chest wall: No suspicious bony lesions. Overlying soft tissues appear unremarkable. IMPRESSION: Interval increased vascularity suggestive of edema with interval development of mild bilateral effusi ons, right greater than left. Underlying areas of focal edema, atelectasis and/or pneumonia cannot be excluded. Reviewed by: Paty Lopez MD on 09/07/2019 8:53 AM PDT Approved by: Paty Lopez MD on 09/07/2019 8:53 AM PDT Station ID: [id number]
[2019-09-07] MEDS: PANTOPRAZOLE 40 MG VIAL IVP SCH ×2 (09:20→20:57)
[2019-09-07] MEDS: ZINC OXIDE 20% OINT 30 GM TUBE TOP PRN ×2 (09:20→17:21)
[2019-09-07] MEDS: CHLORHEXIDINE GLUCONATE 15 ML UDC PO SCH ×2 (09:24→20:56)
[2019-09-07] MEDS ORDERED: FUROSEMIDE 40 MG/4 ML VIAL IVP STA ×2 (10:41→14:57)
[2019-09-07] MEDS: SODIUM CHLORIDE FLUSH 0.9% 10 ML SYRINGE IVP PRN ×2 (15:29→18:28)
[2019-09-07] MEDS: PHENOL THROAT SPRAY 177 ML MM PRN (16:30)
[2019-09-07] MEDS: SODIUM CHLORIDE FLUSH 0.9% 10 ML SYRINGE IVP SCH (16:55)
[2019-09-07] MEDS: INSULIN GLARGINE 300 UNIT/3 ML PEN SUBQ SCH (20:57)
[2019-09-08] MEDS: SODIUM CHLORIDE FLUSH 0.9% 10 ML SYRINGE IVP SCH ×3 (00:01→15:51)
[2019-09-08] MEDS: PIPERACILLIN/TAZOBACTAM 3.375 GM in SODIUM CHLORIDE 0.9% MINIBAG 100 ML IV SCH ×3 (01:19→17:11)
[2019-09-08] MEDS: MORPHINE 2 MG/ML CARPUJECT IVP PRN ×5 (01:26→20:13)
[2019-09-08] MEDS: SODIUM CHLORIDE FLUSH 0.9% 10 ML SYRINGE IVP PRN ×8 (01:27→14:51)
[2019-09-08 05:31] LABS: BASOPHILS % (AUTO) 0.3 %; EOSINOPHILS # (AUTO) 0.5 10^3/uL (0.0-0.7); EOSINOPHILS % (AUTO) 4.5 %; HGB - HEMOGLOBIN 9.2 g/dL (14.0-18.0); LYMPHOCYTES # (AUTO) 1.3 10^3/uL (1.5-3.5); LYMPHOCYTES % (AUTO) 11.3 %; MEAN CORPUSCULAR HEMOGLOBIN 31.4 pg (27.0-31.0); MEAN CORPUSCULAR HGB CONC 32.2 g/dL (32.0-36.0); MEAN CORPUSCULAR VOLUME 97.6 fL (80.0-94.0); MEAN PLATELET VOLUME 11.7 fL (7.4-11.4); MONOCYTES # (AUTO) 1.4 10^3/uL (0.0-1.0); MONOCYTES % (AUTO) 12.3 %; NEUTROPHILS # (AUTO) 7.7 10^3/uL (1.5-6.6); NEUTROPHILS % (AUTO) 69.3 %; PLT - PLATELET COUNT 155 10^3/uL (130-450); RED BLOOD COUNT 2.93 10^6/uL (4.70-6.10); RED CELL DISTRIBUTION WIDTH 13.2 % (12.0-15.0); WHITE BLOOD COUNT 11.1 x10^3/uL (4.8-10.8)
[2019-09-08 05:35] LABS: CALCIUM 7.7 mg/dL (8.5-10.3); CREATININE 1.9 mg/dL (0.6-1.2); MAGNESIUM 1.9 mg/dL (1.7-2.8); PHOSPHORUS 2.9 mg/dL (2.5-4.6)
[2019-09-08] MEDS: INSULIN REGULAR HUMAN 300 UNIT/3 ML VIAL SUBQ SCH ×6 (06:08→18:02)
[2019-09-08] MEDS: METOPROLOL 5 MG/5 ML VIAL IVP SCH ×2 (06:27→12:44)
--- NOTE | 2019-09-08 08:22 | PROVIDER PROGRESS NOTE ---
Subjective - Prog Note Date Prog Note Date: 09/08/19 - Subjective Subjective: The patient passed gas last night for the first time. Still no bowel movement. He denies pain this morning. Still continues to have a productive cough. He wants the NG tube out. Current Medications - Current Medications Current Medications: Active Medications Chlorhexidine Gluconate (Peridex) 15 ml PO BID [facility] Last Admin: 09/08/19 08:57 Dose: 15 ml Documented by: Heparin Sodium (Porcine) () 5,000 unit SUBQ BID [facility] Last Admin: 09/08/19 08:57 Dose: 5,000 unit Documented by: Propofol (Diprivan) 500 mg in 50 mls @ 4.899 mls/hr IV .[id number] [facility]; Protocol Last Titration: 09/06/19 07:58 Dose: 0 mcg/kg/min, 0 mls/hr Documented by: Piperacillin Sod/Tazobactam (Sod 3.375 gm/ Sodium Chloride) 100 mls @ 25 mls/hr IV Q8H [facility] Last Admin: 09/08/19 08:57 Dose: 25 mls/hr Documented by: Insulin Glargine (Lantus Solostar) 30 unit SUBQ QPM [facility] Last Admin: 09/07/19 20:57 Dose: 30 unit Documented by: Insulin Human Regular (Humulin R) 1 - 9 unit SUBQ Q6HR [facility]; Protocol Last Admin: 09/08/19 06:08 Dose: Not Given Documented by: Insulin Human Regular (Humulin R) 5 unit SUBQ Q6HR [facility] Last Admin: 09/08/19 06:26 Dose: 5 unit Documented by: Metoprolol Tartrate (Lopressor Inj) 5 mg IVP Q6HR [facility] Last Admin: 09/08/19 06:27 Dose: 5 mg Documented by: Morphine Sulfate (Morphine (Carpuject)) 2 mg IVP Q2HR PRN PRN Reason: PAIN Last Admin: 09/08/19 04:58 Dose: 2 mg Documented by: Multi-Ingredient Ointment (Zinc Oxide) 1 applic TOP PRN PRN PRN Reason: Skin Care Last Admin: 09/07/19 17:21 Dose: 1 applic Documented by: Pantoprazole Sodium (Protonix) 40 mg IVP BID [facility] Last Admin: 09/08/19 08:57 Dose: 40 mg Documented by: Phenol/Menthol (Chloraseptic) 2 sprays MM Q2HR PRN PRN Reason: Throat Pain Last Admin: 09/07/19 16:30 Dose: 2 sprays Documented by: Sodium Chloride (Normal Saline Flush 0.9%) 20 ml IVP PRN PRN PRN Reason: After Blood Draw Last Admin: 09/08/19 04:58 Dose: 20 ml Documented by: Sodium Chloride (Normal Saline Flush 0.9%) 10 ml IVP 0100,0900,1700 [facility] Last Admin: 09/08/19 08:58 Dose: 10 ml Documented by: Sodium Chloride (Normal Saline Flush 0.9%) 10 ml IVP PRN PRN PRN Reason: NEEDED PER PROVIDER ORDERS Last Admin: 09/08/19 04:44 Dose: 10 ml Documented by: Aspirin 81 mg PO DAILY 09/24/17 Losartan Potassium 25 mg PO DAILY 09/24/17 Docusate Sodium [Colace Clear] 50 mg DAILY 05/11/19 Insulin Glargine [Lantus Solostar] 45 unit SUBQ QPM 05/11/19 Metoprolol Succinate [Toprol Xl] 100 mg PO DAILY 05/11/19 Pantoprazole [Protonix] 40 mg DAILY 05/11/19 Donepezil HCl 10 mg PO DAILY PM 05/12/19 Glimepiride 1 mg PO DAILY 05/12/19 Meclizine HCl 25 mg PO TID PRN 09/04/19 Memantine HCl 5 mg PO DAILY 09/04/19 OXcarbazepine [Trileptal] 300 mg PO BID 09/04/19 Sucralfate 1 gm PO QID 09/04/19 Objective - Vital Signs/Intake & Output Reviewed Vital Signs: Yes Vital Signs: Vital Signs Temp Pulse Resp BP BP Pulse Ox 09/08/19 07:00 80 22 100/57 L 98 09/08/19 06:27 107/55 L 09/08/19 06:00 104 H 21 107/55 L 97 09/08/19 05:00 102 H 26 H 117/55 L 96 09/08/19 04:38 36.6 C 99 23 121/92 H 97 Intake & Output: Intake & Output 09/05/19 09/06/19 09/07/19 09/08/19 23:59 23:59 23:59 23:59 Intake Total 3448.348 5514.129 9899.214 4835 Output Total 811 3840 2530 515 Balance 2631.348 2699.129 -931.666 583 - Objective General Appearance: positive: No acute distress, Alert Eyes Bilateral: positive: Normal inspection, Conjunctivae nml ENT: positive: Other (NG tube in place. Nasal cannula in place.) Neck: positive: Nml inspection Respiratory: positive: Other (He does not appear to be in distress and is not tachypneic. Breath sounds are diminished bilaterally. No obvious wheezes or rales noted.) Cardiovascular: positive: No murmur, Irregularly irregular, Tachycardia. negative: Bradycardia, Diastolic murmur Abdomen: positive: Non-tender, Nml bowel sounds, No distention, Other ([place] in place over the incision site without any surrounding erythema.). negative: Tenderness, Guarding, Rebound Skin: positive: Warm, Dry Extremities: positive: Pedal edema (He has trace pitting edema in his bilateral lower extremities which is improved compared to yesterday.) Neurologic/Psychiatric: positive: Other (No focal deficits on exam.). negative: Disoriented to person, Disoriented to place - Lab Results Fish Bones: 09/08/19 04:40 09/08/19 04:40 Other Labs: Lab Results x24hrs 09/08/19 09/08/19 09/08/19 Range/Units 06:02 04:40 04:40 WBC (4.8-10.8) x10^3/uL RBC (4.70-6.10) 10^6/uL Hgb (14.0-18.0) g/dL Hct (42.0-52.0) % MCV (80.0-94.0) fL MCH (27.0-31.0) pg MCHC (32.0-36.0) g/dL RDW (12.0-15.0) % Plt Count (130-450) 10^3/uL MPV (7.4-11.4) fL Neut # (Auto) (1.5-6.6) 10^3/uL Lymph # (Auto) (1.5-3.5) 10^3/uL [place] # (Auto) (0.0-1.0) 10^3/uL Eos # (Auto) (0.0-0.7) 10^3/uL Baso # (Auto) (0.0-0.1) 10^3/uL Absolute Nucleated RBC x10^3/uL Nucleated RBC % /100WBC Sodium 138 (135-145) mmol/L Potassium 3.9 (3.5-5.0) mmol/L Chloride 104 (101-111) mmol/L Carbon Dioxide 26 (21-32) mmol/L Anion Gap 8.0 (6-13) BUN 41 H (6-20) mg/dL Creatinine 1.9 H (0.6-1.2) mg/dL Estimated GFR (MDRD) 34 L (>89) Glucose 127 H (70-100) mg/dL POC Whole Bld Glucose 120 H (70 - 100) mg/dL Calcium 7.7 L (8.5-10.3) mg/dL Phosphorus 2.9 (2.5-4.6) mg/dL Magnesium 1.9 (1.7-2.8) mg/dL Albumin 1.8 L (3.2-5.5) g/dL 09/08/19 09/07/19 09/07/19 Range/Units 04:40 23:54 18:12 WBC 11.1 H (4.8-10.8) x10^3/uL RBC 2.93 L (4.70-6.10) 10^6/uL Hgb 9.2 L (14.0-18.0) g/dL Hct 28.6 L (42.0-52.0) % MCV 97.6 H (80.0-94.0) fL MCH 31.4 H (27.0-31.0) pg MCHC 32.2 (32.0-36.0) g/dL RDW 13.2 (12.0-15.0) % Plt Count 155 (130-450) 10^3/uL MPV 11.7 H (7.4-11.4) fL Neut # (Auto) 7.7 H (1.5-6.6) 10^3/uL Lymph # (Auto) 1.3 L (1.5-3.5) 10^3/uL [place] # (Auto) 1.4 H (0.0-1.0) 10^3/uL Eos # (Auto) 0.5 (0.0-0.7) 10^3/uL Baso # (Auto) 0.0 (0.0-0.1) 10^3/uL Absolute Nucleated RBC 0.00 x10^3/uL Nucleated RBC % 0.0 /100WBC Sodium (135-145) mmol/L Potassium (3.5-5.0) mmol/L Chloride (101-111) mmol/L Carbon Dioxide (21-32) mmol/L Anion Gap (6-13) BUN (6-20) mg/dL Creatinine (0.6-1.2) mg/dL Estimated GFR (MDRD) (>89) Glucose (70-100) mg/dL POC Whole Bld Glucose 131 H 149 H (70 - 100) mg/dL Calcium (8.5-10.3) mg/dL Phosphorus (2.5-4.6) mg/dL Magnesium (1.7-2.8) mg/dL Albumin (3.2-5.5) g/dL 09/07/19 Range/Units 11:50 WBC (4.8-10.8) x10^3/uL RBC (4.70-6.10) 10^6/uL Hgb (14.0-18.0) g/dL Hct (42.0-52.0) % MCV (80.0-94.0) fL MCH (27.0-31.0) pg MCHC (32.0-36.0) g/dL RDW (12.0-15.0) % Plt Count (130-450) 10^3/uL MPV (7.4-11.4) fL Neut # (Auto) (1.5-6.6) 10^3/uL Lymph # (Auto) (1.5-3.5) 10^3/uL [place] # (Auto) (0.0-1.0) 10^3/uL Eos # (Auto) (0.0-0.7) 10^3/uL Baso # (Auto) (0.0-0.1) 10^3/uL Absolute Nucleated RBC x10^3/uL Nucleated RBC % /100WBC Sodium (135-145) mmol/L Potassium (3.5-5.0) mmol/L Chloride (101-111) mmol/L Carbon Dioxide (21-32) mmol/L Anion Gap (6-13) BUN (6-20) mg/dL Creatinine (0.6-1.2) mg/dL Estimated GFR (MDRD) (>89) Glucose (70-100) mg/dL POC Whole Bld Glucose 189 H (70 - 100) mg/dL Calcium (8.5-10.3) mg/dL Phosphorus (2.5-4.6) mg/dL Magnesium (1.7-2.8) mg/dL Albumin (3.2-5.5) g/dL - Diagnostic Imaging Diagnostic Imaging Results: positive: Final report reviewed Sepsis Event Note (H) - Evaluation Current Stage of Sepsis: Resolved Possible source of Sepsis: positive: GI tract/intra-abdominal - Sepsis Criteria Sepsis Criteria: Recorded Heart Rate greater than 90 bpm, WBC count greater than 12,000 or less than 4000, SBP drop more than 40mHg, MAP less than 65 mmHg, SBP less than 90 mmHg Assessment/Plan - Problem List (1) Acute respiratory failure with hypoxia Impression: This is secondary to acute on chronic heart failure given amount of IV fluids he received for his sepsis. This is improving and he is down to 1 L of oxygen via nasal cannula. Chest x-ray yesterday was consistent with vascular congestion. We will administer another dose of Lasix IV today. We will continue to wean his oxygen as tolerated. Continue with spirometry use. (2) Perforated duodenal ulcer Impression: He is now postop day 5. He is now passing gas but not had a bowel movement. Pain is relatively well controlled with morphine. We will continue Zosyn IV for 2 more days to complete 7 days of therapy given his white count continues to improve. Continue with Protonix IV. He failed his swallow evaluation today and so we will continue with tube feeds and reassess tomorrow. Maintain n.p.o. status. Appreciate general surgery input. (3) Acute on chronic combined systolic (congestive) and diastolic (congestive) heart failure Impression: His heart failure has been exacerbated by the IV fluids he received for his septic shock secondary to perforated duodenal ulcer. His chest x-ray is consistent pulmonary vascular congestion and he has been edematous but this is improving. He responded well to diuresis yesterday and his oxygen requirements have improved. We will give another dose of IV Lasix today. Continue with daily weights and strict I's and O's. (4) Paroxysmal atrial fibrillation Impression: He has been relatively rate controlled with heart rates in the 90s on Lopressor IV standing. He is on Toprol at home but this cannot be administered via NG tube and so we will start him on metoprolol titrate via NG tube. We will start him at 50 mg twice daily. (5) CKD (chronic kidney disease) stage 3, GFR 30-59 ml/min Impression: His renal function remains at baseline. His creatinine is 1.9 today. We will continue to monitor as he is being diuresed. (6) History of CVA (cerebrovascular accident) Impression: We will resume his aspirin and statin via NG tube. He was scheduled to start anticoagulation given his history of atrial fibrillation and we will look to do so sometime this hospitalization. (7) History of coronary artery disease Impression: We will resume his oral beta-kang via NG tube as well as aspirin and statin. (8) Type 2 diabetes mellitus, without long-term current use of insulin Impression: His blood glucose has been well controlled on this current insulin regimen. We will continue this for the time being. Continue with tube feeds as tolerated. Once he is able to pass a swallow eval, we will start him on a diet.
[2019-09-08] MEDS: PANTOPRAZOLE 40 MG VIAL IVP SCH ×2 (08:57→21:03)
[2019-09-08] MEDS: HEPARIN 5,000 UNIT/ML VIAL SUBQ SCH ×2 (08:57→21:06)
[2019-09-08] MEDS: CHLORHEXIDINE GLUCONATE 15 ML UDC PO SCH ×2 (08:57→21:04)
[2019-09-08] MEDS: PHENOL THROAT SPRAY 177 ML MM PRN ×3 (10:10→12:53)
[2019-09-08] MEDS ORDERED: FUROSEMIDE 40 MG/4 ML VIAL IVP STA (11:24)
[2019-09-08] MEDS: ZINC OXIDE 20% OINT 30 GM TUBE TOP PRN (15:50)
[2019-09-08] MEDS ORDERED: ATORVASTATIN 40 MG TABLET NG SCH (21:00)
[2019-09-08] MEDS: METOPROLOL TARTRATE 50 MG TABLET NG SCH (21:01)
[2019-09-08] MEDS: INSULIN GLARGINE 300 UNIT/3 ML PEN SUBQ SCH (21:10)
[2019-09-09] MEDS: INSULIN REGULAR HUMAN 300 UNIT/3 ML VIAL SUBQ SCH ×4 (00:19→06:41)
[2019-09-09] MEDS: SODIUM CHLORIDE FLUSH 0.9% 10 ML SYRINGE IVP SCH ×3 (00:20→17:27)
[2019-09-09] MEDS: PIPERACILLIN/TAZOBACTAM 3.375 GM in SODIUM CHLORIDE 0.9% MINIBAG 100 ML IV SCH ×3 (01:57→17:27)
[2019-09-09] MEDS: MORPHINE 2 MG/ML CARPUJECT IVP PRN ×3 (02:00→08:00)
[2019-09-09 05:44] LABS: BASOPHILS % (AUTO) 0.4 %; EOSINOPHILS # (AUTO) 0.5 10^3/uL (0.0-0.7); EOSINOPHILS % (AUTO) 4.5 %; HGB - HEMOGLOBIN 9.3 g/dL (14.0-18.0); LYMPHOCYTES # (AUTO) 1.3 10^3/uL (1.5-3.5); LYMPHOCYTES % (AUTO) 12.9 %; MEAN CORPUSCULAR VOLUME 96.9 fL (80.0-94.0); MEAN PLATELET VOLUME 11.5 fL (7.4-11.4); MONOCYTES # (AUTO) 1.3 10^3/uL (0.0-1.0); MONOCYTES % (AUTO) 13.5 %; NEUTROPHILS # (AUTO) 6.3 10^3/uL (1.5-6.6); NEUTROPHILS % (AUTO) 63.4 %; PLT - PLATELET COUNT 174 10^3/uL (130-450); RED BLOOD COUNT 2.91 10^6/uL (4.70-6.10); RED CELL DISTRIBUTION WIDTH 13.1 % (12.0-15.0)
[2019-09-09 05:55] LABS: ALBUMIN 1.9 g/dL (3.2-5.5); ALBUMIN/GLOBULIN RATIO 0.6 (1.0-2.2); BILIRUBIN,TOTAL 1.2 mg/dL (0.2-1.0); CALCIUM 7.8 mg/dL (8.5-10.3); CREATININE 1.9 mg/dL (0.6-1.2); MAGNESIUM 1.8 mg/dL (1.7-2.8); PHOSPHORUS 2.5 mg/dL (2.5-4.6); TOTAL PROTEIN 5.2 g/dL (6.7-8.2)
[2019-09-09] MEDS: SODIUM CHLORIDE FLUSH 0.9% 10 ML SYRINGE IVP PRN ×2 (08:15→10:05)
[2019-09-09] MEDS ORDERED: ASPIRIN CHEW 81 MG TABLET NG SCH (09:00)
[2019-09-09] MEDS: ZINC OXIDE 20% OINT 30 GM TUBE TOP PRN (09:00)
[2019-09-09] MEDS: METOPROLOL TARTRATE 50 MG TABLET NG SCH (09:19)
[2019-09-09] MEDS: PANTOPRAZOLE 40 MG VIAL IVP SCH (10:03)
[2019-09-09] MEDS: HEPARIN 5,000 UNIT/ML VIAL SUBQ SCH ×2 (10:10→21:38)
[2019-09-09] MEDS: HYDROcod/ACETAM 5/325 MG TABLET PO PRN ×2 (11:19→17:36)
[2019-09-09] MEDS: CHLORHEXIDINE GLUCONATE 15 ML UDC PO SCH ×2 (11:27→21:45)
--- NOTE | 2019-09-09 13:09 | PROVIDER PROGRESS NOTE ---
Assessment/Plan - Problem List (1) Perforated duodenal ulcer Assessment/Plan: He is now postop day #6. He is now passing gas for 2 days but not had a bowel movement. Pain is well controlled with morphine. We will continue Zosyn IV for 1 more day to complete 7 days of therapy given his white blood count continues to improve. Continue with Protonix IV. He passed his swallow evaluation today and so we will start pureed food. No bowel meds yet. (2) Acute respiratory failure with hypoxia Assessment/Plan: This was secondary to acute on chronic heart failure given amount of IV fluids he received for his sepsis. Chest x-ray yesterday was consistent with vascular congestion. This has improved after iv Lasix x1 yesterday, and he is down to 1 L of oxygen v ia nasal cannula. Will continue to wean his oxygen as tolerated. Continue with spirometry use. (3) Acute on chronic combined systolic (congestive) and diastolic (congestive) heart failure Assessment/Plan: His heart failure has been exacerbated by the IV fluids he received for his septic shock secondary due to a perforated duodenal ulcer. His chest x-ray was consistent pulmonary vascular congestion yesterday and he has mild ankle edema. He responded well to diuresis yesterday and his oxygen requirements have improved. Continue with daily weights and strict I's and O's. (4) Paroxysmal atrial fibrillation Assessment/Plan: He has been relatively rate controlled with heart rates in the 90s on Lopressor IV standing. He is on Toprol at home but this could not be administered via NG tube and so he was stared on Metoprolol Tartrate via NG tube. Will continue today with crushed but oral Metoprolol Tartrate today at 50 mg twice daily and switch to Metoprolol Succinate tomorrow. (5) CKD (chronic kidney disease) stage 3, GFR 30-59 ml/min Assessment/Plan: His renal function remains at baseline with creatinine 1.8- 1.9. Monitor BMP daily. (6) History of CVA (cerebrovascular accident) Assessment/Plan: His aspirin and statin were resumed via NG tube. He was scheduled to start anticoagulation given his history of atrial fibrillation and we will look to do so sometime this hospitalization. (7) History of coronary artery disease Assessment/Plan: We resumed his oral beta-kang via NG tube as well as aspirin and statin. Today will change to oral meds. (8) Type 2 diabetes mellitus, without long-term current use of insulin Assessment/Plan: His blood glucose has been well controlled on this current insulin regimen. Will continue ss Insulin coverage and start Aspart with meals today. (9) Macrocytic anemia Assessment/Plan: Admission hemoglobin was 11, and it dropped as low as 9. Hemoglobin is 9.3 today after gentle diuresis yesterday. Will check iron stores but also B12 and folate levels because of the macrocytosis. Replace if low. (10) Sacral decubitus ulcer Assessment/Plan: There is no skin breakdown, he just has a purple area which is getting Desitin ointment and turning and repositioning. - Current Meds Current Meds: Current Medications Generic Name Dose Route Start Last Admin Trade Name Freq PRN Reason Stop Dose Admin Hydrocodone Bitart/Acetaminophen 1 tab 09/09/19 11:05 09/09/19 11:19 [place] 5/325 PO 1 tab Q4HR PRN Administration PAIN Chlorhexidine Gluconate 15 ml 09/03/19 23:45 09/09/19 11:27 Peridex PO 15 ml BID LUIS Administration Heparin Sodium (Porcine) 5,000 unit 09/06/19 09:00 09/09/19 10:10 SUBQ 5,000 unit BID LUIS Administration Piperacillin Sod/Tazobactam 100 mls @ 25 mls/hr 09/04/19 01:30 09/09/19 10:00 Sod 3.375 gm/ Sodium Chloride IV 25 mls/hr Q8H LUIS Administration Insulin Glargine 30 unit 09/06/19 21:00 09/08/19 21:10 Lantus Solostar SUBQ 300 unit QPM LUIS Administration Morphine Sulfate 2 mg 09/04/19 00:28 09/09/19 08:00 Morphine (Carpuject) IVP 2 mg Q2HR PRN Administration PAIN Multi-Ingredient Ointment 1 applic 09/06/19 13:02 09/09/19 09:00 Zinc Oxide TOP 1 applic PRN PRN Administration Skin Care Phenol/Menthol 2 sprays 09/07/19 16:15 09/08/19 12:53 Chloraseptic MM 2 sprays Q2HR PRN Administration Throat Pain Sodium Chloride 20 ml 09/07/19 11:15 09/08/19 04:58 Normal Saline Flush 0.9% IVP 20 ml PRN PRN Administration After Blood Draw Sodium Chloride 10 ml 09/07/19 17:00 09/09/19 08:01 Normal Saline Flush 0.9% IVP 10 ml 0100,0900,1700 LUIS Administration Sodium Chloride 10 ml 09/07/19 13:48 09/09/19 10:05 Normal Saline Flush 0.9% IVP 20 ml PRN PRN Administration NEEDED PER PROVIDER ORDERS - Lab Result Fish Bone Diagrams: 09/09/19 05:00 09/09/19 05:05 - Additional Planning My Orders: My Active Orders 09/09/19 Palliative Care Consult [CONS] Routine 09/09/19 11:05 HYDROcod/ACETAM 5/325 [[place] 5/325] 1 tab PO Q4HR PRN 09/09/19 Lunch DIET [Dysphagia Puree Diet] [DIET] 09/09/19 12:15 Insulin Aspart [NovoLOG] 1 - 9 unit SUBQ 0800,1200,1700,2100 09/09/19 12:41 Blood Glucose Checks - Eating [RC] 0800,1200,1700,2100 Initiate Hypoglycemia Protocol [RC] .protocol A1C [CHEM] Routine 09/09/19 17:00 Insulin Aspart [NovoLOG] 5 unit SUBQ TIDWM 09/09/19 21:00 Atorvastatin [Lipitor] 80 mg PO QPM Metoprolol Tartrate [Lopressor] 50 mg PO BID Pantoprazole [Protonix] 40 mg PO BID 09/10/19 09:00 Aspirin Chewable [[facility] Aspirin] 81 mg PO DAILY Subjective - Subjective Patient Reports: Feeling Better, Resting Comfortably, Pain (Abdominal pain is relatively controlled on narcotics, per RN.) Objective Vital Signs: Vital Signs - 24 hr 09/08/19 09/08/19 09/08/19 14:00 15:00 16:00 Temperature 36.4 C L Heart Rate [ 98 100 110 H Monitoring electrodes] Respiratory 26 H 21 24 Rate Blood Pressure Blood Pressure 111/68 136/71 H 138/64 H [Right Brachial artery] Blood Pressure [Right Radial artery] O2 Saturation 95 09/08/19 09/08/19 09/08/19 17:00 18:00 19:00 Temperature Heart Rate [ 95 114 H 113 H Monitoring electrodes] Respiratory 27 H 25 H Rate Blood Pressure Blood Pressure 120/59 L 135/70 H [Right Brachial artery] Blood Pressure [Right Radial artery] O2 Saturation 09/08/19 09/08/19 09/08/19 20:00 21:00 21:01 Temperature 36.7 C Heart Rate [ 109 H 110 H Monitoring electrodes] Respiratory 25 H 19 Rate Blood Pressure 140/76 H Blood Pressure 140/76 H [Right Brachial artery] Blood Pressure [Right Radial artery] O2 Saturation 96 95 09/09/19 09/09/19 09/09/19 01:00 07:52 09:19 Temperature 36.4 C L 36.4 C L Heart Rate [ 97 108 H Monitoring electrodes] Respiratory 22 21 Rate Blood Pressure 139/69 H Blood Pressure [Right Brachial artery] Blood Pressure 139/69 H [Right Radial artery] O2 Saturation 94 96 09/09/19 12:46 Temperature 35.8 C L Heart Rate [ 86 Monitoring electrodes] Respiratory 23 Rate Blood Pressure Blood Pressure [Right Brachial artery] Blood Pressure 111/72 [Right Radial artery] O2 Saturation 96 Oxygen O2 Source [With Activity] Nasal cannula O2 Source Nasal cannula I&O (Last 24 Hrs): Intake and Output Totals x24h 09/07/19 09/08/19 09/09/19 23:59 23:59 23:59 Intake Total 2140.334 1948 277 Output Total 2530 5 515 Balance -389.666 -87 -238 General: Alert, Oriented x3 HEENT: Mucous membr. moist/pink, Other (On nasal canula) Neck: Supple, No JVD Neuro: Alert, Non Focal Cardiovascular: No murmurs Respiratory: No respiratory distress Abdomen: Soft Extremities: Other (1+ ankle edema) Skin: No rashes (Pale skin) - Results Results: Laboratory Results WBC 10.0 x10^3/uL (4.8-10.8) 09/09/19 05:00 RBC 2.91 10^6/uL (4.70-6.10) L 09/09/19 05:00 Hgb 9.3 g/dL (14.0-18.0) L 09/09/19 05:00 Hct 28.2 % (42.0-52.0) L 09/09/19 05:00 MCV 96.9 fL (80.0-94.0) H 09/09/19 05:00 MCH 32.0 pg (27.0-31.0) H 09/09/19 05:00 MCHC 33.0 g/dL (32.0-36.0) 09/09/19 05:00 RDW 13.1 % (12.0-15.0) 09/09/19 05:00 Plt Count 174 10^3/uL (130-450) 09/09/19 05:00 MPV 11.5 fL (7.4-11.4) H 09/09/19 05:00 Neut # (Auto) 6.3 10^3/uL (1.5-6.6) 09/09/19 05:00 Lymph # (Auto) 1.3 10^3/uL (1.5-3.5) L 09/09/19 05:00 Faulk # (Auto) 1.3 10^3/uL (0.0-1.0) H 09/09/19 05:00 Eos # (Auto) 0.5 10^3/uL (0.0-0.7) 09/09/19 05:00 Baso # (Auto) 0.0 10^3/uL (0.0-0.1) 09/09/19 05:00 Absolute Nucleated RBC 0.00 x10^3/uL 09/09/19 05:00 Total Counted 100 09/04/19 04:50 Band Neuts % (Manual) 11 % (0-10) H 09/04/19 04:50 Abnorm Lymph % (Manual) 0 % 09/04/19 04:50 Nucleated RBC % 0.0 /100WBC 09/09/19 05:00 Neutrophils # (Manual) 19.3 10^3/uL (1.5-6.6) H 09/04/19 04:50 Lymphocytes # (Manual) 1.3 10^3/uL (1.5-3.5) L 09/04/19 04:50 Monocytes # (Manual) 1.3 10^3/uL (0.0-1.0) H 09/04/19 04:50 Eosinophils # (Manual) 0.0 10^3/uL (0-0.7) 09/04/19 04:50 Basophils # (Manual) 0.0 10^3/uL (0-0.1) 09/04/19 04:50 Differential Comment MANUAL DIFFERENTIAL 09/04/19 04:50 WBC Morphology NORMAL APPEARANCE (NORMAL) 09/04/19 04:50 Platelet Estimate NORMAL (130-450,000) (NORMAL) 09/04/19 04:50 Platelet Morphology NORMAL APPEARANCE (NORMAL) 09/04/19 04:50 RBC Morph Micro Appear 1+ LANDY CELLS (NORMAL) 09/04/19 04:50 PT 12.2 secs (9.9-12.6) 09/03/19 17:25 INR 1.1 (0.8-1.2) 09/03/19 17:25 Bld Gas Analysis Time 0509/05/19 05:13 Sample Site RIGHT RADIAL 09/05/19 05:13 ABG pH 7.42 (7.35-7.45) 09/05/19 05:13 ABG pCO2 35 mmHg (34-45) 09/05/19 05:13 ABG pO2 76 mmHg (80-100) L 09/05/19 05:13 ABG HCO3 22.2 mmol/L (22.0-26.0) 09/05/19 05:13 ABG Total CO2 23.3 MMOL/L (21.0-29.0) 09/05/19 05:13 ABG O2 Saturation 95 % (94-98) 09/05/19 05:13 ABG Base Excess -1.8 mmol/L (-2.0-3.0) 09/05/19 05:13 Byron Test POSITIVE 09/05/19 05:13 VBG pH 7.277 (7.31-7.41) L 09/04/19 04:50 Ionized Calcium 0.97 mmol/L (1.15-1.33) L 09/04/19 04:50 Respiration Rate 16 b/min 09/05/19 05:13 O2 Delivery Device VENTILATOR 09/05/19 05:13 Vent Mode SIMV 09/05/19 05:13 FiO2 25.00 09/05/19 05:13 Tidal Volume 500 mL 09/05/19 05:13 PEEP 5 cmH2O 09/05/19 05:13 Pressure Support Vent 10 cmH2O 09/05/19 05:13 Sodium 139 mmol/L (135-145) 09/09/19 05:05 Potassium 3.8 mmol/L (3.5-5.0) 09/09/19 05:05 Chloride 102 mmol/L (101-111) 09/09/19 05:05 Carbon Dioxide 28 mmol/L (21-32) 09/09/19 05:05 Anion Gap 9.0 (6-13) 09/09/19 05:05 BUN 40 mg/dL (6-20) H 09/09/19 05:05 Creatinine 1.9 mg/dL (0.6-1.2) H 09/09/19 05:05 Estimated GFR (MDRD) 34 (>89) L 09/09/19 05:05 Glucose 168 mg/dL (70-100) H 09/09/19 05:05 POC Whole Bld Glucose 161 mg/dL (70 - 100) H 09/09/19 11:56 Glycated Hemoglobin 8.3 % (4.6-6.2) H 09/06/19 05:00 Estim Average Glucose 192 (70-100) H 09/06/19 05:00 Lactic Acid 2.1 mmol/L (0.5-2.2) 09/03/19 17:25 Calcium 7.8 mg/dL (8.5-10.3) L 09/09/19 05:05 Phosphorus 2.5 mg/dL (2.5-4.6) 09/09/19 05:05 Magnesium 1.8 mg/dL (1.7-2.8) 09/09/19 05:05 Total Bilirubin 1.2 mg/dL (0.2-1.0) H 09/09/19 05:05 AST 16 IU/L (10-42) 09/09/19 05:05 ALT 15 IU/L (10-60) 09/09/19 05:05 Alkaline Phosphatase 116 IU/L (42-121) 09/09/19 05:05 Troponin I High Sens 16.5 ng/L (2.3-19.7) 09/03/19 19:59 Total Protein 5.2 g/dL (6.7-8.2) L 09/09/19 05:05 Albumin 1.9 g/dL (3.2-5.5) L 09/09/19 05:05 Globulin 3.3 g/dL (2.1-4.2) 09/09/19 05:05 Albumin/Globulin Ratio 0.6 (1.0-2.2) L 09/09/19 05:05 Prealbumin 6 mg/dL (18-45) L 09/09/19 05:05 Triglycerides 153 mg/dL (-149) H 09/06/19 05:00 Lipase 26 U/L (22-51) 09/03/19 17:25 TSH 0.66 uIU/mL (0.34-5.60) 09/03/19 17:25 Urine Color DARK YELLOW 09/04/19 18:00 Urine Clarity CLEAR (CLEAR) 09/04/19 18:00 Urine pH 5.5 PH (5.0-7.5) 09/04/19 18:00 Ur Specific [place] 1.025 (1.002-1.030) 09/04/19 18:00 Urine Protein 30 mg/dL (NEGATIVE) H 09/04/19 18:00 Urine Glucose (UA) NEGATIVE mg/dL (NEGATIVE) 09/04/19 18:00 Urine Ketones NEGATIVE mg/dL (NEGATIVE) 09/04/19 18:00 Urine Occult Blood TRACE-LYSE (NEGATIVE) 09/04/19 18:00 Urine Nitrite NEGATIVE (NEGATIVE) 09/04/19 18:00 Urine Bilirubin NEGATIVE (NEGATIVE) 09/04/19 18:00 Urine Urobilinogen 1 (NORMAL) E.U./dL (NORMAL) 09/04/19 18:00 Ur Leukocyte Esterase NEGATIVE (NEGATIVE) 09/04/19 18:00 Urine RBC 6-10 /HPF (0-5) H 09/04/19 18:00 Urine WBC 4-5 /HPF (0-3) 09/04/19 18:00 Ur Squamous Epith Cells NONE SEEN (<= Few) 09/04/19 18:00 Urine Bacteria Few /HPF (None Seen) 09/04/19 18:00 Ur Microscopic Review INDICATED 09/04/19 18:00 Urine Culture Comments NOT INDICATED 09/04/19 18:00 Nasal Screen MRSA (PCR) NEGATIVE (NEGATIVE) 09/03/19 23:35 - Procedures Procedures: Procedures (11/06/17) EXCISION OF RECTUM, ENDO (11/06/17) TRANSFUSE NONAUT RED BLOOD CELLS IN PERIPH VEIN, PERC (11/06/17) Sepsis Event Note (H) - Evaluation Current Stage of Sepsis: Resolved Possible source of Sepsis: positive: GI tract/intra-abdominal - Sepsis Criteria Sepsis Criteria: Recorded Heart Rate greater than 90 bpm, WBC count greater than 12,000 or less than 4000, SBP drop more than 40mHg, MAP less than 65 mmHg, SBP less than 90 mmHg
[2019-09-09] MEDS: INSULIN ASPART 300 UNIT/3 ML PEN SUBQ SCH ×5 (13:16→21:45)
--- NOTE | 2019-09-09 16:46 | CONSULTATION NOTE ---
Palliative Care Consultation - Referral Referring Provider: Dr. Xi Monae Time of Visit: 8712-1319 Referral setting: Hospitalized patient Referral Reason: Vascular dementia/Advanced care planning - Information Sources Records reviewed: Previous records reviewed History/Review of Systems obtained from: Patient, Family (daughter Leonor and grandkaur Hinojosa present), Nursing (MONIQUE Harmon present), Other (Dr. Monae) Exam limitations: Clinical condition (Language barrier with liberian as primary language and cognitive impairment due to dementia; used yam curer phone with [employer]) - History of Present Illness Brief History of Present Illness: This is an 89-year-old gentleman who is seen in evaluation today for initial palliative care consultation in the inpatient setting with his daughter, Leonor, granddaughter, Bella and nurse, Eden present for establishment of care. The patient presented to the emergency department due to worsening abdominal pain. His daughter reports that he has had an issue with with GI symptoms for many years. Often times when he leaves the bathroom he appears to be in more distress than not. Overall of several weeks he was developing abdominal discomf ort that started to change initially with his food intake. Initially he was not consuming meats then he was consuming less and less quantities. A week before his presentation he quit eating. He reported that he was having "burning in the stomach." The patient was found to have a perforated duodenal ulcer. He underwent surgery with repair. He developed septic shock due to his perforated duodenal ulcer and has subsequently recovered. His NG tube has been removed. He has been able to pass his swallowing study and has been initiated on pured food with nectar thick liquids. The patient has an underlying history of dementia. He recently underwent a psychological evaluation with Dr. 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 The patient had 2 strokes approxim ately 2 years ago. He has been residing with his daughter, Leonor is his primary caregiver for the last 2 years. In the last 6 to 8 months the patient's daughter has noticed an increasingly worsening short-term memory. He is also demonstrating some personality changes and is paranoid within the home. He is suspicious of his son-in-law fearing that he is a thief and stealing from him. He creates [employer] a full stories. The patient has multiple comorbidities including atrial fibrillation, congestive heart failure, chronic kidney disease, and diabetes mellitus. The patient's daughter reports issues in regards to clot compliance of medications at home. The patient will do what he wants when he wants it. He has been requested to have a Holter monitor by his bartender but this has not been performed as the patient has perfused at the present time. The patient is seen today in his hospital bed and alert and engaged. He dozes easily. No evidence of distress. Medical/Surgical History - Past Medical History Cardiovascular: reports: Atrial fibrillation Respiratory: reports: COPD Neuro: Dementia, CVA, TIA, Other Neuro: reports: Dementia, CVA Endocrine/Autoimmune: reports: Type 2 diabetes GI: reports: GERD (c/o reflux 07/31/19. Started on carafate and referred to [facility] for EGD. ), GI bleed (10/2017 w EGD showing gastritis and duodenitis. H pylori neg.Colonoscopy with hemorrhoids and diverticular disease. Transfused 2 units. ) : reports: Renal insuffiency (CKD III and refuses to be seen by Nephrology or consider dialysis if necessary) HEENT: reports: Chronic vision loss (with macular degeneration), Other (cataracts) Psych: reports: Anxiety Musculoskeletal: reports: None Derm: reports: None MRSA Hx?: No Other Past Medical History: Unintentional weight loss with CT abd neg 10/2017 - Past Surgical History Cardiovascular: reports: Coronary stent - Substance History Use: Uses substance without health or social issues: NONE Abuse: Recurrent use of substance despite neg consequences: NONE Dependence: Experiences withdrawal or developed tolerances: NONE Social History - Living Situation Living arrangement: At home Living Situation: With family (Resides with daughter/Primary caregiver, Leonor and son-in-law) Support System: The patient was born and raised in [place] where 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 He is . He is a former smoker. Prior to his 2 CVAs 2 years ago he was residing independently cooking and caring for himself. 2 years ago after his CVA he moved in with his daughter, Leonor and his son-in-law and has subsequently stayed and has not transitioned out. His granddaughter, Victor Hugo is very involved in his care and is an RN. The patient's son is and he has no other children. Leonor's contact number is [phone]. Family History - Family History Family History: Mother: , Father: Family History Comment/Other: Noncontributory Medications/Allergies - Medications Active Medication List: Active Medications Hydrocodone Bitart/Acetaminophen ([place] 5/325) 1 tab PO Q4HR PRN PRN Reason: PAIN Last Admin: 09/09/19 11:19 Dose: 1 tab Documented by: Aspirin ([place] Aspirin) 81 mg PO DAILY [facility] Atorvastatin Calcium (Lipitor) 80 mg PO QPM [facility] Chlorhexidine Gluconate (Peridex) 15 ml PO BID [facility] Last Admin: 09/09/19 11:27 Dose: 15 ml Documented by: Heparin Sodium (Porcine) () 5,000 unit SUBQ BID [facility] Last Admin: 09/09/19 10:10 Dose: 5,000 unit Documented by: Piperacillin Sod/Tazobactam (Sod 3.375 gm/ Sodium Chloride) 100 mls @ 25 mls/hr IV Q8H [facility] Last Infusion: 09/09/19 14:00 Dose: Infused Documented by: Insulin Aspart (Novolog) 1 - 9 unit SUBQ 0800,1200,1700,2100 [facility]; Protocol Last Admin: 09/09/19 13:16 Dose: 1 unit Documented by: Insulin Aspart (Novolog) 5 unit SUBQ TIDWM [facility]; Protocol Last Admin: 09/09/19 14:29 Dose: Not Given Documented by: Insulin Glargine (Lantus Solostar) 30 unit SUBQ QPM [facility] Last Admin: 09/08/19 21:10 Dose: 300 unit Documented by: Metoprolol Tartrate (Lopressor) 50 mg PO BID [facility] Morphine Sulfate (Morphine (Carpuject)) 2 mg IVP Q2HR PRN PRN Reason: PAIN Last Admin: 09/09/19 08:00 Dose: 2 mg Documented by: Multi-Ingredient Ointment (Zinc Oxide) 1 applic TOP PRN PRN PRN Reason: Skin Care Last Admin: 09/09/19 09:00 Dose: 1 applic Documented by: Pantoprazole Sodium (Protonix) 40 mg PO BID [facility] Phenol/Menthol (Chloraseptic) 2 sprays MM Q2HR PRN PRN Reason: Throat Pain Last Admin: 09/08/19 12:53 Dose: 2 sprays Documented by: Sodium Chloride (Normal Saline Flush 0.9%) 20 ml IVP PRN PRN PRN Reason: After Blood Draw Last Admin: 09/08/19 04:58 Dose: 20 ml Documented by: Sodium Chloride (Normal Saline Flush 0.9%) 10 ml IVP 0100,0900,1700 LU[facility] Last Admin: 09/09/19 08:01 Dose: 10 ml Documented by: Sodium Chloride (Normal Saline Flush 0.9%) 10 ml IVP PRN PRN PRN Reason: NEEDED PER PROVIDER ORDERS Last Admin: 09/09/19 10:05 Dose: 20 ml Documented by: Aspirin 81 mg PO DAILY 09/24/17 Losartan Potassium 25 mg PO DAILY 09/24/17 Docusate Sodium [Colace Clear] 50 mg DAILY 05/11/19 Insulin Glargine [Lantus Solostar] 45 unit SUBQ QPM 05/11/19 Metoprolol Succinate [Toprol Xl] 100 mg PO DAILY 05/11/19 Pantoprazole [Protonix] 40 mg DAILY 05/11/19 Donepezil HCl 10 mg PO DAILY PM 05/12/19 Glimepiride 1 mg PO DAILY 05/12/19 Meclizine HCl 25 mg PO TID PRN 09/04/19 Memantine HCl 5 mg PO DAILY 09/04/19 OXcarbazepine [Trileptal] 300 mg PO BID 09/04/19 Sucralfate 1 gm PO QID 09/04/19 - Allergies Allergies/Adverse Reactions: Allergies Allergy/AdvReac Type Severity Reaction Status Date / Time No Known Drug Allergies Allergy Verified 05/30/19 07:48 Review of Systems - Constitutional Constitutional: reports: Fatigue, Weight loss - Ears, Nose & Throat Ears, Nose & Throat: reports: Dry mouth - Cardiovascular Cardiovascular: denies: Chest pain - Respiratory Respiratory: denies: Wheezing - Gastrointestinal Gastrointestinal: reports: Abdominal pain (controlled, s/p surgery). denies: Diarrhea, Vomiting - Musculoskeletal Musculoskeletal: reports: Assistive devices, Transfer issues - Integumentary Integumentary: reports: Other - Neurological Neurological: reports: General weakness, Memory problems - Psychiatric Psychiatric: reports: Anxiety (per daughter's report history of anxiety but never treated) - Endocrine Endocrine: reports: Diabetes type 2 - All Other Systems All Other Systems: reports: Reviewed and negative Physical Exam - Vital Signs Vital Signs: Vital Signs x48h Temp Pulse Resp BP BP Pulse Ox 09/09/19 16:32 94 21 143/89 H 97 09/09/19 12:46 35.8 C L 86 23 111/72 96 09/09/19 09:19 139/69 H - Physical Exam General Appearance: positive: No acute distress, Alert, Other (sitting up in hospital bed) Eyes Bilateral: positive: Normal inspection ENT: positive: Other (Poor dentition, slightly dry mucous membranes) Neck: positive: Trachea midline Cardiovascular: positive: Regular rate & rhythm, No murmur Respiratory: positive: No respiratory distress, Diminished in bases Abdomen: positive: Soft, Nml bowel sounds Skin: positive: Pallor, Other (see nursing notes for sacrum erythema; stiches to RUE s/p skin cancer removal and freddy mid-abdomen that are well delinated without erythema or discharge) Extremities: positive: Pedal edema (trace ankle edema) Neurologic/Psychiatric: positive: Disoriented to place (Oriented to self and time; believed he was in [place], [place] where he had lived previously), Weakness, Other (mumbled speech) Palliative Care - POLST Patient has POLST: No POLST Status: Full Code Pain: Pain improved (see HPI for full details) Performance Status: Prior to hospital admission the patient was sedentary only ambulating from his hospital bed to his recliner. He would become quite winded after several steps. He will not allow his daughter to provide aby-care and he has not had a shower since April. 2 years ago the patient was entirely independent living alone caring for himself prior to him having 2 strokes. He has a hospital bed within the home as well as a walker. - Palliative Care Discussion: The patient presented to the emergency department in acute distress due to abdominal pain and was found to have a perforated duodenal ulcer. This has been a difficult time for the patient's family as he is the patriarch of the family and he is a very proud individual and does not want to show weakness or pain to his family. Also culturally, per his granddaughter you do not discuss as then you are "enticing bad things." With discussion after the patient was extub ated he expressed that he no longer wished to have this intervention to his daughter, Leonor and granddaughter but if he is sick he wants to be helped. In discussion today with the yam curer phone the patient was quite clear that he wishes CPR to be performed and to receive medical interventions. The patient's , several years ago and she was a full code and CPR was performed. The patient's daughter reports that the physician in the midst of CPR reported that it was futile and stated that it was time to stop and then the family was able to move forward without continuation of CPR and subsequent in acceptance as "everything was done." As is not talked about, it has been extremely difficult for the patient's daughter, Leonor who is the healthcare agent by W [id number] to proceed. Leonor wishes her father to be comfortable and focus on quality of life but he wishes to have everything done and if he is sick he looks to her for help. Leonor is aware that the patient is declining due to his overall age and chronic co-morbidities, but she cannot have the burden of making a decision that would go against her father's wishes regarding medical management. In the moment the patient will decline needles or going to the hospital but if an intervention would extend his life he wishes to proceed even if he does not necessarily want it. The care of the patient has been increasingly burdensome for the patient's daughter, Leonor who is the sole caregiver. They are presently working with [facility] asked to obtain additional caregiving within the home. The ultimate goal is to have the patient's daughter and himself relocated to [place] to be closer to the patient's granddaughter Victor Hugo who can be assisting in overall care and guidance. The care for the patient's has also resulted in Leonor to not have the time she wishes to devote to her marriage. She finds her father has her first love and she wishes to "do right by him." Results - Lab Results Fish Bones: 09/09/19 05:00 09/09/19 05:05 Lab and Imaging Results: Lab Results x24hrs 09/09/19 09/09/19 09/09/19 Range/Units 11:56 05:05 05:00 WBC 10.0 (4.8-10.8) x10^3/uL RBC 2.91 L (4.70-6.10) 10^6/uL Hgb 9.3 L (14.0-18.0) g/dL Hct 28.2 L (42.0-52.0) % MCV 96.9 H (80.0-94.0) fL MCH 32.0 H (27.0-31.0) pg MCHC 33.0 (32.0-36.0) g/dL RDW 13.1 (12.0-15.0) % Plt Count 174 (130-450) 10^3/uL MPV 11.5 H (7.4-11.4) fL Neut # (Auto) 6.3 (1.5-6.6) 10^3/uL Lymph # (Auto) 1.3 L (1.5-3.5) 10^3/uL Page # (Auto) 1.3 H (0.0-1.0) 10^3/uL Eos # (Auto) 0.5 (0.0-0.7) 10^3/uL Baso # (Auto) 0.0 (0.0-0.1) 10^3/uL Absolute Nucleated RBC 0.00 x10^3/uL Nucleated RBC % 0.0 /100WBC Sodium 139 (135-145) mmol/L Potassium 3.8 (3.5-5.0) mmol/L Chloride 102 (101-111) mmol/L Carbon Dioxide 28 (21-32) mmol/L Anion Gap 9.0 (6-13) BUN 40 H (6-20) mg/dL Creatinine 1.9 H (0.6-1.2) mg/dL Estimated GFR (MDRD) 34 L (>89) Glucose 168 H (70-100) mg/dL POC Whole Bld Glucose 161 H (70 - 100) mg/dL Calcium 7.8 L (8.5-10.3) mg/dL Phosphorus 2.5 (2.5-4.6) mg/dL Magnesium 1.8 (1.7-2.8) mg/dL Total Bilirubin 1.2 H (0.2-1.0) mg/dL AST 16 (10-42) IU/L ALT 15 (10-60) IU/L Alkaline Phosphatase 116 (42-121) IU/L Total Protein 5.2 L (6.7-8.2) g/dL Albumin 1.9 L (3.2-5.5) g/dL Globulin 3.3 (2.1-4.2) g/dL Albumin/Globulin Ratio 0.6 L (1.0-2.2) Prealbumin 6 L (18-45) mg/dL 09/09/19 Range/Units 00:11 WBC (4.8-10.8) x10^3/uL RBC (4.70-6.10) 10^6/uL Hgb (14.0-18.0) g/dL Hct (42.0-52.0) % MCV (80.0-94.0) fL MCH (27.0-31.0) pg MCHC (32.0-36.0) g/dL RDW (12.0-15.0) % Plt Count (130-450) 10^3/uL MPV (7.4-11.4) fL Neut # (Auto) (1.5-6.6) 10^3/uL Lymph # (Auto) (1.5-3.5) 10^3/uL Page # (Auto) (0.0-1.0) 10^3/uL Eos # (Auto) (0.0-0.7) 10^3/uL Baso # (Auto) (0.0-0.1) 10^3/uL Absolute Nucleated RBC x10^3/uL Nucleated RBC % /100WBC Sodium (135-145) mmol/L Potassium (3.5-5.0) mmol/L Chloride (101-111) mmol/L Carbon Dioxide (21-32) mmol/L Anion Gap (6-13) BUN (6-20) mg/dL Creatinine (0.6-1.2) mg/dL Estimated GFR (MDRD) (>89) Glucose (70-100) mg/dL POC Whole Bld Glucose 148 H (70 - 100) mg/dL Calcium (8.5-10.3) mg/dL Phosphorus (2.5-4.6) mg/dL Magnesium (1.7-2.8) mg/dL Total Bilirubin (0.2-1.0) mg/dL AST (10-42) IU/L ALT (10-60) IU/L Alkaline Phosphatase (42-121) IU/L Total Protein (6.7-8.2) g/dL Albumin (3.2-5.5) g/dL Globulin (2.1-4.2) g/dL Albumin/Globulin Ratio (1.0-2.2) Prealbumin (18-45) mg/dL Impression and Recommendations - Palliative Care Impression: This is an 89-year-old gentleman with recent perforated duodenal ulcer with a complex cardiac history with underlying A. fib and history of CVA with vascular dementia. Patient has had a functional decline over the last 2 years as well as cognitive impairment. He is requiring increased needs of care within the home. Palliative care to provide support, symptom management, exploration of goals of care and anticipatory guidance. Recommendations/Counseling Done: 1. Vascular Dementia due to prior CVA. Chronic and progressive. Patient recently underwent an neurocognitive evaluation with Dr. Fraser in [place] demonstrating dementia due to CVA likely vascular in nature due to to his prior medical history. He is demonstrating some evidence of paranoia in regards to the men in his family that her in-laws due to his underlying dementia and strong sense of patriarch goal hierarchy.He is not on any disease modifying agents. No history of frequent falls. However, the patient does have a fear of falling reported by his daughter. A given the patient's advanced age and chronic comorbidities gradual decline as expected. 2. Perforated duodenal ulcer. Tolerating oral intake. Defer to hospitalist for management. 3. Advanced Care Planning. Discussion was had via [employer] phone with patient and daughter/healthcare agent Leonor and granddaughter, Victor Hugo in regards to [address] to have a plan in place returning home. Patient was quite adamant that he wishes CPR performed. The patient's daughter/healthcare agent finds that she has a dichotomy in regards to honoring her father's wishes and the burdens of proceeding with a focus entirely on quality of life and comfort. The patient is able to contribute to the medical decision making at this present time the daughter is aware that in the future given the patient's underlying dementia that may not be the case. Daughter and granddaughter in agreement to proceed with full code at the present time and request that hospitalist change CODE STATUS.Daughter/healthcare agent, Leonor wishes to have more support at home and the ultimate desire is for the family to relocate to be closer to the patient's granddaughter in [place]. The patient at present is to be discharged home has he declines a alf facility with home health services in place. Family request that palliative care follow the patient at home and assist with a transition to hospice when and if medically appropriate. Time Spent: Total time spent 120 minutes with greater than 50% of this spent in counseling and coordination of care with patient, daughter Leonor and granddaughter Micaela and MONIQUE Harmon; palliative and hospice philosophy;supportive listening provided; review of symptom management and anticipatory guidance. Provided blank POLST for daughter for review and hard choices for loving people book for reference. Requested that Dr. Monae change patient to Full [employer]. disclaimer: The chart note was formulated using voice recognition technology and unfortunately sound alike errors may occur.
--- NOTE | 2019-09-09 16:58 | PROVIDER PROGRESS NOTE ---
Subjective - Prog Note Date Prog Note Date: 09/09/19 - Subjective Pt reports feeling: Improved (breathing comfortably. taking po without difficulty) Objective - Vital Signs/Intake & Output Vital Signs: Vital Signs x48h Temp Pulse Resp BP BP Pulse Ox 09/09/19 16:32 94 21 143/89 H 97 09/09/19 12:46 35.8 C L 86 23 111/72 96 09/09/19 09:19 139/69 H Intake & Output: Intake & Output 09/06/19 09/07/19 09/08/19 09/09/19 23:59 23:59 23:59 23:59 Intake Total 5514.129 2140.334 1948 577 Output Total 2815 5030 2035 515 Balance 2699.129 -389.666 -87 62 - Objective General Appearance: positive: Alert ENT: positive: No signs of dehydration Neck: positive: Nml inspection Respiratory: positive: No respiratory distress Abdomen: positive: Non-tender, No distention, Other (Incision c/d/i. no erythema) Extremities: positive: No pedal edema - Lab Results Fish Bones: 09/09/19 05:00 09/09/19 05:05 Other Labs: Lab Results x24hrs 09/09/19 09/09/19 09/09/19 Range/Units 11:56 05:05 05:00 WBC 10.0 (4.8-10.8) x10^3/uL RBC 2.91 L (4.70-6.10) 10^6/uL Hgb 9.3 L (14.0-18.0) g/dL Hct 28.2 L (42.0-52.0) % MCV 96.9 H (80.0-94.0) fL MCH 32.0 H (27.0-31.0) pg MCHC 33.0 (32.0-36.0) g/dL RDW 13.1 (12.0-15.0) % Plt Count 174 (130-450) 10^3/uL MPV 11.5 H (7.4-11.4) fL Neut # (Auto) 6.3 (1.5-6.6) 10^3/uL Lymph # (Auto) 1.3 L (1.5-3.5) 10^3/uL Humphreys # (Auto) 1.3 H (0.0-1.0) 10^3/uL Eos # (Auto) 0.5 (0.0-0.7) 10^3/uL Baso # (Auto) 0.0 (0.0-0.1) 10^3/uL Absolute Nucleated RBC 0.00 x10^3/uL Nucleated RBC % 0.0 /100WBC Sodium 139 (135-145) mmol/L Potassium 3.8 (3.5-5.0) mmol/L Chloride 102 (101-111) mmol/L Carbon Dioxide 28 (21-32) mmol/L Anion Gap 9.0 (6-13) BUN 40 H (6-20) mg/dL Creatinine 1.9 H (0.6-1.2) mg/dL Estimated GFR (MDRD) 34 L (>89) Glucose 168 H (70-100) mg/dL POC Whole Bld Glucose 161 H (70 - 100) mg/dL Calcium 7.8 L (8.5-10.3) mg/dL Phosphorus 2.5 (2.5-4.6) mg/dL Magnesium 1.8 (1.7-2.8) mg/dL Total Bilirubin 1.2 H (0.2-1.0) mg/dL AST 16 (10-42) IU/L ALT 15 (10-60) IU/L Alkaline Phosphatase 116 (42-121) IU/L Total Protein 5.2 L (6.7-8.2) g/dL Albumin 1.9 L (3.2-5.5) g/dL Globulin 3.3 (2.1-4.2) g/dL Albumin/Globulin Ratio 0.6 L (1.0-2.2) Prealbumin 6 L (18-45) mg/dL 09/09/19 Range/Units 00:11 WBC (4.8-10.8) x10^3/uL RBC (4.70-6.10) 10^6/uL Hgb (14.0-18.0) g/dL Hct (42.0-52.0) % MCV (80.0-94.0) fL MCH (27.0-31.0) pg MCHC (32.0-36.0) g/dL RDW (12.0-15.0) % Plt Count (130-450) 10^3/uL MPV (7.4-11.4) fL Neut # (Auto) (1.5-6.6) 10^3/uL Lymph # (Auto) (1.5-3.5) 10^3/uL Humphreys # (Auto) (0.0-1.0) 10^3/uL Eos # (Auto) (0.0-0.7) 10^3/uL Baso # (Auto) (0.0-0.1) 10^3/uL Absolute Nucleated RBC x10^3/uL Nucleated RBC % /100WBC Sodium (135-145) mmol/L Potassium (3.5-5.0) mmol/L Chloride (101-111) mmol/L Carbon Dioxide (21-32) mmol/L Anion Gap (6-13) BUN (6-20) mg/dL Creatinine (0.6-1.2) mg/dL Estimated GFR (MDRD) (>89) Glucose (70-100) mg/dL POC Whole Bld Glucose 148 H (70 - 100) mg/dL Calcium (8.5-10.3) mg/dL Phosphorus (2.5-4.6) mg/dL Magnesium (1.7-2.8) mg/dL Total Bilirubin (0.2-1.0) mg/dL AST (10-42) IU/L ALT (10-60) IU/L Alkaline Phosphatase (42-121) IU/L Total Protein (6.7-8.2) g/dL Albumin (3.2-5.5) g/dL Globulin (2.1-4.2) g/dL Albumin/Globulin Ratio (1.0-2.2) Prealbumin (18-45) mg/dL Sepsis Event Note (H) - Evaluation Current Stage of Sepsis: Resolved Possible source of Sepsis: positive: GI tract/intra-abdominal - Sepsis Criteria Sepsis Criteria: Recorded Heart Rate greater than 90 bpm, WBC count greater than 12,000 or less than 4000, SBP drop more than 40mHg, MAP less than 65 mmHg, SBP less than 90 mmHg Assessment/Plan - Problem List (1) Perforated duodenal ulcer Impression: doing well . appreciate medical care. arm sutures are due to be removed 09/10. Family is planing on having home after d/c . Diet as tolerated.
[2019-09-09] MEDS ORDERED: INSULIN ASPART 300 UNIT/3 ML PEN SUBQ SCH (17:00)
[2019-09-09] MEDS: INSULIN GLARGINE 300 UNIT/3 ML PEN SUBQ SCH (21:38)
[2019-09-09] MEDS: METOPROLOL TARTRATE 50 MG TABLET PO SCH (21:42)
[2019-09-09] MEDS: ATORVASTATIN 40 MG TABLET PO SCH (21:44)
[2019-09-09] MEDS: PANTOPRAZOLE 40 MG TABLET PO SCH (21:44)
[2019-09-10] MEDS: PIPERACILLIN/TAZOBACTAM 3.375 GM in SODIUM CHLORIDE 0.9% MINIBAG 100 ML IV SCH ×2 (01:37→09:32)
[2019-09-10] MEDS: SODIUM CHLORIDE FLUSH 0.9% 10 ML SYRINGE IVP PRN (01:41)
[2019-09-10] MEDS: SODIUM CHLORIDE FLUSH 0.9% 10 ML SYRINGE IVP SCH ×3 (05:01→17:32)
[2019-09-10] MEDS: HYDROcod/ACETAM 5/325 MG TABLET PO PRN ×3 (05:01→21:39)
[2019-09-10 05:13] LABS: BASOPHILS % (AUTO) 0.6 %; EOSINOPHILS % (AUTO) 3.7 %; HGB - HEMOGLOBIN 8.9 g/dL (14.0-18.0); LYMPHOCYTES % (AUTO) 14.3 %; MEAN CORPUSCULAR HEMOGLOBIN 30.3 pg (27.0-31.0); MEAN CORPUSCULAR HGB CONC 31.1 g/dL (32.0-36.0); MEAN CORPUSCULAR VOLUME 97.3 fL (80.0-94.0); MEAN PLATELET VOLUME 11.2 fL (7.4-11.4); NEUTROPHILS % (AUTO) 62.2 %; PLT - PLATELET COUNT 205 10^3/uL (130-450); RED BLOOD COUNT 2.94 10^6/uL (4.70-6.10); RED CELL DISTRIBUTION WIDTH 13.2 % (12.0-15.0); WHITE BLOOD COUNT 10.7 x10^3/uL (4.8-10.8)
[2019-09-10 05:24] LABS: ABNORMAL LYMPHS % (MANUAL) 0 %
[2019-09-10 05:36] LABS: % IRON SATURATION 13 % (20-50); IRON 15 ug/dL (45-182); TOTAL IRON BINDING CAPACITY 118 ug/dL (250-450); TRANSFERRIN 84 mg/dL (180-329)
[2019-09-10 05:55] LABS: BAND NEUTROPHILS % (MANUAL) 4 %; DIFFERENTIAL COMMENT MANUAL DIFFERENTIAL; EOSINOPHILS # (MANUAL) 0.7 10^3/uL (0-0.7); LYMPHOCYTES % (MANUAL) 19 %; METAMYELOCYTES % (MANUAL) 1 %; MONOCYTES # (MANUAL) 0.9 10^3/uL (0.0-1.0); MYELOCYTES % (MANUAL) 2 %; PLATELET ESTIMATE, MANUAL NORMAL (130-450,000) (NORMAL); RBC MORPHOLOGY (MULTIPLE) NORMAL APPEARANCE (NORMAL)
[2019-09-10 05:55] LABS: FOLATE 12.9 ng/mL (5.90 - >24.8)
[2019-09-10] MEDS: ASPIRIN CHEW 81 MG TABLET PO SCH (08:42)
[2019-09-10] MEDS: PANTOPRAZOLE 40 MG TABLET PO SCH ×2 (08:42→21:40)
[2019-09-10] MEDS: METOPROLOL TARTRATE 50 MG TABLET PO SCH ×2 (08:43→21:39)
[2019-09-10] MEDS: INSULIN ASPART 300 UNIT/3 ML PEN SUBQ SCH ×7 (09:01→21:51)
[2019-09-10] MEDS: HEPARIN 5,000 UNIT/ML VIAL SUBQ SCH ×2 (09:04→21:49)
[2019-09-10] MEDS: polyethylene glycoL 3350 17 GM PACKET PO PRN (12:09)
[2019-09-10] MEDS: CHLORHEXIDINE GLUCONATE 15 ML UDC PO SCH ×2 (12:48→21:40)
--- NOTE | 2019-09-10 13:03 | PROVIDER PROGRESS NOTE ---
Subjective - Prog Note Date Prog Note Date: 09/10/19 - Subjective Pt reports feeling: Improved (more alert today. taking diet better. denies pain) Objective - Vital Signs/Intake & Output Vital Signs: Vital Signs x48h Temp Pulse Resp BP BP Pulse Ox 09/10/19 08:43 118/58 L 09/10/19 08:40 21 88 L 09/10/19 08:11 36.1 C L 95 21 118/58 L 95 Intake & Output: Intake & Output 09/07/19 09/08/19 09/09/19 09/10/19 23:59 23:59 23:59 23:59 Intake Total 2140.334 1948 797 500 Output Total 2530 5 815 550 Balance -389.666 -87 -18 -50 - Objective General Appearance: positive: No acute distress, Alert Eyes Bilateral: positive: Normal inspection Respiratory: positive: No respiratory distress Abdomen: positive: Non-tender, No distention, Other (incision c/d/i) Extremities: positive: Other (right upper arm incision healed) - Lab Results Fish Bones: 09/10/19 04:30 09/09/19 05:05 Other Labs: Lab Results x24hrs 09/10/19 09/10/19 09/10/19 Range/Units 12:06 08:22 04:50 WBC (4.8-10.8) x10^3/uL RBC (4.70-6.10) 10^6/uL Hgb (14.0-18.0) g/dL Hct (42.0-52.0) % MCV (80.0-94.0) fL MCH (27.0-31.0) pg MCHC (32.0-36.0) g/dL RDW (12.0-15.0) % Plt Count (130-450) 10^3/uL MPV (7.4-11.4) fL Neut # (Auto) Lymph # (Auto) Bureau # (Auto) Eos # (Auto) Baso # (Auto) Absolute Nucleated RBC Total Counted Band Neuts % (Manual) (0 - 10) % Abnorm Lymph % (Manual) % Metamyelocytes % ( - 0) % Myelocytes % ( - 0) % Nucleated RBC % Neutrophils # (Manual) (1.5-6.6) 10^3/uL Lymphocytes # (Manual) (1.5-3.5) 10^3/uL Monocytes # (Manual) (0.0-1.0) 10^3/uL Eosinophils # (Manual) (0-0.7) 10^3/uL Basophils # (Manual) (0-0.1) 10^3/uL Differential Comment Platelet Estimate (NORMAL) RBC Morph Micro Appear (NORMAL) POC Whole Bld Glucose 176 H 111 H (70 - 100) mg/dL Iron (45-182) ug/dL TIBC (250-450) ug/dL % Saturation (20-50) % Transferrin (180-329) mg/dL Vitamin B12 330 (180-914) pg/mL Folate 12.90 (5.90 - >24.8) ng/mL 09/10/19 09/10/19 09/09/19 Range/Units 04:50 04:30 21:34 WBC 10.7 (4.8-10.8) x10^3/uL RBC 2.94 L (4.70-6.10) 10^6/uL Hgb 8.9 L (14.0-18.0) g/dL Hct 28.6 L (42.0-52.0) % MCV 97.3 H (80.0-94.0) fL MCH 30.3 (27.0-31.0) pg MCHC 31.1 L (32.0-36.0) g/dL RDW 13.2 (12.0-15.0) % Plt Count 205 (130-450) 10^3/uL MPV 11.2 (7.4-11.4) fL Neut # (Auto) Not Reportable Lymph # (Auto) Not Reportable Bureau # (Auto) Not Reportable Eos # (Auto) Not Reportable Baso # (Auto) Not Reportable Absolute Nucleated RBC Not Reportable Total Counted 100 Band Neuts % (Manual) 4 (0 - 10) % Abnorm Lymph % (Manual) 0 % Metamyelocytes % 1 H ( - 0) % Myelocytes % 2 H ( - 0) % Nucleated RBC % Not Reportable Neutrophils # (Manual) 6.7 H (1.5-6.6) 10^3/uL Lymphocytes # (Manual) 2.0 (1.5-3.5) 10^3/uL Monocytes # (Manual) 0.9 (0.0-1.0) 10^3/uL Eosinophils # (Manual) 0.7 (0-0.7) 10^3/uL Basophils # (Manual) 0.0 (0-0.1) 10^3/uL Differential Comment MANUAL DIFFERENTIAL Platelet Estimate NORMAL (130-450,000) (NORMAL) RBC Morph Micro Appear NORMAL APPEARANCE (NORMAL) POC Whole Bld Glucose 171 H (70 - 100) mg/dL Iron 15 L (45-182) ug/dL TIBC 118 L (250-450) ug/dL % Saturation 13 L (20-50) % Transferrin 84 L (180-329) mg/dL Vitamin B12 (180-914) pg/mL Folate (5.90 - >24.8) ng/mL 09/09/19 Range/Units 17:11 WBC (4.8-10.8) x10^3/uL RBC (4.70-6.10) 10^6/uL Hgb (14.0-18.0) g/dL Hct (42.0-52.0) % MCV (80.0-94.0) fL MCH (27.0-31.0) pg MCHC (32.0-36.0) g/dL RDW (12.0-15.0) % Plt Count (130-450) 10^3/uL MPV (7.4-11.4) fL Neut # (Auto) Lymph # (Auto) Bureau # (Auto) Eos # (Auto) Baso # (Auto) Absolute Nucleated RBC Total Counted Band Neuts % (Manual) (0 - 10) % Abnorm Lymph % (Manual) % Metamyelocytes % ( - 0) % Myelocytes % ( - 0) % Nucleated RBC % Neutrophils # (Manual) (1.5-6.6) 10^3/uL Lymphocytes # (Manual) (1.5-3.5) 10^3/uL Monocytes # (Manual) (0.0-1.0) 10^3/uL Eosinophils # (Manual) (0-0.7) 10^3/uL Basophils # (Manual) (0-0.1) 10^3/uL Differential Comment Platelet Estimate (NORMAL) RBC Morph Micro Appear (NORMAL) POC Whole Bld Glucose 176 H (70 - 100) mg/dL Iron (45-182) ug/dL TIBC (250-450) ug/dL % Saturation (20-50) % Transferrin (180-329) mg/dL Vitamin B12 (180-914) pg/mL Folate (5.90 - >24.8) ng/mL Sepsis Event Note (H) - Evaluation Current Stage of Sepsis: Resolved Possible source of Sepsis: positive: GI tract/intra-abdominal - Sepsis Criteria Sepsis Criteria: Recorded Heart Rate greater than 90 bpm, WBC count greater than 12,000 or less than 4000, SBP drop more than 40mHg, MAP less than 65 mmHg, SBP less than 90 mmHg Assessment/Plan - Problem List (1) Perforated duodenal ulcer Impression: right upper arm sutures can come out tomorrow. diet of choice. bowel care as needed [place] out or sunday. If goes home soon plan follow up in the office thursday 09/14 for staple removal
--- NOTE | 2019-09-10 16:10 | PROVIDER PROGRESS NOTE ---
Assessment/Plan - Problem List (1) Perforated duodenal ulcer Assessment/Plan: Day is POD #7. Appreciate general surgery following along and they recommend that sutures can come out tomorrow, diet can be advanced as tolerated, bowel protocol to start today to promote a bowel movement. He has been passing flatus. Today was the last day of IV Zosyn treatment. Continue to advance ambulation/PT/OT. He is refusing SNF as well as the family and therefore home health will be ordered for home PT, OT, swallowing assistance to advance his diet with a speech therapist and a bath aide. (2) Acute respiratory failure with hypoxia Assessment/Plan: He still requires 1 L oxygen per nasal cannula or O2 sat dropped to less than 88%. Continue with supplemental oxygen which will need a slow weaning (3) Acute on chronic combined systolic (congestive) and diastolic (congestive) heart failure Assessment/Plan: No overt failure. Continue with present fluid orders and meds (4) CKD (chronic kidney disease) stage 3, GFR 30-59 ml/min Assessment/Plan: It is stable at 1.8-1.9 daily. (5) History of CVA (cerebrovascular accident) Assessment/Plan: As per Hx (6) History of coronary artery disease Assessment/Plan: Stable, on current meds (7) Type 2 diabetes mellitus, without long-term current use of insulin Assessment/Plan: Will advance his diet as tolerated to a diabetic diet. Continue with insulin coverage (8) Macrocytic anemia Assessment/Plan: He has adequate B12 and folate levels but is very low in iron stores. Will not begin oral iron because it can cause constipation. Monitor H/H daily, and he would need a blood transfusion if hemoglobin goes under 10. (9) Sacral decubitus ulcer Assessment/Plan: The skin is not opened, it has a purplish discoloration and is getting topical management (10) Dementia Assessment/Plan: Patient does have some paranoid ideations but also specific idiosyncrasies which may be related to ethnicity (like not wanting to have BM so that he does not need help with toileting). Family requested that Palliative Care be involved and he was seen by Izzy Toledo, CHANELLE, palliative care provider yesterday and she will start following with him. (11) Moderate malnutrition Assessment/Plan: We will continue to advance diet as tolerated. (12) Paroxysmal atrial fibrillation Assessment/Plan: This occurred earlier in the hospitalization and has not recurred - Current Meds Current Meds: Current Medications Generic Name Dose Route Start Last Admin Trade Name Freq PRN Reason Stop Dose Admin Hydrocodone Bitart/Acetaminophen 1 tab 09/09/19 11:05 09/10/19 05:01 [place] 5/325 PO 1 tab Q4HR PRN Administration PAIN Aspirin 81 mg 09/10/19 09:00 09/10/19 08:42 [place] Aspirin PO 81 mg DAILY LUIS Administration Atorvastatin Calcium 80 mg 09/09/19 21:00 09/09/19 21:44 Lipitor PO 80 mg QPM LUIS Administration Chlorhexidine Gluconate 15 ml 09/03/19 23:45 09/10/19 12:48 Peridex PO 15 ml BID LUIS Administration Heparin Sodium (Porcine) 5,000 unit 09/06/19 09:00 09/10/19 09:04 SUBQ 5,000 unit BID LUIS Administration Insulin Aspart 1 - 9 unit 09/09/19 12:15 09/10/19 12:48 Novolog SUBQ 1 unit 0800,1200,1700,2100 LUIS Administration Protocol Insulin Aspart 5 unit 09/09/19 13:30 09/10/19 12:49 Novolog SUBQ 2 unit TIDWM LUIS Administration Protocol Insulin Glargine 30 unit 09/06/19 21:00 09/09/19 21:38 Lantus Solostar SUBQ 30 unit QPM LUIS Administration Metoprolol Tartrate 50 mg 09/09/19 21:00 09/10/19 08:43 Lopressor PO 50 mg BID LUIS Administration Morphine Sulfate 2 mg 09/04/19 00:28 09/09/19 08:00 Morphine (Carpuject) IVP 2 mg Q2HR PRN Administration PAIN Multi-Ingredient Ointment 1 applic 09/06/19 13:02 09/09/19 09:00 Zinc Oxide TOP 1 applic PRN PRN Administration Skin Care Pantoprazole Sodium 40 mg 09/09/19 21:00 09/10/19 08:42 Protonix PO 40 mg BID LUIS Administration Phenol/Menthol 2 sprays 09/07/19 16:15 09/08/19 12:53 Chloraseptic MM 2 sprays Q2HR PRN Administration Throat Pain Polyethylene Glycol 17 gm 09/10/19 11:01 09/10/19 12:09 Miralax PO 17 gm DAILY PRN Administration Bowel Protocol Sodium Chloride 20 ml 09/07/19 11:15 09/10/19 01:41 Normal Saline Flush 0.9% IVP 20 ml PRN PRN Administration After Blood Draw Sodium Chloride 10 ml 09/07/19 17:00 09/10/19 09:33 Normal Saline Flush 0.9% IVP 20 ml 0100,0900,1700 LUIS Administration Sodium Chloride 10 ml 09/07/19 13:48 09/09/19 10:05 Normal Saline Flush 0.9% IVP 20 ml PRN PRN Administration NEEDED PER PROVIDER ORDERS - Lab Result Fish Bone Diagrams: 09/11/19 05:30 09/11/19 05:30 - Additional Planning My Orders: My Active Orders 09/09/19 21:00 Atorvastatin [Lipitor] 80 mg PO QPM Metoprolol Tartrate [Lopressor] 50 mg PO BID Pantoprazole [Protonix] 40 mg PO BID 09/10/19 Home Health Referral [CONS] Routine 09/10/19 09:00 Aspirin Chewable [[place] Aspirin] 81 mg PO DAILY 09/10/19 11:00 Bowel Protocol [Bowel - Constipation Care] [RC] ONCE 09/10/19 11:01 polyethylene glycoL 3350 [Miralax] 17 gm PO DAILY PRN 09/11/19 05:00 CBC - COMP BLD CT W/AUTO DIFF [HEME] DAILYLAB 09/12/19 05:00 CBC - COMP BLD CT W/AUTO DIFF [HEME] DAILYLAB Subjective - Subjective Patient Reports: Resting Comfortably, Pain (Better control of pain every day.) Nursing Reports: Other (Patient desires to be fed,) Objective Vital Signs: Vital Signs - 24 hr 09/09/19 09/09/19 09/09/19 16:32 16:50 21:00 Temperature 36.7 C Heart Rate [ 94 91 Monitoring electrodes] Respiratory 21 26 H Rate Blood Pressure Blood Pressure 143/89 H 123/62 [Right Radial artery] O2 Saturation 97 90 L 98 09/09/19 09/10/19 09/10/19 21:42 05:00 08:11 Temperature 36.7 C 36.1 C L Heart Rate [ 88 95 Monitoring electrodes] Respiratory 20 21 Rate Blood Pressure 123/62 Blood Pressure 118/58 L [Right Radial artery] O2 Saturation 98 95 09/10/19 09/10/19 08:40 08:43 Temperature Heart Rate [ Monitoring electrodes] Respiratory 21 Rate Blood Pressure 118/58 L Blood Pressure [Right Radial artery] O2 Saturation 88 L Oxygen O2 Source [With Activity] Nasal cannula O2 Source Room air I&O (Last 24 Hrs): Intake and Output Totals x24h 09/08/19 09/09/19 09/10/19 23:59 23:59 23:59 Intake Total 1948 797 600 Output Total 2035 815 550 Balance -87 -18 50 General: Alert HEENT: Mucous membr. moist/pink Neck: Supple Neuro: Non Focal Cardiovascular: Regular rate Respiratory: No respiratory distress Extremities: Other (1+ ankle edema) - Results Results: Laboratory Results WBC 10.7 x10^3/uL (4.8-10.8) 09/10/19 04:30 RBC 2.94 10^6/uL (4.70-6.10) L 09/10/19 04:30 Hgb 8.9 g/dL (14.0-18.0) L 09/10/19 04:30 Hct 28.6 % (42.0-52.0) L 09/10/19 04:30 MCV 97.3 fL (80.0-94.0) H 09/10/19 04:30 MCH 30.3 pg (27.0-31.0) 09/10/19 04:30 MCHC 31.1 g/dL (32.0-36.0) L 09/10/19 04:30 RDW 13.2 % (12.0-15.0) 09/10/19 04:30 Plt Count 205 10^3/uL (130-450) 09/10/19 04:30 MPV 11.2 fL (7.4-11.4) 09/10/19 04:30 Neut # (Auto) Not Reportable 09/10/19 04:30 Lymph # (Auto) Not Reportable 09/10/19 04:30 [place] # (Auto) Not Reportable 09/10/19 04:30 Eos # (Auto) Not Reportable 09/10/19 04:30 Baso # (Auto) Not Reportable 09/10/19 04:30 Absolute Nucleated RBC Not Reportable 09/10/19 04:30 Total Counted 100 09/10/19 04:30 Band Neuts % (Manual) 4 % (0-10) 09/10/19 04:30 Abnorm Lymph % (Manual) 0 % 09/10/19 04:30 Metamyelocytes % 1 % (-0) H 09/10/19 04:30 Myelocytes % 2 % (-0) H 09/10/19 04:30 Nucleated RBC % Not Reportable 09/10/19 04:30 Neutrophils # (Manual) 6.7 10^3/uL (1.5-6.6) H 09/10/19 04:30 Lymphocytes # (Manual) 2.0 10^3/uL (1.5-3.5) 09/10/19 04:30 Monocytes # (Manual) 0.9 10^3/uL (0.0-1.0) 09/10/19 04:30 Eosinophils # (Manual) 0.7 10^3/uL (0-0.7) 09/10/19 04:30 Basophils # (Manual) 0.0 10^3/uL (0-0.1) 09/10/19 04:30 Differential Comment MANUAL DIFFERENTIAL 09/10/19 04:30 WBC Morphology NORMAL APPEARANCE (NORMAL) 09/04/19 04:50 Platelet Estimate NORMAL (130-450,000) (NORMAL) 09/10/19 04:30 Platelet Morphology NORMAL APPEARANCE (NORMAL) 09/04/19 04:50 RBC Morph Micro Appear NORMAL APPEARANCE (NORMAL) 09/10/19 04:30 PT 12.2 secs (9.9-12.6) 09/03/19 17:25 INR 1.1 (0.8-1.2) 09/03/19 17:25 Bld Gas Analysis Time 0525 09/05/19 05:13 Sample Site RIGHT RADIAL 09/05/19 05:13 ABG pH 7.42 (7.35-7.45) 09/05/19 05:13 ABG pCO2 35 mmHg (34-45) 09/05/19 05:13 ABG pO2 76 mmHg (80-100) L 09/05/19 05:13 ABG HCO3 22.2 mmol/L (22.0-26.0) 09/05/19 05:13 ABG Total CO2 23.3 MMOL/L (21.0-29.0) 09/05/19 05:13 ABG O2 Saturation 95 % (94-98) 09/05/19 05:13 ABG Base Excess -1.8 mmol/L (-2.0-3.0) 09/05/19 05:13 [place] Test POSITIVE 09/05/19 05:13 VBG pH 7.277 (7.31-7.41) L 09/04/19 04:50 Ionized Calcium 0.97 mmol/L (1.15-1.33) L 09/04/19 04:50 Respiration Rate 16 b/min 09/05/19 05:13 O2 Delivery Device VENTILATOR 09/05/19 05:13 Vent Mode SIMV 09/05/19 05:13 FiO2 25.00 09/05/19 05:13 Tidal Volume 500 mL 09/05/19 05:13 PEEP 5 cmH2O 09/05/19 05:13 Pressure Support Vent 10 cmH2O 09/05/19 05:13 Sodium 139 mmol/L (135-145) 09/09/19 05:05 Potassium 3.8 mmol/L (3.5-5.0) 09/09/19 05:05 Chloride 102 mmol/L (101-111) 09/09/19 05:05 Carbon Dioxide 28 mmol/L (21-32) 09/09/19 05:05 Anion Gap 9.0 (6-13) 09/09/19 05:05 BUN 40 mg/dL (6-20) H 09/09/19 05:05 Creatinine 1.9 mg/dL (0.6-1.2) H 09/09/19 05:05 Estimated GFR (MDRD) 34 (>89) L 09/09/19 05:05 Glucose 168 mg/dL (70-100) H 09/09/19 05:05 POC Whole Bld Glucose 176 mg/dL (70 - 100) H 09/10/19 12:06 Glycated Hemoglobin 8.3 % (4.6-6.2) H 09/06/19 05:00 Estim Average Glucose 192 (70-100) H 09/06/19 05:00 Lactic Acid 2.1 mmol/L (0.5-2.2) 09/03/19 17:25 Calcium 7.8 mg/dL (8.5-10.3) L 09/09/19 05:05 Phosphorus 2.5 mg/dL (2.5-4.6) 09/09/19 05:05 Magnesium 1.8 mg/dL (1.7-2.8) 09/09/19 05:05 Iron 15 ug/dL (45-182) L 09/10/19 04:50 TIBC 118 ug/dL (250-450) L 09/10/19 04:50 % Saturation 13 % (20-50) L 09/10/19 04:50 Transferrin 84 mg/dL (180-329) L 09/10/19 04:50 Total Bilirubin 1.2 mg/dL (0.2-1.0) H 09/09/19 05:05 AST 16 IU/L (10-42) 09/09/19 05:05 ALT 15 IU/L (10-60) 09/09/19 05:05 Alkaline Phosphatase 116 IU/L (42-121) 09/09/19 05:05 Troponin I High Sens 16.5 ng/L (2.3-19.7) 09/03/19 19:59 Total Protein 5.2 g/dL (6.7-8.2) L 09/09/19 05:05 Albumin 1.9 g/dL (3.2-5.5) L 09/09/19 05:05 Globulin 3.3 g/dL (2.1-4.2) 09/09/19 05:05 Albumin/Globulin Ratio 0.6 (1.0-2.2) L 09/09/19 05:05 Prealbumin 6 mg/dL (18-45) L 09/09/19 05:05 Triglycerides 153 mg/dL (-149) H 09/06/19 05:00 Lipase 26 U/L (22-51) 09/03/19 17:25 Vitamin B12 330 pg/mL (180-914) 09/10/19 04:50 Folate 12.90 ng/mL (5.90 - >24.8) 09/10/19 04:50 TSH 0.66 uIU/mL (0.34-5.60) 09/03/19 17:25 Urine Color DARK YELLOW 09/04/19 18:00 Urine Clarity CLEAR (CLEAR) 09/04/19 18:00 Urine pH 5.5 PH (5.0-7.5) 09/04/19 18:00 Ur Specific [place] 1.025 (1.002-1.030) 09/04/19 18:00 Urine Protein 30 mg/dL (NEGATIVE) H 09/04/19 18:00 Urine Glucose (UA) NEGATIVE mg/dL (NEGATIVE) 09/04/19 18:00 Urine Ketones NEGATIVE mg/dL (NEGATIVE) 09/04/19 18:00 Urine Occult Blood TRACE-LYSE (NEGATIVE) 09/04/19 18:00 Urine Nitrite NEGATIVE (NEGATIVE) 09/04/19 18:00 Urine Bilirubin NEGATIVE (NEGATIVE) 09/04/19 18:00 Urine Urobilinogen 1 (NORMAL) E.U./dL (NORMAL) 09/04/19 18:00 Ur Leukocyte Esterase NEGATIVE (NEGATIVE) 09/04/19 18:00 Urine RBC 6-10 /HPF (0-5) H 09/04/19 18:00 Urine WBC 4-5 /HPF (0-3) 09/04/19 18:00 Ur Squamous Epith Cells NONE SEEN (<= Few) 09/04/19 18:00 Urine Bacteria Few /HPF (None Seen) 09/04/19 18:00 Ur Microscopic Review INDICATED 09/04/19 18:00 Urine Culture Comments NOT INDICATED 09/04/19 18:00 Nasal Screen MRSA (PCR) NEGATIVE (NEGATIVE) 09/03/19 23:35 - Procedures Procedures: Procedures (11/06/17) EXCISION OF RECTUM, ENDO (11/06/17) TRANSFUSE NONAUT RED BLOOD CELLS IN PERIPH VEIN, PERC (11/06/17) Sepsis Event Note (H) - Evaluation Current Stage of Sepsis: Resolved Possible source of Sepsis: positive: GI tract/intra-abdominal - Sepsis Criteria Sepsis Criteria: Recorded Heart Rate greater than 90 bpm, WBC count greater than 12,000 or less than 4000, SBP drop more than 40mHg, MAP less than 65 mmHg, SBP less than 90 mmHg
[2019-09-10] MEDS: ATORVASTATIN 40 MG TABLET PO SCH (21:39)
[2019-09-10] MEDS: INSULIN GLARGINE 300 UNIT/3 ML PEN SUBQ SCH (21:49)
[2019-09-11] MEDS: HYDROcod/ACETAM 5/325 MG TABLET PO PRN ×2 (02:51→07:59)
[2019-09-11] MEDS: SODIUM CHLORIDE FLUSH 0.9% 10 ML SYRINGE IVP SCH ×3 (05:33→17:21)
[2019-09-11] MEDS: SODIUM CHLORIDE FLUSH 0.9% 10 ML SYRINGE IVP PRN (05:33)
[2019-09-11 05:53] LABS: BASOPHILS % (AUTO) 0.5 %; EOSINOPHILS % (AUTO) 3.3 %; HGB - HEMOGLOBIN 8.7 g/dL (14.0-18.0); LYMPHOCYTES % (AUTO) 14.9 %; MEAN CORPUSCULAR HEMOGLOBIN 30.5 pg (27.0-31.0); MEAN CORPUSCULAR HGB CONC 31.2 g/dL (32.0-36.0); MEAN CORPUSCULAR VOLUME 97.9 fL (80.0-94.0); MEAN PLATELET VOLUME 10.8 fL (7.4-11.4); MONOCYTES % (AUTO) 9.1 %; NEUTROPHILS % (AUTO) 64.4 %; PLT - PLATELET COUNT 223 10^3/uL (130-450); RED BLOOD COUNT 2.85 10^6/uL (4.70-6.10); RED CELL DISTRIBUTION WIDTH 13.3 % (12.0-15.0); WHITE BLOOD COUNT 11.1 x10^3/uL (4.8-10.8)
[2019-09-11 06:04] LABS: ABNORMAL LYMPHS % (MANUAL) 0 %
[2019-09-11 06:08] LABS: ALBUMIN/GLOBULIN RATIO 0.6 (1.0-2.2); BILIRUBIN,TOTAL 1.1 mg/dL (0.2-1.0); CALCIUM 7.5 mg/dL (8.5-10.3); CREATININE 1.8 mg/dL (0.6-1.2); MAGNESIUM 2.2 mg/dL (1.7-2.8); PHOSPHORUS 2.6 mg/dL (2.5-4.6); TOTAL PROTEIN 5.3 g/dL (6.7-8.2)
[2019-09-11 06:31] LABS: BAND NEUTROPHILS % (MANUAL) 1 %; DIFFERENTIAL COMMENT MANUAL DIFFERENTIAL; EOSINOPHILS # (MANUAL) 0.3 10^3/uL (0-0.7); LYMPHOCYTES % (MANUAL) 9 %; METAMYELOCYTES % (MANUAL) 3 %; MONOCYTES # (MANUAL) 0.7 10^3/uL (0.0-1.0); MYELOCYTES % (MANUAL) 2 %; PLATELET ESTIMATE, MANUAL NORMAL (130-450,000) (NORMAL); RBC MORPHOLOGY (MULTIPLE) NORMAL APPEARANCE (NORMAL)
[2019-09-11] MEDS: INSULIN ASPART 300 UNIT/3 ML PEN SUBQ SCH ×5 (08:00→21:40)
[2019-09-11] MEDS: METOPROLOL TARTRATE 50 MG TABLET PO SCH ×2 (09:21→20:29)
[2019-09-11] MEDS: CHLORHEXIDINE GLUCONATE 15 ML UDC PO SCH ×2 (09:21→20:38)
[2019-09-11] MEDS: PANTOPRAZOLE 40 MG TABLET PO SCH ×2 (09:22→20:30)
[2019-09-11] MEDS: HEPARIN 5,000 UNIT/ML VIAL SUBQ SCH ×2 (09:22→20:37)
[2019-09-11] MEDS: ASPIRIN CHEW 81 MG TABLET PO SCH (09:22)
--- NOTE | 2019-09-11 11:21 | PROVIDER PROGRESS NOTE ---
Assessment/Plan - Problem List (1) Perforated duodenal ulcer Assessment/Plan: Today he is POD #7. Will plan to remove his sutures in the arm and freddy of his abdominal wall, as per the Gen Surgeon's note yesterday. D/C Freedman, since surgeon did not order that yet. Stop iv Morphine, use oral pain meds prn, in preparation for DCh (possibly tomorrow). Continue with encouraging activity, ambulation, out of bed to chair, PT. He is tolerating his pured diet and is asking for solid food. Will order a repeat swallowing bedside eval for solid food, to be done by the speech therapist today. (2) Acute respiratory failure with hypoxia Assessment/Plan: He was not on oxygen before this hospitalization, here he still needs 1 to 2 L of oxygen daily. By resuming his oral diuretic, perhaps the supplemental O2 need can be stopped. Planning discharge tomorrow, thefore, he would need an oximetry exercise walk test tomorrow, to see if he needs a new home oxygen order. (3) Acute on chronic combined systolic (congestive) and diastolic (congestive) heart failure Assessment/Plan: Viewed all the electronic records from his hospitalizations here. The last echo was done in 2018, prior to that in 2017. Both showed normal LVEF, there is no systolic heart failure. Will obtain an echo now for clarification of type of heart failure. Continue managing with beta-kang, switch to long-acting if he can take solid pills. Resume his p.o. Lasix which she was on at home and his spironolactone. He was not on oxygen before this hospitalization, here he still needs 1 to 2 L of oxygen daily. By resuming his oral diuretic, perhaps the supplemental O2 need can be stopped. (4) CKD (chronic kidney disease) stage 3, GFR 30-59 ml/min Assessment/Plan: Creatinine was slowly improving daily, plateauing at 1.8-1.9 (5) Type 2 diabetes mellitus, without long-term current use of insulin Assessment/Plan: A.m. glucose was low at 99, with a Lantus dose of 30 units subcu at hs, and he is also on Aspart insulin 5 units with meals. Will decrease the Lantus doses to 122 mg subcu at hs and stop the Aspart with meals. If his diet can advance, continue with a carb controlled diet, sliding scale insulin for fingerstick glu checks. (6) History of CVA (cerebrovascular accident) Assessment/Plan: As per Hx (7) History of coronary artery disease Assessment/Plan: Stable this admission. (8) Macrocytic anemia Assessment/Plan: He has adequate B12 and folate levels but is very low in iron stores. Will begin oral iron, continuing bowel protocol for constipation. Monitor H/H daily, and he would need a blood transfusion if hemoglobin goes under 10. (9) Sacral decubitus ulcer Assessment/Plan: The skin is not opened, it has a purplish discoloration and is getting topical management (10) Dementia Assessment/Plan: Patient does have some specific idiosyncrasies which may be related to ethnicity (like not wanting to have BM so that he does not need help with toileting) and believing that his son in law and other men steal from him. Family requested that Palliative Care be involved and he was seen by Izzy Toledo, CHANELLE, palliative care provider yesterday and she will start following with him. We will resume his home dementia meds. (11) Moderate malnutrition Assessment/Plan: We will continue to advance diet as tolerated. (12) Paroxysmal atrial fibrillation Assessment/Plan: This occurred earlier in the hospitalization and has not recurred - Current Meds Current Meds: Current Medications Generic Name Dose Route Start Last Admin Trade Name Freq PRN Reason Stop Dose Admin Hydrocodone Bitart/Acetaminophen 1 tab 09/09/19 11:05 09/11/19 07:59 [place] 5/325 PO 1 tab Q4HR PRN Administration PAIN Aspirin 81 mg 09/10/19 09:00 09/11/19 09:22 [place] Aspirin PO 81 mg DAILY LUIS Administration Atorvastatin Calcium 80 mg 09/09/19 21:00 09/10/19 21:39 Lipitor PO 80 mg QPM LUIS Administration Chlorhexidine Gluconate 15 ml 09/03/19 23:45 09/11/19 09:21 Peridex PO 15 ml BID LUIS Administration Heparin Sodium (Porcine) 5,000 unit 09/06/19 09:00 09/11/19 09:22 SUBQ 5,000 unit BID LUIS Administration Insulin Aspart 1 - 9 unit 09/09/19 12:15 09/11/19 08:00 Novolog SUBQ Not Given 0800,1200,1700,2100 LIUS Protocol Metoprolol Tartrate 50 mg 09/09/19 21:00 09/11/19 09:21 Lopressor PO 50 mg BID LUIS Administration Multi-Ingredient Ointment 1 applic 09/06/19 13:02 09/09/19 09:00 Zinc Oxide TOP 1 applic PRN PRN Administration Skin Care Pantoprazole Sodium 40 mg 09/09/19 21:00 09/11/19 09:22 Protonix PO 40 mg BID LUIS Administration Polyethylene Glycol 17 gm 09/10/19 11:01 09/10/19 12:09 Miralax PO 17 gm DAILY PRN Administration Bowel Protocol Sodium Chloride 20 ml 09/07/19 11:15 09/11/19 05:33 Normal Saline Flush 0.9% IVP 20 ml PRN PRN Administration After Blood Draw Sodium Chloride 10 ml 09/07/19 17:00 09/11/19 09:24 Normal Saline Flush 0.9% IVP 10 ml 0100,0900,1700 LUIS Administration Sodium Chloride 10 ml 09/07/19 13:48 09/09/19 10:05 Normal Saline Flush 0.9% IVP 20 ml PRN PRN Administration NEEDED PER PROVIDER ORDERS - Lab Result Fish Bone Diagrams: 09/11/19 05:30 09/11/19 05:30 - Additional Planning My Orders: My Active Orders 09/10/19 11:00 Bowel Protocol [Bowel - Constipation Care] [RC] ONCE 09/10/19 11:01 polyethylene glycoL 3350 [Miralax] 17 gm PO DAILY PRN 09/11/19 Consult [General Surgery Consult] [CONS] Routine Clinical Swallow Evaluation [ST] Routine 09/11/19 10:21 Freedman Discontinuation [RC] ONCE 09/11/19 11:19 Echo Transthoracic Complete [ECHO] Routine 09/11/19 12:00 Donepezil [Aricept] 10 mg PO DAILY PM 09/11/19 21:00 Furosemide [Lasix] 20 mg PO BID Insulin Glargine [Lantus Solostar] 12 unit SUBQ QPM 09/12/19 05:00 CBC - COMP BLD CT W/AUTO DIFF [HEME] DAILYLAB 09/12/19 09:00 Spironolactone [Aldactone] 25 mg PO DAILY Subjective - Subjective Patient Reports: Other (Has painful gassy distention. No further epigastric pain that brought him in, or wound pain after sugery.) Objective Vital Signs: Vital Signs - 24 hr 09/10/19 09/10/19 09/10/19 16:34 18:48 21:37 Temperature 36.9 C 36.3 C L Heart Rate [ Brachial] Heart Rate [ 90 81 Radial] Respiratory 24 24 17 Rate Blood Pressure Blood Pressure [Left Brachial artery] Blood Pressure [Left Radial artery] Blood Pressure 145/78 H 127/55 L [Right Radial artery] O2 Saturation 100 90 L 96 09/10/19 09/11/19 09/11/19 21:39 00:43 07:30 Temperature 36.3 C L 36.3 C L Heart Rate [ 83 Brachial] Heart Rate [ 85 Radial] Respiratory 18 18 Rate Blood Pressure 127/55 L Blood Pressure 119/56 L [Left Brachial artery] Blood Pressure 116/52 L [Left Radial artery] Blood Pressure [Right Radial artery] O2 Saturation 92 92 Oxygen O2 Source [With Activity] Nasal cannula O2 Source Nasal cannula I&O (Last 24 Hrs): Intake and Output Totals x24h 09/09/19 09/10/19 09/11/19 23:59 23:59 23:59 Intake Total 797 800 200 Output Total 815 950 250 Balance -18 -150 -50 General: Alert, Oriented x3 HEENT: Mucous membr. moist/pink, Other (Pale. Poor dentition) Neck: Supple, No JVD Neuro: Alert, Non Focal Cardiovascular: No murmurs Respiratory: No respiratory distress Abdomen: No tenderness, Other (Mildly distended, hypertympanic, normal bowel sounds.) Genitourinary: Other (Still has a Freedman in) Extremities: No edema - Results Results: Laboratory Results WBC 11.1 x10^3/uL (4.8-10.8) H 09/11/19 05:30 RBC 2.85 10^6/uL (4.70-6.10) L 09/11/19 05:30 Hgb 8.7 g/dL (14.0-18.0) L 09/11/19 05:30 Hct 27.9 % (42.0-52.0) L 09/11/19 05:30 MCV 97.9 fL (80.0-94.0) H 09/11/19 05:30 MCH 30.5 pg (27.0-31.0) 09/11/19 05:30 MCHC 31.2 g/dL (32.0-36.0) L 09/11/19 05:30 RDW 13.3 % (12.0-15.0) 09/11/19 05:30 Plt Count 223 10^3/uL (130-450) 09/11/19 05:30 MPV 10.8 fL (7.4-11.4) 09/11/19 05:30 Neut # (Auto) Not Reportable 09/11/19 05:30 Lymph # (Auto) Not Reportable 09/11/19 05:30 [place] # (Auto) Not Reportable 09/11/19 05:30 Eos # (Auto) Not Reportable 09/11/19 05:30 Baso # (Auto) Not Reportable 09/11/19 05:30 Absolute Nucleated RBC Not Reportable 09/11/19 05:30 Total Counted 100 09/11/19 05:30 Band Neuts % (Manual) 1 % (0-10) 09/11/19 05:30 Abnorm Lymph % (Manual) 0 % 09/11/19 05:30 Metamyelocytes % 3 % (-0) H 09/11/19 05:30 Myelocytes % 2 % (-0) H 09/11/19 05:30 Nucleated RBC % Not Reportable 09/11/19 05:30 Neutrophils # (Manual) 8.5 10^3/uL (1.5-6.6) H 09/11/19 05:30 Lymphocytes # (Manual) 1.0 10^3/uL (1.5-3.5) L 09/11/19 05:30 Monocytes # (Manual) 0.7 10^3/uL (0.0-1.0) 09/11/19 05:30 Eosinophils # (Manual) 0.3 10^3/uL (0-0.7) 09/11/19 05:30 Basophils # (Manual) 0.0 10^3/uL (0-0.1) 09/11/19 05:30 Differential Comment MANUAL DIFFERENTIAL 09/11/19 05:30 WBC Morphology NORMAL APPEARANCE (NORMAL) 09/04/19 04:50 Platelet Estimate NORMAL (130-450,000) (NORMAL) 09/11/19 05:30 Platelet Morphology NORMAL APPEARANCE (NORMAL) 09/04/19 04:50 RBC Morph Micro Appear NORMAL APPEARANCE (NORMAL) 09/11/19 05:30 PT 12.2 secs (9.9-12.6) 09/03/19 17:25 INR 1.1 (0.8-1.2) 09/03/19 17:25 Bld Gas Analysis Time 0525 09/05/19 05:13 Sample Site RIGHT RADIAL 09/05/19 05:13 ABG pH 7.42 (7.35-7.45) 09/05/19 05:13 ABG pCO2 35 mmHg (34-45) 09/05/19 05:13 ABG pO2 76 mmHg (80-100) L 09/05/19 05:13 ABG HCO3 22.2 mmol/L (22.0-26.0) 09/05/19 05:13 ABG Total CO2 23.3 MMOL/L (21.0-29.0) 09/05/19 05:13 ABG O2 Saturation 95 % (94-98) 09/05/19 05:13 ABG Base Excess -1.8 mmol/L (-2.0-3.0) 09/05/19 05:13 [place] Test POSITIVE 09/05/19 05:13 VBG pH 7.277 (7.31-7.41) L 09/04/19 04:50 Ionized Calcium 0.97 mmol/L (1.15-1.33) L 09/04/19 04:50 Respiration Rate 16 b/min 09/05/19 05:13 O2 Delivery Device VENTILATOR 09/05/19 05:13 Vent Mode SIMV 09/05/19 05:13 FiO2 25.00 09/05/19 05:13 Tidal Volume 500 mL 09/05/19 05:13 PEEP 5 cmH2O 09/05/19 05:13 Pressure Support Vent 10 cmH2O 09/05/19 05:13 Sodium 139 mmol/L (135-145) 09/11/19 05:30 Potassium 3.4 mmol/L (3.5-5.0) L 09/11/19 05:30 Chloride 105 mmol/L (101-111) 09/11/19 05:30 Carbon Dioxide 27 mmol/L (21-32) 09/11/19 05:30 Anion Gap 7.0 (6-13) 09/11/19 05:30 BUN 37 mg/dL (6-20) H 09/11/19 05:30 Creatinine 1.8 mg/dL (0.6-1.2) H 09/11/19 05:30 Estimated GFR (MDRD) 36 (>89) L 09/11/19 05:30 Glucose 120 mg/dL (70-100) H 09/11/19 05:30 POC Whole Bld Glucose 98 mg/dL (70 - 100) 09/11/19 11:13 Glycated Hemoglobin 8.3 % (4.6-6.2) H 09/06/19 05:00 Estim Average Glucose 192 (70-100) H 09/06/19 05:00 Lactic Acid 2.1 mmol/L (0.5-2.2) 09/03/19 17:25 Calcium 7.5 mg/dL (8.5-10.3) L 09/11/19 05:30 Phosphorus 2.6 mg/dL (2.5-4.6) 09/11/19 05:30 Magnesium 2.2 mg/dL (1.7-2.8) 09/11/19 05:30 Iron 15 ug/dL (45-182) L 09/10/19 04:50 TIBC 118 ug/dL (250-450) L 09/10/19 04:50 % Saturation 13 % (20-50) L 09/10/19 04:50 Transferrin 84 mg/dL (180-329) L 09/10/19 04:50 Total Bilirubin 1.1 mg/dL (0.2-1.0) H 09/11/19 05:30 AST 30 IU/L (10-42) 09/11/19 05:30 ALT 26 IU/L (10-60) 09/11/19 05:30 Alkaline Phosphatase 145 IU/L (42-121) H 09/11/19 05:30 Troponin I High Sens 16.5 ng/L (2.3-19.7) 09/03/19 19:59 Total Protein 5.3 g/dL (6.7-8.2) L 09/11/19 05:30 Albumin 2.0 g/dL (3.2-5.5) L 09/11/19 05:30 Globulin 3.3 g/dL (2.1-4.2) 09/11/19 05:30 Albumin/Globulin Ratio 0.6 (1.0-2.2) L 09/11/19 05:30 Prealbumin 7 mg/dL (18-45) L 09/11/19 05:30 Triglycerides 153 mg/dL (-149) H 09/06/19 05:00 Lipase 26 U/L (22-51) 09/03/19 17:25 Vitamin B12 330 pg/mL (180-914) 09/10/19 04:50 Folate 12.90 ng/mL (5.90 - >24.8) 09/10/19 04:50 TSH 0.66 uIU/mL (0.34-5.60) 09/03/19 17:25 Urine Color DARK YELLOW 09/04/19 18:00 Urine Clarity CLEAR (CLEAR) 09/04/19 18:00 Urine pH 5.5 PH (5.0-7.5) 09/04/19 18:00 Ur Specific [place] 1.025 (1.002-1.030) 09/04/19 18:00 Urine Protein 30 mg/dL (NEGATIVE) H 09/04/19 18:00 Urine Glucose (UA) NEGATIVE mg/dL (NEGATIVE) 09/04/19 18:00 Urine Ketones NEGATIVE mg/dL (NEGATIVE) 09/04/19 18:00 Urine Occult Blood TRACE-LYSE (NEGATIVE) 09/04/19 18:00 Urine Nitrite NEGATIVE (NEGATIVE) 09/04/19 18:00 Urine Bilirubin NEGATIVE (NEGATIVE) 09/04/19 18:00 Urine Urobilinogen 1 (NORMAL) E.U./dL (NORMAL) 09/04/19 18:00 Ur Leukocyte Esterase NEGATIVE (NEGATIVE) 09/04/19 18:00 Urine RBC 6-10 /HPF (0-5) H 09/04/19 18:00 Urine WBC 4-5 /HPF (0-3) 09/04/19 18:00 Ur Squamous Epith Cells NONE SEEN (<= Few) 09/04/19 18:00 Urine Bacteria Few /HPF (None Seen) 09/04/19 18:00 Ur Microscopic Review INDICATED 09/04/19 18:00 Urine Culture Comments NOT INDICATED 09/04/19 18:00 Nasal Screen MRSA (PCR) NEGATIVE (NEGATIVE) 09/03/19 23:35 - Procedures Procedures: Procedures (11/06/17) EXCISION OF RECTUM, ENDO (11/06/17) TRANSFUSE NONAUT RED BLOOD CELLS IN PERIPH VEIN, PERC (11/06/17) Sepsis Event Note (H) - Evaluation Current Stage of Sepsis: Resolved Possible source of Sepsis: positive: GI tract/intra-abdominal - Sepsis Criteria Sepsis Criteria: Recorded Heart Rate greater than 90 bpm, WBC count greater than 12,000 or less than 4000, SBP drop more than 40mHg, MAP less than 65 mmHg, SBP less than 90 mmHg
[2019-09-11] MEDS: FERROUS GLUCONATE 324 MG TABLET PO SCH (11:52)
--- NOTE | 2019-09-11 12:06 | PROVIDER PROGRESS NOTE ---
Subjective - Prog Note Date Prog Note Date: 09/11/19 - Subjective Pt reports feeling: Improved Objective - Vital Signs/Intake & Output Vital Signs: Vital Signs x48h Temp Pulse Resp BP Pulse Ox 09/11/19 07:30 36.3 C L 83 18 119/56 L 92 Intake & Output: Intake & Output 09/08/19 09/09/19 09/10/19 09/11/19 23:59 23:59 23:59 23:59 Intake Total 1943 797 800 200 Output Total 4215 819 458 250 Balance -87 -18 -150 -50 - Objective General Appearance: positive: No acute distress Respiratory: positive: No respiratory distress Abdomen: positive: Non-tender, No distention, Other (incision healing nicely) Extremities: positive: Other (right upper arm incision healing nicely) - Lab Results Fish Bones: 09/11/19 05:30 09/11/19 05:30 Other Labs: Lab Results x24hrs 09/11/19 09/11/19 09/11/19 Range/Units 11:13 07:35 05:30 WBC 11.1 H (4.8-10.8) x10^3/uL RBC 2.85 L (4.70-6.10) 10^6/uL Hgb 8.7 L (14.0-18.0) g/dL Hct 27.9 L (42.0-52.0) % MCV 97.9 H (80.0-94.0) fL MCH 30.5 (27.0-31.0) pg MCHC 31.2 L (32.0-36.0) g/dL RDW 13.3 (12.0-15.0) % Plt Count 223 (130-450) 10^3/uL MPV 10.8 (7.4-11.4) fL Neut # (Auto) Not Reportable Lymph # (Auto) Not Reportable [place] # (Auto) Not Reportable Eos # (Auto) Not Reportable Baso # (Auto) Not Reportable Absolute Nucleated RBC Not Reportable Total Counted 100 Band Neuts % (Manual) 1 (0 - 10) % Abnorm Lymph % (Manual) 0 % Metamyelocytes % 3 H ( - 0) % Myelocytes % 2 H ( - 0) % Nucleated RBC % Not Reportable Neutrophils # (Manual) 8.5 H (1.5-6.6) 10^3/uL Lymphocytes # (Manual) 1.0 L (1.5-3.5) 10^3/uL Monocytes # (Manual) 0.7 (0.0-1.0) 10^3/uL Eosinophils # (Manual) 0.3 (0-0.7) 10^3/uL Basophils # (Manual) 0.0 (0-0.1) 10^3/uL Differential Comment MANUAL DIFFERENTIAL Platelet Estimate NORMAL (130-450,000) (NORMAL) RBC Morph Micro Appear NORMAL APPEARANCE (NORMAL) Sodium (135-145) mmol/L Potassium (3.5-5.0) mmol/L Chloride (101-111) mmol/L Carbon Dioxide (21-32) mmol/L Anion Gap (6-13) BUN (6-20) mg/dL Creatinine (0.6-1.2) mg/dL Estimated GFR (MDRD) (>89) Glucose (70-100) mg/dL POC Whole Bld Glucose 98 99 (70 - 100) mg/dL Calcium (8.5-10.3) mg/dL Phosphorus (2.5-4.6) mg/dL Magnesium (1.7-2.8) mg/dL Total Bilirubin (0.2-1.0) mg/dL AST (10-42) IU/L ALT (10-60) IU/L Alkaline Phosphatase (42-121) IU/L Total Protein (6.7-8.2) g/dL Albumin (3.2-5.5) g/dL Globulin (2.1-4.2) g/dL Albumin/Globulin Ratio (1.0-2.2) Prealbumin (18-45) mg/dL 09/11/19 09/10/19 09/10/19 Range/Units 05:30 21:28 17:03 WBC (4.8-10.8) x10^3/uL RBC (4.70-6.10) 10^6/uL Hgb (14.0-18.0) g/dL Hct (42.0-52.0) % MCV (80.0-94.0) fL MCH (27.0-31.0) pg MCHC (32.0-36.0) g/dL RDW (12.0-15.0) % Plt Count (130-450) 10^3/uL MPV (7.4-11.4) fL Neut # (Auto) Lymph # (Auto) [place] # (Auto) Eos # (Auto) Baso # (Auto) Absolute Nucleated RBC Total Counted Band Neuts % (Manual) (0 - 10) % Abnorm Lymph % (Manual) % Metamyelocytes % ( - 0) % Myelocytes % ( - 0) % Nucleated RBC % Neutrophils # (Manual) (1.5-6.6) 10^3/uL Lymphocytes # (Manual) (1.5-3.5) 10^3/uL Monocytes # (Manual) (0.0-1.0) 10^3/uL Eosinophils # (Manual) (0-0.7) 10^3/uL Basophils # (Manual) (0-0.1) 10^3/uL Differential Comment Platelet Estimate (NORMAL) RBC Morph Micro Appear (NORMAL) Sodium 139 (135-145) mmol/L Potassium 3.4 L (3.5-5.0) mmol/L Chloride 105 (101-111) mmol/L Carbon Dioxide 27 (21-32) mmol/L Anion Gap 7.0 (6-13) BUN 37 H (6-20) mg/dL Creatinine 1.8 H (0.6-1.2) mg/dL Estimated GFR (MDRD) 36 L (>89) Glucose 120 H (70-100) mg/dL POC Whole Bld Glucose 161 H 157 H (70 - 100) mg/dL Calcium 7.5 L (8.5-10.3) mg/dL Phosphorus 2.6 (2.5-4.6) mg/dL Magnesium 2.2 (1.7-2.8) mg/dL Total Bilirubin 1.1 H (0.2-1.0) mg/dL AST 30 (10-42) IU/L ALT 26 (10-60) IU/L Alkaline Phosphatase 145 H (42-121) IU/L Total Protein 5.3 L (6.7-8.2) g/dL Albumin 2.0 L (3.2-5.5) g/dL Globulin 3.3 (2.1-4.2) g/dL Albumin/Globulin Ratio 0.6 L (1.0-2.2) Prealbumin 7 L (18-45) mg/dL /15/ Range/Units 12:06 WBC (4.8-10.8) x10^3/uL RBC (4.70-6.10) 10^6/uL Hgb (14.0-18.0) g/dL Hct (42.0-52.0) % MCV (80.0-94.0) fL MCH (27.0-31.0) pg MCHC (32.0-36.0) g/dL RDW (12.0-15.0) % Plt Count (130-450) 10^3/uL MPV (7.4-11.4) fL Neut # (Auto) Lymph # (Auto) [place] # (Auto) Eos # (Auto) Baso # (Auto) Absolute Nucleated RBC Total Counted Band Neuts % (Manual) (0 - 10) % Abnorm Lymph % (Manual) % Metamyelocytes % ( - 0) % Myelocytes % ( - 0) % Nucleated RBC % Neutrophils # (Manual) (1.5-6.6) 10^3/uL Lymphocytes # (Manual) (1.5-3.5) 10^3/uL Monocytes # (Manual) (0.0-1.0) 10^3/uL Eosinophils # (Manual) (0-0.7) 10^3/uL Basophils # (Manual) (0-0.1) 10^3/uL Differential Comment Platelet Estimate (NORMAL) RBC Morph Micro Appear (NORMAL) Sodium (135-145) mmol/L Potassium (3.5-5.0) mmol/L Chloride (101-111) mmol/L Carbon Dioxide (21-32) mmol/L Anion Gap (6-13) BUN (6-20) mg/dL Creatinine (0.6-1.2) mg/dL Estimated GFR (MDRD) (>89) Glucose (70-100) mg/dL POC Whole Bld Glucose 176 H (70 - 100) mg/dL Calcium (8.5-10.3) mg/dL Phosphorus (2.5-4.6) mg/dL Magnesium (1.7-2.8) mg/dL Total Bilirubin (0.2-1.0) mg/dL AST (10-42) IU/L ALT (10-60) IU/L Alkaline Phosphatase (42-121) IU/L Total Protein (6.7-8.2) g/dL Albumin (3.2-5.5) g/dL Globulin (2.1-4.2) g/dL Albumin/Globulin Ratio (1.0-2.2) Prealbumin (18-45) mg/dL Sepsis Event Note (H) - Evaluation Current Stage of Sepsis: Resolved Possible source of Sepsis: positive: GI tract/intra-abdominal - Sepsis Criteria Sepsis Criteria: Recorded Heart Rate greater than 90 bpm, WBC count greater than 12,000 or less than 4000, SBP drop more than 40mHg, MAP less than 65 mmHg, SBP less than 90 mmHg Assessment/Plan - Problem List (1) Perforated duodenal ulcer Impression: slowly improving. arm sutures out today or tomorrow. freddy out likely sunday. The patient and family or hoping for d/c home monday 09/11. He is still very weak
[2019-09-11] MEDS: polyethylene glycoL 3350 17 GM PACKET PO PRN (12:52)
[2019-09-11] MEDS ORDERED: FUROSEMIDE 20 MG TABLET PO SCH ×2 (17:00→21:00)
[2019-09-11] MEDS: ATORVASTATIN 40 MG TABLET PO SCH (20:29)
[2019-09-11] MEDS: DONEPEZIL 5 MG TABLET PO SCH (20:30)
[2019-09-11] MEDS ORDERED: INSULIN GLARGINE 300 UNIT/3 ML PEN SUBQ SCH (21:00)
[2019-09-12] MEDS: SODIUM CHLORIDE FLUSH 0.9% 10 ML SYRINGE IVP PRN ×4 (00:46→05:16)
[2019-09-12] MEDS: SODIUM CHLORIDE FLUSH 0.9% 10 ML SYRINGE IVP SCH ×3 (00:46→18:05)
[2019-09-12] MEDS: FUROSEMIDE 20 MG TABLET PO SCH ×2 (05:15→13:57)
[2019-09-12 05:39] LABS: BASOPHILS % (AUTO) 0.3 %; EOSINOPHILS # (AUTO) 0.3 10^3/uL (0.0-0.7); EOSINOPHILS % (AUTO) 2.4 %; HGB - HEMOGLOBIN 9.2 g/dL (14.0-18.0); LYMPHOCYTES # (AUTO) 1.9 10^3/uL (1.5-3.5); LYMPHOCYTES % (AUTO) 16.9 %; MEAN CORPUSCULAR HEMOGLOBIN 31.1 pg (27.0-31.0); MEAN CORPUSCULAR HGB CONC 31.8 g/dL (32.0-36.0); MEAN CORPUSCULAR VOLUME 97.6 fL (80.0-94.0); MEAN PLATELET VOLUME 11.1 fL (7.4-11.4); MONOCYTES # (AUTO) 1.1 10^3/uL (0.0-1.0); MONOCYTES % (AUTO) 9.2 %; NEUTROPHILS # (AUTO) 7.4 10^3/uL (1.5-6.6); NEUTROPHILS % (AUTO) 64.8 %; PLT - PLATELET COUNT 272 10^3/uL (130-450); RED BLOOD COUNT 2.96 10^6/uL (4.70-6.10); RED CELL DISTRIBUTION WIDTH 13.4 % (12.0-15.0); WHITE BLOOD COUNT 11.5 x10^3/uL (4.8-10.8)
[2019-09-12 06:01] LABS: PLATELET ESTIMATE, MANUAL NORMAL (130-450,000) (NORMAL); PLATELET MORPHOLOGY NORMAL APPEARANCE (NORMAL); RBC MORPHOLOGY (MULTIPLE) NORMAL APPEARANCE (NORMAL)
[2019-09-12 07:23] LABS: CALCIUM 7.8 mg/dL (8.5-10.3); CREATININE 1.5 mg/dL (0.6-1.2); PHOSPHORUS 2.4 mg/dL (2.5-4.6)
[2019-09-12] MEDS: FERROUS GLUCONATE 324 MG TABLET PO SCH (07:43)
[2019-09-12] MEDS: PANTOPRAZOLE 40 MG TABLET PO SCH ×2 (09:22→21:11)
[2019-09-12] MEDS: SPIRONOLACTONE 25 MG TABLET PO SCH (09:22)
[2019-09-12] MEDS: METOPROLOL TARTRATE 50 MG TABLET PO SCH ×2 (09:22→21:13)
[2019-09-12] MEDS: ASPIRIN CHEW 81 MG TABLET PO SCH (09:22)
[2019-09-12] MEDS: polyethylene glycoL 3350 17 GM PACKET PO PRN (09:23)
[2019-09-12] MEDS: INSULIN ASPART 300 UNIT/3 ML PEN SUBQ SCH ×4 (09:23→21:16)
[2019-09-12] MEDS: CHLORHEXIDINE GLUCONATE 15 ML UDC PO SCH ×2 (09:37→21:25)
[2019-09-12] MEDS: HEPARIN 5,000 UNIT/ML VIAL SUBQ SCH ×2 (09:38→21:19)
[2019-09-12] MEDS: HYDROcod/ACETAM 5/325 MG TABLET PO PRN ×2 (10:35→21:12)
[2019-09-12] MEDS: DOCUSATE SODIUM 250 MG CAPSULE PO SCH (10:42)
[2019-09-12] MEDS ORDERED: BISACODYL 10 MG SUPP PR ONE (11:00)
[2019-09-12] MEDS: PRENATAL VITAMIN TABLET PO SCH (12:05)
--- NOTE | 2019-09-12 14:47 | PROVIDER PROGRESS NOTE ---
Subjective - Prog Note Date Prog Note Date: 09/12/19 - Subjective Subjective: more sleepy today. Objective - Vital Signs/Intake & Output Vital Signs: Vital Signs x48h Temp Pulse Resp BP Pulse Ox 09/12/19 13:32 36.3 C L 79 16 120/66 92 09/12/19 09:22 36.3 C L 79 16 130/67 90 L Intake & Output: Intake & Output 09/09/19 09/10/19 09/11/19 09/12/19 23:59 23:59 23:59 23:59 Intake Total 797 800 500 620 Output Total 854 485 6836 664 Balance -18 -150 -1025 -44 - Objective General Appearance: positive: No acute distress Respiratory: positive: No respiratory distress Rectal: positive: Non-tender, Other (soft. incision healing nicely. no erythema) - Lab Results Fish Bones: 09/12/19 05:20 09/12/19 05:25 Other Labs: Lab Results x24hrs 09/12/19 09/12/19 09/12/19 Range/Units 11:50 07:37 05:25 WBC (4.8-10.8) x10^3/uL RBC (4.70-6.10) 10^6/uL Hgb (14.0-18.0) g/dL Hct (42.0-52.0) % MCV (80.0-94.0) fL MCH (27.0-31.0) pg MCHC (32.0-36.0) g/dL RDW (12.0-15.0) % Plt Count (130-450) 10^3/uL MPV (7.4-11.4) fL Neut # (Auto) (1.5-6.6) 10^3/uL Lymph # (Auto) (1.5-3.5) 10^3/uL [place] # (Auto) (0.0-1.0) 10^3/uL Eos # (Auto) (0.0-0.7) 10^3/uL Baso # (Auto) (0.0-0.1) 10^3/uL Absolute Nucleated RBC x10^3/uL Nucleated RBC % /100WBC Manual Slide Review Platelet Estimate (NORMAL) Platelet Morphology (NORMAL) RBC Morph Micro Appear (NORMAL) Sodium 138 (135-145) mmol/L Potassium 3.5 (3.5-5.0) mmol/L Chloride 104 (101-111) mmol/L Carbon Dioxide 26 (21-32) mmol/L Anion Gap 8.0 (6-13) BUN 29 H (6-20) mg/dL Creatinine 1.5 H (0.6-1.2) mg/dL Estimated GFR (MDRD) 44 L (>89) Glucose 113 H (70-100) mg/dL POC Whole Bld Glucose 116 H 97 (70 - 100) mg/dL Calcium 7.8 L (8.5-10.3) mg/dL Phosphorus 2.4 L (2.5-4.6) mg/dL Magnesium 2.0 (1.7-2.8) mg/dL 09/12/19 09/11/19 09/11/19 Range/Units 05:20 20:48 16:48 WBC 11.5 H (4.8-10.8) x10^3/uL RBC 2.96 L (4.70-6.10) 10^6/uL Hgb 9.2 L (14.0-18.0) g/dL Hct 28.9 L (42.0-52.0) % MCV 97.6 H (80.0-94.0) fL MCH 31.1 H (27.0-31.0) pg MCHC 31.8 L (32.0-36.0) g/dL RDW 13.4 (12.0-15.0) % Plt Count 272 (130-450) 10^3/uL MPV 11.1 (7.4-11.4) fL Neut # (Auto) 7.4 H (1.5-6.6) 10^3/uL Lymph # (Auto) 1.9 (1.5-3.5) 10^3/uL Hale # (Auto) 1.1 H (0.0-1.0) 10^3/uL Eos # (Auto) 0.3 (0.0-0.7) 10^3/uL Baso # (Auto) 0.0 (0.0-0.1) 10^3/uL Absolute Nucleated RBC 0.00 x10^3/uL Nucleated RBC % 0.0 /100WBC Manual Slide Review Indicated Platelet Estimate NORMAL (130-450,000) (NORMAL) Platelet Morphology NORMAL APPEARANCE (NORMAL) RBC Morph Micro Appear NORMAL APPEARANCE (NORMAL) Sodium (135-145) mmol/L Potassium (3.5-5.0) mmol/L Chloride (101-111) mmol/L Carbon Dioxide (21-32) mmol/L Anion Gap (6-13) BUN (6-20) mg/dL Creatinine (0.6-1.2) mg/dL Estimated GFR (MDRD) (>89) Glucose (70-100) mg/dL POC Whole Bld Glucose 125 H 127 H (70 - 100) mg/dL Calcium (8.5-10.3) mg/dL Phosphorus (2.5-4.6) mg/dL Magnesium (1.7-2.8) mg/dL Sepsis Event Note (H) - Evaluation Current Stage of Sepsis: Resolved Possible source of Sepsis: positive: GI tract/intra-abdominal - Sepsis Criteria Sepsis Criteria: Recorded Heart Rate greater than 90 bpm, WBC count greater than 12,000 or less than 4000, SBP drop more than 40mHg, MAP less than 65 mmHg, SBP less than 90 mmHg Assessment/Plan - Problem List (1) Perforated duodenal ulcer Impression: healing nicely after surgery. diet and activities as tolerated. bowel protocol as needed ie miralax, etc
--- NOTE | 2019-09-12 15:59 | PROVIDER PROGRESS NOTE ---
Assessment/Plan - Problem List (1) Altered mental status Assessment/Plan: New unexpected change in his clinical status was noted this morning by his daughter, and the RN confirmed it. There is not much for focal findings on his neuro exam, but his speech is definitely weaker, more stuttering-like, and according to the daughter it is more gibberish (although it is in Nepali and therefore I cannot understand it to confirm "gibberish"). We will order head CT to rule out stroke. Resume telemetry. No discharge home today. (2) Perforated duodenal ulcer Assessment/Plan: POD #8. He was able to have a BM today. Diet was advanced yesterday. The freddy and sutures are to be removed today. (3) Acute respiratory failure with hypoxia Assessment/Plan: He still requires 1 to 2 L nasal cannula oxygen to maintain O2 sats above 88% (4) CKD (chronic kidney disease) stage 3, GFR 30-59 ml/min Assessment/Plan: Creatinine stable, slightly improved actually every day (5) Type 2 diabetes mellitus, without long-term current use of insulin Assessment/Plan: Morning glucose was 97, despite decreasing his Lantus insulin and stopping his regular 3 times daily with meal insulin. We will decrease the evening Lantus even further. Continue carb controlled diet and sliding scale insulin coverage for fingerstick checks (6) History of CVA (cerebrovascular accident) Assessment/Plan: As per history. (7) History of coronary artery disease Assessment/Plan: As per history. (8) Macrocytic anemia Assessment/Plan: B12 and folate levels were adequate, he was actually iron depleted. Supplemental oral iron to be started now that he has had a BM. (9) Dementia Assessment/Plan: As per Hx. (10) Moderate malnutrition Assessment/Plan: As per history. (11) Paroxysmal atrial fibrillation Assessment/Plan: The patient was on Toprol and aspirin at home. When in the ICU he was in and out of A. fib, unknown if this was new or not. No anticoagulation could be used because of his recent surgery. We will resume telemetry now because of the concern for stroke. - Current Meds Current Meds: Current Medications Generic Name Dose Route Start Last Admin Trade Name Freq PRN Reason Stop Dose Admin Hydrocodone Bitart/Acetaminophen 1 tab 09/09/19 11:05 09/12/19 10:35 [place] 5/325 PO 1 tab Q4HR PRN Administration PAIN Aspirin 81 mg 09/10/19 09:00 09/12/19 09:22 [place] Aspirin PO 81 mg DAILY LUIS Administration Atorvastatin Calcium 80 mg 09/09/19 21:00 09/11/19 20:29 Lipitor PO 80 mg QPM LUIS Administration Chlorhexidine Gluconate 15 ml 09/03/19 23:45 09/12/19 09:37 Peridex PO 15 ml BID LUIS Administration Docusate Sodium 250 - 500 mg 09/12/19 11:00 09/12/19 10:42 Colace 250mg Capsule PO 250 mg DAILY LUIS Administration Donepezil HCl 10 mg 09/11/19 21:00 09/11/19 20:30 Aricept PO 10 mg QPM LUIS Administration Ferrous Gluconate 324 mg 09/11/19 12:00 09/12/19 07:43 Fergon PO 324 mg DAILYWM LUIS Administration Furosemide 20 mg 09/12/19 06:00 09/12/19 13:57 Lasix PO 20 mg BIDDIURETIC LUIS Administration Heparin Sodium (Beef Lung) 30 - 50 unit 09/12/19 03:04 09/12/19 05:15 IVP 50 unit PRN PRN Administration Central Line Protocol (<24 hr) Heparin Sodium (Porcine) 5,000 unit 09/06/19 09:00 09/12/19 09:38 SUBQ 5,000 unit BID LUIS Administration Insulin Aspart 1 - 9 unit 09/09/19 12:15 09/12/19 12:06 Novolog SUBQ Not Given 0800,1200,1700,2100 [facility] Protocol Metoprolol Tartrate 50 mg 09/09/19 21:00 09/12/19 09:22 Lopressor PO 50 mg BID LUIS Administration Multi-Ingredient Ointment 1 applic 09/06/19 13:02 09/09/19 09:00 Zinc Oxide TOP 1 applic PRN PRN Administration Skin Care Pantoprazole Sodium 40 mg 09/09/19 21:00 09/12/19 09:22 Protonix PO 40 mg BID LUIS Administration Polyethylene Glycol 17 gm 09/10/19 11:01 09/12/19 09:23 Miralax PO 17 gm DAILY PRN Administration Bowel Protocol Multivit/Folic Acid/Iron 1 tab 09/12/19 12:00 09/12/19 12:05 Trinatal Rx 1 PO 1 tab DAILYWM LUIS Administration Sodium Chloride 20 ml 09/07/19 11:15 09/12/19 05:16 Normal Saline Flush 0.9% IVP 20 ml PRN PRN Administration After Blood Draw Sodium Chloride 10 ml 09/07/19 17:00 09/12/19 09:38 Normal Saline Flush 0.9% IVP 10 ml 0100,0900,1700 LUIS Administration Sodium Chloride 10 ml 09/07/19 13:48 09/12/19 05:16 Normal Saline Flush 0.9% IVP 10 ml PRN PRN Administration NEEDED PER PROVIDER ORDERS Spironolactone 25 mg 09/12/19 09:00 09/12/19 09:22 Aldactone PO 25 mg DAILY LUIS Administration - Lab Result Fish Bone Diagrams: 09/12/19 05:20 09/12/19 05:25 - Additional Planning My Orders: My Active Orders 09/11/19 Dinner DIET [Soft Mechanical Diet] [DIET] 09/11/19 21:00 Donepezil [Aricept] 10 mg PO QPM 09/12/19 Evaluate and Treat OT [OT] Routine 09/12/19 06:00 Furosemide [Lasix] 20 mg PO BIDDIURETIC 09/12/19 08:18 Bowel Protocol [Bowel - Constipation Care] [RC] ONCE 09/12/19 09:00 Spironolactone [Aldactone] 25 mg PO DAILY 09/12/19 12:00 Vitamin [Trinatal Rx 1] 1 tab PO DAILYWM 09/12/19 15:50 Head W/O Stroke Protocol [CT] Stat 09/12/19 21:00 Insulin Glargine [Lantus Solostar] 9 unit SUBQ QPM Subjective - Subjective Patient Reports: Other (The daughter describes that he is worse today: His speech is gibberish, less alert and more lethargic and is in a poor mood, all are changed from yesterday when he was joking and alert and interactive.) Objective Vital Signs: Vital Signs - 24 hr 09/11/19 09/11/19 09/11/19 16:03 20:09 20:29 Temperature 36.7 C Heart Rate [ 91 Brachial] Heart Rate [ 81 Radial] Respiratory 24 Rate Blood Pressure 142/64 H Blood Pressure 146/77 H [Left Brachial artery] Blood Pressure 137/72 H [Right Radial artery] O2 Saturation 94 09/12/19 09/12/19 09/12/19 00:55 01:00 05:09 Temperature 36.7 C 36.2 C L Heart Rate [ 93 97 Brachial] Heart Rate [ Radial] Respiratory 18 18 Rate Blood Pressure Blood Pressure 109/72 140/59 H [Left Brachial artery] Blood Pressure [Right Radial artery] O2 Saturation 88 L 92 93 09/12/19 09/12/19 09:22 13:32 Temperature 36.3 C L 36.3 C L Heart Rate [ 79 79 Brachial] Heart Rate [ Radial] Respiratory 16 16 Rate Blood Pressure Blood Pressure 130/67 120/66 [Left Brachial artery] Blood Pressure [Right Radial artery] O2 Saturation 90 L 92 Oxygen O2 Source [With Activity] Nasal cannula O2 Source Room air I&O (Last 24 Hrs): Intake and Output Totals x24h 09/10/19 09/11/19 09/12/19 23:59 23:59 23:59 Intake Total 800 500 620 Output Total 950 1525 664 Balance -150 -1025 -44 General: Other (Lethargic. Appears fatigued. Pale.) HEENT: Mucous membr. moist/pink Neck: Supple Neuro: Alert, Non Focal, Other (No facial asymmetry and grossly equal strength) Cardiovascular: Regular rate Respiratory: No respiratory distress Abdomen: Other (Less distended than yesterday, still hypertympanic, positive) Extremities: No edema, Other (His hips and thighs are tender when he is sitting on the toilet seat) - Results Results: Laboratory Results WBC 11.5 x10^3/uL (4.8-10.8) H 09/12/19 05:20 RBC 2.96 10^6/uL (4.70-6.10) L 09/12/19 05:20 Hgb 9.2 g/dL (14.0-18.0) L 09/12/19 05:20 Hct 28.9 % (42.0-52.0) L 09/12/19 05:20 MCV 97.6 fL (80.0-94.0) H 09/12/19 05:20 MCH 31.1 pg (27.0-31.0) H 09/12/19 05:20 MCHC 31.8 g/dL (32.0-36.0) L 09/12/19 05:20 RDW 13.4 % (12.0-15.0) 09/12/19 05:20 Plt Count 272 10^3/uL (130-450) 09/12/19 05:20 MPV 11.1 fL (7.4-11.4) 09/12/19 05:20 Neut # (Auto) 7.4 10^3/uL (1.5-6.6) H 09/12/19 05:20 Lymph # (Auto) 1.9 10^3/uL (1.5-3.5) 09/12/19 05:20 [place] # (Auto) 1.1 10^3/uL (0.0-1.0) H 09/12/19 05:20 Eos # (Auto) 0.3 10^3/uL (0.0-0.7) 09/12/19 05:20 Baso # (Auto) 0.0 10^3/uL (0.0-0.1) 09/12/19 05:20 Absolute Nucleated RBC 0.00 x10^3/uL 09/12/19 05:20 Total Counted 100 09/11/19 05:30 Band Neuts % (Manual) 1 % (0-10) 09/11/19 05:30 Abnorm Lymph % (Manual) 0 % 09/11/19 05:30 Metamyelocytes % 3 % (-0) H 09/11/19 05:30 Myelocytes % 2 % (-0) H 09/11/19 05:30 Nucleated RBC % 0.0 /100WBC 09/12/19 05:20 Neutrophils # (Manual) 8.5 10^3/uL (1.5-6.6) H 09/11/19 05:30 Lymphocytes # (Manual) 1.0 10^3/uL (1.5-3.5) L 09/11/19 05:30 Monocytes # (Manual) 0.7 10^3/uL (0.0-1.0) 09/11/19 05:30 Eosinophils # (Manual) 0.3 10^3/uL (0-0.7) 09/11/19 05:30 Basophils # (Manual) 0.0 10^3/uL (0-0.1) 09/11/19 05:30 Differential Comment MANUAL DIFFERENTIAL 09/11/19 05:30 Manual Slide Review Indicated 09/12/19 05:20 WBC Morphology NORMAL APPEARANCE (NORMAL) 09/04/19 04:50 Platelet Estimate NORMAL (130-450,000) (NORMAL) 09/12/19 05:20 Platelet Morphology NORMAL APPEARANCE (NORMAL) 09/12/19 05:20 RBC Morph Micro Appear NORMAL APPEARANCE (NORMAL) 09/12/19 05:20 PT 12.2 secs (9.9-12.6) 09/03/19 17:25 INR 1.1 (0.8-1.2) 09/03/19 17:25 Bld Gas Analysis Time 0525 09/05/19 05:13 Sample Site RIGHT RADIAL 09/05/19 05:13 ABG pH 7.42 (7.35-7.45) 09/05/19 05:13 ABG pCO2 35 mmHg (34-45) 09/05/19 05:13 ABG pO2 76 mmHg (80-100) L 09/05/19 05:13 ABG HCO3 22.2 mmol/L (22.0-26.0) 09/05/19 05:13 ABG Total CO2 23.3 MMOL/L (21.0-29.0) 09/05/19 05:13 ABG O2 Saturation 95 % (94-98) 09/05/19 05:13 ABG Base Excess -1.8 mmol/L (-2.0-3.0) 09/05/19 05:13 [place] Test POSITIVE 09/05/19 05:13 VBG pH 7.277 (7.31-7.41) L 09/04/19 04:50 Ionized Calcium 0.97 mmol/L (1.15-1.33) L 09/04/19 04:50 Respiration Rate 16 b/min 09/05/19 05:13 O2 Delivery Device VENTILATOR 09/05/19 05:13 Vent Mode SIMV 09/05/19 05:13 FiO2 25.00 09/05/19 05:13 Tidal Volume 500 mL 09/05/19 05:13 PEEP 5 cmH2O 09/05/19 05:13 Pressure Support Vent 10 cmH2O 09/05/19 05:13 Sodium 138 mmol/L (135-145) 09/12/19 05:25 Potassium 3.5 mmol/L (3.5-5.0) 09/12/19 05:25 Chloride 104 mmol/L (101-111) 09/12/19 05:25 Carbon Dioxide 26 mmol/L (21-32) 09/12/19 05:25 Anion Gap 8.0 (6-13) 09/12/19 05:25 BUN 29 mg/dL (6-20) H 09/12/19 05:25 Creatinine 1.5 mg/dL (0.6-1.2) H 09/12/19 05:25 Estimated GFR (MDRD) 44 (>89) L 09/12/19 05:25 Glucose 113 mg/dL (70-100) H 09/12/19 05:25 POC Whole Bld Glucose 116 mg/dL (70 - 100) H 09/12/19 11:50 Glycated Hemoglobin 8.3 % (4.6-6.2) H 09/06/19 05:00 Estim Average Glucose 192 (70-100) H 09/06/19 05:00 Lactic Acid 2.1 mmol/L (0.5-2.2) 09/03/19 17:25 Calcium 7.8 mg/dL (8.5-10.3) L 09/12/19 05:25 Phosphorus 2.4 mg/dL (2.5-4.6) L 09/12/19 05:25 Magnesium 2.0 mg/dL (1.7-2.8) 09/12/19 05:25 Iron 15 ug/dL (45-182) L 09/10/19 04:50 TIBC 118 ug/dL (250-450) L 09/10/19 04:50 % Saturation 13 % (20-50) L 09/10/19 04:50 Transferrin 84 mg/dL (180-329) L 09/10/19 04:50 Total Bilirubin 1.1 mg/dL (0.2-1.0) H 09/11/19 05:30 AST 30 IU/L (10-42) 09/11/19 05:30 ALT 26 IU/L (10-60) 09/11/19 05:30 Alkaline Phosphatase 145 IU/L (42-121) H 09/11/19 05:30 Troponin I High Sens 16.5 ng/L (2.3-19.7) 09/03/19 19:59 Total Protein 5.3 g/dL (6.7-8.2) L 09/11/19 05:30 Albumin 2.0 g/dL (3.2-5.5) L 09/11/19 05:30 Globulin 3.3 g/dL (2.1-4.2) 09/11/19 05:30 Albumin/Globulin Ratio 0.6 (1.0-2.2) L 09/11/19 05:30 Prealbumin 7 mg/dL (18-45) L 09/11/19 05:30 Triglycerides 153 mg/dL (-149) H 09/06/19 05:00 Lipase 26 U/L (22-51) 09/03/19 17:25 Vitamin B12 330 pg/mL (180-914) 09/10/19 04:50 Folate 12.90 ng/mL (5.90 - >24.8) 09/10/19 04:50 TSH 0.66 uIU/mL (0.34-5.60) 09/03/19 17:25 Urine Color DARK YELLOW 09/04/19 18:00 Urine Clarity CLEAR (CLEAR) 09/04/19 18:00 Urine pH 5.5 PH (5.0-7.5) 09/04/19 18:00 Ur Specific [place] 1.025 (1.002-1.030) 09/04/19 18:00 Urine Protein 30 mg/dL (NEGATIVE) H 09/04/19 18:00 Urine Glucose (UA) NEGATIVE mg/dL (NEGATIVE) 09/04/19 18:00 Urine Ketones NEGATIVE mg/dL (NEGATIVE) 09/04/19 18:00 Urine Occult Blood TRACE-LYSE (NEGATIVE) 09/04/19 18:00 Urine Nitrite NEGATIVE (NEGATIVE) 09/04/19 18:00 Urine Bilirubin NEGATIVE (NEGATIVE) 09/04/19 18:00 Urine Urobilinogen 1 (NORMAL) E.U./dL (NORMAL) 09/04/19 18:00 Ur Leukocyte Esterase NEGATIVE (NEGATIVE) 09/04/19 18:00 Urine RBC 6-10 /HPF (0-5) H 09/04/19 18:00 Urine WBC 4-5 /HPF (0-3) 09/04/19 18:00 Ur Squamous Epith Cells NONE SEEN (<= Few) 09/04/19 18:00 Urine Bacteria Few /HPF (None Seen) 09/04/19 18:00 Ur Microscopic Review INDICATED 09/04/19 18:00 Urine Culture Comments NOT INDICATED 09/04/19 18:00 Nasal Screen MRSA (PCR) NEGATIVE (NEGATIVE) 09/03/19 23:35 - Procedures Procedures: Procedures (11/06/17) EXCISION OF RECTUM, ENDO (11/06/17) TRANSFUSE NONAUT RED BLOOD CELLS IN PERIPH VEIN, PERC (11/06/17) Sepsis Event Note (H) - Evaluation Current Stage of Sepsis: Resolved Possible source of Sepsis: positive: GI tract/intra-abdominal - Sepsis Criteria Sepsis Criteria: Recorded Heart Rate greater than 90 bpm, WBC count greater than 12,000 or less than 4000, SBP drop more than 40mHg, MAP less than 65 mmHg, SBP less than 90 mmHg
--- NOTE | 2019-09-12 16:44 | CT Report ---
PROCEDURE: Head W/O Stroke Protocol INDICATIONS: Dysarthria TECHNIQUE: Noncontrast 4.5 mm thick angled axial sections acquired from the foramen magnum to the vertex, with c oronal reformats. For radiation dose reduction, the following was used: automated exposure control, adjustment of mA and/or kV according to patient size. COMPARISON: 05/12/2019, 05/11/2019 FINDINGS: Image quality: Excellent. CSF spaces: Basal cisterns are patent. No extra-axial fluid collections. Ventricles are normal in size and shape. Brain: Stable low density can be seen involving the right temporoparietal region, which is unchanged compared to 05/12/2019. No midline shift. No intracranial masses or hemorrhage. Maria-white matter i nterface is normal. Brain parenchymal volume loss is seen. Chronic small vessel ischemic changes are seen. Skull and face: Calvarium and visualized facial bones are intact, without suspicious lesions. Sinuses: Visualized sinuses and mastoids are clear. IMPRESSION: No intracranial hemorrhage is seen. Stable, remote right temporoparietal infarction. Age-appropriate brain parenchymal volume loss and chronic small vessel ischemic change can be seen. If there is strong clinical concern for a stroke, please consider a dedicated brain MRI for further e valuation (assuming that there is no contraindication to MRI). Note: The chest were made to contact Dr. Sullivan at the time of this dictation, yet she could not be r eached at the provided number. This study fulfills neurological imaging criteria for inclusion or exclusion of acute stroke therapie s based on available published neurological imaging guidelines. Reviewed by: Victor Hugo Calderón MD on 09/12/2019 3:43 PM ALICIA Approved by: Victor Hugo Calderón MD on 09/12/2019 3:43 PM ALICIA Station ID: [id number]
[2019-09-12] MEDS ORDERED: LIDOCAINE JELLY 2% 6 ML JEL.PF.APP TOP ONE (16:57)
[2019-09-12] MEDS ORDERED: INSULIN GLARGINE 300 UNIT/3 ML PEN SUBQ SCH (21:00)
[2019-09-12] MEDS: DONEPEZIL 5 MG TABLET PO SCH (21:12)
[2019-09-12] MEDS: ATORVASTATIN 40 MG TABLET PO SCH (21:12)
[2019-09-13] MEDS: SODIUM CHLORIDE FLUSH 0.9% 10 ML SYRINGE IVP SCH ×3 (00:58→17:23)
[2019-09-13] MEDS: SODIUM CHLORIDE FLUSH 0.9% 10 ML SYRINGE IVP PRN (00:58)
[2019-09-13] MEDS: FUROSEMIDE 20 MG TABLET PO SCH ×2 (06:17→14:09)
[2019-09-13] MEDS: ACETAMINOPHEN 325 MG TABLET PO PRN ×2 (07:47→14:09)
[2019-09-13] MEDS: PRENATAL VITAMIN TABLET PO SCH (07:47)
[2019-09-13] MEDS: INSULIN ASPART 300 UNIT/3 ML PEN SUBQ SCH ×2 (07:48→12:26)
[2019-09-13] MEDS: FERROUS GLUCONATE 324 MG TABLET PO SCH (07:57)
--- NOTE | 2019-09-13 08:36 | Discharge Plan ---
Discharge Plan Problem Reviewed?: Yes Disposition: 06 Home Health Service Condition: Stable Prescriptions: HYDROcod/ACETAM 5/325 [[place] 5/325] 1 tab PO Q8HR PRN #10 tablet PRN Reason: Severe Pain Insulin Glargine [Lantus Solostar] 10 unit SUBQ QPM #1 pe polyethylene glycoL 3350 [Miralax] 17 gm PO DAILY PRN #30 packet PRN Reason: Bowel Protocol Diet: Diabetic Activity Restrictions: Activity as Tolerated Shower Restrictions: No Driving Restrictions: Yes Assistance Devices: Walker Weight Bearing: Full Weight Health Concerns: You were admitted in critical condition with a perforated ulcer in the intestine (duodenum), you needed surgery and were on the ventilator in the ICU. You also had an ileus and slow recovery of your intestinal motility. Home Health service visits from physical therapy, occupational therapy and a bath aide have been ordered. Please follow the new list of medications. Note that the Insulin dose is much lower. New prescriptions have been sent to your [facility] pharmacy in [place]. Please see your PCP for hospital follow-up in the next 1 to 2 weeks. Plan of Treatment: As above. Care Goals: Improvement in symptoms, increase strength to ambulate, and overall stabilization are the goals. Assessment: The daughter understands and is in agreement with the plan. She translates everything for the patient into Wol[place]. Follow-Up Care: Home Health - RN, Home Health - PT, Home Health - OT, Home Health - ST No Smoking: If you smoke, Please STOP! Call for help.
--- NOTE | 2019-09-13 08:48 | DISCHARGE SUMMARY ---
Discharge Summary Admit Date: 09/03/19 Discharge Date: 09/13/19 Discharging Provider: Dr Xi Monae Primary Care Provider: Dr Onesimo James Code Status: Attempt Resuscitation Condition at Discharge: Stable Discharge Disposition: [facility] History of Present Illness: From the admission H&P of Dr Murphy (General Surgeon) and Consultation of Dr Callie Galarza (Hospitalist): Patient is an elderly male who was brought into the emergency room by his daughter because of abdominal pain. He has a history of dementia, CAD, DM and lives with her. He has a history of a hiatal hernia with reflux disease. He takes an aspirin a day. He is not on a proton pump inhibitor. He has been diagnosed with atrial fibrillation in the last month but is only rate controlled. He developed severe abdominal pain started about an hour before coming to the emergency room. For the last few days he has not been eating well and has stopped taking his medications. In the emergency room temperature was 36.6, heart rate 110, respiratory rate 22. Blood pressure 130/85 and he had 97% oxygen saturation. He had an irregularly irregular heart rate. He had normal bowel sounds, was tender to midline abdominal pain. White cell count was elevated at 12,000. Troponin was slightly increased at 24.9. EKG was without ischemic changes. Lactic acid 2.1. Electrolytes were essentially normal, however BUN was [address] and creatinine was 1.9. CT of the abdomen showed free intraperitoneal air in the upper abdomen consistent with a perforated viscus. Dr. Murphy saw the patient in the ER and he was taken to the operating room from the OR and found to have a perforated duodenal ulcer. He dropped his pressure in the operating room. Central line has been placed, and Jaron-Synephrine was started. By the time he was transferred to ICU, he was still intubated and on the ventilator. - HOSPITAL COURSE Hospital Course: (1) Perforated duodenal ulcer A perforated ulcer was found in the duodenum. This was repaired in the OR. The presumed cause was the use of aspirin. He was started on Protonix. Postoperatively, he had an ileus for many days with no bowel sounds or BMs or flatus. Eventually he started clear liquids and the diet was advanced. He also started physical therapy but it was determined that he was mostly bedbound even before this hospitalization. The patient and daughter did not want him to go to SNF for further PT rehab. (2) Septic shock There had been cloudy fluid found in the abdomen during the operation. It was lavaged. He required Levophed for several days when in the ICU. He was put on empiric broad spectrum IV antibiotics. His blood cultures were negative to date. Eventually the Levophed was weaned to off. He completed a course of IV antibiotics while hospitalized. (3) Acute respiratory failure with hypoxia He was eventually extubated but required supplemental oxygen. Incentive mattie metry was ordered but he continued to have splinting and poor ventilation and also had pulmonary volume overload, later in his hospitalcourse, and required O2 via nasal cannula throughout this entire hospitalization. On the last day, he was tested by respiratory therapy and a resting condition, since he is nonambulatory. At rest his saturation was 86% on room air, increased to 88% on 1 L nasal cannula, increased to 94% on 2 L nasal cannula. I am ordering home oxygen at 2 L/min continuously. (4) CKD (chronic kidney disease) stage 3, GFR 30-59 ml/min With IV fluids, his creatinine improved but plateaued at 1.9-2.0. (5) Type 2 diabetes mellitus, without long-term current use of insulin Before becoming ill, 1-2 weeks before this hospitalization, when his appetite had worsened and abdominal pain began, he had been on insulin Lantus 45 units subcu every night. When his diet was slowly started here, he was on sliding scale insulin, but the Lantus dose was never as high as 45. His morning glucose was as low as 97, despite a lower dose of bedtime Lantus insulin and stopping his Regular Insulin 3 times daily with meals. At discharge, he was advised to resume his oral Glimepiride and the Lantus dose was only 10 units subcu every night. On the final day, the daughter told me that she was in touch with his Promotions Coordinator who actually, on his order, had recommended stopping the insulin entirely. (6) History of CVA (cerebrovascular accident) As per Hx. (7) History of coronary artery disease There were no signs of ischemia or acute [place] during this hospital stay. (8) Macrocytic anemia B12 and folate levels were adequate, he was actually iron depleted. Supplemental oral iron was started and he was discharged on this. (9) Dementia As per Hx. The daughter stayed to his bedside 18/09. She was his plastic straightening roll operator and reported that he had was paranoid over people stealing his belongings. He also was verbally abusive to her when he was frustrated, possibly related to his dementia. The patient and daughter did not want him to go to SNF for rehab. (10) Moderate malnutrition As per history. (11) Paroxysmal atrial fibrillation The patient was on Toprol and aspirin at home. When in the ICU he was in and out of A. fib. No anticoagulation could be used because of his recent surgery. (12) Pulmonary HTN At mid hospital stay, an Echo was ordered to establish his LV contractility to confirm if he has "chronic systolic and diastolic heart failure", since he had rales on exam and had continued need for supplemental oxygen The previous Echo was done in 2018 and showed normal EF and no systolic dysfunction. The Echo done here (post-op) showed normal EF of 55%, but diastolic dysfunction present. He also has pulmonary hypertension of 74 mmHg, increased from 46 mmHg two years ago. (13) Altered mental status New unexpected change in his clinical status were noted by his daughter, which occurred on the morning of potential discharge, and the RN confirmed it. There were no focal findings on his neuro exam, but his speech was definitely weaker, more stuttering-like, and according to the daughter it had more gibberish (although it is in [place] and therefore I cannot understand it to confirm "gibberish"). Discharge was postponed. He underwent a head CT which showed no acute findings and the old stroke was seen. He improved later that day and it was felt to be from oversedation, probably from narcotic pain meds. (14) Retained sutures There had been a recent mass removed from the right arm and sutures had been left in. The sutures were removed by our nursing staff and by the on-call general surgeon, on his final day here. - ALLERGIES Allergies/Adverse Reactions: Allergies Allergy/AdvReac Type Severity Reaction Status Date / Time No Known Drug Allergies Allergy Verified 05/30/19 07:48 - MEDICATIONS Home Medications: Ambulatory Orders Medication Instructions Recorded Confirmed Aspirin 81 mg PO DAILY 09/24/17 09/04/19 Atorvastatin [Lipitor] 80 mg PO QPM #30 tablet 09/25/17 09/04/19 Ferrous Gluconate 324 mg PO BID #60 tablet 11/09/17 09/04/19 Furosemide 20 mg PO BID #60 tablet 11/09/17 09/04/19 Spironolactone 25 mg PO DAILY #30 tablet 11/09/17 09/04/19 Docusate Sodium [Colace Clear] 50 mg DAILY 05/11/19 09/04/19 Metoprolol Succinate [Toprol Xl] 100 mg PO DAILY 05/11/19 09/04/19 Pantoprazole [Protonix] 40 mg DAILY 05/11/19 09/04/19 Donepezil HCl 10 mg PO DAILY PM 05/12/19 09/04/19 Glimepiride 1 mg PO DAILY 05/12/19 09/04/19 Meclizine HCl 25 mg PO TID PRN 09/04/19 09/04/19 Memantine HCl 5 mg PO DAILY 09/04/19 09/04/19 OXcarbazepine [Trileptal] 300 mg PO BID 09/04/19 09/04/19 Acetaminophen [Tylenol] 650 mg PO Q6HR PRN tablet 09/13/19 HYDROcod/ACETAM 5/325 [[place] 5/325] 1 tab PO Q8HR PRN #10 tablet 09/13/19 Insulin Glargine [Lantus Solostar] 10 unit SUBQ QPM #1 pe 09/13/19 Vitamin [Trinatal Rx 1] 1 tab PO DAILYWM tablet 09/13/19 polyethylene glycoL 3350 [Miralax] 17 gm PO DAILY PRN #30 packet 09/13/19 - PHYSICAL EXAM AT DISCHARGE General Appearance: positive: No acute distress, Alert, Other (Marked pallor.) Eyes Bilateral: positive: Normal inspection, EOMI ENT: positive: ENT inspection nml, No signs of dehydration Neck: positive: Nml inspection, No JVD Respiratory: positive: No respiratory distress, Breath sounds nml Cardiovascular: positive: Regular rate & rhythm, No murmur Abdomen: positive: Non-tender, Other (Mild distention, mild increased tympany, normal bowel sounds.) Skin: positive: Pallor Extremities: positive: No pedal edema, Other (His buttocks and thighs are tender when he sits on a hard surface like the toilet seat) Neurologic/Psychiatric: positive: Oriented x3, Other (Poor memory, per daughter.) - LABS Result Diagrams: 09/12/19 05:20 09/12/19 05:25 - DIAGNOSTIC IMAGING Diagnostic Imaging Results: Final report reviewed - SEPSIS Current Stage of Sepsis: Resolved Possible source of Sepsis: GI tract/intra-abdominal Sepsis Criteria: Recorded Heart Rate greater than 90 bpm, WBC count greater than 12,000 or less than 4000, SBP drop more than 40mHg, MAP less than 65 mmHg, SBP less than 90 mmHg - FOLLOW UP Follow Up: See PCP in the next 5 to 10 days for hospital follow-up, see Promotions Coordinator per routine, General Surgery follow-up in the next 1 to 2 weeks. - TIME SPENT Time Spent in Discharge (Minutes): 60
[2019-09-13] MEDS: CHLORHEXIDINE GLUCONATE 15 ML UDC PO SCH (08:55)
[2019-09-13] MEDS: DOCUSATE SODIUM 250 MG CAPSULE PO SCH (08:55)
[2019-09-13] MEDS: PANTOPRAZOLE 40 MG TABLET PO SCH (08:55)
[2019-09-13] MEDS: SPIRONOLACTONE 25 MG TABLET PO SCH (08:55)
[2019-09-13] MEDS: ASPIRIN CHEW 81 MG TABLET PO SCH (08:55)
[2019-09-13] MEDS: METOPROLOL TARTRATE 50 MG TABLET PO SCH (08:55)
[2019-09-13] MEDS: HEPARIN 5,000 UNIT/ML VIAL SUBQ SCH (08:56)
[2019-09-13] MEDS ORDERED: LIDOCAINE JELLY 2% 6 ML JEL.PF.APP TOP ONE (09:11)
--- NOTE | 2019-09-13 12:29 | PROVIDER PROGRESS NOTE ---
Subjective - General Admit Date: 09/03/19 Procedure Date: 09/03/19 Post Op Days: 10 Procedure Performed: Repair of perforated duodenal ulcer - Review of Systems Wound/Incisions: positive: Healing well, No drainage, Other (Midline wound, no hernias, no induration, no expanding erythema, no fluctuance. Healing and intact.). negative: Erythema Drain Type: None General: positive: No symptoms HEENT: positive: No symptoms Pulmonary: positive: No symptoms Cardiovascular: positive: No symptoms Gastrointestinal: positive: No symptoms. negative: Nausea, Vomiting Genitourinary: positive: No symptoms Musculoskeletal: positive: No symptoms, Other (Historic right upper extremity excision with sutures intact/retained for which surgical input was requested.) Skin: positive: No symptoms All Other Systems: positive: Reviewed and negative Objective - Patient Data Vital Signs: Vital Signs x48h Temp Pulse Resp BP Pulse Ox 09/13/19 07:34 36.4 C L 79 20 132/50 H 94 09/13/19 05:27 36.3 C L 90 18 127/63 94 Weight: Weight 09/11/19 09/12/19 09/13/19 23:59 23:59 23:59 Weight (kg) 103.5 kg 102.5 kg 103.5 kg Intake & Output: Intake and Output Totals x24h 09/11/19 09/12/19 09/13/19 23:59 23:59 23:59 Intake Total 500 1220 50 Output Total 1525 1014 600 Balance -1025 206 -550 - Lab Results Lab Results: 09/12/19 05:20 09/12/19 05:25 Other Lab Results: Lab Results x24hrs 09/13/19 09/13/19 09/12/19 Range/Units 11:18 07:28 21:02 POC Whole Bld Glucose 142 H 127 H 157 H (70 - 100) mg/dL 09/12/19 Range/Units 16:56 POC Whole Bld Glucose 123 H (70 - 100) mg/dL - Current Medications Current Medications: Current Medications Generic Name Dose Route Start Last Admin Trade Name Freq PRN Reason Stop Dose Admin Acetaminophen 650 mg 09/13/19 06:41 09/13/19 07:47 Tylenol PO 650 mg Q6HR PRN Administration Pain or Fever > 38C (100.4F) Hydrocodone Bitart/Acetaminophen 1 tab 09/09/19 11:05 09/12/19 21:12 [place] 5/325 PO 1 tab Q4HR PRN Administration PAIN Aspirin 81 mg 09/10/19 09:00 09/13/19 08:55 [place] Aspirin PO 81 mg DAILY LUIS Administration Atorvastatin Calcium 80 mg 09/09/19 21:00 09/12/19 21:12 Lipitor PO 80 mg QPM LUIS Administration Chlorhexidine Gluconate 15 ml 09/03/19 23:45 09/13/19 08:55 Peridex PO 15 ml BID LUIS Administration Docusate Sodium 250 - 500 mg 09/12/19 11:00 09/13/19 08:55 Colace 250mg Capsule PO 250 mg DAILY LUIS Administration Donepezil HCl 10 mg 09/11/19 21:00 09/12/19 21:12 Aricept PO 10 mg QPM LUIS Administration Ferrous Gluconate 324 mg 09/11/19 12:00 09/13/19 07:57 Fergon PO 324 mg DAILYWM LUIS Administration Furosemide 20 mg 09/12/19 06:00 09/13/19 06:17 Lasix PO 20 mg BIDDIURETIC LUIS Administration Heparin Sodium (Beef Lung) 30 - 50 unit 09/12/19 03:04 09/12/19 05:15 IVP 50 unit PRN PRN Administration Central Line Protocol (<24 hr) Heparin Sodium (Porcine) 5,000 unit 09/06/19 09:00 09/13/19 08:56 SUBQ 5,000 unit BID LUIS Administration Insulin Aspart 1 - 9 unit 09/09/19 12:15 09/13/19 12:26 Novolog SUBQ 1 unit 0800,1200,1700,2100 LUIS Administration Protocol Insulin Glargine 9 unit 09/12/19 21:00 09/12/19 21:17 Lantus Solostar SUBQ 9 unit QPM LUIS Administration Metoprolol Tartrate 50 mg 09/09/19 21:00 09/13/19 08:55 Lopressor PO 50 mg BID LUIS Administration Multi-Ingredient Ointment 1 applic 09/06/19 13:02 09/09/19 09:00 Zinc Oxide TOP 1 applic PRN PRN Administration Skin Care Pantoprazole Sodium 40 mg 09/09/19 21:00 09/13/19 08:55 Protonix PO 40 mg BID LUIS Administration Polyethylene Glycol 17 gm 07/15/20 11:01 09/12/19 09:23 Miralax PO 17 gm DAILY PRN Administration Bowel Protocol Multivit/Folic Acid/Iron 1 tab 09/12/19 12:00 09/13/19 07:47 Trinatal Rx 1 PO 1 tab DAILYWM LUIS Administration Sodium Chloride 20 ml 09/07/19 11:15 09/13/19 00:58 Normal Saline Flush 0.9% IVP 20 ml PRN PRN Administration After Blood Draw Sodium Chloride 10 ml 09/07/19 17:00 09/13/19 10:24 Normal Saline Flush 0.9% IVP Not Given 0100,0900,1700 LUIS Sodium Chloride 10 ml 09/07/19 13:48 09/12/19 05:16 Normal Saline Flush 0.9% IVP 10 ml PRN PRN Administration NEEDED PER PROVIDER ORDERS Spironolactone 25 mg 09/12/19 09:00 09/13/19 08:55 Aldactone PO 25 mg DAILY LUIS Administration - Physical Exam Wound/Incisions: positive: Healing well, No drainage. negative: Drainage, Erythema General Appearance: positive: No acute distress, Other (She is Romanian-speaking and assisted by family member in room.) Eyes Bilateral: positive: Normal inspection, PERRL, EOMI ENT: positive: ENT inspection nml, Pharynx nml, No signs of dehydration Neck: positive: Nml inspection Respiratory: positive: Chest non-tender, No respiratory distress Cardiovascular: positive: Regular rate & rhythm Abdomen: positive: Non-tender, No distention, Other (Midline wound clean dry and intact. No fluctuance, no erythema, no dehiscence. No rebound, no guarding. Nondistended. Positive bowel sounds.). negative: Guarding, Rebound Skin: positive: Color nml Extremities: positive: Non-tender, Other (Right extremity, upper, arm with sutures removed and retained nylon removed, anticipated scar tissue, no induration, no warmth, no expanding erythema, no blanching, no discharge or drainage, wound appears to be healing well. No indication for any intervention at this time.) Neurologic/Psychiatric: positive: Oriented x3 Impression/Plan - Problem List Problem List: 89-year-old male status post exploratory laparotomy, secondary to perforated du odenal ulcer. He is POST-OPERATIVE DAY #10 status post exploratory laparotomy with repair of perforated duodenal ulcer; he is also undergone recent excision of right upper extremity mass at outside facility. No peritoneal signs at this time. Bowel function positive. Voiding positive. Pain management appropriate. Appears to be appropriate for discharge from a surgical standpoint at this time. Plan as follows: 1. Advance diet, d/c IV fluid resuscitation. 2. Aggressive bowel regimen, miralx/colace. 3. Oral, opiate-sparring analgesia. 4. Trend labs/Electrolytes normal at this time we will continue to monitor them with daily lab draws. 5. PPI at discharge with follow-up with general surgery clinic.
[2019-09-13] MEDS ORDERED: BACITRACIN ZINC OINT 1 PACKET TOP SCH (13:00)
--- NOTE | 2019-09-13 16:57 | XRAY Report ---
PROCEDURE: Chest 1 View X-Ray INDICATIONS: F/U CHF, eval for pneumonia TECHNIQUE: One view of the chest was acquired. COMPARISON: 09/03/2019, 09/07/2019 FINDINGS: Surgical changes and devices: The previously seen gastric tube, endotracheal tube, and left-sided rehan tral line have been removed. Lungs and pleura: There is a small right-sided pleural effusion. Minimal interstitial prominence is s een. No large pneumothorax is seen on this semiupright study. Mediastinum: Mediastinal contours appear normal. Heart size is at the upper limits of normal. Bones and chest wall: No suspicious bony lesions. Overlying soft tissues appear unremarkable. IMPRESSION: Improved examination, with the cardiac contours at the upper limits of normal, a small right-sided pl eural effusion, and minimal interstitial prominence. These imaging findings are most compatible with resolving congestive heart failure. No focal infiltrates are seen. Removal of the previously seen tubes and lines. Reviewed by: Victor Hugo Calderón MD on 09/13/2019 3:55 PM AKDT Approved by: Victor Hugo Calderón MD on 09/13/2019 3:55 PM AKDT Station ID: [id number]
[2019-09-13 18:26] VITALS: BP 124/58
== END 2019-09-13 18:00 | disposition home health service (06) | DRG 326 ==
LOC: EDUNIT# → ED 16:35 → SDS 20:20 → ICU 23:10 → MS2 09-10 20:01 → ICU 09-10 20:07 → MS2 09-10 20:38
PROVIDERS: ADMIT Surgery; ATTEND Internal Medicine
PROC: 05H633Z Insertion of Infusion Device into Left Subclavian Vein, Percutaneous Approach (ICD-10-PCS; 2019-09-03)
PROC: 0D9670Z Drainage of Stomach with Drainage Device, Via Natural or Artificial Opening (ICD-10-PCS; 2019-09-03)
PROC: 0T9B70Z Drainage of Bladder with Drainage Device, Via Natural or Artificial Opening (ICD-10-PCS; 2019-09-03)
PROC: 3E0436Z Introduction of Nutritional Substance into Central Vein, Percutaneous Approach (ICD-10-PCS; 2019-09-03)
PROC: 5A1945Z Respiratory Ventilation, 24-96 Consecutive Hours (ICD-10-PCS; 2019-09-03)
PROC: 0BH17EZ Insertion of Endotracheal Airway into Trachea, Via Natural or Artificial Opening (ICD-10-PCS; 2019-09-03)
PROC: 0DQ90ZZ Repair Duodenum, Open Approach (ICD-10-PCS; principal; 2019-09-03 21:00)
PROC: 0WQF0ZZ Repair Abdominal Wall, Open Approach (ICD-10-PCS; 2019-09-03 21:00)
DX: K25.1 Acute gastric ulcer with perforation (principal); K44.9 Diaphragmatic hernia without obstruction or gangrene; F03.90 Unspecified dementia, unspecified severity, without behavioral disturbance, psychotic disturbance, mood disturbance, and anxiety; I48.91 Unspecified atrial fibrillation; E11.9 Type 2 diabetes mellitus without complications; T50.916A Underdosing of multiple unspecified drugs, medicaments and biological substances, initial encounter; K26.5 Chronic or unspecified duodenal ulcer with perforation; Z91.128 Patient's intentional underdosing of medication regimen for other reason; A41.9 Sepsis, unspecified organism; R65.21 Severe sepsis with septic shock; J96.01 Acute respiratory failure with hypoxia; I50.43 Acute on chronic combined systolic (congestive) and diastolic (congestive) heart failure; E44.0 Moderate protein-calorie malnutrition; E87.2 Acidosis; F01.51 Vascular dementia, unspecified severity, with behavioral disturbance; E11.22 Type 2 diabetes mellitus with diabetic chronic kidney disease; E11.65 Type 2 diabetes mellitus with hyperglycemia; E11.39 Type 2 diabetes mellitus with other diabetic ophthalmic complication; E78.00 Pure hypercholesterolemia, unspecified; E86.1 Hypovolemia; N18.3 Chronic kidney disease, stage 3 (moderate); D53.9 Nutritional anemia, unspecified; I48.0 Paroxysmal atrial fibrillation; I27.20 Pulmonary hypertension, unspecified; I25.10 Atherosclerotic heart disease of native coronary artery without angina pectoris; I69.319 Unspecified symptoms and signs involving cognitive functions following cerebral infarction; R47.89 Other speech disturbances; H35.30 Unspecified macular degeneration; K21.9 Gastro-esophageal reflux disease without esophagitis; K43.2 Incisional hernia without obstruction or gangrene; L89.151 Pressure ulcer of sacral region, stage 1; I25.2 Old myocardial infarction; Z66 Do not resuscitate; Z68.26 Body mass index [BMI] 26.0-26.9, adult; Z78.1 Physical restraint status; Z79.4 Long term (current) use of insulin; Z79.82 Long term (current) use of aspirin; Z79.899 Other long term (current) drug therapy; Z87.891 Personal history of nicotine dependence; Z95.5 Presence of coronary angioplasty implant and graft
CPT/HCPCS: 36415; 36600; 70450; 71045; 74176; 80048; 80053; 81001; 82040; 82330; 82607; 82746; 82803; 83036; 83540; 83605; 83690; 83735; 84100; 84134; 84443; 84466; 84478; 84484; 85025; 85610; 87150; 92526; 92610; 93005; 93306; 94002; 94003; 94761; 96361; 96365; 96366; 96372; 96375; 97162; 97167; 97530; 99223; 99285; A9270; J0131; J1170; J1815; J3010; J3490; J7120; 81003; 87086; 94770

== ENCOUNTER 2019-09-13 18:18 | Outpatient (CLI) | payer MEDICARE, MEDICAID | END 2019-09-13 23:59 | disposition home or self-care (01) | LOC: EMS 18:18 | PROVIDERS: ATTEND Surgery | DX: R53.1 Weakness (principal); Z74.01 Bed confinement status | CPT/HCPCS: A0425; A0428 ==

== ENCOUNTER 2019-09-24 13:00 | Outpatient (CLI) | payer MEDICARE, MEDICAID ==
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
== END 2019-09-24 13:01 | disposition home or self-care (01) ==
LOC: PC 13:00
PROVIDERS: ATTEND Nurse Practitioner Family
DX: Z51.5 Encounter for palliative care (principal); L89.320 Pressure ulcer of left buttock, unstageable; L89.310 Pressure ulcer of right buttock, unstageable; L89.150 Pressure ulcer of sacral region, unstageable; F03.90 Unspecified dementia, unspecified severity, without behavioral disturbance, psychotic disturbance, mood disturbance, and anxiety; I69.311 Memory deficit following cerebral infarction; I69.398 Other sequelae of cerebral infarction; I48.0 Paroxysmal atrial fibrillation; E46 Unspecified protein-calorie malnutrition; R63.0 Anorexia; R63.4 Abnormal weight loss; E11.40 Type 2 diabetes mellitus with diabetic neuropathy, unspecified; E11.22 Type 2 diabetes mellitus with diabetic chronic kidney disease; N18.3 Chronic kidney disease, stage 3 (moderate); K59.00 Constipation, unspecified; I25.10 Atherosclerotic heart disease of native coronary artery without angina pectoris; D64.9 Anemia, unspecified; I27.20 Pulmonary hypertension, unspecified; Z79.899 Other long term (current) drug therapy; Z79.82 Long term (current) use of aspirin; Z87.891 Personal history of nicotine dependence; Z87.19 Personal history of other diseases of the digestive system
CPT/HCPCS: 99350